=== PATIENT | male | born 1945 | race Caucasian/White ===

== ENCOUNTER 2018-09-29 10:53 | Inpatient (IN) | payer MEDICARE, OTHER ==
[~2018-09-29] VITALS: Ht 175.3 cm; Wt 58.0 kg
[2018-09-29] MEDS ORDERED: SODIUM CHLORIDE 0.9% 1L BAG IV* STA (10:59)
[2018-09-29] MEDS ORDERED: ALBUTEROL 0.5% (NEB) 2.5 MG/0.5 ML AMP INH STA (10:59)
[2018-09-29] MEDS ORDERED: ACETAMINOPHEN 650 MG SUPP PR STA (10:59)
[2018-09-29] MEDS ORDERED: IPRATROPIUM (NEB) 0.5 MG/2.5 ML AMP INH STA (10:59)
[2018-09-29] MEDS ORDERED: CEFEPIME 2GM/50 ML (PMX) 50 ML IVPB STA (10:59)
[2018-09-29] MEDS ORDERED: LIDOCAINE 1% (MPF) 5 ML VIAL SC ONE (11:00)
[2018-09-29] MEDS ORDERED: VANCOMYCIN 1 GM (PMX) 250 ML IVPB ONE (11:00)
[2018-09-29] MEDS ORDERED: ALBU2.5V3 NEB ×2 (13:17)
[2018-09-29] MEDS ORDERED: MAGN400O19 PO (13:18)
[2018-09-29] MEDS ORDERED: AMLO-147 PO (13:18)
[2018-09-29] MEDS ORDERED: BISA10SU55 RC (13:19)
[2018-09-29] MEDS ORDERED: PROT946L PO (13:20)
[2018-09-29] MEDS ORDERED: TRAZ-111 PO (13:20)
[2018-09-29] MEDS ORDERED: NOVO3I SC (13:28)
[2018-09-29] MEDS ORDERED: MULT-876 PO (13:29)
[2018-09-29] MEDS ORDERED: METO-429 PO (13:30)
[2018-09-29] MEDS ORDERED: HYDR-4011 PO (13:31)
[2018-09-29] MEDS ORDERED: HYDR-3671 PO (13:33)
[2018-09-29] MEDS ORDERED: HAL1 PO (13:34)
[2018-09-29] MEDS ORDERED: VALP250S3 PO (13:36)
[2018-09-29] MEDS ORDERED: NA P133E39 RC (13:37)
[2018-09-29] MEDS ORDERED: ACETAMINOPHEN 325 MG TAB PO PRN (14:00)
[2018-09-29] MEDS ORDERED: ONDANSETRON 4 MG INJ IV PRN (14:00)
--- NOTE | 2018-09-29 14:05 | ERD ---
ER Documentation Chief Complaint Chief Complaint BIB RA FOR EVAL OF SOB LOW O2 SAT HPI 73-year-old with chronic encephalopathy presents from group home facility for desaturations and shortness of breath. Patient is a full code with documentation upon arrival. Remainder of HPI is extremely limited. Unknown duration or severity. ROS Chronic encephalopathy Medications Home Meds Reported Medications Sodium Phosphate,Wells-Dibasic (Enema Ready To Use) 133 Ml Enema, 133 ML RC EVERY 72 HOURS PRN for CONSTIPATION, ENEMA 09/29/18 Valproic Acid* (Depakene*) 250 Mg/5 Ml Udc Syrup, 125 MG PO Q6, ML 09/29/18 Haloperidol* (Haldol*) 1 Mg Tab, 1 MG PO Q6, TAB 09/29/18 Hydralazine Hcl* (Hydralazine Hcl*) 25 Mg Tab, 25 MG PO BID PRN for ELEVATED BLOOD PRESSURE, #60 TAB HOLD IF SBP <110 OR HR<60 09/29/18 Hydrocodone/Acetaminophen (Lisman 5-325 Tablet) 1 Each Tablet, 1 EACH PO Q4 PRN for PAIN LEVEL 6-10, TAB 09/29/18 Metoprolol Tartrate* (Lopressor*) 50 Mg Tab, 50 MG PO BID, #60 TAB HOLD IF SBP <110 OR HR <60 09/29/18 Multivit-Min/Iron Fum/Folic AC (Glxvw-Gmsrhxc-Fnzdcmkx Tablet) 1 Each Tablet, 1 EACH PO DAILY, TAB 09/29/18 Insulin Aspart* (Novolog Insulin Pen*) 100 Unit/Ml Soln, 0 SC .SLIDING SCALE AC, EA 150-199 = 1 UNIT 200-249 = 2 UNITS 250-299 = 3 UNITS 300-349 = 4 UNITS 350-400 = 5 UNITS OVER 400 CALL MD [facility] AND AT BEDTIME 09/29/18 Protein Supplement (Promod) 946 Ml Liquid, 30 ML PO BID 09/29/18 Trazodone Hcl* (Trazodone Hcl*) 50 Mg Tablet, 50 MG PO QHS PRN for SLEEP, #30 TAB 09/29/18 Bisacodyl (Dulcolax) 10 Mg Supp.rect, 10 MG RC DAILY PRN for CONSTIPATION, SUPP.RECT 09/29/18 Magnesium Hydroxide* (Milk Of Magnesia*) 400 Mg/5 Ml Oral.susp, 30 ML PO DAILY PRN for CONSTIPATION, ML 09/29/18 Amlodipine Besylate* (Amlodipine Besylate*) 10 Mg Tablet, 10 MG PO DAILY, #30 TAB BP<110 OR HR <60 09/29/18 Albuterol Sulfate* (Albuterol Sulfate* Neb) 0.083%-3 Ml Neb, 2.5 MG NEB Q4H PRN for SHORTNESS OF BREATH, #30 VIAL 09/29/18 Albuterol Sulfate* (Albuterol Sulfate* Neb) 0.083%-3 Ml Neb, 2.5 MG NEB Q8 PRN for WHEEZING AND SOB, #30 VIAL 09/29/18 Allergies Allergies: Coded Allergies: No Known Allergy (Unverified , 09/29/18) PMhx/Soc Hx Psychiatric Problems: Yes Hx Alcohol Use: No Hx Substance Use: No Smoking Status: Never smoker FmHx Family History: other Physical Exam Vitals Vital Signs Date Temp Pulse Resp B/P (MAP) Pulse Ox O2 O2 Flow FiO2 Time Delivery Rate 09/29/18 100.9 114 20 126/77 99 Mask 13:13 (93) 09/29/18 130 32 132/80 99 Mask 11:51 (97) 09/29/18 Non 11:41 Rebreathe r 09/29/18 102.0 11:21 09/29/18 15.0 11:14 09/29/18 127 21 100 15.0 11:14 09/29/18 102.5 131 26 145/80 90 11:04 (101) Physical Exam General: Diaphoretic with slight increased work of breathing Head: Normocephalic, atraumatic. Eyes: Pupils equally reactive, EOM intact ENT: Moist mucous membranes Neck: Supple, no lymphadenopathy Respiratory: Wheezing slight increased work of breathing Cardiovascular: RRR, no murmurs, rubs, or gallops Abdominal: Soft, non-tender, non-distended, no peritoneal signs : Deferred MSK: No edema, no unilateral swelling Neurologic: Encephalopathic, limited exam Skin: No rash Psych: Normal mood Result Diagram: 09/29/18 1100 09/29/18 1100 Results 24 hrs Laboratory Tests Test 09/29/18 10:59 09/29/18 11:00 09/29/18 11:07 Blood Gas Specimen Source Blood arterial Arterial Blood Date Drawn 09/29/2018 11:35:11 AM Arterial Blood pH 7.433 (Temp corrected) Arterial Blood pCO2 33.7 mmhg (Temp correct) Arterial Blood pO2 72.4 mmHG (Temp corrected) Arterial Blood HCO3 22.0 mmol/L Arterial Blood Base Excess -1.5 mmol/L Arterial Blood 93.9 mmHG Oxygen Saturation Gian Test ACCEPTAB Arterial Blood Gas Left Radial Puncture Site Arterial 0.3 % Blood Carboxyhemoglobin Arterial Blood Methemoglobin 0.2 % Blood Gas A-a O2 606.9 mmHg Differential Oxyhemoglobin Percent 93.4 % Blood Gas Temperature 37.0 C Blood Gas Modality MASK - NRB FiO2 100.0 % Blood Gas Notified Whom MDA Blood Gas Notified Time 09/29/2018 11:37:42 AM White Blood Count 5.1 10^3/ul Red Blood Count 5.11 10^6/ul Hemoglobin 13.7 g/dl Hematocrit 42.8 % Mean Corpuscular Volume 83.8 fl Mean Corpuscular Hemoglobin 26.8 pg Mean Corpuscular 32.0 g/dl Hemoglobin Concent Red Cell Distribution Width 14.6 % Platelet Count 321 10^3/UL Mean Platelet Volume 10.5 fl Immature Granulocytes % 0.200 % Neutrophils % 91.5 % Segmented Neutrophils 70 % % (Manual) Band Neutrophils % (Manual) 20 % Lymphocytes % 5.7 % Lymphocytes % (Manual) 7 % Monocytes % 2.4 % Monocytes % (Manual) 3 % Eosinophils % 0.0 % Basophils % 0.2 % Nucleated Red Blood Cells % 0.0 /100WBC Immature Granulocytes # 0.010 10^3/ul Neutrophils # 4.6 10^3/ul Neutrophils # (Manual) 3.6 10^3/ul Band Neutrophils # 1.0 10^3/ul Lymphocytes (Manual) 0.3 10^3/ul Lymphocytes # 0.3 10^3/ul Monocytes # 0.1 10^3/ul Monocytes # (Manual) 0.1 10^3/ul Eosinophils # 0.0 10^3/ul Basophils # 0.0 10^3/ul Nucleated Red Blood Cells # 0.0 10^3/ul Platelet Estimate NORMAL Polychromasia 1+ Poikilocytosis 1+ Anisocytosis 1+ Prothrombin Time 13.8 Sec Prothrombin Time Ratio 1.1 INR International 1.05 Normalized Ratio Activated 28.3 Sec Partial Thromboplast Time Sodium Level 152 mmol/L Potassium Level 4.1 mmol/L Chloride Level 112 mmol/L Carbon Dioxide Level 23 mmol/L Anion Gap 17 Blood Urea Nitrogen 104 mg/dl Creatinine 3.09 mg/dl Est Glomerular Filtrat mL/min Rate mL/min Glucose Level 159 mg/dl Calcium Level 9.3 mg/dl Total Bilirubin 0.4 mg/dl Direct Bilirubin 0.00 mg/dl Indirect Bilirubin 0.4 mg/dl Aspartate Amino 16 IU/L Transf (AST/SGOT) Alanine 15 IU/L Aminotransferase (ALT/SGPT) Alkaline Phosphatase 60 IU/L Troponin I 0.060 ng/ml Total Protein 7.8 g/dl Albumin 4.1 g/dl Globulin 3.70 g/dl Albumin/Globulin Ratio 1.10 POC Venous Lactate 1.5 mmol/L Current Medications Medications Dose Sig/Manuel Start Time Status Last (Trade) Ordered Route PRN Stop Time Admin Dose Reason Admin Sodium 2,250 ml BOLUS OVER 2 09/29/18 DC 09/29/18 Chloride HOURS STAT 10:59 09/29/18 11:20 (NS) IV* 11:02 650 mg ONCE STAT 09/29/18 DC 09/29/18 Acetaminophen [place] 10:59 09/29/18 11:21 (Tylenol 11:02 Supp) Cefepime HCl 50 ml @ ONCE STAT 09/29/18 DC 09/29/18 100 mls/hr IVPB 10:59 09/29/18 11:20 11:28 Vancomycin 250 ml @ ONCE ONCE 09/29/18 DC 09/29/18 HCl 125 mls/hr IVPB 11:00 09/29/18 11:52 12:59 Albuterol 5 mg ONCE STAT 09/29/18 DC 09/29/18 (Proventil INH 10:59 09/29/18 11:09 0.5% (Neb)) 11:02 Ipratropium 1 mg ONCE STAT 09/29/18 DC 09/29/18 [place] INH 10:59 09/29/18 11:09 (Atrovent 11:02 0.02% (Neb)) Lidocaine 5 ml ONCE ONCE 09/29/18 DC (Xylocaine SC 11:00 09/29/18 1% (Mpf)) 11:02 Ondansetron 4 mg ER BRIDGE 09/29/18 HCl (Zofran PRN IV 14:00 09/30/18 Inj) NAUSEA/VOMITI 13:59 NG 650 mg ER BRIDGE 09/29/18 Acetaminophen PRN PO 14:00 09/30/18 (Tylenol .MILD PAIN 13:59 Tab) 1-3 OR TEMP Procedures/MDM EKG, MONITORS, & DIAGNOSTIC IMAGING: EKG: I reviewed and interpreted a 12-lead EKG. Rhythm: Normal sinus rhythm ST Changes: No contiguous ST segment elevations T waves: No contiguous T wave inversions Impression: No evidence of acute cardiac ischemia CXR IMPRESSION: 1. Patchy bilateral lower lobe air space disease, cannot exclude pneumonia in the appropriate clinical setting. RPTAT: AAPP LAB INTERPRETATION: I reviewed the laboratory testing and it shows normal lactic acid, renal insufficiency MEDICAL DECISION MAKING: Patient presents with cough congestion, fever and respiratory symptoms concerning for severe sepsis and likely pneumonia. Code sepsis initiated ER COURSE: * The patient received breathing treatments, 30 cc/kg bolus of saline, broad- spectrum antibiotics. The patient is improving with improved temperature and heart rate and respiratory drive. No indication for positive pressure ventilation or intubation. PICC line has been ordered and will be placed currently. CONSULTATION: None DISPOSITION PLAN: Accepting care team and consultations: I discussed the current laboratory data, diagnostic imaging and emergency care provided. Admitting team: Dr. Kraft Admitting team indication: Insurance directed Sepsis Documentation: Patient's infectious symptoms have not stabilized and the patient is at risk of rapid decompensation. The patient will be admitted for careful hydration, antibiotic therapy, and infectious source control. SEVERE SEPSIS CRITERIA: Infectious source: Healthcare associated pneumonia End organ damage indicated by: Acute Resp Failure (sat < 92% w/o oxygen) Project Management Intern > 2.0 SEPSIS MANAGEMENT Time of recognition of sepsis: Upon MD assessment. Time of recognition of severe sepsis: Upon MD assessment. Time of recognition of septic shock: No septic shock at this time. 3 HOUR BUNDLE Blood cultures x 2 before broad-spectrum antibiotics: Yes 30 ml/kg NS bolus completed Initial lactate less than 2 Repeat lactate pending repeat SEPTIC SHOCK ASSESSMENT: No lactic acid > 4.0 No persistent hypotension (SBP < 90 or 40 mmHg drop, MAP < 65) despite 30 mL/kg IV fluid bolus VOLUME REASSESSMENT FOR SEPTIC SHOCK: The patient does not meet criteria for septic shock in the emergency department at this time PERSISTENT HYPOTENSION TREATMENT: Comfort care no Central line PICC line Vasopressor started not required I considered further perfusion assessment with CVP measurement, SCVO2, bedside ultrasound volume assessment, passive leg raise, trial of further fluid bolus. And proceeded with 30 ml/kg fluid bolus of NSS, broad spectrum antibiotics, and admission. CRITICAL CARE Critical care time 35 minutes Emergent fluid management while maintaining close respiratory support. Provision of immediate and broad-spectrum antibiotic therapy. Simultaneous assessment for possible sources in order to direct targeted therapy. Consideration for invasive and chemical support to prevent cardiopulmonary collapse. Critical care time is independent of procedures performed. Departure Diagnosis: Primary Impression: Healthcare-associated pneumonia Additional Impressions: Severe sepsis Acute renal insufficiency Condition: Stable EVELYN FABIAN MD Sep 29, 2018 14:05
[2018-09-29] MEDS ORDERED: MAGNESIUM HYDROXIDE 30ML CUP PO PRN (15:00)
[2018-09-29] MEDS ORDERED: BISACODYL 10 MG SUPP PR PRN (15:00)
[2018-09-29] MEDS ORDERED: ALBUTEROL 0.083% (NEB) 2.5 MG/3 ML AMP NEB PRN (16:00)
[2018-09-29] MEDS ORDERED: VANCOMYCIN IV PER PHARMACY XX SCH (16:00)
[2018-09-29] MEDS ORDERED: GLUCOSE GEL 15 GRAM TUBE PO PRN ×2 (16:30)
[2018-09-29] MEDS ORDERED: VANCOMYCIN 500 MG (PMX) 100 ML IVPB ONE (16:30)
[2018-09-29] MEDS ORDERED: DEXTROSE 50% 50 ML SYRINGE IV PRN ×2 (16:30)
[2018-09-29] MEDS ORDERED: GLUCOSE GEL 15 GRAM TUBE BUCCAL PRN (16:30)
[2018-09-29] MEDS ORDERED: GLUCAGON 1 MG INJ IM PRN (16:30)
[2018-09-29] MEDS: SOD CHLORIDE 0.45% 1,000 ML IV SCH (16:52)
[2018-09-29] MEDS ORDERED: INSULIN ASPART [NOVOLOG] 3 ML PEN SC SCH (18:00)
--- NOTE | 2018-09-29 19:27 | CONS ---
DATE OF ADMISSION: 09/29/2018 DATE OF CONSULTATION: 09/29/2018 TYPE OF CONSULTATION: Infectious Disease. REASON FOR CONSULTATION: Antibiotic management. HISTORY OF PRESENT ILLNESS: Elan Michaud is a 73-year-old male brought in by ambulance for evaluat ion of shortness of breath and low oxygen saturation. The patient has a history of chronic encephalo angela, [facility] with des[facility] and shortness of breath. His past problems include: 1. Chronic encephalopathy. 2. Adult-onset diabetes mellitus. 3. Hypertension. 4. Chronic obstructive pulmonary disease. Acutely, the patient comes in. PAST MEDICAL HISTORY: Operations as outlined. FAMILY HISTORY: Noncontributory. SOCIAL HISTORY: He does not smoke, drink or abuse drugs. He has a psychiatric problem. MEDICATIONS: Per chart. ALLERGIES: NONE TO PENICILLIN, SULFA OR FOODS. REVIEW OF SYSTEMS: Noncontributory. PHYSICAL EXAMINATION: GENERAL: The patient has a temperature of 102.5. His vital signs otherwise are stable. SKIN: Diaphoretic without rash. HEENT: Within normal limits. NECK: Supple. LYMPH NODES: None palpable. CHEST: Decreased breath sounds at the bases. HEART: Without murmur or gallop. ABDOMEN: Soft, nontender, without organosplenomegaly or masses. EXTREMITIES: Without cyanosis, clubbing, or edema. RECTAL AND GENITAL: Exam is deferred. NEUROLOGIC: The patient is encephalopathic. ANCILLARY LABORATORY DATA: On admission, white count of 5.1, H and H of 13.7 and 42.8, platelet coun t 321,000. BUN and creatinine 104/3.09. The patient has 70% neutrophils and 20% bands consistent wi th left shift and infection. IMPRESSION AND PLAN: The patient was started on vancomycin and cefepime. Chest x-ray shows patchy b ilateral lower lobe airspace disease, cannot exclude pneumonia in the appropriate setting. The patient was admitted to Dr. Kraft. Blood cultures were done. Urine culture is pending. I latia l dictate my findings to Dr. Kraft. Dictated By: LEA GUTIERREZ MD, JD/RACHELL Conf#: [id number] DID#: [id number]
[2018-09-29 20:01] VITALS: PULSE 114
--- NOTE | 2018-09-29 20:05 | HP ---
DATE OF ADMISSION: 09/29/2018 CHIEF COMPLAINT: Sepsis and respiratory failure. HISTORY OF PRESENT ILLNESS: This is a 73-year-old male with a past medical history of diabetes, hist ory of behavioral disorder, history of bipolar disorder, history of hypertension, history of constipa tion who presents to [facility] from a skilled nurse facility due to shortness of b reath. The patient upon arrival to the emergency room was unable to provide any history. History is obtained by reviewing medical records, speaking to hospital staff. The patient apparently was desat urating at a skilled nurse facility. Upon arrival was on BiPAP. The patient in the emergency room h ad a laboratory data drawn and chest x-ray which showed evidence of bilateral lower airspace disease, possible pneumonia. The patient also was noted to have white count of 5.1. In the emergency room, the patient was given antibiotics, IV hydration. In terms of patient's renal history, the patient's baseline renal function is currently unknown. On admission, the patient had elevated BUN of 104 and creatinine 3.09. There were no reports of any hem optysis, hematemesis or hematochezia. PAST MEDICAL HISTORY: As stated above, history of hypertension, history of diabetes, history of beha vioral mood disorder, history of insomnia, history of constipation. ALLERGIES: NO KNOWN DRUG ALLERGIES. FAMILY HISTORY: Noncontributory. SOCIAL HISTORY: Lives at a skilled nurse facility. MEDICATIONS: The patient's medications has been reviewed and reconciled. REVIEW OF SYSTEMS: Unable to do adequate review of systems as the patient is altered. Pertinent pos itives have been obtained by reviewing medical records, speaking to hospital staff, stated in the HPI , otherwise negative. PHYSICAL EXAMINATION: VITAL SIGNS: Blood pressure is 162/76, respirations 33, pulse 107, temperature 99.1. HEENT: Head is normocephalic. NECK: Supple. HEART: Regular rate. LUNGS: Show diminished breath sounds at the base. ABDOMEN: Soft, nontender to palpation without rebound or guarding. EXTREMITIES: Negative for clubbing, cyanosis, no edema. DERMATOLOGIC: No rashes. MUSCULOSKELETAL: No joint effusions. NEUROLOGIC: No focal deficits, although exam is somewhat limited. LABORATORY DATA: Has been reviewed. Urinalysis has been reviewed. IMAGING STUDIES: Have been reviewed. ASSESSMENT AND PLAN: This is a 73-year-old male who presents with: 1. Acute hypoxemic respiratory failure. Etiology is concerning for possible pneumonia, healthcare-a ssociated versus aspiration. The patient's chest x-ray shows evidence of lower space disease. Plan at this point is to continue the patient on a nonrebreather. Continue BiPAP. We will continue antib iotic therapy, Continue nebulizers. We will place a pulmonary consult for evaluation and monitor rocio sely. 2. Sepsis, believed to be secondary to healthcare-associated pneumonia, aspiration pneumonia. Ember nue current antibiotic regimen. Continue to trend lactic acid levels. Continue IV fluids. We will place an ID consult for antibiotic management. 3. Nonoliguric acute kidney injury with unknown baseline creatinine. Etiology is unclear. Differen tial is broad including septic acute kidney injury, hemodynamics, possible tubular injury. The patie nt's urinalysis was reviewed. Plan at this point is to check a renal ultrasound to rule out obstruct ion. We will place a Gorman catheter. Continue IV fluids, IV antibiotics, and monitor renal function closely. 4. Hypernatremia. The patient has a free water deficit of approximately 3 liters, will continue. E tiology is likely due to insensible losses and decreased oral intake. Plan is to continue hypertonic fluids, monitor sodium levels closely. 5. Acute encephalopathy, etiology is likely toxic metabolic. Continue to monitor. Consider CT scan of the brain if no significant clinical improvement. 6. History of behavioral disorder, bipolar disorder. We will hold the patient's antipsychotic medic ations at this time as he is currently altered. We will monitor closely. Consider psychiatric evalu ation. 7. Diabetes. The patient will be placed on Accu-Cheks, insulin sliding scale. Monitor sodium level s closely. 8. Hypertension. Continue current blood pressure regimen. 9. Gastrointestinal and deep venous thrombosis prophylaxis. Dictated By: GLADIS ALICIA DO NR/NTS Conf#: [id number] DID#: [id number] CC: CONCEPCION HANKS MD;*End*
[2018-09-29 22:00] VITALS: BP 140/71; PULSE 100; RESP 20; Ht 175.3 cm; Wt 58.0 kg
[2018-09-30] VITALS (9 sets, daily range): BP systolic 109–138; BP diastolic 67–77; PULSE 72–120; RESP 17–20
[2018-09-30] MEDS: SOD CHLORIDE 0.45% 1,000 ML IV SCH ×4 (01:00→23:35)
[2018-09-30] MEDS ORDERED: PENDING SANTYL ORDER FOR WOUND CARE XX PRN (05:00)
--- NOTE | 2018-09-30 08:35 | CONS ---
Assessment/Plan Assessment/Plan Hospital Course (Demo Recall) 1. Acute hypoxemic respiratory failure 2. Pneumonia 3. History of diabetes 4. Acute renal failure 5. Encephalopathy and behavioral disorder 6. History of bipolar disorder Recommendations: Antibiotic management as per internal medicine and infectious disease consultants. Continue with oxygen supplement respiratory care Telemetry monitoring for the time being Echocardiogram has been ordered to evaluate for LV function Baseline EKG will be obtained as well Diabetic management/insulin as per internal medicine Thank you for this referral. We will continue to follow along with you ORLANDO LAW MD [facility] Consultation Date/Type/Reason Admit Date/Time Sep 29, 2018 at 13:57 Date of Consultation: Sep 30, 2018 Type of Consult Cardiology Reason for Consultation resp failure Requesting Provider: GLADIS ALICIA DO Date/Time of Note DATE: 09/30/18 TIME: 08:30 Hx of Present Illness Interventional cardiology consultation note Chief complaint: Respiratory failure/hypoxemia Reason for consult: Respiratory failure History of present illness: Thank you for this referral. History was obtained from discussion with the staff and physician review of the chart review of the old chart. Patient was able not able to provide any history to me This is a 73-year-old male with a history of diabetes, history of behavioral disorder, history of bipolar disorder, history of hypertension, history of constipation who presents to [facility] from a skilled nurse facility due to increasing shortness of breath/congestion hypoxemia. The patient has not been able to to provide any history. History is obtained by reviewing medical records, speaking to hospital staff. The patient apparently was desaturating at a skilled nurse facility. Upon arrival was on BiPAP. He was also noted to be in acute renal failure with creatinine above 3. He has been placed on IV fluid as well as antibiotic. Currently on high flow oxygen. Patient does not answer my questions PAST MEDICAL HISTORY: As stated above, history of hypertension, history of diabetes, history of behavioral mood disorder, history of insomnia, history of constipation. ALLERGIES: NO KNOWN DRUG ALLERGIES. FAMILY HISTORY: No reported history of early coronary artery disease SOCIAL HISTORY: Lives at a skilled nurse facility. No active smoking as far as I can obtain Medications were reviewed as per medical reconciliation sheet Review of system: Patient denies all others except for above-mentioned Past Medical History Home Meds Reported Medications Sodium Phosphate,Nicholas-Dibasic (Enema Ready To Use) 133 Ml Enema, 133 ML RC EVERY 72 HOURS PRN for CONSTIPATION, ENEMA 09/29/18 Valproic Acid* (Depakene*) 250 Mg/5 Ml Udc Syrup, 125 MG PO Q6, ML 09/29/18 Haloperidol* (Haldol*) 1 Mg Tab, 1 MG PO Q6, TAB 09/29/18 Hydralazine Hcl* (Hydralazine Hcl*) 25 Mg Tab, 25 MG PO BID PRN for ELEVATED BLOOD PRESSURE, #60 TAB HOLD IF SBP <110 OR HR<60 09/29/18 Hydrocodone/Acetaminophen (Estero 5-325 Tablet) 1 Each Tablet, 1 EACH PO Q4 PRN for PAIN LEVEL 6-10, TAB 09/29/18 Metoprolol Tartrate* (Lopressor*) 50 Mg Tab, 50 MG PO BID, #60 TAB HOLD IF SBP <110 OR HR <60 09/29/18 Multivit-Min/Iron Fum/Folic AC (Xrity-Psnkzni-Lnmnkegp Tablet) 1 Each Tablet, 1 EACH PO DAILY, TAB 09/29/18 Insulin Aspart* (Novolog Insulin Pen*) 100 Unit/Ml Soln, 0 SC .SLIDING SCALE AC, EA 150-199 = 1 UNIT 200-249 = 2 UNITS 250-299 = 3 UNITS 300-349 = 4 UNITS 350-400 = 5 UNITS OVER 400 CALL MD VANCE MEALS AND AT BEDTIME 09/29/18 Protein Supplement (Promod) 946 Ml Liquid, 30 ML PO BID 09/29/18 Trazodone Hcl* (Trazodone Hcl*) 50 Mg Tablet, 50 MG PO QHS PRN for SLEEP, #30 TAB 09/29/18 Bisacodyl (Dulcolax) 10 Mg Supp.rect, 10 MG RC DAILY PRN for CONSTIPATION, SUPP.RECT 09/29/18 Magnesium Hydroxide* (Milk Of Magnesia*) 400 Mg/5 Ml Oral.susp, 30 ML PO DAILY PRN for CONSTIPATION, ML 09/29/18 Amlodipine Besylate* (Amlodipine Besylate*) 10 Mg Tablet, 10 MG PO DAILY, #30 TAB BP<110 OR HR <60 09/29/18 Albuterol Sulfate* (Albuterol Sulfate* Neb) 0.083%-3 Ml Neb, 2.5 MG NEB Q4H PRN for SHORTNESS OF BREATH, #30 VIAL 09/29/18 Albuterol Sulfate* (Albuterol Sulfate* Neb) 0.083%-3 Ml Neb, 2.5 MG NEB Q8 PRN f or WHEEZING AND SOB, #30 VIAL 09/29/18 Medications Current Medications Albuterol (Proventil 0.083% (Neb)) 2.5 mg Q4H RESP THERAPY PRN NEB SHORTNESS OF BREATH; Start 09/29/18 at 15:00 Albuterol (Proventil 0.083% (Neb)) 2.5 mg Q8H RESP THERAPY PRN NEB WHEEZING AND SOB; Start 09/29/18 at 16:00 Bisacodyl (Dulcolax Supp) 10 mg DAILY PRN FL CONSTIPATION; Start 09/29/18 at 15:00 Hydralazine HCl (Apresoline) 25 mg BID PRN PO ELEVATED BLOOD PRESSURE; Start 09/29/18 at 15:00; Status UNV Magnesium Hydroxide (Milk Of Mag) 30 ml DAILY PRN PO CONSTIPATION; Start 09/29/18 at 15:00 Sodium Chloride 1,000 ml @ 100 mls/hr Q10H IV Last administered on 09/30/18at 01:00; Admin Dose 100 MLS/HR; Start 09/29/18 at 15:00 Vancomycin HCl (Vanco Iv Per Pharmacy) VANCOMYCIN PER PHARMACY PER PROTOCOL XX ; Start 09/29/18 at 16:00 Cefepime HCl 50 ml @ 100 mls/hr Q24H IVPB Last administered on 09/30/18at 08:17; Admin Dose 100 MLS/HR; Start 09/30/18 at 09:00 IV Flush (NS 10 ml) 10 ml Q8 IV Last administered on 09/30/18at 04:53; Admin Dose 10 ML; Start 09/29/18 at 22:00 Insulin Aspart (Novolog Insulin Pen) NOVOLOG *MILD* ALGORITHM WITH MEALS BEDTIME SC ; Start 09/29/18 at 18:00 Miscellaneous Information 1 ea NOTE XX ; Start 09/29/18 at 16:30 Glucose (Glutose) 15 gm Q15M PRN PO DECREASED GLUCOSE; Start 09/29/18 at 16:30 Glucose (Glutose) 22.5 gm Q15M PRN PO DECREASED GLUCOSE; Start 09/29/18 at 16:30 Dextrose (D50w Syringe) 25 ml Q15M PRN IV DECREASED GLUCOSE; Start 09/29/18 at 16:30 Dextrose (D50w Syringe) 50 ml Q15M PRN IV DECREASED GLUCOSE; Start 09/29/18 at 16:30 Glucagon (Glucagen) 1 mg Q15M PRN IM DECREASED GLUCOSE; Start 09/29/18 at 16:30 Glucose (Glutose) 15 gm Q15M PRN BUCCAL DECREASED GLUCOSE; Start 09/29/18 at 16:30 [facility]isc[facility] This patient saini... PRN PRN XX WOUND CARE; Start 09/30/18 at 05:00 Allergies: Coded Allergies: No Known Allergy (Unverified , 09/29/18) Social History Smoking Status: Unknown if ever smoked Exam/Review of Systems Vital Signs Vitals Vital Signs Date Temp Pulse Resp B/P (MAP) Pulse Ox O2 O2 Flow FiO2 Time Delivery Rate 09/30/18 100.9 112 17 134/67 88 07:42 (89) 09/30/18 80 04:20 09/29/18 Nasal 22:30 Cannula 09/29/18 15.0 11:14 Intake and Output 09/29/18 09/29/18 09/30/18 1515:00 23:00 07:00 OutputOutput Total 300 ml BalanceBalance -300 ml Exam Exam General: Elderly gentleman in mild respiratory distress on high flow oxygen. 80% now HEENT: NC/AT. Eyes are closed NECK: NO JVD. no stridor. CV: RRR. systolic murmur; no gallop or rubs. PULM: Diffuse rhonchi no wheezes. GI: SOFT, NT, ND, no rebound or guarding Extremity: trace B/L LE edema. no clubbing. neuro: Lethargic sleeping Psych: calm rectal: deferred Chest x-ray shows: Patchy bilateral lower lobe air space disease, cannot exclude pneumonia in the appropriate clinical setting. Labs Result Diagram: 09/30/18 0553 09/30/18 0553 Results 24hrs Laboratory Tests Test 09/29/18 10:59 09/29/18 11:00 09/29/18 11:07 09/29/18 13:46 Blood Gas Specimen Blood arterial Source Arterial Blood 09/29/2018 11:35:11 Date Drawn AM Arterial Blood pH 7.433 (Temp corrected) Arterial Blood 33.7 L pCO2 (Temp correct) Arterial Blood pO2 72.4 L (Temp corrected) Arterial Blood 22.0 HCO3 Arterial Blood -1.5 Base Excess Arterial Blood 93.9 L Oxygen Saturation Gian Test ACCEPTAB Arterial Blood Gas Left Radial Puncture Site Arterial 0.3 Blood Carboxyhemog lobin Arterial Blood 0.2 Methemoglobin Blood Gas A-a O2 606.9 H Differential Oxyhemoglobin 93.4 Percent Blood Gas 37.0 Temperature Blood Gas Modality MASK - NRB FiO2 100.0 Blood Gas Notified MDA Whom Blood Gas Notified 09/29/2018 11:37:42 Time AM White Blood Count 5.1 Red Blood Count 5.11 Hemoglobin 13.7 L Hematocrit 42.8 Mean Corpuscular 83.8 Volume Mean Corpuscular 26.8 L Hemoglobin Mean Corpuscular 32.0 Hemoglobin Concent Red Cell 14.6 H Distribution Width Platelet Count 321 Mean Platelet 10.5 H Volume Immature 0.200 Granulocytes % Neutrophils % 91.5 H Segmented 70 Neutrophils % (Manual) Band Neutrophils % 20 H (Manual) Lymphocytes % 5.7 L Lymphocytes % 7 L (Manual) Monocytes % 2.4 Monocytes % 3 (Manual) Eosinophils % 0.0 Basophils % 0.2 Nucleated Red 0.0 Blood Cells % Immature 0.010 Granulocytes # Neutrophils # 4.6 Neutrophils # 3.6 (Manual) Band Neutrophils # 1.0 H Lymphocytes 0.3 L (Manual) Lymphocytes # 0.3 L Monocytes # 0.1 L Monocytes # 0.1 L (Manual) Eosinophils # 0.0 Basophils # 0.0 Nucleated Red 0.0 Blood Cells # Platelet Estimate NORMAL Polychromasia 1+ Poikilocytosis 1+ Anisocytosis 1+ Prothrombin Time 13.8 Prothrombin Time 1.1 Ratio INR International 1.05 Normalized Ratio Activated 28.[address] Time Sodium Level 152 H Potassium Level 4.1 Chloride Level 112 H Carbon Dioxide 23 Level Anion Gap 17 H Blood Urea 104 H Nitrogen Creatinine 3.09 H Est Glomerular Filtrat Rate mL/min Glucose Level 159 Calcium Level 9.3 Total Bilirubin 0.4 Direct Bilirubin 0.00 Indirect Bilirubin 0.4 Aspartate Amino 16 Transf (AST/SGOT) Alanine 15 Aminotransferase ( ALT/SGPT) Alkaline 60 Phosphatase Troponin I 0.060 Total Protein 7.8 Albumin 4.1 Globulin 3.70 H Albumin/Globulin 1.10 Ratio POC Venous Lactate 1.5 Urine Color AMY Urine Clarity CLOUDY A Urine pH 5.0 Urine Specific 1.020 [place] Urine Ketones NEGATIVE Urine Nitrite NEGATIVE Urine Bilirubin NEGATIVE Urine Urobilinogen 1+ H Urine Leukocyte NEGATIVE Esterase Urine Microscopic 98 H RBC Urine Microscopic 4 WBC Urine Bacteria FEW A Urine Yeast MODERATE A (Budding) Urine Hemoglobin 2+ H Urine Random 252.13 Creatinine Urine Random < 13 L Sodium Urine Glucose NEGATIVE Urine Total 56.0 H Protein Lactic Acid Level 2.3 *H Test 09/29/18 16:33 09/30/18 05:53 09/30/18 06:09 09/30/18 07:45 Lactic Acid Level 2.6 *H White Blood Count 4.2 L Red Blood Count 4.81 Hemoglobin 12.9 L Hematocrit 41.6 L Mean Corpuscular 86.5 Volume Mean Corpuscular 26.8 L Hemoglobin Mean Corpuscular 31.0 L Hemoglobin Concent Red Cell 15.0 H Distribution Width Platelet Count 245 # Mean Platelet 10.9 H Volume Immature 0.200 Granulocytes % Neutrophils % 89.4 H Segmented 61 Neutrophils % (Manual) Band Neutrophils % 20 H (Manual) Lymphocytes % 7.1 L Lymphocytes % 10 L (Manual) Reactive 1 H Lymphocytes % (Manual) Monocytes % 2.6 Monocytes % 8 (Manual) Eosinophils % 0.0 Basophils % 0.7 Nucleated Red 0.0 Blood Cells % Immature 0.010 Granulocytes # Neutrophils # 3.8 Neutrophils # 2.6 (Manual) Band Neutrophils # 0.8 H Lymphocytes 0.4 L (Manual) Lymphocytes # 0.3 L Reactive 0.0 Lymphocytes # Monocytes # 0.1 L Monocytes # 0.3 (Manual) Eosinophils # 0.0 Basophils # 0.0 Nucleated Red 0.0 Blood Cells # Platelet Estimate NORMAL Poikilocytosis 2+ Spherocytes 1+ Sodium Level 156 H Potassium Level 3.3 L Chloride Level 122 H Carbon Dioxide 23 Level Anion Gap 11 Blood Urea 85 H Nitrogen Creatinine 1.71 #H Est Glomerular Filtrat Rate mL/min Glucose Level 110 # Calcium Level 8.5 Phosphorus Level 3.8 Magnesium Level 2.9 H Prealbumin 10.3 L Bedside Glucose 95 99 Medications Medications Current Medications Albuterol (Proventil 0.083% (Neb)) 2.5 mg Q4H RESP THERAPY PRN NEB SHORTNESS OF BREATH; Start 09/29/18 at 15:00 Albuterol (Proventil 0.083% (Neb)) 2.5 mg Q8H RESP THERAPY PRN NEB WHEEZING AND SOB; Start 09/29/18 at 16:00 Bisacodyl (Dulcolax Supp) 10 mg DAILY PRN [place] CONSTIPATION; Start 09/29/18 at 15:00 Hydralazine HCl (Apresoline) 25 mg BID PRN PO ELEVATED BLOOD PRESSURE; Start 09/29/18 at 15:00; Status UNV Magnesium Hydroxide (Milk Of Mag) 30 ml DAILY PRN PO CONSTIPATION; Start 09/29/18 at 15:00 Sodium Chloride 1,000 ml @ 100 mls/hr Q10H IV Last administered on 09/30/18at 01:00; Admin Dose 100 MLS/HR; Start 09/29/18 at 15:00 Vancomycin HCl (Vanco Iv Per Pharmacy) VANCOMYCIN PER PHARMACY PER PROTOCOL XX ; Start 09/29/18 at 16:00 Cefepime HCl 50 ml @ 100 mls/hr Q24H IVPB Last administered on 09/30/18at 08:17; Admin Dose 100 MLS/HR; Start 09/30/18 at 09:00 IV Flush (NS 10 ml) 10 ml Q8 IV Last administered on 09/30/18at 04:53; Admin Dose 10 ML; Start 09/29/18 at 22:00 Insulin Aspart (Novolog Insulin Pen) NOVOLOG *MILD* ALGORITHM WITH MEALS BEDTIME SC ; Start 09/29/18 at 18:00 Miscellaneous Information 1 ea NOTE XX ; Start 09/29/18 at 16:30 Glucose (Glutose) 15 gm Q15M PRN PO DECREASED GLUCOSE; Start 09/29/18 at 16:30 Glucose (Glutose) 22.5 gm Q15M PRN PO DECREASED GLUCOSE; Start 09/29/18 at 16:30 Dextrose (D50w Syringe) 25 ml Q15M PRN IV DECREASED GLUCOSE; Start 09/29/18 at 16:30 Dextrose (D50w Syringe) 50 ml Q15M PRN IV DECREASED GLUCOSE; Start 09/29/18 at 16:30 Glucagon (Glucagen) 1 mg Q15M PRN IM DECREASED GLUCOSE; Start 09/29/18 at 16:30 Glucose (Glutose) 15 gm Q15M PRN BUCCAL DECREASED GLUCOSE; Start 09/29/18 at 16:30 Miscellaneous Information (Pending [facility]yl Order For Wound Care) This patient saini... PRN PRN XX WOUND CARE; Start 09/30/18 at 05:00 ORLANDO LAW MD Sep 30, 2018 08:35
[2018-09-30] MEDS ORDERED: CEFEPIME 1GM/50 ML (PMX) 50 ML IVPB SCH (09:00)
[2018-09-30] MEDS: POTASSIUM CHLORIDE (SR) 20 MEQ TAB PO STA ×2 (09:01→09:08)
--- NOTE | 2018-09-30 09:21 | PN ---
DATE: 09/30/2018 SUBJECTIVE: The patient remains in serious condition, currently on Vapotherm. Overnight, no other a cute events noted. No hemoptysis, hematemesis or hematochezia. OBJECTIVE: VITAL SIGNS: Blood pressure is 134/67, respirations 17, pulse 112, temperature 100.9. HEENT: Head is normocephalic. NECK: Supple. HEART: Regular rate. LUNGS: Show diminished breath sounds at the base. ABDOMEN: Soft, nontender to palpation without rebound or guarding. EXTREMITIES: Negative for clubbing, cyanosis, no edema. DERMATOLOGIC: No rashes. MUSCULOSKELETAL: No joint effusion. NEUROLOGIC: No change in exam. MEDICATIONS: Have been reviewed. LABORATORY DATA: Has been reviewed. Lactic acid has been reviewed. The patient's blood cultures we re positive. IMAGING STUDIES: Chest x-ray was reviewed. Renal ultrasound was reviewed. ASSESSMENT AND PLAN: 1. Acute hypoxemic respiratory failure. Etiology is secondary to pneumonia, likely healthcare-assoc iated. The patient currently remains on high flow oxygen. Will continue current treatment plan. Co ntinue nebulizers. Continue antibiotics. Follow up with pulmonary. 2. Sepsis secondary to healthcare-associated pneumonia. The patient's blood cultures are positive f or gram-positive cocci. Will continue current antibiotic regimen. Will follow up final speciation c ultures. Continue to trend lactic acid levels. Continue IV fluids and monitor closely. 3. Nonoliguric kidney injury with unknown baseline creatinine. Etiology is secondary to volume depl etion, dehydration, sepsis. The patient's urinalysis was reviewed. The patient had a FENa of less t arias 1%, consistent with prerenal etiology. The patient's renal function has been improving. Continu e current medical management. Continue IV hydration. 4. Hypernatremia. The patient has free water deficit of approximately 4 liters. Etiology is likely due to insensible losses, decreased oral intake. Will increase the rate of hypotonic fluid and rebeca tor closely. 5. Acute encephalopathy. Etiology is toxic metabolic. Continue to monitor. Consider a CT scan of brain. 6. History of behavior disorder, bipolar disorder. Continue to monitor closely. Hold psychotropic medications at this time. 7. Diabetes. Continue current insulin regimen. 8. Hypertension. Continue current blood pressure regimen. 9. Deep venous thrombosis prophylaxis. 10. Hypokalemia. Will replete with potassium chloride. Dictated By: GLADIS GREENBERG/RACHELL Conf#: [id number] DID#: [id number]
--- NOTE | 2018-09-30 09:59 | CONS ---
Assessment/Plan Assessment/Plan Assessment/Plan (Daily) Patient is currently on high flow nasal cannula at 80% FiO2 30 L/min. Assessment and recommendations; 1. Patient admitted with hypoxemia likely due to pneumonia currently on appropriate antimicrobial regimen. 2. Hyponatremia, currently on free water replacement. 3. Apparent possibly chronic renal insufficiency versus acute. 4. Intravascular volume repletion. 5. Dementia with bipolar disorder. 6. History of hypertension. Continue current supportive care. Monitor renal function as well as serum sodium level. Obtain follow-up chest x-ray in 24 hours. Continue high flow nasal cannula for now. Consultation Date/Type/Reason Admit Date/Time Sep 29, 2018 at 13:57 Date of Consultation: Sep 30, 2018 Type of Consult Pulmonary Pulmonary consult requested for evaluation of hypoxemia. Patient is a 73-year-old male who is a senior care resident who was sent over to the hospital because of hypoxemia. Upon evaluation chest x-ray was done which has been interpreted as showing possible bibasilar pneumonia. Vision has been started on appropriate empiric antimicrobial regimen. The patient has apparently fairly advanced dementia and was not able to give any meaningful history by himself. Patient however was awake and did not appear to be in any distress whatsoever. Past medical history; 1. Dementia 2. Bipolar disorder. 3. Chronic renal insufficiency. 4. History of hypertension. Medications; reviewed. Allergies; none. Social history, family history, occupational history is not available. Review of system; unable to be obtained. General exam; elderly male, awake and lethargic. Currently in no distress. Date/Time of Note DATE: 09/30/18 TIME: 09:56 Past Medical History Home Meds Reported Medications Sodium Phosphate,Garden-Dibasic (Enema Ready To Use) 133 Ml Enema, 133 ML RC EVERY 72 HOURS PRN for CONSTIPATION, ENEMA 09/29/18 Valproic Acid* (Depakene*) 250 Mg/5 Ml Udc Syrup, 125 MG PO Q6, ML 09/29/18 Haloperidol* (Haldol*) 1 Mg Tab, 1 MG PO Q6, TAB 09/29/18 Hydralazine Hcl* (Hydralazine Hcl*) 25 Mg Tab, 25 MG PO BID PRN for ELEVATED BLOOD PRESSURE, #60 TAB HOLD IF SBP <110 OR HR<60 09/29/18 Hydrocodone/Acetaminophen ([place] 5-325 Tablet) 1 Each Tablet, 1 EACH PO Q4 PRN for PAIN LEVEL 6-10, TAB 09/29/18 Metoprolol Tartrate* (Lopressor*) 50 Mg Tab, 50 MG PO BID, #60 TAB HOLD IF SBP <110 OR HR <60 09/29/18 Multivit-Min/Iron Fum/Folic AC (Rspyq-Stvdquq-Phmsxoxh Tablet) 1 Each Tablet, 1 EACH PO DAILY, TAB 09/29/18 Insulin Aspart* (Novolog Insulin Pen*) 100 Unit/Ml Soln, 0 SC .SLIDING SCALE AC, EA 150-199 = 1 UNIT 200-249 = 2 UNITS 250-299 = 3 UNITS 300-349 = 4 UNITS 350-400 = 5 UNITS OVER 400 CALL MD [facility] MEALS AND AT BEDTIME 09/29/18 Protein Supplement (Promod) 946 Ml Liquid, 30 ML PO BID 09/29/18 Trazodone Hcl* (Trazodone Hcl*) 50 Mg Tablet, 50 MG PO QHS PRN for SLEEP, #30 TAB 09/29/18 Bisacodyl (Dulcolax) 10 Mg Supp.rect, 10 MG RC DAILY PRN for CONSTIPATION, SUPP.RECT 09/29/18 Magnesium Hydroxide* (Milk Of Magnesia*) 400 Mg/5 Ml Oral.susp, 30 ML PO DAILY PRN for CONSTIPATION, ML 09/29/18 Amlodipine Besylate* (Amlodipine Besylate*) 10 Mg Tablet, 10 MG PO DAILY, #30 TAB BP<110 OR HR <60 09/29/18 Albuterol Sulfate* (Albuterol Sulfate* Neb) 0.083%-3 Ml Neb, 2.5 MG NEB Q4H PRN for SHORTNESS OF BREATH, #30 VIAL 09/29/18 Albuterol Sulfate* (Albuterol Sulfate* Neb) 0.083%-3 Ml Neb, 2.5 MG NEB Q8 PRN for WHEEZING AND SOB, #30 VIAL 09/29/18 Medications Current Medications Albuterol (Proventil 0.083% (Neb)) 2.5 mg Q4H RESP THERAPY PRN NEB SHORTNESS OF BREATH; Start 09/29/18 at 15:00 Albuterol (Proventil 0.083% (Neb)) 2.5 mg Q8H RESP THERAPY PRN NEB WHEEZING AND SOB; Start 09/29/18 at 16:00 Bisacodyl (Dulcolax Supp) 10 mg DAILY PRN [place] CONSTIPATION; Start 09/29/18 at 15:00 Hydralazine HCl (Apresoline) 25 mg BID PRN PO ELEVATED BP; SBP > 160; Start 09/29/18 at 15:00 Magnesium Hydroxide (Milk Of Mag) 30 ml DAILY PRN PO CONSTIPATION; Start 09/29/18 at 15:00 Sodium Chloride 1,000 ml @ 150 mls/hr Q6H40M IV Last administered on 09/30/18at 09:00; Admin Dose 150 MLS/HR; Start 09/29/18 at 15:00 Vancomycin HCl (Vanco Iv Per Pharmacy) VANCOMYCIN PER PHARMACY PER PROTOCOL XX ; Start 09/29/18 at 16:00 Cefepime HCl 50 ml @ 100 mls/hr Q24H IVPB Last administered on 09/30/18at 08:17; Admin Dose 100 MLS/HR; Start 09/30/18 at 09:00 IV Flush (NS 10 ml) 10 ml Q8 IV Last administered on 09/30/18at 04:53; Admin Dose 10 ML; Start 09/29/18 at 22:00 Insulin Aspart (Novolog Insulin Pen) NOVOLOG *MILD* ALGORITHM WITH MEALS BEDTIME SC ; Start 09/29/18 at 18:00 Miscellaneous Information 1 ea NOTE XX ; Start 09/29/18 at 16:30 Glucose (Glutose) 15 gm Q15M PRN PO DECREASED GLUCOSE; Start 09/29/18 at 16:30 Glucose (Glutose) 22.5 gm Q15M PRN PO DECREASED GLUCOSE; Start 09/29/18 at 16:30 Dextrose (D50w Syringe) 25 ml Q15M PRN IV DECREASED GLUCOSE; Start 09/29/18 at 16:30 Dextrose (D50w Syringe) 50 ml Q15M PRN IV DECREASED GLUCOSE; Start 09/29/18 at 16:30 Glucagon (Glucagen) 1 mg Q15M PRN IM DECREASED GLUCOSE; Start 09/29/18 at 16:30 Glucose (Glutose) 15 gm Q15M PRN BUCCAL DECREASED GLUCOSE; Start 09/29/18 at 16:30 Miscellaneous Information (Pending [facility] Order For Wound Care) This patient saini... PRN PRN XX WOUND CARE; Start 09/30/18 at 05:00 Potassium Chloride 100 ml @ 50 mls/hr Q2H IVPB ; Start 09/30/18 at 09:30; Stop 09/30/18 at 13:29 Allergies: Coded Allergies: No Known Allergy (Unverified , 09/29/18) Social History Smoking Status: Unknown if ever smoked Exam/Review of Systems Exam Vitals Vital Signs Date Temp Pulse Resp B/P (MAP) Pulse Ox O2 O2 Flow FiO2 Time Delivery Rate 09/30/18 110 08:01 09/30/18 Vapotherm 08:00 09/30/18 100.9 17 134/67 88 07:42 (89) 09/30/18 80 04:20 09/29/18 15.0 11:14 Intake and Output 09/29/18 09/29/18 09/30/18 1515:00 23:00 07:00 OutputOutput Total 300 ml BalanceBalance -300 ml Exam H ENT exam; supple neck, no JVD. No lymphadenopathy. Midline trachea. No thyromegaly. Patient has fair dentition. On high flow nasal cannula. Chest exam; diminished but clear breath sounds. No added sounds. S1-S2 audible, no murmurs. Regular rhythm. Abdomen exam; soft, nondistended. Nontender. No organomegaly. Bowel sounds audible. Extremity exam; no peripheral edema clubbing. 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 Results Result Diagram: 09/30/18 0553 09/30/18 0553 Results 24hrs Laboratory Tests Test 09/29/18 10:59 09/29/18 11:00 09/29/18 11:07 09/29/18 13:46 Blood Gas Specimen Blood arterial Source Arterial Blood 09/29/2018 11:35:11 Date Drawn AM Arterial Blood pH 7.433 (Temp corrected) Arterial Blood 33.7 L pCO2 (Temp correct) Arterial Blood pO2 72.4 L (Temp corrected) Arterial Blood 22.0 HCO3 Arterial Blood -1.5 Base Excess Arterial Blood 93.9 L Oxygen Saturation Gian Test ACCEPTAB Arterial Blood Gas Left Radial Puncture Site Arterial 0.3 Blood Carboxyhemog lobin Arterial Blood 0.2 Methemoglobin Blood Gas A-a O2 606.9 H Differential Oxyhemoglobin 93.4 Percent Blood Gas 37.0 Temperature Blood Gas Modality MASK - NRB FiO2 100.0 Blood Gas Notified MDA Whom Blood Gas Notified 09/29/2018 11:37:42 Time AM White Blood Count 5.1 Red Blood Count 5.11 Hemoglobin 13.7 L Hematocrit 42.8 Mean Corpuscular 83.8 Volume Mean Corpuscular 26.8 L Hemoglobin Mean Corpuscular 32.0 Hemoglobin Concent Red Cell 14.6 H Distribution Width Platelet Count 321 Mean Platelet 10.5 H Volume Immature 0.200 Granulocytes % Neutrophils % 91.5 H Segmented 70 Neutrophils % (Manual) Band Neutrophils % 20 H (Manual) Lymphocytes % 5.7 L Lymphocytes % 7 L (Manual) Monocytes % 2.4 Monocytes % 3 (Manual) Eosinophils % 0.0 Basophils % 0.2 Nucleated Red 0.0 Blood Cells % Immature 0.010 Granulocytes # Neutrophils # 4.6 Neutrophils # 3.6 (Manual) Band Neutrophils # 1.0 H Lymphocytes 0.3 L (Manual) Lymphocytes # 0.3 L Monocytes # 0.1 L Monocytes # 0.1 L (Manual) Eosinophils # 0.0 Basophils # 0.0 Nucleated Red 0.0 Blood Cells # Platelet Estimate NORMAL Polychromasia 1+ Poikilocytosis 1+ Anisocytosis 1+ Prothrombin Time 13.8 Prothrombin Time 1.1 Ratio INR International 1.05 Normalized Ratio Activated 28.[address] Time Sodium Level 152 H Potassium Level 4.1 Chloride Level 112 H Carbon Dioxide 23 Level Anion Gap 17 H Blood Urea 104 H Nitrogen Creatinine 3.09 H Est Glomerular Filtrat Rate mL/min Glucose Level 159 Calcium Level 9.3 Total Bilirubin 0.4 Direct Bilirubin 0.00 Indirect Bilirubin 0.4 Aspartate Amino 16 Transf (AST/SGOT) Alanine 15 Aminotransferase ( ALT/SGPT) Alkaline 60 Phosphatase Troponin I 0.060 Total Protein 7.8 Albumin 4.1 Globulin 3.70 H Albumin/Globulin 1.10 Ratio POC Venous Lactate 1.5 Urine Color AMY Urine Clarity CLOUDY A Urine pH 5.0 Urine Specific 1.020 [place] Urine Ketones NEGATIVE Urine Nitrite NEGATIVE Urine Bilirubin NEGATIVE Urine Urobilinogen 1+ H Urine Leukocyte NEGATIVE Esterase Urine Microscopic 98 H RBC Urine Microscopic 4 WBC Urine Bacteria FEW A Urine Yeast MODERATE A (Budding) Urine Hemoglobin 2+ H Urine Random 252.13 Creatinine Urine Random < 13 L Sodium Urine Glucose NEGATIVE Urine Total 56.0 H Protein Lactic Acid Level 2.3 *H Test 09/29/18 16:33 09/30/18 05:53 09/30/18 06:09 09/30/18 07:45 Lactic Acid Level 2.6 *H White Blood Count 4.2 L Red Blood Count 4.81 Hemoglobin 12.9 L Hematocrit 41.6 L Mean Corpuscular 86.5 Volume Mean Corpuscular 26.8 L Hemoglobin Mean Corpuscular 31.0 L Hemoglobin Concent Red Cell 15.0 H Distribution Width Platelet Count 245 # Mean Platelet 10.9 H Volume Immature 0.200 Granulocytes % Neutrophils % 89.4 H Segmented 61 Neutrophils % (Manual) Band Neutrophils % 20 H (Manual) Lymphocytes % 7.1 L Lymphocytes % 10 L (Manual) Reactive 1 H Lymphocytes % (Manual) Monocytes % 2.6 Monocytes % 8 (Manual) Eosinophils % 0.0 Basophils % 0.7 Nucleated Red 0.0 Blood Cells % Immature 0.010 Granulocytes # Neutrophils # 3.8 Neutrophils # 2.6 (Manual) Band Neutrophils # 0.8 H Lymphocytes 0.4 L (Manual) Lymphocytes # 0.3 L Reactive 0.0 Lymphocytes # Monocytes # 0.1 L Monocytes # 0.3 (Manual) Eosinophils # 0.0 Basophils # 0.0 Nucleated Red 0.0 Blood Cells # Platelet Estimate NORMAL Poikilocytosis 2+ Spherocytes 1+ Sodium Level 156 H Potassium Level 3.3 L Chloride Level 122 H Carbon Dioxide 23 Level Anion Gap 11 Blood Urea 85 H Nitrogen Creatinine 1.71 #H Est Glomerular Filtrat Rate mL/min Glucose Level 110 # Calcium Level 8.5 Phosphorus Level 3.8 Magnesium Level 2.9 H Prealbumin 10.3 L Bedside Glucose 95 99 Medications Medication Current Medications Albuterol (Proventil 0.083% (Neb)) 2.5 mg Q4H RESP THERAPY PRN NEB SHORTNESS OF BREATH; Start 09/29/18 at 15:00 Albuterol (Proventil 0.083% (Neb)) 2.5 mg Q8H RESP THERAPY PRN NEB WHEEZING AND SOB; Start 09/29/18 at 16:00 Bisacodyl (Dulcolax Supp) 10 mg DAILY PRN [place] CONSTIPATION; Start 09/29/18 at 15:00 Hydralazine HCl (Apresoline) 25 mg BID PRN PO ELEVATED BP; SBP > 160; Start 09/29/18 at 15:00 Magnesium Hydroxide (Milk Of Mag) 30 ml DAILY PRN PO CONSTIPATION; Start 09/29/18 at 15:00 Sodium Chloride 1,000 ml @ 150 mls/hr Q6H40M IV Last administered on 09/30/18at 09:00; Admin Dose 150 MLS/HR; Start 09/29/18 at 15:00 Vancomycin HCl (Vanco Iv Per Pharmacy) VANCOMYCIN PER PHARMACY PER PROTOCOL XX ; Start 09/29/18 at 16:00 Cefepime HCl 50 ml @ 100 mls/hr Q24H IVPB Last administered on 09/30/18at 08:17; Admin Dose 100 MLS/HR; Start 09/30/18 at 09:00 IV Flush (NS 10 ml) 10 ml Q8 IV Last administered on 09/30/18at 04:53; Admin Dose 10 ML; Start 09/29/18 at 22:00 Insulin Aspart (Novolog Insulin Pen) NOVOLOG *MILD* ALGORITHM WITH MEALS BEDTIME SC ; Start 09/29/18 at 18:00 Miscellaneous Information 1 ea NOTE XX ; Start 09/29/18 at 16:30 Glucose (Glutose) 15 gm Q15M PRN PO DECREASED GLUCOSE; Start 09/29/18 at 16:30 Glucose (Glutose) 22.5 gm Q15M PRN PO DECREASED GLUCOSE; Start 09/29/18 at 16:30 Dextrose (D50w Syringe) 25 ml Q15M PRN IV DECREASED GLUCOSE; Start 09/29/18 at 16:30 Dextrose (D50w Syringe) 50 ml Q15M PRN IV DECREASED GLUCOSE; Start 09/29/18 at 16:30 Glucagon (Glucagen) 1 mg Q15M PRN IM DECREASED GLUCOSE; Start 09/29/18 at 16:30 Glucose (Glutose) 15 gm Q15M PRN BUCCAL DECREASED GLUCOSE; Start 09/29/18 at 16:30 Miscellaneous Information ([facility]) This patient saini... PRN PRN XX WOUND CARE; Start 09/30/18 at 05:00 Potassium Chloride 100 ml @ 50 mls/hr Q2H IVPB ; Start 09/30/18 at 09:30; Stop 09/30/18 at 13:29 MISHA COLLADO Sep 30, 2018 09:59
[2018-09-30] MEDS: POTASSIUM CHLORIDE 100 ML IVPB SCH ×2 (10:02→11:39)
[2018-09-30] MEDS: Insulin NOVOLOG SS MILD Algorithm (NPO/TPN/ENTERAL FEEDS) SC SCH ×3 (11:39→21:00)
[2018-09-30] MEDS ORDERED: INSULIN ASPART [NOVOLOG] 3 ML PEN SC SCH (13:00)
--- NOTE | 2018-09-30 14:20 | RADRPT ---
Vent Rate: 113 bpm RR Interval: 532 msec TX Interval: 177 msec QRS Duration: 81 msec QT Interval: 316 msec QTC Interval: 433 msec P-R-T [place]: 111 - -65 - 80 degrees Sinus tachycardia...rate> 99 Markedly posterior QRS axis...late V-lead transition Consider anteroseptal infarct...Q >30mS, dimin R, V1-V2 Electronically Signed By: Patrick Rick
--- NOTE | 2018-09-30 15:35 | CONS ---
Assessment/Plan Assessment/Plan Hospital Course (Demo Recall) Patient is lethargic looks comfortable with ongoing fevers, blood culture growing gram-positive cocci in clusters. WBC 4.2 platelets 245 neutrophils 89.4 BUN 85 creatinine 1.71 Chest x-ray on admission revealed patchy bilateral lobe airspace disease possible pneumonia. CT of the brain showed no evidence of acute intracranial pathology Antimicrobials: Vancomycin, cefepime Indwelling's: Left upper extremity PICC line, [place] Physical examination: Chronically ill-appearing elderly man in no distress. Head atraumatic normocephalic neck is supple. Chest rise symmetrical breath sounds diminished bases. Heart: S1-S2. Abdomen soft bowel sounds present.. Extremities without cyanosis Assessment: 1. Severe sepsis with ongoing fevers 2. Bacteremia 3. Acute hypoxemic respiratory failure 4. Pneumonia 5. Acute renal failure 6. Acute encephalopathy Plan: Change cefepime to meropenem, continue vancomycin, repeat blood cultures and consider 2D echo. Follow pulmonary recommendations Consultation Date/Type/Reason Admit Date/Time Sep 29, 2018 at 13:57 Initial Consult Date 09/30/18 Type of Consult id Requesting Provider: GLADIS ALICIA DO Date/Time of Note DATE: 09/30/18 TIME: 15:34 Exam/Review of Systems Exam Vitals Vital Signs Date Temp Pulse Resp B/P (MAP) Pulse Ox O2 O2 Flow FiO2 Time Delivery Rate 09/30/18 101.6 90 18 138/77 91 15:07 (97) 09/30/18 Vapotherm 08:00 09/30/18 80 04:20 09/29/18 15.0 11:14 Intake and Output 09/29/18 09/29/18 09/30/18 1515:00 23:00 07:00 OutputOutput Total 300 ml BalanceBalance -300 ml Results Result Diagram: 09/30/18 0553 09/30/18 0553 Results 24hrs Laboratory Tests Test 09/29/18 16:33 09/30/18 05:53 09/30/18 06:09 09/30/18 07:45 Lactic Acid Level 2.6 *H White Blood Count 4.2 L Red Blood Count 4.81 Hemoglobin 12.9 L Hematocrit 41.6 L Mean Corpuscular Volume 86.5 Mean Corpuscular 26.8 L Hemoglobin Mean Corpuscular 31.0 L Hemoglobin Concent Red Cell Distribution 15.0 H Width Platelet Count 245 # Mean Platelet Volume 10.9 H Immature Granulocytes % 0.200 Neutrophils % 89.4 H Segmented Neutrophils 61 % (Manual) Band Neutrophils % 20 H (Manual) Lymphocytes % 7.1 L Lymphocytes % (Manual) 10 L Reactive Lymphocytes 1 H % (Manual) Monocytes % 2.6 Monocytes % (Manual) 8 Eosinophils % 0.0 Basophils % 0.7 Nucleated Red Blood 0.0 Cells % Immature Granulocytes # 0.010 Neutrophils # 3.8 Neutrophils # (Manual) 2.6 Band Neutrophils # 0.8 H Lymphocytes (Manual) 0.4 L Lymphocytes # 0.3 L Reactive Lymphocytes # 0.0 Monocytes # 0.1 L Monocytes # (Manual) 0.3 Eosinophils # 0.0 Basophils # 0.0 Nucleated Red Blood 0.0 Cells # Platelet Estimate NORMAL Poikilocytosis 2+ Spherocytes 1+ Sodium Level 156 H Potassium Level 3.3 L Chloride Level 122 H Carbon Dioxide Level 23 Anion Gap 11 Blood Urea Nitrogen 85 H Creatinine 1.71 #H Est Glomerular Filtrat Rate mL/min Glucose Level 110 # Calcium Level 8.5 Phosphorus Level 3.8 Magnesium Level 2.9 H Prealbumin 10.3 L Bedside Glucose 95 99 Test 09/30/18 10:00 09/30/18 11:38 Lactic Acid Level 1.6 Bedside Glucose 84 Medications Medication Current Medications Albuterol (Proventil 0.083% (Neb)) 2.5 mg Q4H RESP THERAPY PRN NEB SHORTNESS OF BREATH; Start 09/29/18 at 15:00 Albuterol (Proventil 0.083% (Neb)) 2.5 mg Q8H RESP THERAPY PRN NEB WHEEZING AND SOB; Start 09/29/18 at 16:00 Bisacodyl (Dulcolax Supp) 10 mg DAILY PRN [place] CONSTIPATION; Start 09/29/18 at 15:00 Hydralazine HCl (Apresoline) 25 mg BID PRN PO ELEVATED BP; SBP > 160; Start 09/29/18 at 15:00 Magnesium Hydroxide (Milk Of Mag) 30 ml DAILY PRN PO CONSTIPATION; Start 09/29/18 at 15:00 Sodium Chloride 1,000 ml @ 150 mls/hr Q6H40M IV Last administered on 09/30/18at 09:00; Admin Dose 150 MLS/HR; Start 09/29/18 at 15:00 Vancomycin HCl (Vanco Iv Per Pharmacy) VANCOMYCIN PER PHARMACY PER PROTOCOL XX ; Start 09/29/18 at 16:00 Cefepime HCl 50 ml @ 100 mls/hr Q24H IVPB Last administered on 09/30/18at 08:17; Admin Dose 100 MLS/HR; Start 09/30/18 at 09:00 Miscellaneous Information 1 ea NOTE XX ; Start 09/29/18 at 16:30 Glucose (Glutose) 15 gm Q15M PRN PO DECREASED GLUCOSE; Start 09/29/18 at 16:30 Glucose (Glutose) 22.5 gm Q15M PRN PO DECREASED GLUCOSE; Start 09/29/18 at 16:30 Dextrose (D50w Syringe) 25 ml Q15M PRN IV DECREASED GLUCOSE; Start 09/29/18 at 16:30 Dextrose (D50w Syringe) 50 ml Q15M PRN IV DECREASED GLUCOSE; Start 09/29/18 at 16:30 Glucagon (Glucagen) 1 mg Q15M PRN IM DECREASED GLUCOSE; Start 09/29/18 at 16:30 Glucose (Glutose) 15 gm Q15M PRN BUCCAL DECREASED GLUCOSE; Start 09/29/18 at 16:30 Miscellaneous Information [facility] This patient saini... PRN PRN XX WOUND CARE; Start 09/30/18 at 05:00 Insulin Aspart (Novolog Insulin Pen) (Adult SC Insulin - Mild Algorithm)... Q4 SC ; Start 09/30/18 at 13:00 Vancomycin HCl 250 ml @ 125 mls/hr Q36H IVPB ; Start 10/01/18 at 05:00 AMY WHALEN NP Sep 30, 2018 15:35
[2018-09-30] MEDS ORDERED: VANCOMYCIN 500 MG (PMX) 100 ML IVPB SCH (17:00)
[2018-09-30] MEDS: MEROPENEM 500MG/50 ML (PMX) 50 ML IVPB SCH (21:12)
[2018-09-30] MEDS: ACETAMINOPHEN 650 MG SUPP PR PRN (21:55)
[2018-10-01] VITALS (8 sets, daily range): BP systolic 111–153; BP diastolic 67–80; PULSE 77–117; RESP 18–22
[2018-10-01] MEDS: Insulin NOVOLOG SS MILD Algorithm (NPO/TPN/ENTERAL FEEDS) SC SCH ×6 (01:00→21:00)
[2018-10-01] MEDS: SOD CHLORIDE 0.45% 1,000 ML IV SCH ×2 (01:50→06:15)
[2018-10-01] MEDS ORDERED: VANCOMYCIN 1 GM 250 ML IVPB SCH (05:00)
--- NOTE | 2018-10-01 08:22 | CONS ---
Consult Date/Type/Reason Admit Date/Time Sep 29, 2018 at 13:57 Initial Consult Date 09/30/18 Requesting Provider: GLADIS ALICIA DO Date/Time of Note DATE: 10/01/18 TIME: 08:19 Subjective Interventional cardiology follow-up progress note Subjective: Case discussed with the staff telemetry was reviewed patient remains sinus to sinus tachycardia. Patient continues to remain hypoxemic and on high flow oxygen. Patient nonverbal does not answer my question Objective: General: Elderly gentleman in mild respiratory distress on high flow oxygen. 100% now HEENT: NC/AT. Eyes are closed NECK: NO JVD. no stridor. CV: RRR. systolic murmur; no gallop or rubs. PULM: Diffuse rhonchi no wheezes. GI: SOFT, NT, ND, no rebound or guarding Extremity: trace B/L LE edema. no clubbing. neuro: Lethargic sleeping Psych: calm rectal: deferred Chest x-ray shows: Patchy bilateral lower lobe air space disease, cannot exclude pneumonia in the appropriate clinical setting. Objective Vitals Vital Signs Date Temp Pulse Resp B/P (MAP) Pulse Ox O2 O2 Flow FiO2 Time Delivery Rate 10/01/18 97.8 103 22 124/73 95 Nasal 07:30 (90) Cannula 10/01/18 100 05:10 09/29/18 15.0 11:14 Intake and Output 09/30/18 09/30/18 10/01/18 1515:00 23:00 07:00 OutputOutput Total 200 ml 150 ml BalanceBalance -200 ml -150 ml Results/Medications Result Diagram: 10/01/18 0537 10/01/18 0543 Results 24 hrs Laboratory Tests Test 09/30/18 10:00 09/30/18 11:38 09/30/18 16:40 09/30/18 21:16 Lactic Acid Level 1.6 Bedside Glucose 84 86 106 Test 10/01/18 01:41 10/01/18 05:37 10/01/18 05:43 10/01/18 05:45 Bedside Glucose 109 102 White Blood Count 4.4 L Red Blood Count 4.24 L Hemoglobin 11.2 L Hematocrit 36.7 L Mean Corpuscular Volume 86.6 Mean Corpuscular 26.4 L Hemoglobin Mean Corpuscular 30.5 L Hemoglobin Concent Red Cell Distribution 15.6 H Width Platelet Count 208 Mean Platelet Volume 11.5 H Immature Granulocytes % 0.700 H Neutrophils % 86.9 H Lymphocytes % 10.2 L Monocytes % 2.0 Eosinophils % 0.0 Basophils % 0.2 Nucleated Red Blood 0.0 Cells % Immature Granulocytes # 0.030 Neutrophils # 3.8 Lymphocytes # 0.5 L Monocytes # 0.1 L Eosinophils # 0.0 Basophils # 0.0 Nucleated Red Blood 0.0 Cells # Sodium Level 154 H Potassium Level 4.1 Chloride Level 125 H Carbon Dioxide Level 18 L Anion Gap 11 Blood Urea Nitrogen 115 #H Creatinine 2.50 H Est Glomerular Filtrat Rate mL/min Glucose Level 110 Calcium Level 8.1 L Phosphorus Level 5.0 H Magnesium Level 2.7 H Home Meds Reported Medications Sodium Phosphate,[place]-Dibasic (Enema Ready To Use) 133 Ml Enema, 133 ML RC EVERY 72 HOURS PRN for CONSTIPATION, ENEMA 09/29/18 Valproic Acid* (Depakene*) 250 Mg/5 Ml Udc Syrup, 125 MG PO Q6, ML 09/29/18 Haloperidol* (Haldol*) 1 Mg Tab, 1 MG PO Q6, TAB 09/29/18 Hydralazine Hcl* (Hydralazine Hcl*) 25 Mg Tab, 25 MG PO BID PRN for ELEVATED BLOOD PRESSURE, #60 TAB HOLD IF SBP <110 OR HR<60 09/29/18 Hydrocodone/Acetaminophen ([place] 5-325 Tablet) 1 Each Tablet, 1 EACH PO Q4 PRN for PAIN LEVEL 6-10, TAB 09/29/18 Metoprolol Tartrate* (Lopressor*) 50 Mg Tab, 50 MG PO BID, #60 TAB HOLD IF SBP <110 OR HR <60 09/29/18 Multivit-Min/Iron Fum/Folic AC (Evdpv-Jnukgag-Asfvqgho Tablet) 1 Each Tablet, 1 EACH PO DAILY, TAB 09/29/18 Insulin Aspart* (Novolog Insulin Pen*) 100 Unit/Ml Soln, 0 SC .SLIDING SCALE AC, EA 150-199 = 1 UNIT 200-249 = 2 UNITS 250-299 = 3 UNITS 300-349 = 4 UNITS 350-400 = 5 UNITS OVER 400 CALL MD [facility]ANCE ME[facility] AND AT BEDTIME 09/29/18 Protein Supplement (Promod) 946 Ml Liquid, 30 ML PO BID 09/29/18 Trazodone Hcl* (Trazodone Hcl*) 50 Mg Tablet, 50 MG PO QHS PRN for SLEEP, #30 TA B 09/29/18 Bisacodyl (Dulcolax) 10 Mg Supp.rect, 10 MG RC DAILY PRN for CONSTIPATION, SUPP.RECT 09/29/18 Magnesium Hydroxide* (Milk Of Magnesia*) 400 Mg/5 Ml Oral.susp, 30 ML PO DAILY PRN for CONSTIPATION, ML 09/29/18 Amlodipine Besylate* (Amlodipine Besylate*) 10 Mg Tablet, 10 MG PO DAILY, #30 TAB BP<110 OR HR <60 09/29/18 Albuterol Sulfate* (Albuterol Sulfate* Neb) 0.083%-3 Ml Neb, 2.5 MG NEB Q4H PRN for SHORTNESS OF BREATH, #30 VIAL 09/29/18 Albuterol Sulfate* (Albuterol Sulfate* Neb) 0.083%-3 Ml Neb, 2.5 MG NEB Q8 PRN for WHEEZING AND SOB, #30 VIAL 09/29/18 Medications Current Medications Albuterol (Proventil 0.083% (Neb)) 2.5 mg Q4H RESP THERAPY PRN NEB SHORTNESS OF BREATH; Start 09/29/18 at 15:00 Albuterol (Proventil 0.083% (Neb)) 2.5 mg Q8H RESP THERAPY PRN NEB WHEEZING AND SOB; Start 09/29/18 at 16:00 Bisacodyl (Dulcolax Supp) 10 mg DAILY PRN [place] CONSTIPATION; Start 09/29/18 at 15:00 Hydralazine HCl (Apresoline) 25 mg BID PRN PO ELEVATED BP; SBP > 160; Start 09/29/18 at 15:00 Magnesium Hydroxide (Milk Of Mag) 30 ml DAILY PRN PO CONSTIPATION; Start 09/29/18 at 15:00 Sodium Chloride 1,000 ml @ 150 mls/hr Q6H40M IV Last administered on 10/01/18at 01:50; Admin Dose 150 MLS/HR; Start 09/29/18 at 15:00 Vancomycin HCl (Vanco Iv Per Pharmacy) VANCOMYCIN PER PHARMACY PER PROTOCOL XX ; Start 09/29/18 at 16:00 Miscellaneous Information 1 ea NOTE XX ; Start 09/29/18 at 16:30 Glucose (Glutose) 15 gm Q15M PRN PO DECREASED GLUCOSE; Start 09/29/18 at 16:30 Glucose (Glutose) 22.5 gm Q15M PRN PO DECREASED GLUCOSE; Start 09/29/18 at 16:30 Dextrose (D50w Syringe) 25 ml Q15M PRN IV DECREASED GLUCOSE; Start 09/29/18 at 16:30 Dextrose (D50w Syringe) 50 ml Q15M PRN IV DECREASED GLUCOSE; Start 09/29/18 at 16:30 Glucagon (Glucagen) 1 mg Q15M PRN IM DECREASED GLUCOSE; Start 09/29/18 at 16:30 Glucose (Glutose) 15 gm Q15M PRN BUCCAL DECREASED GLUCOSE; Start 09/29/18 at 16:30 Miscellaneous Information [facility] This patient saini... PRN PRN XX WOUND CARE; Start 09/30/18 at 05:00 Insulin Aspart (Novolog Insulin Pen) (Adult SC Insulin - Mild Algorithm)... Q4 SC ; Start 09/30/18 at 13:00 Vancomycin HCl 250 ml @ 125 mls/hr Q36H IVPB Last administered on 10/01/18at 06:16; Admin Dose 125 MLS/HR; Start 10/01/18 at 05:00 Meropenem/Sodium Chloride 50 ml @ 100 mls/hr Q12 IVPB Last administered on 09/30/18at 21:12; Admin Dose 100 MLS/HR; Start 09/30/18 at 21:00 Acetaminophen (Tylenol Supp) 650 mg Q6H PRN [place] FEVER Last administered on 09/30/18at 21:55; Admin Dose 650 MG; Start 09/30/18 at 21:30 Assessment/Plan Hospital Course (Demo Recall) 1. Acute hypoxemic respiratory failure 2. Pneumonia 3. History of diabetes 4. Acute renal failure 5. Encephalopathy and behavioral disorder 6. History of bipolar disorder Recommendations: Antibiotic management as per internal medicine and infectious disease consultants. Continue with oxygen supplement respiratory care Telemetry monitoring for the time being Echocardiogram has been reviewed.EF 70% Baseline EKG shows sinus tachycardia Diabetic management/insulin as per internal medicine Thank you for this referral. We will continue to follow along with you as needed over the weekend ORLANDO LAW MD [facility] ORLANDO LAW MD Oct 01, 2018 08:22
--- NOTE | 2018-10-01 08:31 | RADRPT ---
Echocardiogram Report Patient Name: STEVEN BONDPatient ID: [id number] : 10 (73y 8m)Study Date: 09/30/2018 7:58:06 AM Gender: Davincession #: [id number] Tech: LE Location: [facility] Ref.Physician: ORLANDO BURNETT Height(Cm): BSA: Weight(Kg): Quality: GoodOrder Physician: ORLANDO BURNETT Account #: Procedures: Echocardiographic Report: Transthoracic echocardiogram with complete 2D, M-Mode, and doppler examination. Indications: Respiratory Failure. Measurements: 2D/M Mode Doppler Measurement Value Normal Range Measurement Value Normal Range LVIDd 2D 3.9 [ 4.2 - 5.8 ] cm AV Mean Gerardo 1.0 [ 70.0 - 90.0 ] cm/sec LVIDs 2D 2.4 [ 2.5 - 4.0 ] cm AV Mean PG 4.0 [ 2.0 - 4.0 ] mmHg LVPWd 2D 1.3 [ 0.6 - 1.0 ] cm AV Peak Gerardo 1.2 [ 100.0 - 170.0 ] cm/sec IVSd 2D 1.3 [ 0.6 - 1.0 ] cm AV Peak PG 6.0 [ 2.0 - 9.0 ] mmHg EDV 2D 65.5 [ 62.0 - 150.0 ] ml AV VTI 17.2 cm ESV 2D 20.2 [ 21.0 - 61.0 ] ml LVOT Peak Gerardo 1.0 [ 70.0 - 110.0 ] cm/sec EF 2D 69.2 [ 52.0 - 72.0 ] percent LVOT Peak PG 4.0 [ 2.0 - 6.0 ] mmHg LA Dimen 2D 4.1 [ 3.0 - 4.0 ] cm MV E Peak Gerardo 0.8 [ 60.0 - 130.0 ] cm/sec LVOT Diam 2.0 [ 2.3 - 2.9 ] cm MV A Peak Gerardo 0.6 [ 100.0 - 120.0 ] cm/sec MV E/A 1.4 [ 0.8 - 1.5 ] ratio MV Decel Time 106 [ 104 - 258 ] msec Lat E` Gerardo 0.1 [ 10.0 - 15.0 ] cm/sec Lateral E/E` 9.1 [ 1.0 - 2.0 ] ratio Med E` Gerardo 0.1 cm/sec MV E/A 1.4 [ 0.8 - 1.5 ] ratio TR Peak Gerardo 2.8 [ 100.0 - 280.0 ] cm/sec TR Peak PG 32.0 mmHg PV Peak Gerardo 1.1 [ 40.0 - 80.0 ] cm/sec PV Peak PG 5.0 mmHg Findings: Left Ventricle: Hyperdynamic left ventricular systolic function. Normal left ventricular cavity size. Mild concentric left ventricular hypertrophy. Ejection fraction is visually estimated at 70 %. Right Ventricle: Normal right ventricular size. Normal right ventricular systolic function. Left Atrium: There is mild enlargement of left atrium. Right Atrium: The right atrium is normal in size. Mitral Valve: Normal appearance and function of the mitral valve with trace physiologic regurgitation. Mitral valve is not well visualized. Aortic Valve: No significant aortic stenosis or insufficiency. Aortic valve not well visualized. Tricuspid Valve: Normal appearance of the tricuspid valve. Tricuspid valve not well visualized. The estimated Peak RVSP is 35 mmHg. There is mild tricuspid regurgitation. Pulmonic Valve: Pulmonic valve not well visualized. Pericardium: Normal pericardium with no significant pericardial effusion. Aorta: Normal aortic root. IVC: Normal size and normal respiratory collapse consistent with normal right atrial pressure. Conclusions: Hyperdynamic left ventricular systolic function. Normal left ventricular cavity size. Mild concentric left ventricular hypertrophy. Ejection fraction is visually estimated at 70 %. Normal appearance and function of the mitral valve with trace physiologic regurgitation. Mitral valve is not well visualized. No significant aortic stenosis or insufficiency. Aortic valve not well visualized. Normal pericardium with no significant pericardial effusion. Electronically Signed By: Orlando Burnett 2018-10-01 08:30:18 PDT
[2018-10-01] MEDS: MEROPENEM 500MG/50 ML (PMX) 50 ML IVPB SCH ×2 (09:49→21:03)
--- NOTE | 2018-10-01 10:38 | CONS ---
Assessment/Plan Assessment/Plan Assessment/Plan (Daily) Chest x-ray was reviewed from today which is showing right upper lobe infiltrate. Assessment and recommendations; 1. Patient with history of dementia and bipolar disorder admitted with bilateral pneumonia with persistent hypoxemia. 2. Gram-positive bacteremia. 3. Intravascular volume depletion with significant hypernatremia. 4. Chronic renal insufficiency. 5. History of hypertension. Continue current supportive care. Obtain ABG. Continue free water replacement and monitor serum sodium level. Consultation Date/Type/Reason Admit Date/Time Sep 29, 2018 at 13:57 Initial Consult Date 09/30/18 Type of Consult Pulmonary Pulmonary consult requested for evaluation of hypoxemia. Patient is a 73-year-old male who is a longterm resident who was sent over to the hospital because of hypoxemia. Upon evaluation chest x-ray was done which has been interpreted as showing possible bibasilar pneumonia. Vision has been started on appropriate empiric antimicrobial regimen. The patient has apparently fairly advanced dementia and was not able to give any meaningful history by himself. Patient however was awake and did not appear to be in any distress whatsoever. Past medical history; 1. Dementia 2. Bipolar disorder. 3. Chronic renal insufficiency. 4. History of hypertension. Medications; reviewed. Allergies; none. Social history, family history, occupational history is not available. Review of system; unable to be obtained. General exam; elderly male, awake and lethargic. Currently in no distress. Requesting Provider: GLADIS ALICIA DO Date/Time of Note DATE: 10/01/18 TIME: 10:36 24 HR Interval Summary Free Text/Dictation Patient's condition is tenuous. Still on high flow nasal cannula at 80% FiO2. General exam; elderly male, lethargic. Currently no distress. Exam/Review of Systems Exam Vitals Vital Signs Date Temp Pulse Resp B/P (MAP) Pulse Ox O2 O2 Flow FiO2 Time Delivery Rate 10/01/18 97.8 103 22 124/73 95 Nasal 07:30 (90) Cannula 10/01/18 100 05:10 09/29/18 15.0 11:14 Intake and Output 09/30/18 09/30/18 10/01/18 1515:00 23:00 07:00 IntakeIntake Total 50 ml 1450 ml OutputOutput Total 200 ml 150 ml BalanceBalance -200 ml -100 ml 1450 ml Exam H EENT exam; supple neck, no JVD. No lymphadenopathy. Midline trachea. No thyromegaly. No neck masses. Patient has fair dentition. Chest exam; diminished breath sounds bilaterally. No added sounds. S1-S2 audible, no murmurs. Regular rhythm. Abdomen exam; soft, nondistended. No organomegaly. Bowel sounds audible. Extremity exam; no peripheral edema. [employer] exam; patient is awake but not communicative. Results Result Diagram: 10/01/18 0537 10/01/18 0543 Results 24hrs Laboratory Tests Test 09/30/18 11:38 09/30/18 16:40 09/30/18 21:16 10/01/18 01:41 Bedside Glucose 84 86 106 109 Test 10/01/18 05:37 10/01/18 05:43 10/01/18 05:45 10/01/18 09:53 White Blood Count 4.4 L Red Blood Count 4.24 L Hemoglobin 11.2 L Hematocrit 36.7 L Mean Corpuscular Volume 86.6 Mean Corpuscular 26.4 L Hemoglobin Mean Corpuscular 30.5 L Hemoglobin Concent Red Cell Distribution 15.6 H Width Platelet Count 208 Mean Platelet Volume 11.5 H Immature Granulocytes % 0.700 H Neutrophils % 86.9 H Segmented Neutrophils 76 % (Manual) Band Neutrophils % 15 H (Manual) Lymphocytes % 10.2 L Lymphocytes % (Manual) 7 L Monocytes % 2.0 Monocytes % (Manual) 1 Eosinophils % 0.0 Basophils % 0.2 Myelocytes % (Manual) 1 H Nucleated Red Blood 0.0 Cells % Immature Granulocytes # 0.030 Neutrophils # 3.8 Neutrophils # (Manual) 3.4 Band Neutrophils # 0.6 Lymphocytes (Manual) 0.3 L Lymphocytes # 0.5 L Monocytes # 0.1 L Monocytes # (Manual) 0.0 L Eosinophils # 0.0 Basophils # 0.0 Myelocytes # 0.0 Nucleated Red Blood 0.0 Cells # Platelet Estimate NORMAL Giant Platelets 2 H Poikilocytosis 1+ Ovalocytes 1+ Sodium Level 154 H Potassium Level 4.1 Chloride Level 125 H Carbon Dioxide Level 18 L Anion Gap 11 Blood Urea Nitrogen 115 #H Creatinine 2.50 H Est Glomerular Filtrat Rate mL/min Glucose Level 110 Calcium Level 8.1 L Phosphorus Level 5.0 H Magnesium Level 2.7 H Bedside Glucose 102 95 Medications Medication Current Medications Albuterol (Proventil 0.083% (Neb)) 2.5 mg Q4H RESP THERAPY PRN NEB SHORTNESS OF BREATH; Start 09/29/18 at 15:00 Albuterol (Proventil 0.083% (Neb)) 2.5 mg Q8H RESP THERAPY PRN NEB WHEEZING AND SOB; Start 09/29/18 at 16:00 Bisacodyl (Dulcolax Supp) 10 mg DAILY PRN [place] CONSTIPATION; Start 09/29/18 at 15:00 Hydralazine HCl (Apresoline) 25 mg BID PRN PO ELEVATED BP; SBP > 160; Start 09/29/18 at 15:00 Magnesium Hydroxide (Milk Of Mag) 30 ml DAILY PRN PO CONSTIPATION; Start 09/29/18 at 15:00 Vancomycin HCl (Vanco Iv Per Pharmacy) VANCOMYCIN PER PHARMACY PER PROTOCOL XX ; Start 09/29/18 at 16:00 Miscellaneous Information 1 ea NOTE XX ; Start 09/29/18 at 16:30 Glucose (Glutose) 15 gm Q15M PRN PO DECREASED GLUCOSE; Start 09/29/18 at 16:30 Glucose (Glutose) 22.5 gm Q15M PRN PO DECREASED GLUCOSE; Start 09/29/18 at 16:30 Dextrose (D50w Syringe) 25 ml Q15M PRN IV DECREASED GLUCOSE; Start 09/29/18 at 16:30 Dextrose (D50w Syringe) 50 ml Q15M PRN IV DECREASED GLUCOSE; Start 09/29/18 at 16:30 Glucagon (Glucagen) 1 mg Q15M PRN IM DECREASED GLUCOSE; Start 09/29/18 at 16:30 Glucose (Glutose) 15 gm Q15M PRN BUCCAL DECREASED GLUCOSE; Start 09/29/18 at 16:30 Miscellaneous Information (Pending [facility] Order For Wound Care) This patient saini... PRN PRN XX WOUND CARE; Start 09/30/18 at 05:00 Insulin Aspart (Novolog Insulin Pen) (Adult SC Insulin - Mild Algorithm)... Q4 SC ; Start 09/30/18 at 13:00 Vancomycin HCl 250 ml @ 125 mls/hr Q36H IVPB Last administered on 10/01/18at 06:16; Admin Dose 125 MLS/HR; Start 10/01/18 at 05:00 Meropenem/Sodium Chloride 50 ml @ 100 mls/hr Q12 IVPB Last administered on 10/01/18at 09:49; Admin Dose 100 MLS/HR; Start 09/30/18 at 21:00 Acetaminophen (Tylenol Supp) 650 mg Q6H PRN [place] FEVER Last administered on 09/30/18at 21:55; Admin Dose 650 MG; Start 09/30/18 at 21:30 Dextrose 1,000 ml @ 75 mls/hr [id number] IV ; Start 10/01/18 at 09:00 MISHA COLLADO Oct 01, 2018 10:38
[2018-10-01] MEDS: DEXTROSE 5% 1,000 ML IV SCH ×2 (11:29→21:19)
--- NOTE | 2018-10-01 11:55 | PN ---
DATE: 10/01/2018 SUBJECTIVE: The patient remains critically ill on high flow oxygen. No other acute events noted ove rnight. The patient remains afebrile. No other events noted. OBJECTIVE: VITAL SIGNS: Blood pressure is 124/73, respirations 22, pulse 103, temperature 97.8. HEENT: Head is normocephalic. NECK: Supple. HEART: Regular rate. LUNGS: Show diminished breath sounds at base. ABDOMEN: Soft, nontender to palpation without rebound or guarding. EXTREMITIES: Negative for clubbing, cyanosis, no edema. DERMATOLOGIC: No rashes. MUSCULOSKELETAL: No joint effusion. NEUROLOGIC: No change in exam. MEDICATIONS: Have been reviewed. LABORATORY DATA: Has been reviewed. MICROBIOLOGY: Has been reviewed. IMAGING STUDIES: CT scan of the brain was reviewed, showed no evidence of acute intracranial patholo gy, moderate ischemic changes, small chronic right parietal lobe infarct and small chronic lacunar in farcts noted. ASSESSMENT AND PLAN: 1. Acute hypoxemic respiratory failure, etiology secondary to pneumonia, healthcare-associated, poss ible aspiration. The patient remains on high flow oxygen. Continue current treatment plan. Continu e nebulizers, continue antibiotic therapy. 2. Sepsis secondary to healthcare-associated pneumonia with positive blood cultures, gram-positive b acteremia. Continue current antibiotic regimen. Repeat cultures are pending. Continue to trend lac tic acid levels. Continue IV hydration. 3. Nonoliguric acute kidney injury with unknown baseline creatinine. Etiology of acute kidney injur y is secondary to volume depletion, septic acute kidney injury. The patient's renal function is fluc tuating. Has declined in the last 24 hours. At this point, will continue aggressive IV hydration. Continue supportive care, renally dose all medications. 4. Hypernatremia. The patient has free water deficit of approximately 3.5 liters. Continue hyperto jyoti fluid. 5. Metabolic acidosis secondary to acute kidney injury. Continue to monitor. 6. Mineral bone disorder, monitor calcium and phosphorus levels. 7. Hypomagnesemia. Continue to monitor. 8. Acute encephalopathy, etiology is toxic metabolic. The patient's CT scan of the brain was negati ve. Continue to monitor closely. Consider neurology evaluation. 9. History of behavior disorder, bipolar disorder. Continue to monitor. 10. Diabetes. The patient's glucose levels have been stable, continue to monitor. Continue current insulin regimen. 11. Hypertension. Continue current blood pressure regimen. 12. Gastrointestinal and deep vein thrombosis prophylaxis. 13. Hypokalemia. Continue to monitor and replete. 14. Nutrition. The patient currently is n.p.o. Unable to tolerate p.o., would consider placing NG tube and start tube feedings. Please note, I discussed in detail the patient's medical condition with his daughter, Etelvina yester day. Will communicate again today with the patient's daughter. Dictated By: GLADIS GREENBERG/RACHELL Conf#: [id number] DID#: [id number]
[2018-10-01] MEDS: BALSAM PERU/CASTOR OIL 60 GM TUBE TOP SCH ×2 (12:55→21:19)
--- NOTE | 2018-10-01 19:07 | CONS ---
Assessment/Plan Assessment/Plan Hospital Course (Demo Recall) 1200 no acute changes overnight is on high flow oxygen, T-max 102.8 yesterday currently afebrile WBC 4.4 bands 15 BUN 115 creatinine 2.50 Urinalysis on admission showed moderate amount of budding yeast Microbiology: Blood culture persistently positive for gram-positive cocci, preliminary staph aureus Chest x-ray this morning revealed worsening right lower lobe infiltrate Antimicrobials: Vancomycin, meropenem Indwelling's: Left upper extremity PICC line, Gorman Physical examination: Chronically ill-appearing elderly man in no distress. Head atraumatic normocephalic neck is supple. Chest rise symmetrical breath sounds diminished bases. Heart: S1-S2. Abdomen soft bowel sounds present.. Extremities without cyanosis Assessment: 1. Severe sepsis with ongoing fevers 2. Persistent bacteremia 3. Acute hypoxemic respiratory failure 4. Care associated 5. Acute renal failure 6. Acute encephalopathy Plan: Clinically unchanged, on appropriate antibiotic coverage, 2D echo noted not an optimal study, will try to obtain sputum culture, consider MAYTE change vancomycin to IV Zyvox given worsening renal function, no daptomycin secondary to pneumonia Consultation Date/Type/Reason Admit Date/Time Sep 29, 2018 at 13:57 Initial Consult Date 09/30/18 Type of Consult id Requesting Provider: GLADIS ALICIA DO Date/Time of Note DATE: 10/01/18 TIME: 19:04 Exam/Review of Systems Exam Vitals Vital Signs Date Temp Pulse Resp B/P (MAP) Pulse Ox O2 O2 Flow FiO2 Time Delivery Rate 10/01/18 92 100 17:35 10/01/18 99.0 112 20 153/73 Nasal 15:50 (99) Cannula 09/29/18 15.0 11:14 Intake and Output 09/30/18 09/30/18 10/01/18 1515:00 23:00 07:00 IntakeIntake Total 50 ml 1450 ml OutputOutput Total 200 ml 150 ml BalanceBalance -200 ml -100 ml 1450 ml Results Result Diagram: 10/01/18 0537 10/01/18 0543 Results 24hrs Laboratory Tests Test 09/30/18 21:16 10/01/18 01:41 10/01/18 05:37 10/01/18 05:43 Bedside Glucose 106 109 White Blood 4.4 L Count Red Blood Count 4.24 L Hemoglobin 11.2 L Hematocrit 36.7 L Mean Corpuscular 86.6 Volume Mean Corpuscular 26.4 L Hemoglobin Mean Corpuscular 30.5 L Hemoglobin Yazmin nt Red Cell 15.6 H Distribution Width Platelet Count 208 Mean Platelet 11.5 H Volume Immature 0.700 H Granulocytes % Neutrophils % 86.9 H Segmented 76 Neutrophils % (Manual) Band Neutrophils 15 H % (Manual) Lymphocytes % 10.2 L Lymphocytes % 7 L (Manual) Monocytes % 2.0 Monocytes % 1 (Manual) Eosinophils % 0.0 Basophils % 0.2 Myelocytes % 1 H (Manual) Nucleated Red 0.0 Blood Cells % Immature 0.030 Granulocytes # Neutrophils # 3.8 Neutrophils # 3.4 (Manual) Band Neutrophils 0.6 # Lymphocytes 0.3 L (Manual) Lymphocytes # 0.5 L Monocytes # 0.1 L Monocytes # 0.0 L (Manual) Eosinophils # 0.0 Basophils # 0.0 Myelocytes # 0.0 Nucleated Red 0.0 Blood Cells # Platelet NORMAL Estimate Giant Platelets 2 H Poikilocytosis 1+ Ovalocytes 1+ Sodium Level 154 H Potassium Level 4.1 Chloride Level 125 H Carbon Dioxide 18 L Level Anion Gap 11 Blood Urea 115 #H Nitrogen Creatinine 2.50 H Est Glomerular Filtrat Rate mL/min Glucose Level 110 Calcium Level 8.1 L Phosphorus Level 5.0 H Magnesium Level 2.7 H Test 10/01/18 05:45 10/01/18 07:00 10/01/18 09:53 10/01/18 10:34 Bedside Glucose 102 95 Urine Color YELLOW Urine Clarity SLIGHTLY CLOUDY A Urine pH 5.0 Urine Specific 1.016 [place] Urine Ketones NEGATIVE Urine Nitrite NEGATIVE Urine Bilirubin NEGATIVE Urine NEGATIVE Urobilinogen Urine Leukocyte NEGATIVE Esterase Urine 4 Microscopic RBC Urine 6 H Microscopic WBC Urine Bacteria FEW A Urine Hemoglobin 2+ H Urine Random 91.85 Creatinine Urine Random < 13 L Sodium Urine Glucose NEGATIVE Urine Total 80.0 H Protein Blood Gas Blood arterial Specimen Source Arterial Blood 10/01/2018 11:06:0 Date Drawn 9 AM Arterial Blood 7.342 L pH (Temp corrected) Arterial Blood 31.3 L pCO2 (Temp correct) Arterial Blood 77.3 L pO2 (Temp corrected) Arterial Blood 16.6 L HCO3 Arterial Blood -8.0 L Base Excess Arterial Blood 94.4 L Oxygen Saturatio n Gian Test ACCEPTAB Arterial Blood Right Radial Gas Puncture Site Arterial 0.3 Blood Carboxyhem oglobin Arterial Blood 0.2 Methemoglobin Blood Gas A-a O2 460.2 H Differential Oxyhemoglobin 93.9 Percent Blood Gas 37.0 Temperature Blood Gas HFNC Modality FiO2 80.0 Blood Gas RT Notified Whom Blood Gas 10/01/2018 11:17:1 Notified Time 0 AM Test 10/01/18 13:27 10/01/18 16:34 Bedside Glucose 94 104 Medications Medication Current Medications Albuterol (Proventil 0.083% (Neb)) 2.5 mg Q4H RESP THERAPY PRN NEB SHORTNESS OF BREATH; Start 09/29/18 at 15:00 Albuterol (Proventil 0.083% (Neb)) 2.5 mg Q8H RESP THERAPY PRN NEB WHEEZING AND SOB; Start 09/29/18 at 16:00 Bisacodyl (Dulcolax Supp) 10 mg DAILY PRN [place] CONSTIPATION; Start 09/29/18 at 15:00 Hydralazine HCl (Apresoline) 25 mg BID PRN PO ELEVATED BP; SBP > 160; Start 09/29/18 at 15:00 Magnesium Hydroxide (Milk Of Mag) 30 ml DAILY PRN PO CONSTIPATION; Start 09/29/18 at 15:00 Vancomycin HCl (Vanco Iv Per Pharmacy) VANCOMYCIN PER PHARMACY PER PROTOCOL XX ; Start 09/29/18 at 16:00 Miscellaneous Information 1 ea NOTE XX ; Start 09/29/18 at 16:30 Glucose (Glutose) 15 gm Q15M PRN PO DECREASED GLUCOSE; Start 09/29/18 at 16:30 Glucose (Glutose) 22.5 gm Q15M PRN PO DECREASED GLUCOSE; Start 09/29/18 at 16:30 Dextrose (D50w Syringe) 25 ml Q15M PRN IV DECREASED GLUCOSE; Start 09/29/18 at 16:30 Dextrose (D50w Syringe) 50 ml Q15M PRN IV DECREASED GLUCOSE; Start 09/29/18 at 16:30 Glucagon (Glucagen) 1 mg Q15M PRN IM DECREASED GLUCOSE; Start 09/29/18 at 16:30 Glucose (Glutose) 15 gm Q15M PRN BUCCAL DECREASED GLUCOSE; Start 09/29/18 at 16:30 Miscellaneous Information (Pending [facility] Order For Wound Care) This patient saini... PRN PRN XX WOUND CARE; Start 09/30/18 at 05:00 Insulin Aspart (Novolog Insulin Pen) (Adult SC Insulin - Mild Algorithm)... Q4 SC ; Start 09/30/18 at 13:00 Vancomycin HCl 250 ml @ 125 mls/hr Q36H IVPB Last administered on 10/01/18at 06:16; Admin Dose 125 MLS/HR; Start 10/01/18 at 05:00; Status Hold Meropenem/Sodium Chloride 50 ml @ 100 mls/hr Q12 IVPB Last administered on 10/01/18at 09:49; Admin Dose 100 MLS/HR; Start 09/30/18 at 21:00 Acetaminophen (Tylenol Supp) 650 mg Q6H PRN [place] FEVER Last administered on 09/30/18at 21:55; Admin Dose 650 MG; Start 09/30/18 at 21:30 Dextrose 1,000 ml @ 75 mls/hr [id number] IV Last administered on 10/01/18at 11:29; Admin Dose 75 MLS/HR; Start 10/01/18 at 09:00 Miscellaneous Information (*Rx Drug Level Order Reminder*) VANCO TROUGH @ 1,600 ON... 1600 ONCE XX ; Start 10/02/18 at 16:00; Stop 10/02/18 at 16:01 AMY WHALEN NP Oct 01, 2018 19:07
[2018-10-01] MEDS: ACETAMINOPHEN 650 MG SUPP PR PRN (20:57)
[2018-10-01] MEDS: LINEZOLID 600 MG/300 ML (PMX) 300 ML IVPB SCH (22:55)
[2018-10-02] VITALS (9 sets, daily range): BP systolic 118–139; BP diastolic 65–75; PULSE 101–115; RESP 18–29
[2018-10-02] MEDS: Insulin NOVOLOG SS MILD Algorithm (NPO/TPN/ENTERAL FEEDS) SC SCH ×6 (01:00→21:00)
[2018-10-02] MEDS: BALSAM PERU/CASTOR OIL 60 GM TUBE TOP SCH ×2 (09:03→20:40)
[2018-10-02] MEDS: MEROPENEM 500MG/50 ML (PMX) 50 ML IVPB SCH ×2 (09:15→20:41)
[2018-10-02] MEDS: LINEZOLID 600 MG/300 ML (PMX) 300 ML IVPB SCH ×2 (09:19→20:41)
--- NOTE | 2018-10-02 09:24 | PN ---
DATE: 10/02/2018 SUBJECTIVE: The patient overnight had an episode of nonsustained ventricular tachycardia and noted a rrhythmia. The patient remains on high flow oxygen. Remains febrile. Urinary output has been jasmin nal. No other events noted. OBJECTIVE: VITAL SIGNS: Blood pressure is 138/75, respiration 18, pulse 115, temperature 98.2. HEENT: Head is normocephalic. NECK: Supple. HEART: Regular rate. LUNGS: Show diminished breath sounds at the base. ABDOMEN: Soft, nontender to palpation without rebound or guarding. EXTREMITIES: Negative for clubbing, cyanosis, no edema. DERMATOLOGIC: No rashes. MUSCULOSKELETAL: No joint effusion. NEUROLOGIC: No change in exam. MEDICATIONS: The patient's medications have been reviewed. LABORATORY DATA: Has been reviewed. IMAGING STUDIES: Have been reviewed. Cultures have been reviewed. ASSESSMENT AND PLAN: 1. Acute hypoxemic respiratory failure, etiology secondary to pneumonia. The patient remains on hig h flow oxygen. Continue current treatment plan. Continue nebulizers, antibiotics. Follow up with p violeta. 2. Sepsis, secondary to healthcare-associated pneumonia. The patient's repeat blood cultures remain positive. The patient is actively bacteremic. Continue broad spectrum antibiotics, continue to mon itor closely. Follow up with infectious disease with their recommendations. 3. Nonoliguric acute kidney injury with unknown baseline creatinine. Etiology of acute kidney injur y is secondary to sepsis, hemodynamics. The patient remains in injury phase of DESTINY. The patient als o has significant azotemia due to DESTINY and hypercatabolic state. RECOMMENDATIONS: 1. To continue treating underlying sepsis. Continue antibiotic therapy. Continue aggressive IV hyd ration, monitor closely. 2. Hypernatremia. The patient has ongoing free water deficit of approximately 3.5 liters. Continue hypertonic fluid. We will increase rate of D5 water. We will also consider placing an NG tube for free water flushes. 3. Metabolic acidosis secondary to acute kidney injury. Continue to monitor. 4. Mineral bone disorder, monitor calcium and phosphorus levels. 5. Hypomagnesemia. Continue to monitor and replete as needed. 6. Acute encephalopathy, etiology is likely toxic metabolic. CT scan was negative. Continue to mon itor. Consider a neurology evaluation. 7. History of bipolar disorder. 8. Diabetes. The patient's glucose levels are controlled. Continue to monitor. Continue current i nsulin regimen. 9. Hypertension. Continue current blood pressure regimen. 10. Gastrointestinal and deep vein thrombosis prophylaxis. 11. Hypokalemia. Continue to monitor and replete. 12. Nutrition. The patient is currently n.p.o., unable to tolerate p.o., we will consider placing N G tube and start tube feeding. Dictated By: GLADIS ALICIA DO NR/NTS Conf#: [id number] DID#: [id number] CC: CONCEPCION HANKS MD;*EndCC*
--- NOTE | 2018-10-02 09:51 | CONS ---
Assessment/Plan Assessment/Plan Assessment/Plan (Daily) Assessment and recommendations; 1. Patient admitted with severe hypoxemia with fairly unremarkable chest x-ray. 2. History of CVA 3. Mild anemia and thrombocytopenia. 4. Possibly superimposed pneumonia. 5. Chronic renal insufficiency. Continue with supportive care. Add full dose Lovenox. Obtain CT chest without contrast. Further recommendations once CT imaging is obtained. I did have a detailed discussion with the patient's at bedside and answered all her questions. Consultation Date/Type/Reason Admit Date/Time Sep 29, 2018 at 13:57 Initial Consult Date 09/30/18 Type of Consult Pulmonary Pulmonary consult requested for evaluation of hypoxemia. Patient is a 73-year-old male who is a [facility] resident who was sent over to the hospital because of hypoxemia. Upon evaluation chest x-ray was done whic h has been interpreted as showing possible bibasilar pneumonia. Vision has been started on appropriate empiric antimicrobial regimen. The patient has apparently fairly advanced dementia and was not able to give any meaningful history by himself. Patient however was awake and did not appear to be in any distress whatsoever. Past medical history; 1. Dementia 2. Bipolar disorder. 3. Chronic renal insufficiency. 4. History of hypertension. Medications; reviewed. Allergies; none. Social history, family history, occupational history is not available. Review of system; unable to be obtained. General exam; elderly male, awake and lethargic. Currently in no distress. Requesting Provider: GLADIS ALICIA DO Date/Time of Note DATE: 10/02/18 TIME: 09:49 24 HR Interval Summary Free Text/Dictation Patient's condition is tenuous. Still on high flow nasal cannula at 80% FiO2 with persistent severe hypoxemia. General exam; elderly male, on high flow nasal cannula. Awake but not much communicative. Currently no distress. Exam/Review of Systems Exam Vitals Vital Signs Date Temp Pulse Resp B/P (MAP) Pulse Ox O2 O2 Flow FiO2 Time Delivery Rate 10/02/18 98.0 112 22 118/73 96 Nasal 08:38 (88) Cannula 10/02/18 80 08:10 09/29/18 15.0 11:14 Intake and Output 10/01/18 10/01/18 10/02/18 1515:00 23:00 07:00 IntakeIntake Total 410 ml 450 ml 350 ml OutputOutput Total 310 ml 560 ml 600 ml BalanceBalance 100 ml -110 ml -250 ml Exam H EENT exam; supple neck, no JVD. No lymphadenopathy. Midline trachea. No thyromegaly. Patient has fair dentition. No neck masses. Chest exam; diminished breath sounds bilaterally. S1-S2 audible, no murmurs. Regular rhythm. Abdomen exam; soft, scaphoid. No organomegaly. Nontender. Bowel sounds audible. No organomegaly. Extremity exam; peripheral edema clubbing. [employer]ACHINE exam; is awake but lethargic. Results Result Diagram: 10/02/18 0549 10/02/18 0549 Results 24hrs Laboratory Tests Test 10/01/18 09:53 10/01/18 10:34 10/01/18 13:27 10/01/18 16:34 Bedside Glucose 95 94 104 Blood Gas Specimen Blood arterial Source Arterial Blood 10/01/2018 11:06:09 Date Drawn AM Arterial Blood pH 7.342 L (Temp corrected) Arterial Blood 31.3 L pCO2 (Temp correct) Arterial Blood pO2 77.3 L (Temp corrected) Arterial Blood 16.6 L HCO3 Arterial Blood -8.0 L Base Excess Arterial Blood 94.4 L Oxygen Saturation Gian Test ACCEPTAB Arterial Blood Gas Right Radial Puncture Site Arterial 0.3 Blood Carboxyhemog lobin Arterial Blood 0.2 Methemoglobin Blood Gas A-a O2 460.2 H Differential Oxyhemoglobin 93.9 Percent Blood Gas 37.0 Temperature Blood Gas Modality HFNC FiO2 80.0 Blood Gas Notified RT Whom Blood Gas Notified 10/01/2018 11:17:10 Time AM Test 10/01/18 21:23 10/01/18 23:50 10/02/18 02:04 10/02/18 05:49 Bedside Glucose 112 143 Sodium Level 156 H 155 H Potassium Level 3.9 3.8 Chloride Level 128 H 128 H Carbon Dioxide 20 L 18 L Level Anion Gap 8 9 Blood Urea 125 H 129 H Nitrogen Creatinine 2.67 H 2.54 H Est Glomerular Filtrat Rate mL/min Glucose Level 118 165 Calcium Level 8.6 8.5 Phosphorus Level 4.1 4.0 Magnesium Level 2.9 H 3.0 H White Blood Count 4.5 L Red Blood Count 3.99 L Hemoglobin 10.6 L Hematocrit 34.4 L Mean Corpuscular 86.2 Volume Mean Corpuscular 26.6 L Hemoglobin Mean Corpuscular 30.8 L Hemoglobin Concent Red Cell 15.6 H Distribution Width Platelet Count 184 Mean Platelet 11.5 H Volume Immature 0.700 H Granulocytes % Neutrophils % 88.8 H Segmented 77 Neutrophils % (Manual) Band Neutrophils % 13 H (Manual) Lymphocytes % 9.0 L Lymphocytes % 8 L (Manual) Monocytes % 1.3 Monocytes % 2 (Manual) Eosinophils % 0.0 Basophils % 0.2 Nucleated Red 0.0 Blood Cells % Immature 0.030 Granulocytes # Neutrophils # 4.0 Neutrophils # 3.5 (Manual) Band Neutrophils # 0.5 Lymphocytes 0.3 L (Manual) Lymphocytes # 0.4 L Monocytes # 0.1 L Monocytes # 0.0 L (Manual) Eosinophils # 0.0 Basophils # 0.0 Nucleated Red 0.0 Blood Cells # Platelet Estimate NORMAL Poikilocytosis 2+ Ovalocytes 1+ Test 10/02/18 06:01 10/02/18 07:00 10/02/18 09:06 Bedside Glucose 157 138 Blood Gas Specimen Blood arterial Source Arterial Blood 10/02/2018 8:45:30 Date Drawn AM Arterial Blood pH 7.385 (Temp corrected) Arterial Blood 28.8 L pCO2 (Temp correct) Arterial Blood pO2 71.6 L (Temp corrected) Arterial Blood 16.8 L HCO3 Arterial Blood -6.7 L Base Excess Arterial Blood 93.7 L Oxygen Saturation Gian Test N/A Arterial Blood Gas Right Brachial Puncture Site Arterial 0.1 Blood Carboxyhemog lobin Arterial Blood 0.3 Methemoglobin Blood Gas A-a O2 468.6 H Differential Oxyhemoglobin 93.3 Percent Blood Gas 37.0 Temperature Blood Gas Modality HFNC FiO2 80.0 Blood Gas Notified CW Whom Blood Gas Notified 10/02/2018 9:07:46 Time AM Medications Medication Current Medications Albuterol (Proventil 0.083% (Neb)) 2.5 mg Q4H RESP THERAPY PRN NEB SHORTNESS OF BREATH; Start 09/29/18 at 15:00 Albuterol (Proventil 0.083% (Neb)) 2.5 mg Q8H RESP THERAPY PRN NEB WHEEZING AND SOB; Start 09/29/18 at 16:00 Bisacodyl (Dulcolax Supp) 10 mg DAILY PRN [place] CONSTIPATION; Start 09/29/18 at 15:00 Hydralazine HCl (Apresoline) 25 mg BID PRN PO ELEVATED BP; SBP > 160; Start 09/29/18 at 15:00 Magnesium Hydroxide (Milk Of Mag) 30 ml DAILY PRN PO CONSTIPATION; Start 09/29/18 at 15:00 Miscellaneous Information 1 ea NOTE XX ; Start 09/29/18 at 16:30 Glucose (Glutose) 15 gm Q15M PRN PO DECREASED GLUCOSE; Start 09/29/18 at 16:30 Glucose (Glutose) 22.5 gm Q15M PRN PO DECREASED GLUCOSE; Start 09/29/18 at 16:30 Dextrose (D50w Syringe) 25 ml Q15M PRN IV DECREASED GLUCOSE; Start 09/29/18 at 16:30 Dextrose (D50w Syringe) 50 ml Q15M PRN IV DECREASED GLUCOSE; Start 09/29/18 at 16:30 Glucagon (Glucagen) 1 mg Q15M PRN IM DECREASED GLUCOSE; Start 09/29/18 at 16:30 Glucose (Glutose) 15 gm Q15M PRN BUCCAL DECREASED GLUCOSE; Start 09/29/18 at 1 6:30 Miscellaneous Information (Pending [facility] Order For Wound Care) This patient saini... PRN PRN XX WOUND CARE; Start 09/30/18 at 05:00 Insulin Aspart (Novolog Insulin Pen) (Adult SC Insulin - Mild Algorithm)... Q4 SC Last administered on 10/02/18at 07:33; Admin Dose 1 UNIT; Start 09/30/18 at 13:00 Meropenem/Sodium Chloride 50 ml @ 100 mls/hr Q12 IVPB Last administered on 10/02/18at 09:15; Admin Dose 100 MLS/HR; Start 09/30/18 at 21:00 Acetaminophen (Tylenol Supp) 650 mg Q6H PRN [place] FEVER Last administered on 10/01/18at 20:57; Admin Dose 650 MG; Start 09/30/18 at 21:30 Dextrose 1,000 ml @ 100 mls/hr Q10H IV Last administered on 10/01/18at 21:19; Admin Dose 75 MLS/HR; Start 10/01/18 at 09:00 Miscellaneous Information (*Rx Drug Level Order Reminder*) VANCO TROUGH @ 1,600 ON... 1600 ONCE XX ; Start 10/02/18 at 16:00; Stop 10/02/18 at 16:01 Linezolid 300 ml @ 300 mls/hr Q12 IVPB Last administered on 10/02/18at 09:19; Admin Dose 300 MLS/HR; Start 10/01/18 at 21:00 MISHA COLLADO Oct 02, 2018 09:51
[2018-10-02] MEDS ORDERED: ENOXAPARIN 60 MG/0.6 ML SYG SC SCH (10:00)
--- NOTE | 2018-10-02 12:58 | CONS ---
Assessment/Plan Assessment/Plan Hospital Course (Demo Recall) ID PROGRESS NOTE CURRENT ABX: DAY # =>Vanco IV + Merrem 10/02/18 0549 10/02/18 0549 24H INTERVAL SUMMARY * Frail 73 yo M -- Encephalopathic, lethargic, VSS, no fevers, NAD on supplemental O2 via NC * Spouse at bedside given update -- she says he went for CT Chest today, result not posted yet * 10/01/18 CXR: Worsening right lower lobe infiltrate. 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 MICRO/OTHER * UA on admission w/(+)Moderate BUDDING YEAST -> Repeat UA 10/01 = no yeast * 09/30/18 BCX (+)2/ bottles: Organism 1 STAPHYLOCOCCUS SPECIES * 09/29/18 Urine Cx (-) * 09/29/18 BCX STAPHYLOCOCCUS AURICULARIS * 09/29/18 BCX Organism 1 STAPHYLOCOCCUS AUREUS S AUREUS M.I.C. RX --------- --- CEFAZOLIN S CIPROFLOXACIN >=8 R CLINDAMYCIN R DOXYCYCLINE S ERYTHROMYCIN >=8 R LEVOFLOXACIN >=8 R OXACILLIN 0.5 S PENICILLIN-G >=0.5 R RIFAMPIN <=0.5 S VANCOMYCIN <=0.5 S TRIMETHOPRIM/SULFAMETHOXAZOLE <=10 S PHYSICAL EXAMINATION: GENERAL: VSS, NAD HEENT: AT, NC, anicteric, NECK: Supple, CHEST: Equal chest rise bilaterally, without dyspnea on observation HEART: Pulse RRR ABDOMEN: Soft : deferred EXTREMITIES: Warm, dry SKIN: No rash, no diaphoresis ID ASSESSMENT 73 yo M admit with: 1. Severe sepsis with ongoing fevers 2. Persistent bacteremia 3. Acute hypoxemic respiratory failure 4. Aspiration PNA w/RLL infiltrate on CXR 5. Acute renal failure 6. Acute encephalopathy ABX ALLERGIES: None to ABX INVASIVES: PICC, FC CURRENT ABX: DAY # => Vanco IV + Merrem ID RECOMMENDATIONS/PLAN: 1. Continue current ABX 2. ASP precautions 3. Advised spouse I do not see result of CT chest posted to date/time -- will f/u tomorrow. * Spouse expresses understanding of ABX coverage and gratitude. * . Consultation Date/Type/Reason Admit Date/Time Sep 29, 2018 at 13:57 Initial Consult Date 09/30/18 Requesting Provider: GLADIS ALICIA DO Date/Time of Note DATE: 10/02/18 TIME: 12:58 Exam/Review of Systems Exam Vitals Vital Signs Date Temp Pulse Resp B/P (MAP) Pulse Ox O2 O2 Flow FiO2 Time Delivery Rate 10/02/18 110 12:01 10/02/18 97 80 11:00 10/02/18 98.0 22 118/73 Nasal 08:38 (88) Cannula 09/29/18 15.0 11:14 Intake and Output 10/01/18 10/01/18 10/02/18 1515:00 23:00 07:00 IntakeIntake Total 410 ml 450 ml 350 ml OutputOutput Total 310 ml 560 ml 600 ml BalanceBalance 100 ml -110 ml -250 ml Results Result Diagram: 10/02/18 0549 10/02/18 0549 Results 24hrs Laboratory Tests Test 10/01/18 13:27 10/01/18 16:34 10/01/18 21:23 10/01/18 23:50 Bedside Glucose 94 104 112 Sodium Level 156 H Potassium Level 3.9 Chloride Level 128 H Carbon Dioxide 20 L Level Anion Gap 8 Blood Urea 125 H Nitrogen Creatinine 2.67 H Est Glomerular Filtrat Rate mL/min Glucose Level 118 Calcium Level 8.6 Phosphorus Level 4.1 Magnesium Level 2.9 H Test 10/02/18 02:04 10/02/18 05:49 10/02/18 06:01 10/02/18 07:00 Bedside Glucose 143 157 White Blood Count 4.5 L Red Blood Count 3.99 L Hemoglobin 10.6 L Hematocrit 34.4 L Mean Corpuscular 86.2 Volume Mean Corpuscular 26.6 L Hemoglobin Mean Corpuscular 30.8 L Hemoglobin Concent Red Cell 15.6 H Distribution Width Platelet Count 184 Mean Platelet 11.5 H Volume Immature 0.700 H Granulocytes % Neutrophils % 88.8 H Segmented 77 Neutrophils % (Manual) Band Neutrophils % 13 H (Manual) Lymphocytes % 9.0 L Lymphocytes % 8 L (Manual) Monocytes % 1.3 Monocytes % 2 (Manual) Eosinophils % 0.0 Basophils % 0.2 Nucleated Red 0.0 Blood Cells % Immature 0.030 Granulocytes # Neutrophils # 4.0 Neutrophils # 3.5 (Manual) Band Neutrophils # 0.5 Lymphocytes 0.3 L (Manual) Lymphocytes # 0.4 L Monocytes # 0.1 L Monocytes # 0.0 L (Manual) Eosinophils # 0.0 Basophils # 0.0 Nucleated Red 0.0 Blood Cells # Platelet Estimate NORMAL Poikilocytosis 2+ Ovalocytes 1+ Sodium Level 155 H Potassium Level 3.8 Chloride Level 128 H Carbon Dioxide 18 L Level Anion Gap 9 Blood Urea 129 H Nitrogen Creatinine 2.54 H Est Glomerular Filtrat Rate mL/min Glucose Level 165 Calcium Level 8.5 Phosphorus Level 4.0 Magnesium Level 3.0 H Blood Gas Specimen Blood arterial Source Arterial Blood 10/02/2018 8:45:30 Date Drawn AM Arterial Blood pH 7.385 (Temp corrected) Arterial Blood 28.8 L pCO2 (Temp correct) Arterial Blood pO2 71.6 L (Temp corrected) Arterial Blood 16.8 L HCO3 Arterial Blood -6.7 L Base Excess Arterial Blood 93.7 L Oxygen Saturation Gian Test N/A Arterial Blood Gas Right Brachial Puncture Site Arterial 0.1 Blood Carboxyhemog lobin Arterial Blood 0.3 Methemoglobin Blood Gas A-a O2 468.6 H Differential Oxyhemoglobin 93.3 Percent Blood Gas 37.0 Temperature Blood Gas Modality HFNC FiO2 80.0 Blood Gas Notified CW Whom Blood Gas Notified 10/02/2018 9:07:46 Time AM Test 10/02/18 09:06 10/02/18 12:14 Bedside Glucose 138 142 Medications Medication Current Medications Albuterol (Proventil 0.083% (Neb)) 2.5 mg Q4H RESP THERAPY PRN NEB SHORTNESS OF BREATH; Start 09/29/18 at 15:00 Albuterol (Proventil 0.083% (Neb)) 2.5 mg Q8H RESP THERAPY PRN NEB WHEEZING AND SOB; Start 09/29/18 at 16:00 Bisacodyl (Dulcolax Supp) 10 mg DAILY PRN MD CONSTIPATION; Start 09/29/18 at 15:00 Hydralazine HCl (Apresoline) 25 mg BID PRN PO ELEVATED BP; SBP > 160; Start 09/29/18 at 15:00 Magnesium Hydroxide (Milk Of Mag) 30 ml DAILY PRN PO CONSTIPATION; Start 09/29/18 at 15:00 Miscellaneous Information 1 ea NOTE XX ; Start 09/29/18 at 16:30 Glucose (Glutose) 15 gm Q15M PRN PO DECREASED GLUCOSE; Start 09/29/18 at 16:30 Glucose (Glutose) 22.5 gm Q15M PRN PO DECREASED GLUCOSE; Start 09/29/18 at 16:30 Dextrose (D50w Syringe) 25 ml Q15M PRN IV DECREASED GLUCOSE; Start 09/29/18 at 16:30 Dextrose (D50w Syringe) 50 ml Q15M PRN IV DECREASED GLUCOSE; Start 09/29/18 at 16:30 Glucagon (Glucagen) 1 mg Q15M PRN IM DECREASED GLUCOSE; Start 09/29/18 at 16:30 Glucose (Glutose) 15 gm Q15M PRN BUCCAL DECREASED GLUCOSE; Start 09/29/18 at 16:30 Miscellaneous Information (Pending [facility] Order For Wound Care) This patient saini... PRN PRN XX WOUND CARE; Start 09/30/18 at 05:00 Insulin Aspart (Novolog Insulin Pen) (Adult SC Insulin - Mild Algorithm)... Q4 SC Last administered on 10/02/18at 07:33; Admin Dose 1 UNIT; Start 09/30/18 at 13:00 Meropenem/Sodium Chloride 50 ml @ 100 mls/hr Q12 IVPB Last administered on 10/02/18at 09:15; Admin Dose 100 MLS/HR; Start 09/30/18 at 21:00 Acetaminophen (Tylenol Supp) 650 mg Q6H PRN MD FEVER Last administered on 10/01at 20:57; Admin Dose 650 MG; Start 09/30/18 at 21:30 Dextrose 1,000 ml @ 100 mls/hr Q10H IV Last administered on 10/01/18at 21:19; Admin Dose 75 MLS/HR; Start 10/01/18 at 09:00 Linezolid 300 ml @ 300 mls/hr Q12 IVPB Last administered on 10/02/18at 09:19; Admin Dose 300 MLS/HR; Start 10/01/18 at 21:00 Enoxaparin Sodium (Lovenox) 60 mg Q24H SC Last administered on 10/02/18at 11:43; Admin Dose 60 MG; Start 10/02/18 at 10:00 NATALIA GILBERT NP Oct 02, 2018 12:58
--- NOTE | 2018-10-02 13:41 | CONSI ---
Assessment/Plan Assessment/Plan Assessment/Plan (Recall) 73 M c/ dementia, bipolar disorder and other comorbidities...who presents for evaluation of respiratory Sx and fevers.. CXR is concerning for possible pneumonia. Blood Cx + Hypernatremia Renal Failure He was noted to be encephalopathic...for which neurology is consulted.. The clinical picture could be consistent w/ and acute toxic-metabolic encephalopathy. Encephalitis is, though, not yet excluded.. A focal [employer] process is less likely.. Head CT is notable for scattered chronic infarcts, without obvious acute intracranial pathology. UA neg P: LP for CSF evaluation MRI brain w/o contrast for further characterization when medically able [place] as necessary Limit sedating medications in the short-term...where possible Start asa for secondary stroke prevention Other management and supportive care per primary Will follow clinically Consultation Date/Type/Reason Admit Date/Time Sep 29, 2018 at 13:57 Type of Consult Neurology Reason for Consultation ams Requesting Provider: GLADIS ALICIA DO Date/Time of Note DATE: 10/02/18 TIME: 13:29 Hx of Present Illness Patient is unable to contribute a Hx. at bedside reports that she is unsure exactly why the patient is here...but notes that he was able to wake up and communicate yesterday... It is elsewhere noted: This is a 73-year-old male with a past medical history of diabetes, history of behavioral disorder, history of bipolar disorder, history of hypertension, history of constipation who presents to [facility] from a skilled nurse facility due to shortness of breath. The patient upon arrival to the emergency room was unable to provide any history. History is obtained by reviewing medical records, speaking to hospital staff. The patient apparently was desaturating at a skilled nurse facility. Upon arrival was on BiPAP. The patient in the emergency room had a laboratory data drawn and chest x-ray which showed evidence of bilateral lower airspace disease, possible pneumonia. The patient also was noted to have white count of 5.1. In the emergency room, the patient was given antibiotics, IV hydration. limited by ams Objective Exam Vitals Vital Signs Date Temp Pulse Resp B/P (MAP) Pulse Ox O2 O2 Flow FiO2 Time Delivery Rate 10/02/18 110 12:01 10/02/18 97 80 11:00 10/02/18 98.0 22 118/73 Nasal 08:38 (88) Cannula 6/5/19 15.0 11:14 Intake and Output 10/01/18 10/01/18 10/02/18 1515:00 23:00 07:00 IntakeIntake Total 410 ml 450 ml 350 ml OutputOutput Total 310 ml 560 ml 600 ml BalanceBalance 100 ml -110 ml -250 ml Exam PE: Gen Appearance: No Apparent Distress HEENT: Normocephalic Cardiovascular: Tachycardic Abdomen: Soft Extremities: L hand contracted. NE: The patient was obtunded and nonverbal. Cranial nerve examination was limited by mental status. Pupils were equal and reactive to light. There was no afferent pupillary defect. Funduscopic examination was limited. Face was grossly symmetric, w/ present corneal and cough reflexes. Tone was normal. Muscle bulk was reduced. I did not see fasciculations. The patient withdrew to noxious stimulation x 4. Coordination and gait testing was limited by mental status. Arm and leg reflexes were within normal limits and symmetric. Ayala's sign was absent. Plantar responses were flexor. Results Result Diagram: 10/02/18 0549 10/02/18 0549 Results 24hrs Laboratory Tests Test 10/01/18 16:34 10/01/18 21:23 10/01/18 23:50 10/02/18 02:04 Bedside Glucose 104 112 143 Sodium Level 156 H Potassium Level 3.9 Chloride Level 128 H Carbon Dioxide 20 L Level Anion Gap 8 Blood Urea 125 H Nitrogen Creatinine 2.67 H Est Glomerular Filtrat Rate mL/min Glucose Level 118 Calcium Level 8.6 Phosphorus Level 4.1 Magnesium Level 2.9 H Test 10/02/18 05:49 10/02/18 06:01 10/02/18 07:00 10/02/18 09:06 White Blood Count 4.5 L Red Blood Count 3.99 L Hemoglobin 10.6 L Hematocrit 34.4 L Mean Corpuscular 86.2 Volume Mean Corpuscular 26.6 L Hemoglobin Mean Corpuscular 30.8 L Hemoglobin Concent Red Cell 15.6 H Distribution Width Platelet Count 184 Mean Platelet 11.5 H Volume Immature 0.700 H Granulocytes % Neutrophils % 88.8 H Segmented 77 Neutrophils % (Manual) Band Neutrophils % 13 H (Manual) Lymphocytes % 9.0 L Lymphocytes % 8 L (Manual) Monocytes % 1.3 Monocytes % 2 (Manual) Eosinophils % 0.0 Basophils % 0.2 Nucleated Red 0.0 Blood Cells % Immature 0.030 Granulocytes # Neutrophils # 4.0 Neutrophils # 3.5 (Manual) Band Neutrophils # 0.5 Lymphocytes 0.3 L (Manual) Lymphocytes # 0.4 L Monocytes # 0.1 L Monocytes # 0.0 L (Manual) Eosinophils # 0.0 Basophils # 0.0 Nucleated Red 0.0 Blood Cells # Platelet Estimate NORMAL Poikilocytosis 2+ Ovalocytes 1+ Sodium Level 155 H Potassium Level 3.8 Chloride Level 128 H Carbon Dioxide 18 L Level Anion Gap 9 Blood Urea 129 H Nitrogen Creatinine 2.54 H Est Glomerular Filtrat Rate mL/min Glucose Level 165 Calcium Level 8.5 Phosphorus Level 4.0 Magnesium Level 3.0 H Bedside Glucose 157 138 Blood Gas Specimen Blood arterial Source Arterial Blood 10/02/2018 8:45:30 Date Drawn AM Arterial Blood pH 7.385 (Temp corrected) Arterial Blood 28.8 L pCO2 (Temp correct) Arterial Blood pO2 71.6 L (Temp corrected) Arterial Blood 16.8 L HCO3 Arterial Blood -6.7 L Base Excess Arterial Blood 93.7 L Oxygen Saturation Gian Test N/A Arterial Blood Gas Right Brachial Puncture Site Arterial 0.1 Blood Carboxyhemog lobin Arterial Blood 0.3 Methemoglobin Blood Gas A-a O2 468.6 H Differential Oxyhemoglobin 93.3 Percent Blood Gas 37.0 Temperature Blood Gas Modality HFNC FiO2 80.0 Blood Gas Notified CW Whom Blood Gas Notified 10/02/2018 9:07:46 Time AM Test 10/02/18 12:14 Bedside Glucose 142 Past Medical History reviewed Home Meds Reported Medications Sodium Phosphate,Cook-Dibasic (Enema Ready To Use) 133 Ml Enema, 133 ML RC EVERY 72 HOURS PRN for CONSTIPATION, ENEMA 09/29/18 Valproic Acid* (Depakene*) 250 Mg/5 Ml Udc Syrup, 125 MG PO Q6, ML 09/29/18 Haloperidol* (Haldol*) 1 Mg Tab, 1 MG PO Q6, TAB 09/29/18 Hydralazine Hcl* (Hydralazine Hcl*) 25 Mg Tab, 25 MG PO BID PRN for ELEVATED BLOOD PRESSURE, #60 TAB HOLD IF SBP <110 OR HR<60 09/29/18 Hydrocodone/Acetaminophen ([place] 5-325 Tablet) 1 Each Tablet, 1 EACH PO Q4 PRN for PAIN LEVEL 6-10, TAB 09/29/18 Metoprolol Tartrate* (Lopressor*) 50 Mg Tab, 50 MG PO BID, #60 TAB HOLD IF SBP <110 OR HR <60 09/29/18 Multivit-Min/Iron Fum/Folic AC (Ohsug-Wjdrxhd-Jwyxxjpe Tablet) 1 Each Tablet, 1 EACH PO DAILY, TAB 09/29/18 Insulin Aspart* (Novolog Insulin Pen*) 100 Unit/Ml Soln, 0 SC .SLIDING SCALE AC, EA 150-199 = 1 UNIT 200-249 = 2 UNITS 250-299 = 3 UNITS 300-349 = 4 UNITS 350-400 = 5 UNITS OVER 400 CALL MD [facility] [employer] AND AT BEDTIME 09/29/18 Protein Supplement (Promod) 946 Ml Liquid, 30 ML PO BID 09/29/18 Trazodone Hcl* (Trazodone Hcl*) 50 Mg Tablet, 50 MG PO QHS PRN for SLEEP, #30 TAB 09/29/18 Bisacodyl (Dulcolax) 10 Mg Supp.rect, 10 MG RC DAILY PRN for CONSTIPATION, SUPP.RECT 09/29/18 Magnesium Hydroxide* (Milk Of Magnesia*) 400 Mg/5 Ml Oral.susp, 30 ML PO DAILY P RN for CONSTIPATION, ML 09/29/18 Amlodipine Besylate* (Amlodipine Besylate*) 10 Mg Tablet, 10 MG PO DAILY, #30 TAB BP<110 OR HR <60 09/29/18 Albuterol Sulfate* (Albuterol Sulfate* Neb) 0.083%-3 Ml Neb, 2.5 MG NEB Q4H PRN for SHORTNESS OF BREATH, #30 VIAL 09/29/18 Albuterol Sulfate* (Albuterol Sulfate* Neb) 0.083%-3 Ml Neb, 2.5 MG NEB Q8 PRN for WHEEZING AND SOB, #30 VIAL 09/29/18 Medications Current Medications Albuterol (Proventil 0.083% (Neb)) 2.5 mg Q4H RESP THERAPY PRN NEB SHORTNESS OF BREATH; Start 09/29/18 at 15:00 Albuterol (Proventil 0.083% (Neb)) 2.5 mg Q8H RESP THERAPY PRN NEB WHEEZING AND SOB; Start 09/29/18 at 16:00 Bisacodyl (Dulcolax Supp) 10 mg DAILY PRN [place] CONSTIPATION; Start 09/29/18 at 15:00 Hydralazine HCl (Apresoline) 25 mg BID PRN PO ELEVATED BP; SBP > 160; Start 09/29/18 at 15:00 Magnesium Hydroxide (Milk Of Mag) 30 ml DAILY PRN PO CONSTIPATION; Start 09/29/18 at 15:00 Miscellaneous Information 1 ea NOTE XX ; Start 09/29/18 at 16:30 Glucose (Glutose) 15 gm Q15M PRN PO DECREASED GLUCOSE; Start 09/29/18 at 16:30 Glucose (Glutose) 22.5 gm Q15M PRN PO DECREASED GLUCOSE; Start 09/29/18 at 16:30 Dextrose (D50w Syringe) 25 ml Q15M PRN IV DECREASED GLUCOSE; Start 09/29/18 at 16:30 Dextrose (D50w Syringe) 50 ml Q15M PRN IV DECREASED GLUCOSE; Start 09/29/18 at 16:30 Glucagon (Glucagen) 1 mg Q15M PRN IM DECREASED GLUCOSE; Start 09/29/18 at 16:30 Glucose (Glutose) 15 gm Q15M PRN BUCCAL DECREASED GLUCOSE; Start 09/29/18 at 16:30 Miscellaneous Information (Pending [facility] Order For Wound Care) This patient saini... PRN PRN XX WOUND CARE; Start 09/30/18 at 05:00 Insulin Aspart (Novolog Insulin Pen) (Adult SC Insulin - Mild Algorithm)... Q4 SC Last administered on 10/02/18at 13:12; Admin Dose 1 UNIT; Start 09/30/18 at 13:00 Meropenem/Sodium Chloride 50 ml @ 100 mls/hr Q12 IVPB Last administered on 10/02/18at 09:15; Admin Dose 100 MLS/HR; Start 09/30/18 at 21:00 Acetaminophen (Tylenol Supp) 650 mg Q6H PRN [place] FEVER Last administered on 10/01/18at 20:57; Admin Dose 650 MG; Start 09/30/18 at 21:30 Dextrose 1,000 ml @ 100 mls/hr Q10H IV Last administered on 10/01/18at 21:19; Admin Dose 75 MLS/HR; Start 10/01/18 at 09:00 Linezolid 300 ml @ 300 mls/hr Q12 IVPB Last administered on 10/02/18at 09:19; Admin Dose 300 MLS/HR; Start 10/01/18 at 21:00 Enoxaparin Sodium (Lovenox) 60 mg Q24H SC Last administered on 10/02/18at 11:43; Admin Dose 60 MG; Start 10/02/18 at 10:00 Allergies: Coded Allergies: No Known Allergy (Unverified , 09/29/18) Social History Smoking Status: Unknown if ever smoked JOHNATHAN ARIAS Oct 02, 2018 13:40
[2018-10-02] MEDS: ASPIRIN (EC) 81 MG TAB PO SCH (14:00)
[2018-10-02] MEDS: DEXTROSE 5% 1,000 ML IV SCH ×2 (17:12→20:41)
[2018-10-03] VITALS (12 sets, daily range): BP systolic 117–144; BP diastolic 59–70; PULSE 60–110; RESP 18–27
[2018-10-03] MEDS: Insulin NOVOLOG SS MILD Algorithm (NPO/TPN/ENTERAL FEEDS) SC SCH ×6 (01:12→21:21)
[2018-10-03] MEDS: PANTOPRAZOLE 40 MG INJ IV SCH ×2 (05:08→17:04)
[2018-10-03] MEDS: DEXTROSE 5% 1,000 ML IV SCH ×3 (05:08→21:14)
[2018-10-03] MEDS: ASPIRIN (EC) 81 MG TAB PO SCH (07:57)
[2018-10-03] MEDS: MEROPENEM 500MG/50 ML (PMX) 50 ML IVPB SCH ×2 (08:25→21:14)
[2018-10-03] MEDS: LINEZOLID 600 MG/300 ML (PMX) 300 ML IVPB SCH ×2 (09:19→21:14)
--- NOTE | 2018-10-03 09:51 | PN ---
DATE: 10/03/2018 SUBJECTIVE: The patient remains in serious condition. The patient remains on high flow oxygen. Ove rnight, the patient had an episode of black stools. The patient's yesterday and family refused NG tube placement to receive free water flushes and/or tube feeding. No other acute events noted. N o hemoptysis, hematemesis or hematochezia. OBJECTIVE: VITAL SIGNS: Blood pressure is 144/67, respiration 18, pulse 60, temperature 98.0. HEENT: Head is normocephalic. NECK: Supple. HEART: Regular rate. LUNGS: Show diminished breath sounds at the base. ABDOMEN: Soft, nontender to palpation. No rebound or guarding. EXTREMITIES: Negative for clubbing, cyanosis, no edema. DERMATOLOGIC: No rashes. MUSCULOSKELETAL: No joint effusions. NEUROLOGIC: No change in exam. MEDICATIONS: The patient's medications have been reviewed. LABORATORY DATA: Has been reviewed. IMAGING STUDIES: Have been reviewed. ASSESSMENT AND PLAN: 1. Acute hypoxemic respiratory failure, etiology secondary to pneumonia. The patient's CT scan was reviewed. Patient remains on high flow oxygen. Continue to monitor. Follow up with pulmonary. 2. Sepsis, secondary to healthcare-associated pneumonia. The patient's blood cultures remain positi ve. Continue broad spectrum antibiotics, continue to monitor. Repeat cultures are pending. Follow up with infectious disease. 3. Nonoliguric acute kidney injury with unknown baseline creatinine. Etiology is secondary to septi c acute kidney injury, hemodynamics. The patient remains in injury phase of acute kidney injury. Co ntinue current medical management. Continue aggressive IV hydration, monitor closely. 4. Hypernatremia. Etiology is likely secondary to insensible losses, decreased free water intake as well as osmotic diuresis from underlying azotemia. Patient's family refused NG tube placement to in itiate free water flushes. We will continue aggressive hypotonic fluid. We will also check a urine osmolarity to evaluate for any possibility of diabetes insipidus. If there is evidence of diabetes i nsipidus, will start the patient on DDAVP. 5. Metabolic acidosis secondary to acute kidney injury. Continue to monitor. 6. Hematochezia. Etiology may be secondary to recent Lovenox use. Stool OB were positive. The deirdre n is to hold Lovenox and monitor hemoglobin and hematocrit levels. Place a GI consult for evaluation . 7. Mineral bone disorder. Monitor calcium and phosphorus levels. 8. Acute encephalopathy, etiology is likely toxic metabolic. CT scan was negative. Appreciate neur ology's evaluation. Follow up recommendations. 9. History of bipolar disorder. 10. Diabetes. Continue current insulin regimen. 11. Hypertension. Continue to monitor. 12. Hypokalemia. Continue to monitor and replete as needed. 13. Nutrition. The patient is currently n.p.o. The patient's family is refusing NG tube to initiat e tube feeding. Continue to monitor. The patient may require TPN. Dictated By: GLADIS ALICIA DO NR/NTS Conf#: [id number] DID#: [id number] CC: CONCEPCION HANKS MD;*End*
[2018-10-03] MEDS: ALBUTEROL 0.083% (NEB) 2.5 MG/3 ML AMP NEB PRN ×2 (10:13→14:21)
[2018-10-03] MEDS: POTASSIUM CHLORIDE 100 ML IVPB SCH ×2 (10:44→12:14)
[2018-10-03] MEDS: BALSAM PERU/CASTOR OIL 60 GM TUBE TOP SCH ×2 (10:51→21:14)
--- NOTE | 2018-10-03 10:54 | CONS ---
Assessment/Plan Assessment/Plan Assessment/Plan (Daily) CT chest was reviewed from yesterday showing significant bibasilar infiltrative changes. Assessment recommendations; 1. Patient with history of CVA and some degree of encephalopathy admitted for hypoxemia due to bilateral lower lobe pneumonia, possibly aspiration. 2. Hypoxemia with interval improvement. 3. Chronic renal insufficiency. 4. Anemia and thrombocytopenia. Discontinue full dose Lovenox and switch to DVT prophylactic dose. Continue current antimicrobial regimen. PE is very unlikely in view of CT imaging of the chest. Monitor renal function. Patient possibly may need to have a G-tube or PEG tube placed. MRI of the brain also has been contemplated by neurologist. I did have a detailed discussion the patient's at bedside and answered all her questions. Consultation Date/Type/Reason Admit Date/Time Sep 29, 2018 at 13:57 Initial Consult Date 09/30/18 Type of Consult Pulmonary Pulmonary consult requested for evaluation of hypoxemia. Patient is a 73-year-old male who is a [facility] resident who was sent over to the hospital because of hypoxemia. Upon evaluation chest x-ray was done whic h has been interpreted as showing possible bibasilar pneumonia. Vision has been started on appropriate empiric antimicrobial regimen. The patient has apparently fairly advanced dementia and was not able to give any meaningful history by himself. Patient however was awake and did not appear to be in any distress whatsoever. Past medical history; 1. Dementia 2. Bipolar disorder. 3. Chronic renal insufficiency. 4. History of hypertension. Medications; reviewed. Allergies; none. Social history, family history, occupational history is not available. Review of system; unable to be obtained. General exam; elderly male, awake and lethargic. Currently in no distress. Requesting Provider: GLADIS ALICIA DO Date/Time of Note DATE: 10/03/18 TIME: 10:51 24 HR Interval Summary Free Text/Dictation Patient's condition is gradually improving with improving hypoxemia. General exam; elderly male, awake but appears lethargic. Currently no distress. On high flow nasal cannula at 65% FiO2. Exam/Review of Systems Exam Vitals Vital Signs Date Temp Pulse Resp B/P (MAP) Pulse Ox O2 O2 Flow FiO2 Time Delivery Rate 10/03/18 97 65 10:16 10/03/18 114 28 10:14 10/03/18 98.0 144/67 07:50 (92) 10/02/18 High Flow 15:05 09/29/18 15.0 11:14 Intake and Output 10/02/18 10/02/18 10/03/18 1515:00 23:00 07:00 IntakeIntake Total 0 ml OutputOutput Total 1200 ml 1000 ml BalanceBalance -1200 ml -1000 ml Exam H EENT exam; supple neck, no JVD. No lymphadenopathy. Midline trachea. No thyromegaly. Patient has fair dentition. Chest exam; diminished breath on lung bases. Upper lobes are clear. S1-S2 audible, no murmurs. Regular rhythm. Abdomen exam; soft, scaphoid. Nontender. No organomegaly. Bowel sounds audible. Extremity exam; peripheral edema clubbing. 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 Results Result Diagram: 10/03/180 10/03/18449 Results 24hrs Laboratory Tests Test 10/02/18 12:14 10/02/18 14:28 10/02/18 17:08 10/02/18 21:32 Bedside Glucose 142 146 130 Sodium Level 154 H Potassium Level 3.8 Chloride Level 128 H Carbon Dioxide Level 20 L Anion Gap 6 Blood Urea Nitrogen 128 H Creatinine 2.37 H Est Glomerular Filtrat Rate mL/min Glucose Level 159 Calcium Level 8.1 L Test 10/02/18 22:30 10/03/18 01:07 10/03/18 04:45 10/03/18 04:50 White Blood Count 4.7 L 4.9 Red Blood Count 3.25 L 3.10 L Hemoglobin 8.6 L 8.4 L Hematocrit 28.0 L 27.1 L Mean Corpuscular Volume 86.2 87.4 Mean Corpuscular 26.5 L 27.1 L Hemoglobin Mean Corpuscular 30.7 L 31.0 L Hemoglobin Concent Red Cell Distribution 15.9 H 16.1 H Width Platelet Count 174 88 #L Mean Platelet Volume 12.5 H 13.0 H Immature Granulocytes % 0.400 0.600 H Neutrophils % 89.4 H Segmented Neutrophils 86 H 73 % (Manual) Band Neutrophils % 7 H 12 H (Manual) Lymphocytes % 8.1 L Lymphocytes % (Manual) 5 L 9 L Monocytes % 2.1 Eosinophils % 0.0 Basophils % 0.0 Myelocytes % (Manual) 1 H Plasma Cells % (manual) 1 Nucleated Red Blood 0.0 0.0 Cells % Immature Granulocytes # 0.020 0.030 Neutrophils # 4.2 Neutrophils # (Manual) 4.1 3.6 Band Neutrophils # 0.3 0.5 Lymphocytes (Manual) 0.2 L 0.4 L Lymphocytes # 0.4 L Monocytes # 0.1 L Eosinophils # 0.0 Basophils # 0.0 Myelocytes # 0.0 Plasma Cells # (manual) 0.0 Nucleated Red Blood 0.0 Cells # Platelet Estimate NORMAL DECREASED Polychromasia 1+ Poikilocytosis 2+ 3+ Anisocytosis 1+ 1+ Tear Drop Cells 1+ Ovalocytes 1+ Bedside Glucose 142 139 Reactive Lymphocytes 4 H % (Manual) Monocytes % (Manual) 2 Reactive Lymphocytes # 0.1 H Monocytes # (Manual) 0.0 L Giant Platelets 1 H Macrocytosis 1+ Sodium Level 157 H Potassium Level 3.4 L Chloride Level 130 H Carbon Dioxide Level 20 L Anion Gap 7 Blood Urea Nitrogen 119 H Creatinine 2.06 H Est Glomerular Filtrat Rate mL/min Glucose Level 139 Calcium Level 8.2 L Phosphorus Level 3.5 Magnesium Level 2.7 H Test 10/03/18 05:34 10/03/18 07:52 Stool Occult Blood POSITIVE Bedside Glucose 136 Medications Medication Current Medications Albuterol (Proventil 0.083% (Neb)) 2.5 mg Q4H RESP THERAPY PRN NEB SHORTNESS OF BREATH Last administered on 10/03/18at 10:13; Admin Dose 2.5 MG; Start 09/29/18 at 15:00 Albuterol (Proventil 0.083% (Neb)) 2.5 mg Q8H RESP THERAPY PRN NEB WHEEZING AND SOB; Start 09/29/18 at 16:00 Bisacodyl (Dulcolax Supp) 10 mg DAILY PRN [place] CONSTIPATION; Start 09/29/18 at 15:00 Hydralazine HCl (Apresoline) 25 mg BID PRN PO ELEVATED BP; SBP > 160; Start 09/29/18 at 15:00 Magnesium Hydroxide (Milk Of Mag) 30 ml DAILY PRN PO CONSTIPATION; Start 09/29/18 at 15:00 Miscellaneous Information 1 ea NOTE XX ; Start 09/29/18 at 16:30 Glucose (Glutose) 15 gm Q15M PRN PO DECREASED GLUCOSE; Start 09/29/18 at 16:30 Glucose (Glutose) 22.5 gm Q15M PRN PO DECREASED GLUCOSE; Start 09/29/18 at 16:30 Dextrose (D50w Syringe) 25 ml Q15M PRN IV DECREASED GLUCOSE; Start 09/29/18 at 16:30 Dextrose (D50w Syringe) 50 ml Q15M PRN IV DECREASED GLUCOSE; Start 09/29/18 at 16:30 Glucagon (Glucagen) 1 mg Q15M PRN IM DECREASED GLUCOSE; Start 09/29/18 at 16:30 Glucose (Glutose) 15 gm Q15M PRN BUCCAL DECREASED GLUCOSE; Start 09/29/18 at 16:30 Miscellaneous Information (Pending Santyl Order For Wound Care) This patient saini... PRN PRN XX WOUND CARE; Start 09/30/18 at 05:00 Insulin Aspart (Novolog Insulin Pen) (Adult SC Insulin - Mild Algorithm)... Q4 SC Last administered on 10/03/18at 01:12; Admin Dose 1 UNIT; Start 09/30/18 at 13:00 Meropenem/Sodium Chloride 50 ml @ 100 mls/hr Q12 IVPB Last administered on 10/03/18at 08:25; Admin Dose 100 MLS/HR; Start 09/30/18 at 21:00 Acetaminophen (Tylenol Supp) 650 mg Q6H PRN [place] FEVER Last administered on 10/01/18at 20:57; Admin Dose 650 MG; Start 09/30/18 at 21:30 Dextrose 1,000 ml @ 125 mls/hr Q8H IV Last administered on 10/03/18at 05:08; Admin Dose 100 MLS/HR; Start 10/01/18 at 09:00 Linezolid 300 ml @ 300 mls/hr Q12 IVPB Last administered on 10/03/18at 09:19; Admin Dose 300 MLS/HR; Start 10/01/18 at 21:00 Enoxaparin Sodium (Lovenox) 60 mg Q24H SC Last administered on 10/02/18at 11:43; Admin Dose 60 MG; Start 10/02/18 at 10:00; Status Hold Aspirin (Halfprin) 81 mg DAILY PO ; Start 10/02/18 at 14:00 Pantoprazole (Protonix Iv) 40 mg BID@06,18 IV Last administered on 10/03/18at 05:08; Admin Dose 40 MG; Start 10/03/18 at 06:00 Potassium Chloride 100 ml @ 50 mls/hr Q2H IVPB Last administered on 10/03/18at 10:44; Admin Dose 50 MLS/HR; Start 10/03/18 at 09:30; Stop 10/03/18 at 13:29 MISHA COLLADO Oct 03, 2018 10:54
--- NOTE | 2018-10-03 11:29 | QN ---
Documentation Comment Spoke to patient's at bedside in exhausting detail.. JOHNATHAN ARIAS Oct 03, 2018 11:29
[2018-10-03] MEDS: ENOXAPARIN 30 MG/0.3 ML SYG SC SCH (12:00)
--- NOTE | 2018-10-03 15:00 | CONS ---
Assessment/Plan Assessment/Plan Hospital Course (Demo Recall) ID PROGRESS NOTE CURRENT ABX: DAY # =>Vanco IV + Merrem 10/03/1844910/03/18 0450 24H INTERVAL SUMMARY * Frail 73 yo M -- Encephalopathic, lethargic, VSS, no fevers, NAD on supplemental O2 via NC * Spouse at bedside given update -- she says he went for CT Chest today, result not posted yet * 10/01/18 CXR: Worsening right lower lobe infiltrate. 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 * 10/02/18 CT CHEST: Partial obstruction both lower lobe bronchi likely repr esenting mucous plugging. Dense consolidation with near complete collapse left lower lobe and dense consolidation with partial collapse right lower lobe. Ill-defined nodular infiltrate right lower lobe and both upper lobes as above. Question post obstructive pneumonia.. Cholelithiasis. MICRO/OTHER * UA on admission w/(+)Moderate BUDDING YEAST -> Repeat UA 10/01 = no yeast * 09/30/18 BCX (+)2/2 bottles: Organism 1 COAGULASE NEGATIVE STAPH COAG NEG M.I.C. RX --------- --- CEFAZOLIN R CIPROFLOXACIN 1 S CLINDAMYCIN <=0.25 S DOXYCYCLINE S ERYTHROMYCIN >=8 R LEVOFLOXACIN 0.5 S OXACILLIN >=4 R PENICILLIN-G >=0.5 R RIFAMPIN <=0.5 S VANCOMYCIN 1 S TRIMETHOPRIM/SULFAMETHOXAZOLE <=10 S * 09/29/18 Urine Cx (-) * 09/29/18 BCX STAPHYLOCOCCUS AURICULARIS * 09/29/18 BCX Organism 1 STAPHYLOCOCCUS AUREUS S AUREUS M.I.C. RX --------- --- CEFAZOLIN S CIPROFLOXACIN >=8 R CLINDAMYCIN R DOXYCYCLINE S ERYTHROMYCIN >=8 R LEVOFLOXACIN >=8 R OXACILLIN 0.5 S PENICILLIN-G >=0.5 R RIFAMPIN <=0.5 S VANCOMYCIN <=0.5 S TRIMETHOPRIM/SULFAMETHOXAZOLE <=10 S PHYSICAL EXAMINATION: GENERAL: VSS, NAD HEENT: AT, NC, anicteric, NECK: Supple, CHEST: Equal chest rise bilaterally, without dyspnea on observation HEART: Pulse RRR ABDOMEN: Soft : deferred EXTREMITIES: Warm, dry SKIN: No rash, no diaphoresis ID ASSESSMENT 73 yo M admit with: 1. Severe sepsis with ongoing fevers 2. Persistent bacteremia -- PICC line vs contaminated skin samples 3. Acute hypoxemic respiratory failure 4. Aspiration PNA w/RLL infiltrate on CXR * 10/02/18 CT CHEST: Mucous plugging w/collapse LLL and obstructive PNA 5. Acute renal failure 6. Acute encephalopathy ABX ALLERGIES: None to ABX INVASIVES: PICC, FC CURRENT ABX: DAY # => Vanco IV + Merrem ID RECOMMENDATIONS/PLAN: 1. Continue current ABX 2. ASP precautions 3. How long has PICC line been in place -- If not new please DC Consultation Date/Type/Reason Admit Date/Time Sep 29, 2018 at 13:57 Initial Consult Date 09/30/18 Requesting Provider: GLADIS ALICIA DO Date/Time of Note DATE: 10/03/18 TIME: 14:56 Exam/Review of Systems Exam Vitals Vital Signs Date Temp Pulse Resp B/P (MAP) Pulse Ox O2 O2 Flow FiO2 Time Delivery Rate 10/03/18 94 65 14:34 10/03/18 104 22 14:21 10/03/18 98.0 124/59 12:50 (80) 10/02/18 High Flow 15:05 09/29/18 15.0 11:14 Intake and Output 10/02/18 10/02/18 10/03/18 1515:00 23:00 07:00 IntakeIntake Total 0 ml OutputOutput Total 1200 ml 1000 ml BalanceBalance -1200 ml -1000 ml Results Result Diagram: 10/03/18 0450 10/03/18 0450 Results 24hrs Laboratory Tests Test 10/02/18 17:08 10/02/18 21:32 10/02/18 22:30 10/03/18 01:07 Bedside Glucose 146 130 142 White Blood Count 4.7 L Red Blood Count 3.25 L Hemoglobin 8.6 L Hematocrit 28.0 L Mean Corpuscular Volume 86.2 Mean Corpuscular 26.5 L Hemoglobin Mean Corpuscular 30.7 L Hemoglobin Concent Red Cell Distribution 15.9 H Width Platelet Count 174 Mean Platelet Volume 12.5 H Immature Granulocytes % 0.400 Neutrophils % 89.4 H Segmented Neutrophils 86 H % (Manual) Band Neutrophils % 7 H (Manual) Lymphocytes % 8.1 L Lymphocytes % (Manual) 5 L Monocytes % 2.1 Eosinophils % 0.0 Basophils % 0.0 Myelocytes % (Manual) 1 H Plasma Cells % (manual) 1 Nucleated Red Blood 0.0 Cells % Immature Granulocytes # 0.020 Neutrophils # 4.2 Neutrophils # (Manual) 4.1 Band Neutrophils # 0.3 Lymphocytes (Manual) 0.2 L Lymphocytes # 0.4 L Monocytes # 0.1 L Eosinophils # 0.0 Basophils # 0.0 Myelocytes # 0.0 Plasma Cells # (manual) 0.0 Nucleated Red Blood 0.0 Cells # Platelet Estimate NORMAL Polychromasia 1+ Poikilocytosis 2+ Anisocytosis 1+ Tear Drop Cells 1+ Ovalocytes 1+ Test 10/03/18 04:45 10/03/18 04:50 10/03/18 05:34 10/03/18 07:52 Bedside Glucose 139 136 White Blood Count 4.9 Red Blood Count 3.10 L Hemoglobin 8.4 L Hematocrit 27.1 L Mean Corpuscular Volume 87.4 Mean Corpuscular 27.1 L Hemoglobin Mean Corpuscular 31.0 L Hemoglobin Concent Red Cell Distribution 16.1 H Width Platelet Count 88 #L Mean Platelet Volume 13.0 H Immature Granulocytes % 0.600 H Neutrophils % Segmented Neutrophils 73 % (Manual) Band Neutrophils % 12 H (Manual) Lymphocytes % Lymphocytes % (Manual) 9 L Reactive Lymphocytes 4 H % (Manual) Monocytes % Monocytes % (Manual) 2 Eosinophils % Basophils % Nucleated Red Blood 0.0 Cells % Immature Granulocytes # 0.030 Neutrophils # Neutrophils # (Manual) 3.6 Band Neutrophils # 0.5 Lymphocytes (Manual) 0.4 L Lymphocytes # Reactive Lymphocytes # 0.1 H Monocytes # Monocytes # (Manual) 0.0 L Eosinophils # Basophils # Nucleated Red Blood Cells # Platelet Estimate DECREASED Giant Platelets 1 H Poikilocytosis 3+ Anisocytosis 1+ Macrocytosis 1+ Sodium Level 157 H Potassium Level 3.4 L Chloride Level 130 H Carbon Dioxide Level 20 L Anion Gap 7 Blood Urea Nitrogen 119 H Creatinine 2.06 H Est Glomerular Filtrat Rate mL/min Glucose Level 139 Calcium Level 8.2 L Phosphorus Level 3.5 Magnesium Level 2.7 H Stool Occult Blood POSITIVE Test 10/03/18 10:40 10/03/18 12:08 Urine Color YELLOW Urine Clarity CLOUDY A Urine pH 6.0 Urine Specific [place] 1.016 Urine Ketones NEGATIVE Urine Nitrite NEGATIVE Urine Bilirubin NEGATIVE Urine Urobilinogen NEGATIVE Urine Leukocyte Esterase NEGATIVE Urine Microscopic RBC 1 Urine Microscopic WBC 7 H Urine Amorphous Crystals MODERATE Urine Hemoglobin 2+ H Urine Osmolality 534 Urine Random Creatinine 52.05 Urine Random Sodium < 13 L Urine Glucose NEGATIVE Urine Total Protein 77.0 H Bedside Glucose 158 Medications Medication Current Medications Albuterol (Proventil 0.083% (Neb)) 2.5 mg Q4H RESP THERAPY PRN NEB SHORTNESS OF BREATH Last administered on 10/03/18at 14:21; Admin Dose 2.5 MG; Start 09/29/18 at 15:00 Albuterol (Proventil 0.083% (Neb)) 2.5 mg Q8H RESP THERAPY PRN NEB WHEEZING AND SOB; Start 09/29/18 at 16:00 Bisacodyl (Dulcolax Supp) 10 mg DAILY PRN [place] CONSTIPATION; Start 09/29/18 at 15:00 Hydralazine HCl (Apresoline) 25 mg BID PRN PO ELEVATED BP; SBP > 160; Start 09/29/18 at 15:00 Magnesium Hydroxide (Milk Of Mag) 30 ml DAILY PRN PO CONSTIPATION; Start 09/29/18 at 15:00 Miscellaneous Information 1 ea NOTE XX ; Start 09/29/18 at 16:30 Glucose (Glutose) 15 gm Q15M PRN PO DECREASED GLUCOSE; Start 09/29/18 at 16:30 Glucose (Glutose) 22.5 gm Q15M PRN PO DECREASED GLUCOSE; Start 09/29/18 at 16:30 Dextrose (D50w Syringe) 25 ml Q15M PRN IV DECREASED GLUCOSE; Start 09/29/18 at 16:30 Dextrose (D50w Syringe) 50 ml Q15M PRN IV DECREASED GLUCOSE; Start 09/29/18 at 16:30 Glucagon (Glucagen) 1 mg Q15M PRN IM DECREASED GLUCOSE; Start 09/29/18 at 16:30 Glucose (Glutose) 15 gm Q15M PRN BUCCAL DECREASED GLUCOSE; Start 09/29/18 at 16:30 Miscellaneous Information (Pending Santyl Order For Wound Care) This patient saini... PRN PRN XX WOUND CARE; Start 09/30/18 at 05:00 Insulin Aspart (Novolog Insulin Pen) (Adult SC Insulin - Mild Algorithm)... Q4 SC Last administered on 10/03/18at 12:11; Admin Dose 1 UNIT; Start 09/30/18 at 13:00 Meropenem/Sodium Chloride 50 ml @ 100 mls/hr Q12 IVPB Last administered on 10/03/18at 08:25; Admin Dose 100 MLS/HR; Start 09/30/18 at 21:00 Acetaminophen (Tylenol Supp) 650 mg Q6H PRN [place] FEVER Last administered on 10/01/18at 20:57; Admin Dose 650 MG; Start 09/30/18 at 21:30 Dextrose 1,000 ml @ 125 mls/hr Q8H IV Last administered on 10/03/18at 14:16; Admin Dose 125 MLS/HR; Start 10/01/18 at 09:00 Linezolid 300 ml @ 300 mls/hr Q12 IVPB Last administered on 10/03/18at 09:19; Admin Dose 300 MLS/HR; Start 10/01/18 at 21:00 Aspirin (Halfprin) 81 mg DAILY PO ; Start 10/02/18 at 14:00 Pantoprazole (Protonix Iv) 40 mg BID@06,18 IV Last administered on 10/03/18at 05:08; Admin Dose 40 MG; Start 10/03/18 at 06:00 Enoxaparin Sodium (Lovenox) 30 mg DAILY SC ; Start 10/03/18 at 12:00 NATALIA GILBERT NP Oct 03, 2018 15:00
[2018-10-04] VITALS (10 sets, daily range): BP systolic 117–141; BP diastolic 68–87; PULSE 71–119; RESP 18–20
--- NOTE | 2018-10-04 00:24 | CONS ---
DATE OF ADMISSION: 09/29/2018 DATE OF CONSULTATION: HISTORY OF PRESENT ILLNESS: A 73-year-old male was admitted for the pneumonia. The patient also was found to have a black-colored stool noticed by the staff nurse. Today, the stool color is normal in color and he also failed the swallow study. However, discussing with the , she did not want any kind of G-tube or NG tube, and she declined to believe the staff nurse that there was any GI bleedin g. She wanted the patient to be transferred to ____ [facility]. PLAN: The staff nurse, Lexie, witnessed the whole conversation. I will dictate the full notes tomor row. Dictated By: DAMI CRUZ/NTS Conf#: [id number] DID#: [id number] CC: GLADIS ALICIA DO;*EndCC*
[2018-10-04] MEDS: Insulin NOVOLOG SS MILD Algorithm (NPO/TPN/ENTERAL FEEDS) SC SCH ×6 (01:00→20:46)
[2018-10-04] MEDS: PANTOPRAZOLE 40 MG INJ IV SCH ×2 (04:08→18:00)
[2018-10-04] MEDS: ALBUTEROL 0.083% (NEB) 2.5 MG/3 ML AMP NEB PRN ×2 (05:22→11:14)
[2018-10-04] MEDS: DEXTROSE 5% 1,000 ML IV SCH (07:03)
[2018-10-04] MEDS: ASPIRIN (EC) 81 MG TAB PO SCH (09:00)
[2018-10-04] MEDS: BALSAM PERU/CASTOR OIL 60 GM TUBE TOP SCH ×2 (09:00→20:47)
[2018-10-04] MEDS: ENOXAPARIN 30 MG/0.3 ML SYG SC SCH (09:00)
--- NOTE | 2018-10-04 09:39 | PN ---
DATE: 10/04/2018 SUBJECTIVE: The patient remains in serious but stable condition. No other acute events noted overni ght. No hemoptysis, hematemesis, or hematochezia. The patient's family and has refused NG tube placement to initiate free water flushes and tube feeding. No other events noted. OBJECTIVE: VITAL SIGNS: Blood pressure is 129/87, respirations 18, pulse 104, temperature 98.6. HEENT: Head is normocephalic. NECK: Supple. HEART: Regular rate. LUNGS: Show diminished breath sounds at the base. ABDOMEN: Soft, nontender to palpation without rebound or guarding. EXTREMITIES: Negative for clubbing, cyanosis, no edema. DERMATOLOGIC: No rashes. MUSCULOSKELETAL: No joint effusion. NEUROLOGIC: No change in exam. MEDICATIONS: Reviewed. LABORATORY DATA: Reviewed. ASSESSMENT AND PLAN: 1. Acute hypoxemic respiratory failure. Etiology is secondary to pneumonia. The patient's CT scan of the chest was reviewed. Continue current medical management. Continue high flow oxygen. Follow up with pulmonary. 2. Sepsis secondary to healthcare-associated pneumonia with persistent bacteremia. Continue broad s pectrum antibiotics. Follow up with infectious disease. Repeat cultures are pending. 3. Nonoliguric acute kidney injury with unknown baseline creatinine. Etiology is secondary to septi c acute kidney injury, hemodynamics. The patient appears to be entering recovery phase of acute kidn ey injury. Continue current treatment plan. Continue IV hydration. Continue antibiotic therapy. 4. Hypernatremia, etiology is secondary to insensible losses, decreased free water intake as well as osmotic diuresis due to underlying azotemia. The patient's family is refusing NG tube placement to initiate water flushes. The patient may have a partial diabetes insipidus, his urine osmolarity leve ls are elevated, but not at maximum levels. Plan at this point is to continue aggressive D5 water an d hypertonic fluid. We will monitor sodium levels closely. 5. Metabolic acidosis secondary to acute kidney injury. Continue to monitor. 6. Hematochezia, etiology may be secondary to Lovenox use. Appreciate GI's evaluation. Lovenox has been held. Hemoglobin and hematocrit levels have been stable, continue to monitor. 7. Mineral bone disorder, monitor calcium and phosphorus levels. 8. Acute encephalopathy. Etiology is presumed toxic metabolic. Appreciate neurology's evaluation. Follow up recommendations. 9. Diabetes. Continue current insulin regimen. 10. Hypertension. 11. Hypokalemia. Continue to monitor and replete. 12. Nutrition. The patient is currently n.p.o. The patient's family is refusing NG tube to initiat e tube feeding. We will consider TPN. We will continue ongoing discussions with the patient's famil y. Dictated By: GLADIS ALICIA DO NR/NTS Conf#: [id number] DID#: [id number] CC: CONCEPCION HANKS MD; GLADIS ALICIA DO;*EndCC*
[2018-10-04] MEDS: MEROPENEM 500MG/50 ML (PMX) 50 ML IVPB SCH ×2 (10:21→20:46)
--- NOTE | 2018-10-04 11:26 | CONS ---
Assessment/Plan Assessment/Plan Assessment/Plan (Daily) Assessment and recommendations; 1. Patient with history of CVA admitted with bilateral pneumonia, currently on appropriate antimicrobial regimen. Chest PT added to lower lobes bilaterally. 2. Likely dysphagia. 3. Anemia and thrombocytopenia. 4. Stable chronic renal insufficiency. Continue current supportive care. Patient will likely need to have a G-tube or PEG tube placed. Obtain follow-up chest x-ray in 48 hours. Consultation Date/Type/Reason Admit Date/Time Sep 29, 2018 at 13:57 Initial Consult Date 09/30/18 Type of Consult Pulmonary Pulmonary consult requested for evaluation of hypoxemia. Patient is a 73-year-old male who is a jail resident who was sent over to the hospital because of hypoxemia. Upon evaluation chest x-ray was done which has been interpreted as showing possible bibasilar pneumonia. Vision has been started on appropriate empiric antimicrobial regimen. The patient has apparently fairly advanced dementia and was not able to give any meaningful history by himself. Patient however was awake and did not appear to be in any distress whatsoever. Past medical history; 1. Dementia 2. Bipolar disorder. 3. Chronic renal insufficiency. 4. History of hypertension. Medications; reviewed. Allergies; none. Social history, family history, occupational history is not available. Review of system; unable to be obtained. General exam; elderly male, awake and lethargic. Currently in no distress. Requesting Provider: GLADIS ALICIA DO Date/Time of Note DATE: 10/04/18 TIME: 11:24 24 HR Interval Summary Free Text/Dictation Patient's condition is stable. Has remained hemodynamically stable. General exam; elderly male, awake and responsive but appearing lethargic. Currently in no distress. Exam/Review of Systems Exam Vitals Vital Signs Date Temp Pulse Resp B/P (MAP) Pulse Ox O2 O2 Flow FiO2 Time Delivery Rate 10/04/18 104 08:01 10/04/18 98.6 18 129/87 96 07:50 (101) 10/04/18 80 07:21 10/02/18 High Flow 15:05 Intake and Output 10/03/18 10/03/18 10/04/18 1515:00 23:00 07:00 IntakeIntake Total 550 ml 1600 ml OutputOutput Total 950 ml BalanceBalance 550 ml 650 ml Exam H EENT exam; supple neck, no JVD. No lymphadenopathy. Midline trachea. No t hyromegaly. Patient has fair dentition. Chest exam; diminished breath on lung bases. Upper lobes are clear. S1-S2 audible, no murmurs. Abdomen exam; soft, nontender. Scaphoid. Bowel sounds audible. Extremity exam; no peripheral edema. [employer] exam; he is awake but lethargic. Results Result Diagram: 10/04/18 0547 10/04/18 0547 Results 24hrs Laboratory Tests Test 10/03/18 12:08 10/03/18 15:26 10/03/18 16:50 10/03/18 21:15 Bedside Glucose 158 148 160 Sodium Level 157 H Potassium Level 3.7 Chloride Level 132 H Carbon Dioxide Level 19 L Anion Gap 6 Blood Urea Nitrogen 106 H Creatinine 1.89 H Est Glomerular Filtrat Rate mL/min Glucose Level 147 Calcium Level 7.8 L Test 10/04/18 01:22 10/04/18 04:08 10/04/18 05:47 10/04/18 10:20 Bedside Glucose 114 112 161 White Blood Count 6.9 # Red Blood Count 3.23 L Hemoglobin 8.6 L Hematocrit 28.3 L Mean Corpuscular 87.6 Volume Mean Corpuscular 26.6 L Hemoglobin Mean Corpuscular 30.4 L Hemoglobin Concent Red Cell 16.1 H Distribution Width Platelet Count 52 #L Mean Platelet Volume Immature 0.900 H Granulocytes % Neutrophils % Segmented 90 H Neutrophils % (Manual) Band Neutrophils % 4 (Manual) Lymphocytes % Lymphocytes % 4 L (Manual) Monocytes % Monocytes % (Manual) 2 Eosinophils % Basophils % Nucleated Red Blood 0.0 Cells % Immature 0.060 H Granulocytes # Neutrophils # Neutrophils # 6.2 (Manual) Band Neutrophils # 0.2 Lymphocytes (Manual) 0.2 L Lymphocytes # Monocytes # Monocytes # (Manual) 0.1 L Eosinophils # Basophils # Nucleated Red Blood Cells # Platelet Estimate DECREASED Giant Platelets 1 H Platelet Morphology @See below Comment Polychromasia 3+ Poikilocytosis 2+ Anisocytosis 2+ Macrocytosis 2+ Sodium Level 156 H Potassium Level 4.0 Chloride Level 131 H Carbon Dioxide Level 20 L Anion Gap 5 Blood Urea Nitrogen 91 H Creatinine 1.78 H Est Glomerular Filtrat Rate mL/min Glucose Level 153 Calcium Level 8.0 L Phosphorus Level 3.9 Magnesium Level 2.6 H Medications Medication Current Medications Albuterol (Proventil 0.083% (Neb)) 2.5 mg Q4H RESP THERAPY PRN NEB SHORTNESS OF BREATH Last administered on 10/04/18at 11:14; Admin Dose 2.5 MG; Start 09/29/18 at 15:00 Albuterol (Proventil 0.083% (Neb)) 2.5 mg Q8H RESP THERAPY PRN NEB WHEEZING AND SOB; Start 09/29/18 at 16:00 Bisacodyl (Dulcolax Supp) 10 mg DAILY PRN [place] CONSTIPATION; Start 09/29/18 at 15:00 Hydralazine HCl (Apresoline) 25 mg BID PRN PO ELEVATED BP; SBP > 160; Start 09/29/18 at 15:00 Magnesium Hydroxide (Milk Of Mag) 30 ml DAILY PRN PO CONSTIPATION; Start 09/29/18 at 15:00 Miscellaneous Information 1 ea NOTE XX ; Start 09/29/18 at 16:30 Glucose (Glutose) 15 gm Q15M PRN PO DECREASED GLUCOSE; Start 09/29/18 at 16:30 Glucose (Glutose) 22.5 gm Q15M PRN PO DECREASED GLUCOSE; Start 09/29/18 at 16:30 Dextrose (D50w Syringe) 25 ml Q15M PRN IV DECREASED GLUCOSE; Start 09/29/18 at 16:30 Dextrose (D50w Syringe) 50 ml Q15M PRN IV DECREASED GLUCOSE; Start 09/29/18 at 16:30 Glucagon (Glucagen) 1 mg Q15M PRN IM DECREASED GLUCOSE; Start 09/29/18 at 16:30 Glucose (Glutose) 15 gm Q15M PRN BUCCAL DECREASED GLUCOSE; Start 09/29/18 at 16:30 Miscellaneous Information ([facility] This patient saini... PRN PRN XX WOUND CARE; Start 09/30/18 at 05:00 Insulin Aspart (Novolog Insulin Pen) (Adult SC Insulin - Mild Algorithm)... Q4 SC Last administered on 10/04/18at 10:25; Admin Dose 1 UNIT; Start 09/30/18 at 13:00 Meropenem/Sodium Chloride 50 ml @ 100 mls/hr Q12 IVPB Last administered on 10/04/18at 10:21; Admin Dose 100 MLS/HR; Start 09/30/18 at 21:00 Acetaminophen (Tylenol Supp) 650 mg Q6H PRN [place] FEVER Last administered on 10/01/18at 20:57; Admin Dose 650 MG; Start 09/30/18 at 21:30 Linezolid 300 ml @ 300 mls/hr Q12 IVPB Last administered on 10/03/18at 21:14; Admin Dose 300 MLS/HR; Start 10/01/18 at 21:00 Aspirin (Halfprin) 81 mg DAILY PO ; Start 10/02/18 at 14:00 Pantoprazole (Protonix Iv) 40 mg BID@06,18 IV Last administered on 10/04/18at 04:08; Admin Dose 40 MG; Start 10/03/18 at 06:00 MISHA COLLADO Oct 04, 2018 11:26
[2018-10-04] MEDS: LINEZOLID 600 MG/300 ML (PMX) 300 ML IVPB SCH ×2 (12:26→20:51)
--- NOTE | 2018-10-04 14:50 | CONS ---
Assessment/Plan Assessment/Plan Hospital Course (Demo Recall) Patient is very weak, on high flow oxygen arousable in no distress no fevers overnight. WBC 6.9. BUN 91 creatinine 1.78. Microbiology: Blood culture since admission grew oxacillin sensitive staph aureus, repeat blood cultures growing coag negative staph species CT of the chest revealed partial obstruction both lower lobe bronchi likely representing mucous plugging. Dense consolidation with near complete collapse left lower lobe and dense consolidation with partial collapse of right lower lobe. Ill-defined nodular infiltrate right lower lobe and both upper lobes as above questionable post obstructive pneumonia Antimicrobials: Zyvox, meropenem Indwelling's: Left upper extremity PICC line, Gorman Physical examination: Chronically ill-appearing elderly man in no distress. Head atraumatic normocephalic neck is supple. Chest rise symmetrical breath sounds diminished bases. Heart: S1-S2. Abdomen soft bowel sounds present.. Extremities without cyanosis Assessment: 1. Severe sepsis present on admission 2. Persistent bacteremia 3. Acute hypoxemic respiratory failure 4. Postobstructive pneumonia 5. Acute renal failure 6. Acute encephalopathy Plan: Clinically unchanged, continue antibiotics, repeat blood cultures, follow pulmonary and cardiology recommendations. 2D echo noted not an optimal study Consultation Date/Type/Reason Admit Date/Time Sep 29, 2018 at 13:57 Initial Consult Date 09/30/18 Type of Consult id Requesting Provider: GLADIS ALICIA DO Date/Time of Note DATE: 10/04/18 TIME: 14:48 Exam/Review of Systems Exam Vitals Vital Signs Date Temp Pulse Resp B/P (MAP) Pulse Ox O2 O2 Flow FiO2 Time Delivery Rate 10/04/18 118 13:08 10/04/18 98.0 18 133/78 98 12:33 (96) 10/04/18 80 07:21 10/02/18 High Flow 15:05 Intake and Output 10/03/18 10/03/18 10/04/18 1414:59 22:59 06:59 IntakeIntake Total 550 ml 1600 ml OutputOutput Total 950 ml BalanceBalance 550 ml 650 ml Results Result Diagram: 10/04/18 0547 10/04/18 0547 Results 24hrs Laboratory Tests Test 10/03/18 15:26 10/03/18 16:50 10/03/18 21:15 10/04/18 01:22 Sodium Level 157 H Potassium Level 3.7 Chloride Level 132 H Carbon Dioxide Level 19 L Anion Gap 6 Blood Urea Nitrogen 106 H Creatinine 1.89 H Est Glomerular Filtrat Rate mL/min Glucose Level 147 Calcium Level 7.8 L Bedside Glucose 148 160 114 Test 10/04/18 04:08 10/04/18 05:47 10/04/18 10:20 10/04/18 12:32 Bedside Glucose 112 161 139 White Blood Count 6.9 # Red Blood Count 3.23 L Hemoglobin 8.6 L Hematocrit 28.3 L Mean Corpuscular 87.6 Volume Mean Corpuscular 26.6 L Hemoglobin Mean Corpuscular 30.4 L Hemoglobin Concent Red Cell 16.1 H Distribution Width Platelet Count 52 #L Mean Platelet Volume Immature 0.900 H Granulocytes % Neutrophils % Segmented 90 H Neutrophils % (Manual) Band Neutrophils % 4 (Manual) Lymphocytes % Lymphocytes % 4 L (Manual) Monocytes % Monocytes % (Manual) 2 Eosinophils % Basophils % Nucleated Red Blood 0.0 Cells % Immature 0.060 H Granulocytes # Neutrophils # Neutrophils # 6.2 (Manual) Band Neutrophils # 0.2 Lymphocytes (Manual) 0.2 L Lymphocytes # Monocytes # Monocytes # (Manual) 0.1 L Eosinophils # Basophils # Nucleated Red Blood Cells # Platelet Estimate DECREASED Giant Platelets 1 H Platelet Morphology @See below Comment Polychromasia 3+ Poikilocytosis 2+ Anisocytosis 2+ Macrocytosis 2+ Sodium Level 156 H Potassium Level 4.0 Chloride Level 131 H Carbon Dioxide Level 20 L Anion Gap 5 Blood Urea Nitrogen 91 H Creatinine 1.78 H Est Glomerular Filtrat Rate mL/min Glucose Level 153 Calcium Level 8.0 L Phosphorus Level 3.9 Magnesium Level 2.6 H Medications Medication Current Medications Albuterol (Proventil 0.083% (Neb)) 2.5 mg Q4H RESP THERAPY PRN NEB SHORTNESS OF BREATH Last administered on 10/04/18at 11:14; Admin Dose 2.5 MG; Start 09/29/18 at 15:00 Albuterol (Proventil 0.083% (Neb)) 2.5 mg Q8H RESP THERAPY PRN NEB WHEEZING AND SOB; Start 09/29/18 at 16:00 Bisacodyl (Dulcolax Supp) 10 mg DAILY PRN [place] CONSTIPATION; Start 09/29/18 at 15:00 Hydralazine HCl (Apresoline) 25 mg BID PRN PO ELEVATED BP; SBP > 160; Start 09/29/18 at 15:00 Magnesium Hydroxide (Milk Of Mag) 30 ml DAILY PRN PO CONSTIPATION; Start 09/29/18 at 15:00 Miscellaneous Information 1 ea NOTE XX ; Start 09/29/18 at 16:30 Glucose (Glutose) 15 gm Q15M PRN PO DECREASED GLUCOSE; Start 09/29/18 at 16:30 Glucose (Glutose) 22.5 gm Q15M PRN PO DECREASED GLUCOSE; Start 09/29/18 at 16:30 Dextrose (D50w Syringe) 25 ml Q15M PRN IV DECREASED GLUCOSE; Start 09/29/18 at 16:30 Dextrose (D50w Syringe) 50 ml Q15M PRN IV DECREASED GLUCOSE; Start 09/29/18 at 16:30 Glucagon (Glucagen) 1 mg Q15M PRN IM DECREASED GLUCOSE; Start 09/29/18 at 16:30 Glucose (Glutose) 15 gm Q15M PRN BUCCAL DECREASED GLUCOSE; Start 09/29/18 at 16:30 Miscellaneous Information (Pending [facility] Order For Wound Care) This patient saini... PRN PRN XX WOUND CARE; Start 09/30/18 at 05:00 Insulin Aspart (Novolog Insulin Pen) (Adult SC Insulin - Mild Algorithm)... Q4 SC Last administered on 10/04/18at 10:25; Admin Dose 1 UNIT; Start 09/30/18 at 13:00 Meropenem/Sodium Chloride 50 ml @ 100 mls/hr Q12 IVPB Last administered on 10/04/18at 10:21; Admin Dose 100 MLS/HR; Start 09/30/18 at 21:00 Acetaminophen (Tylenol Supp) 650 mg Q6H PRN [place] FEVER Last administered on 10/01/18at 20:57; Admin Dose 650 MG; Start 09/30/18 at 21:30 Linezolid 300 ml @ 300 mls/hr Q12 IVPB Last administered on 10/04/18at 12:26; Admin Dose 300 MLS/HR; Start 10/01/18 at 21:00 Aspirin (Halfprin) 81 mg DAILY PO ; Start 10/02/18 at 14:00 Pantoprazole (Protonix Iv) 40 mg BID@06,18 IV Last administered on 10/04/18at 04:08; Admin Dose 40 MG; Start 10/03/18 at 06:00 AMY WHALEN NP Oct 04, 2018 14:50
--- NOTE | 2018-10-04 18:13 | CONS ---
DATE OF ADMISSION: 09/29/2018 DATE OF CONSULTATION: REASON FOR CONSULTATION: GI bleeding and dysphagia. HISTORY OF PRESENT ILLNESS: A 73-year-old male with history of gout, diabetes mellitus, hypertension , bipolar disorder, was brought to the ER from group home for shortness of breath. The patient was found to have pneumonia, so was admitted for further management. He was started on appropriate anti biotic after culture and IV hydration. The patient underwent swallow evaluation, which he failed. N G tube or G-tube was suggested, which declined it. The night before staff noticed black colored stool, but now it is a normal color. Discussed with and she did not want any further workup. PAST MEDICAL HISTORY: Hypertension, diabetes mellitus, behavioral disorder, insomnia and constipatio n. ALLERGIES: NONE. FAMILY HISTORY: Nothing contributory. SOCIAL HISTORY: Lives in group home PAST SURGICAL HISTORY: G-tube, which patient had pulled it out 3 months ago. PHYSICAL EXAMINATION GENERAL: Thin built, sleepy. He is on high flow oxygen. CARDIOVASCULAR: No murmur, gallop or click. LUNGS: Air entry diminished at both bases. ABDOMEN: Benign, previous G-tube scar is seen, his abdomen is scaphoid. No mass felt per abdomen. EXTREMITIES: No edema. CENTRAL NERVOUS SYSTEM: The patient is lethargic. LABORATORY DATA: Hematocrit is 28.3, which remained stable. WBC is 6.9, platelet count is low 52,00 0. Creatinine is 1.72. Stool for occult blood was positive. IMPRESSION: 1. Gastrointestinal bleeding. 2. Aspiration pneumonia. 3. Sepsis. 4. Hypoxemia on high flow of oxygen. 5. Dysphagia. 6. Renal failure. 7. Encephalopathy. 8. Anemia, which is a combination of chronic disease and positive occult bleeding. PLAN: The patient's was recommended EGD and also G-tube, but she declined both. The patient wi ll be started on TPN. Will monitor H and H closely and also for active GI bleeding. Also, monitor p latelet count. Dictated By: DAMI CRUZ/RACHELL Conf#: [id number] DID#: [id number] CC: GLADIS ALICIA DO;*EndCC*
[2018-10-05] VITALS (9 sets, daily range): BP systolic 15–183; BP diastolic 62–83; PULSE 73–97; RESP 18–20
[2018-10-05] MEDS: Insulin NOVOLOG SS MILD Algorithm (NPO/TPN/ENTERAL FEEDS) SC SCH ×6 (01:00→20:41)
[2018-10-05] MEDS: PANTOPRAZOLE 40 MG INJ IV SCH ×2 (05:37→17:52)
[2018-10-05] MEDS: DEXTROSE 5% 1,000 ML IV SCH ×2 (07:54→14:40)
[2018-10-05] MEDS: MEROPENEM 500MG/50 ML (PMX) 50 ML IVPB SCH ×2 (08:52→20:35)
[2018-10-05] MEDS: ASPIRIN (EC) 81 MG TAB PO SCH (08:52)
[2018-10-05] MEDS: BALSAM PERU/CASTOR OIL 60 GM TUBE TOP SCH ×2 (08:52→20:35)
[2018-10-05] MEDS: LINEZOLID 600 MG/300 ML (PMX) 300 ML IVPB SCH ×2 (08:53→20:35)
--- NOTE | 2018-10-05 08:57 | PN ---
DATE: 10/05/2018 SUBJECTIVE: The patient remains in serious condition. No other events noted overnight. The patient is status post blood transfusion in anticipation of possible LP. Overnight, the patient had been cl inically stable other events noted. OBJECTIVE: VITAL SIGNS: Blood pressure is 130/65, respiration 18, pulse 90, temperature 98.2. HEENT: Head is normocephalic. NECK: Supple. HEART: Regular rate. LUNGS: Show diminished breath sounds at the base. ABDOMEN: Soft, nontender to palpation without rebound or guarding. EXTREMITIES: Negative for clubbing, cyanosis, no edema. DERMATOLOGIC: No rashes. MUSCULOSKELETAL: No joint effusion. NEUROLOGIC: No change in exam. MEDICATIONS: Have been reviewed. LABORATORY DATA: Has been reviewed. IMAGING: CT scan of the chest was reviewed. ASSESSMENT AND PLAN: 1. Acute hypoxemic respiratory failure, etiology secondary to pneumonia. We will continue current m edical management. Continue high flow oxygen Continue antibiotic therapy. 2. Sepsis secondary to health-care associated pneumonia, persistent bacteremia. The patient remains on broad spectrum antibiotics. Repeat cultures are pending. Continue current treatment plan. Foll ow up with infectious disease. 3. Nonoliguric acute kidney injury with unknown baseline creatinine. Etiology of acute kidney injur y is secondary to sepsis, hemodynamics. The patient's renal function appears to be slowly improving. Continue current treatment plan. Continue IV hydration. 4. Hyponatremia. Etiology is multifactorial secondary to insensible losses, decreased free water in take, as well as osmotic diuresis due to underlying azotemia. The patient's family has refused NG tu be placement to initiate free water flushes. 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 The patient's sodium levels remain elevated despite aggre ssive D5 water and hypotonic fluids. Will continue to monitor serial sodiums closely. Consider a tr ial of DDAVP. Continue hypertonic fluids. 5. Metabolic acidosis secondary to acute kidney injury. Continue to monitor. 6. Hematochezia. Etiology may be secondary to peptic ulcer disease. The patient's H and H levels a re dropping. Will transfuse 2 units of PRBC. Appreciate GI's evaluation. Continue proton pump inhi bitor. 7. Anemia with a drop in hemoglobin, etiology is possibly from acute gastrointestinal bleed. The josiah cook is pending blood transfusion. Continue to monitor. Continue PPI. 8. Thrombocytopenia. Etiology is felt to be secondary to possible Lovenox, sepsis, medications. Th e patient is status post platelet transfusion. Will continue to monitor. 9. Acute encephalopathy, etiology is presumed to be toxic metabolic. Appreciate neurology's evaluat ion. Recommendation for LP to rule out encephalomeningitis. Pending LP once the patient is clinical ly stable. 10. Mineral bone disorder, monitor calcium and phosphorus levels. 11. Diabetes. Continue current insulin regimen. 12. Hypertension. 13. Hypokalemia. Continue to monitor and replete. 14. Nutrition. The patient's family is refusing PEG tube or NG tube placement. Will start the sarath ent on TPN. 15. History of cerebrovascular accident. Will continue to monitor. Dictated By: GLADIS GREENBERG/RACHELL Conf#: [id number] DID#: [id number]
--- NOTE | 2018-10-05 11:36 | CONS ---
Assessment/Plan Assessment/Plan Assessment/Plan (Daily) Assessment and recommendations; 1. Patient with history of CVA and dementia admitted with bilateral pneumonia with basilar involvement likely aspiration. Currently on appropriate antimicrobial regimen. 2. Anemia 3. Chronic renal insufficiency. 4. Dysphagia. Likely causing aspiration pneumonia. Continue current supportive care. Patient likely will need to have a G-tube or PEG tube placed. Will obtain follow-up chest x-ray in 48 hours. Consultation Date/Type/Reason Admit Date/Time Sep 29, 2018 at 13:57 Initial Consult Date 09/30/18 Type of Consult Pulmonary Pulmonary consult requested for evaluation of hypoxemia. Patient is a 73-year-old male who is a [facility] resident who was sent over to the hospital because of hypoxemia. Upon evaluation chest x-ray was done which has been interpreted as showing possible bibasilar pneumonia. Vision has been started on appropriate empiric antimicrobial regimen. The patient has apparently fairly advanced dementia and was not able to give any meaningful history by himself. Patient however was awake and did not appear to be in any distress whatsoever. Past medical history; 1. Dementia 2. Bipolar disorder. 3. Chronic renal insufficiency. 4. History of hypertension. Medications; reviewed. Allergies; none. Social history, family history, occupational history is not available. Review of system; unable to be obtained. General exam; elderly male, awake and lethargic. Currently in no distress. Requesting Provider: GLADIS ALICIA DO Date/Time of Note DATE: 10/05/18 TIME: 11:34 24 HR Interval Summary Free Text/Dictation Patient's condition is fairly stable. Remains awake and fairly responsive as well. Has remained hemodynamically stable. General exam; elderly male, awake, currently no distress. Exam/Review of Systems Exam Vitals Vital Signs Date Temp Pulse Resp B/P (MAP) Pulse Ox O2 O2 Flow FiO2 Time Delivery Rate 10/05/18 75 08:05 10/05/18 98.2 18 132/65 100 07:36 (87) 10/05/18 50 04:00 10/02/18 High Flow 15:05 Intake and Output 10/04/18 10/04/18 10/05/18 1515:00 23:00 07:00 IntakeIntake Total 350 ml 674 ml OutputOutput Total 725 ml 500 ml BalanceBalance 350 ml -725 ml 174 ml Exam H ENT exam; supple neck, no JVD. No lymphadenopathy. Midline trachea. No thyromegaly. Patient has fair dentition. Chest exam; diminished breath sound lung bases. Upper lobes are fairly clear. S1-S2 audible, no murmurs. Regular rhythm. Abdomen exam; soft, nontender. No organomegaly. Bowel sounds audible. Scaphoid. Extremity exam; no peripheral edema clubbing. MOTOR SETTER exam; patient awake and responsive. Appears lethargic with severe generalized weakness. Results Result Diagram: 10/05/18 0618 10/05/18 0618 Results 24hrs Laboratory Tests Test 10/04/18 12:32 10/04/18 14:20 10/04/18 17:30 10/04/18 18:19 Bedside Glucose 139 124 Sodium Level 155 H 155 H Potassium Level 4.1 3.8 Chloride Level 130 H 130 H Carbon Dioxide 17 L 20 L Level Anion Gap 8 5 Blood Urea 85 H 81 H Nitrogen Creatinine 1.72 H 1.68 H Est Glomerular Filtrat Rate mL/min Glucose Level 175 126 # Calcium Level 8.1 L 7.9 L Phosphorus Level 3.5 Magnesium Level 2.5 Total Bilirubin 0.3 Direct Bilirubin 0.00 Indirect 0.3 Bilirubin Aspartate Amino 26 Transf (AST/SGOT) Alanine 16 Aminotransferase (ALT/SGPT) Alkaline 57 Phosphatase Total Protein 6.2 Albumin 2.5 L Globulin 3.70 H Albumin/Globulin 0.67 Ratio Prealbumin 6.6 L Triglycerides 304 H Level Test 10/04/18 20:45 10/05/18 00:48 10/05/18 05:34 10/05/18 06:18 Bedside Glucose 119 131 105 White Blood Count 6.9 Red Blood Count 2.45 #L Hemoglobin 6.7 #*L Hematocrit 21.7 #L Mean Corpuscular 88.6 Volume Mean Corpuscular 27.3 L Hemoglobin Mean Corpuscular 30.9 L Hemoglobin Concen t Red Cell 16.1 H Distribution Width Platelet Count 272 # Mean Platelet 11.0 H Volume Immature 0.900 H Granulocytes % Neutrophils % Segmented 83 H Neutrophils % (Manual) Band Neutrophils 10 H % (Manual) Lymphocytes % Lymphocytes % 5 L (Manual) Monocytes % Monocytes % 2 (Manual) Eosinophils % Basophils % Nucleated Red 0.0 Blood Cells % Immature 0.060 H Granulocytes # Neutrophils # Neutrophils # 5.8 (Manual) Band Neutrophils 0.6 # Lymphocytes 0.3 L (Manual) Lymphocytes # Monocytes # Monocytes # 0.1 L (Manual) Eosinophils # Basophils # Nucleated Red Blood Cells # Platelet Estimate NORMAL Polychromasia 3+ Poikilocytosis 1+ Sodium Level 158 H Potassium Level 3.8 Chloride Level 129 H Carbon Dioxide 25 Level Anion Gap 4 L Blood Urea 76 H Nitrogen Creatinine 1.78 H Est Glomerular Filtrat Rate mL/min Glucose Level 107 Calcium Level 8.3 L Phosphorus Level 3.4 Magnesium Level 2.6 H Test 10/05/18 08:05 10/05/18 08:24 Bedside Glucose 94 Lab Scanned BLOOD TRANSFUSIO Report N Medications Medication Current Medications Albuterol (Proventil 0.083% (Neb)) 2.5 mg Q4H RESP THERAPY PRN NEB SHORTNESS OF BREATH Last administered on 10/04/18at 11:14; Admin Dose 2.5 MG; Start 09/29/18 at 15:00 Albuterol (Proventil 0.083% (Neb)) 2.5 mg Q8H RESP THERAPY PRN NEB WHEEZING AND SOB; Start 09/29/18 at 16:00 Bisacodyl (Dulcolax Supp) 10 mg DAILY PRN [place] CONSTIPATION; Start 09/29/18 at 15: 00 Hydralazine HCl (Apresoline) 25 mg BID PRN PO ELEVATED BP; SBP > 160; Start 09/29/18 at 15:00 Magnesium Hydroxide (Milk Of Mag) 30 ml DAILY PRN [place] CONSTIPATION; Start 09/29/18 at 15:00 Miscellaneous Information 1 ea NOTE XX ; Start 09/29/18 at 16:30 Glucose (Glutose) 15 gm Q15M PRN PO DECREASED GLUCOSE; Start 09/29/18 at 16:30 Glucose (Glutose) 22.5 gm Q15M PRN PO DECREASED GLUCOSE; Start 09/29/18 at 16:30 Dextrose (D50w Syringe) 25 ml Q15M PRN IV DECREASED GLUCOSE; Start 09/29/18 at 16:30 Dextrose (D50w Syringe) 50 ml Q15M PRN IV DECREASED GLUCOSE; Start 09/29/18 at 16:30 Glucagon (Glucagen) 1 mg Q15M PRN IM DECREASED GLUCOSE; Start 09/29/18 at 16:30 Glucose (Glutose) 15 gm Q15M PRN BUCCAL DECREASED GLUCOSE; Start 09/29/18 at 16:30 Miscellaneous Information (Pending [facility] Order For Wound Care) This patient saini... PRN PRN XX WOUND CARE; Start 09/30/18 at 05:00 Insulin Aspart (Novolog Insulin Pen) (Adult SC Insulin - Mild Algorithm)... Q4 SC Last administered on 10/04/18at 10:25; Admin Dose 1 UNIT; Start 09/30/18 at 13:00 Meropenem/Sodium Chloride 50 ml @ 100 mls/hr Q12 IVPB Last administered on 10/05/18 08:52; Admin Dose 100 MLS/HR; Start 09/30/18 at 21:00 Acetaminophen (Tylenol Supp) 650 mg Q6H PRN [place] FEVER Last administered on 10/01/18at 20:57; Admin Dose 650 MG; Start 09/30/18 at 21:30 Linezolid 300 ml @ 300 mls/hr Q12 IVPB Last administered on 10/05/18at 08:53; Admin Dose 300 MLS/HR; Start 10/01/18 at 21:00 Aspirin (Halfprin) 81 mg DAILY PO ; Start 10/02/18 at 14:00 Pantoprazole (Protonix Iv) 40 mg BID@06,18 IV Last administered on 10/05/18at 05:37; Admin Dose 40 MG; Start 10/03/18 at 06:00 Total Parenteral Nutrition 1,000 ml @ 75 mls/hr [id number] IV ; Start 10/05/18 at 17:00 Dextrose 1,000 ml @ 125 mls/hr Q8H IV Last administered on 10/05/18at 07:54; Admin Dose 125 MLS/HR; Start 10/05/18 at 07:00; Stop 10/05/18 at 16:59 MISHA COLLADO Oct 05, 2018 11:36
--- NOTE | 2018-10-05 12:10 | CONS ---
Assessment/Plan Assessment/Plan Assessment/Plan (Daily) IMPRESSION: 1. Gastrointestinal bleeding. Patient hematocrit dropped from 2221 2. Aspiration pneumonia. 3. Sepsis. 4. Hypoxemia on high flow of oxygen. 5. Dysphagia. 6. Renal failure. 7. Encephalopathy. 8. Anemia, which is a combination of chronic disease and occult bleeding. 9. Malnutrition patient is on TPN 10. Thrombocytopenia corrected with patient received platelet transfusion Plan Continue PPI Monitor H&H Will proceed with EGD if family agrees Consultation Date/Type/Reason Admit Date/Time Sep 29, 2018 at 13:57 Initial Consult Date 09/30/18 Requesting Provider: GLADIS ALICIA DO Date/Time of Note DATE: 10/05/18 TIME: 12:08 24 HR Interval Summary Subjective hx not possible: pt critical Exam/Review of Systems Exam Vitals Vital Signs Date Temp Pulse Resp B/P (MAP) Pulse Ox O2 O2 Flow FiO2 Time Delivery Rate 10/05/18 75 08:05 10/05/18 98.2 18 132/65 100 07:36 (87) 10/05/18 50 04:00 10/02/18 High Flow 15:05 Intake and Output 10/04/18 10/04/18 10/05/18 1515:00 23:00 07:00 IntakeIntake Total 350 ml 674 ml OutputOutput Total 725 ml 500 ml BalanceBalance 350 ml -725 ml 174 ml Respiratory: diminished breath sounds Musculoskeletal: nl extremities to inspection, nl gait and stance Extremities: normal pulses Results Result Diagram: 10/05/18 0618 10/05/18 0618 Results 24hrs Laboratory Tests Test 10/04/18 12:32 10/04/18 14:20 10/04/18 17:30 10/04/18 18:19 Bedside Glucose 139 124 Sodium Level 155 H 155 H Potassium Level 4.1 3.8 Chloride Level 130 H 130 H Carbon Dioxide 17 L 20 L Level Anion Gap 8 5 Blood Urea 85 H 81 H Nitrogen Creatinine 1.72 H 1.68 H Est Glomerular Filtrat Rate mL/min Glucose Level 175 126 # Calcium Level 8.1 L 7.9 L Phosphorus Level 3.5 Magnesium Level 2.5 Total Bilirubin 0.3 Direct Bilirubin 0.00 Indirect 0.3 Bilirubin Aspartate Amino 26 Transf (AST/SGOT) Alanine 16 Aminotransferase (ALT/SGPT) Alkaline 57 Phosphatase Total Protein 6.2 Albumin 2.5 L Globulin 3.70 H Albumin/Globulin 0.67 Ratio Prealbumin 6.6 L Triglycerides 304 H Level Test 10/04/18 20:45 10/05/18 00:48 10/05/18 05:34 10/05/18 06:18 Bedside Glucose 119 131 105 White Blood Count 6.9 Red Blood Count 2.45 #L Hemoglobin 6.7 #*L Hematocrit 21.7 #L Mean Corpuscular 88.6 Volume Mean Corpuscular 27.3 L Hemoglobin Mean Corpuscular 30.9 L Hemoglobin Concen t Red Cell 16.1 H Distribution Width Platelet Count 272 # Mean Platelet 11.0 H Volume Immature 0.900 H Granulocytes % Neutrophils % Segmented 83 H Neutrophils % (Manual) Band Neutrophils 10 H % (Manual) Lymphocytes % Lymphocytes % 5 L (Manual) Monocytes % Monocytes % 2 (Manual) Eosinophils % Basophils % Nucleated Red 0.0 Blood Cells % Immature 0.060 H Granulocytes # Neutrophils # Neutrophils # 5.8 (Manual) Band Neutrophils 0.6 # Lymphocytes 0.3 L (Manual) Lymphocytes # Monocytes # Monocytes # 0.1 L (Manual) Eosinophils # Basophils # Nucleated Red Blood Cells # Platelet Estimate NORMAL Polychromasia 3+ Poikilocytosis 1+ Sodium Level 158 H Potassium Level 3.8 Chloride Level 129 H Carbon Dioxide 25 Level Anion Gap 4 L Blood Urea 76 H Nitrogen Creatinine 1.78 H Est Glomerular Filtrat Rate mL/min Glucose Level 107 Calcium Level 8.3 L Phosphorus Level 3.4 Magnesium Level 2.6 H Test 10/05/18 08:05 10/05/18 08:24 Bedside Glucose 94 Lab Scanned BLOOD TRANSFUSIO Report N Medications Medication Current Medications Albuterol (Proventil 0.083% (Neb)) 2.5 mg Q4H RESP THERAPY PRN NEB SHORTNESS OF BREATH Last administered on 10/04/18at 11:14; Admin Dose 2.5 MG; Start 09/29/18 at 15:00 Albuterol (Proventil 0.083% (Neb)) 2.5 mg Q8H RESP THERAPY PRN NEB WHEEZING AND SOB; Start 09/29/18 at 16:00 Bisacodyl (Dulcolax Supp) 10 mg DAILY PRN [place] CONSTIPATION; Start 09/29/18 at 15:00 Hydralazine HCl (Apresoline) 25 mg BID PRN PO ELEVATED BP; SBP > 160; Start 09/29/18 at 15:00 Magnesium Hydroxide (Milk Of Mag) 30 ml DAILY PRN PO CONSTIPATION; Start 09/29 at 15:00 Miscellaneous Information 1 ea NOTE XX ; Start 09/29/18 at 16:30 Glucose (Glutose) 15 gm Q15M PRN PO DECREASED GLUCOSE; Start 09/29/18 at 16:30 Glucose (Glutose) 22.5 gm Q15M PRN PO DECREASED GLUCOSE; Start 09/29/18 at 16:30 Dextrose (D50w Syringe) 25 ml Q15M PRN IV DECREASED GLUCOSE; Start 09/29/18 at 16:30 Dextrose (D50w Syringe) 50 ml Q15M PRN IV DECREASED GLUCOSE; Start 09/29/18 at 16:30 Glucagon (Glucagen) 1 mg Q15M PRN IM DECREASED GLUCOSE; Start 09/29/18 at 16:30 Glucose (Glutose) 15 gm Q15M PRN BUCCAL DECREASED GLUCOSE; Start 09/29/18 at 16:30 Miscellaneous Information (Pending [facility]) This patient saini... PRN PRN XX WOUND CARE; Start 09/30/18 at 05:00 Insulin Aspart (Novolog Insulin Pen) (Adult SC Insulin - Mild Algorithm)... Q4 SC Last administered on 10/04/18at 10:25; Admin Dose 1 UNIT; Start 09/30/18 at 13:00 Meropenem/Sodium Chloride 50 ml @ 100 mls/hr Q12 IVPB Last administered on 10/05/18at 08:52; Admin Dose 100 MLS/HR; Start 09/30/18 at 21:00 Acetaminophen (Tylenol Supp) 650 mg Q6H PRN [place] FEVER Last administered on 10/01/18at 20:57; Admin Dose 650 MG; Start 09/30/18 at 21:30 Linezolid 300 ml @ 300 mls/hr Q12 IVPB Last administered on 10/05/18at 08:53; Admin Dose 300 MLS/HR; Start 10/01/18 at 21:00 Aspirin (Halfprin) 81 mg DAILY PO ; Start 10/02/18 at 14:00 Pantoprazole (Protonix Iv) 40 mg BID@06,18 IV Last administered on 10/05/18at 05 :37; Admin Dose 40 MG; Start 10/03/18 at 06:00 Total Parenteral Nutrition 1,000 ml @ 75 mls/hr [id number] IV ; Start 10/05/18 at 17:00 Dextrose 1,000 ml @ 125 mls/hr Q8H IV Last administered on 10/05/18at 07:54; Admin Dose 125 MLS/HR; Start 10/05/18 at 07:00; Stop 10/05/18 at 16:59 DAMI CARRENO MD Oct 05, 2018 12:10
--- NOTE | 2018-10-05 14:42 | CONS ---
Assessment/Plan Assessment/Plan Hospital Course (Demo Recall) 1300 patient is awake still on high flow oxygen, getting blood transfusion, he sounds very congested he is arousable in no distress. WBC 6.9 H&H 6.7 and 21.7 platelets 272 neutrophils 83 bands 10 BUN 76 creatinine 1.78 Microbiology: Blood culture since admission grew oxacillin sensitive staph aureus, repeat blood cultures growing coag negative staph species CT of the chest revealed partial obstruction both lower lobe bronchi likely representing mucous plugging. Dense consolidation with near complete collapse left lower lobe and dense consolidation with partial collapse of right lower lobe. Ill-defined nodular infiltrate right lower lobe and both upper lobes as above questionable post obstructive pneumonia Antimicrobials: Zyvox, meropenem Indwelling's: Left upper extremity PICC line, Gorman Physical examination: Chronically ill-appearing elderly man in no distress. Head atraumatic normocephalic neck is supple. Chest rise symmetrical breath sounds diminished bases. Heart: S1-S2. Abdomen soft bowel sounds present.. Extremities without cyanosis Assessment: 1. Severe sepsis present on admission 2. Persistent bacteremia 3. Acute hypoxemic respiratory failure 4. Postobstructive pneumonia 5. Acute renal failure 6. Acute encephalopathy Plan: Clinically unchanged, pending repeat blood cultures, continue antibiotics, follow pulmonary and cardiology recommendations, plan for EGD Discussed with at bedside, discussed with RN Consultation Date/Type/Reason Admit Date/Time Sep 29, 2018 at 13:57 Initial Consult Date 09/30/18 Type of Consult id Requesting Provider: GLADIS ALICIA DO Date/Time of Note DATE: 10/05/18 TIME: 14:41 Exam/Review of Systems Exam Vitals Vital Signs Date Temp Pulse Resp B/P (MAP) Pulse Ox O2 O2 Flow FiO2 Time Delivery Rate 10/05/18 98.0 97 20 183/83 98 12:18 (116) 10/05/18 50 04:00 10/02/18 High Flow 15:05 Intake and Output 10/04/18 10/04/18 10/05/18 1515:00 23:00 07:00 IntakeIntake Total 350 ml 674 ml OutputOutput Total 725 ml 500 ml BalanceBalance 350 ml -725 ml 174 ml Results Result Diagram: 10/05/18 0618 10/05/18 0618 Results 24hrs Laboratory Tests Test 10/04/18 17:30 10/04/18 18:19 10/04/18 20:45 10/05/18 00:48 Bedside Glucose 124 119 131 Sodium Level 155 H Potassium Level 3.8 Chloride Level 130 H Carbon Dioxide 20 L Level Anion Gap 5 Blood Urea 81 H Nitrogen Creatinine 1.68 H Est Glomerular Filtrat Rate mL/min Glucose Level 126 # Calcium Level 7.9 L Phosphorus Level 3.5 Magnesium Level 2.5 Total Bilirubin 0.3 Direct Bilirubin 0.00 Indirect 0.3 Bilirubin Aspartate Amino 26 Transf (AST/SGOT) Alanine 16 Aminotransferase (ALT/SGPT) Alkaline 57 Phosphatase Total Protein 6.2 Albumin 2.5 L Globulin 3.70 H Albumin/Globulin 0.67 Ratio Prealbumin 6.6 L Triglycerides 304 H Level Test 10/05/18 05:34 10/05/18 06:18 10/05/18 08:05 10/05/18 08:24 Bedside Glucose 105 94 White Blood Count 6.9 Red Blood Count 2.45 #L Hemoglobin 6.7 #*L Hematocrit 21.7 #L Mean Corpuscular 88.6 Volume Mean Corpuscular 27.3 L Hemoglobin Mean Corpuscular 30.9 L Hemoglobin Concen t Red Cell 16.1 H Distribution Width Platelet Count 272 # Mean Platelet 11.0 H Volume Immature 0.900 H Granulocytes % Neutrophils % Segmented 83 H Neutrophils % (Manual) Band Neutrophils 10 H % (Manual) Lymphocytes % Lymphocytes % 5 L (Manual) Monocytes % Monocytes % 2 (Manual) Eosinophils % Basophils % Nucleated Red 0.0 Blood Cells % Immature 0.060 H Granulocytes # Neutrophils # Neutrophils # 5.8 (Manual) Band Neutrophils 0.6 # Lymphocytes 0.3 L (Manual) Lymphocytes # Monocytes # Monocytes # 0.1 L (Manual) Eosinophils # Basophils # Nucleated Red Blood Cells # Platelet Estimate NORMAL Polychromasia 3+ Poikilocytosis 1+ Sodium Level 158 H Potassium Level 3.8 Chloride Level 129 H Carbon Dioxide 25 Level Anion Gap 4 L Blood Urea 76 H Nitrogen Creatinine 1.78 H Est Glomerular Filtrat Rate mL/min Glucose Level 107 Calcium Level 8.3 L Phosphorus Level 3.4 Magnesium Level 2.6 H Lab Scanned BLOOD TRANSFUSIO Report N Test 10/05/18 12:20 Bedside Glucose 98 Medications Medication Current Medications Albuterol (Proventil 0.083% (Neb)) 2.5 mg Q4H RESP THERAPY PRN NEB SHORTNESS OF BREATH Last administered on 10/04/18at 11:14; Admin Dose 2.5 MG; Start 09/29/18 at 15:00 Albuterol (Proventil 0.083% (Neb)) 2.5 mg Q8H RESP THERAPY PRN NEB WHEEZING AND SOB; Start 09/29/18 at 16:00 Bisacodyl (Dulcolax Supp) 10 mg DAILY PRN [place] CONSTIPATION; Start 09/29/18 at 15:00 Hydralazine HCl (Apresoline) 25 mg BID PRN PO ELEVATED BP; SBP > 160; Start 09/29/18 at 15:00 Magnesium Hydroxide (Milk Of Mag) 30 ml DAILY PRN PO CONSTIPATION; Start 09/29/18 at 15:00 Miscellaneous Information 1 ea NOTE XX ; Start 09/29/18 at 16:30 Glucose (Glutose) 15 gm Q15M PRN PO DECREASED GLUCOSE; Start 09/29/18 at 16:30 Glucose (Glutose) 22.5 gm Q15M PRN PO DECREASED GLUCOSE; Start 09/29/18 at 16:30 Dextrose (D50w Syringe) 25 ml Q15M PRN IV DECREASED GLUCOSE; Start 09/29/18 at 16:30 Dextrose (D50w Syringe) 50 ml Q15M PRN IV DECREASED GLUCOSE; Start 09/29/18 at 16:30 Glucagon (Glucagen) 1 mg Q15M PRN IM DECREASED GLUCOSE; Start 09/29/18 at 16:30 Glucose (Glutose) 15 gm Q15M PRN BUCCAL DECREASED GLUCOSE; Start 09/29/18 at 16:30 Miscellaneous Information (Pending [facility] Order For Wound Care) This patient saini... PRN PRN XX WOUND CARE; Start 09/30/18 at 05:00 Insulin Aspart (Novolog Insulin Pen) (Adult SC Insulin - Mild Algorithm)... Q4 SC Last administered on 10/04/18at 10:25; Admin Dose 1 UNIT; Start 09/30/18 at 13:00 Meropenem/Sodium Chloride 50 ml @ 100 mls/hr Q12 IVPB Last administered on 03/15at 08:52; Admin Dose 100 MLS/HR; Start 09/30/18 at 21:00 Acetaminophen (Tylenol Supp) 650 mg Q6H PRN [place] FEVER Last administered on 10/01/18at 20:57; Admin Dose 650 MG; Start 09/30/18 at 21:30 Linezolid 300 ml @ 300 mls/hr Q12 IVPB Last administered on 10/05/18at 08:53; Admin Dose 300 MLS/HR; Start 10/01/18 at 21:00 Aspirin (Halfprin) 81 mg DAILY PO ; Start 10/02/18 at 14:00 Pantoprazole (Protonix Iv) 40 mg BID@06,18 IV Last administered on 10/05/18at 05:37; Admin Dose 40 MG; Start 10/03/18 at 06:00 Total Parenteral Nutrition 1,000 ml @ 75 mls/hr [id number] IV ; Start 10/05/18 at 17:00 Dextrose 1,000 ml @ 125 mls/hr Q8H IV Last administered on 10/05/18at 07:54; Admin Dose 125 MLS/HR; Start 10/05/18 at 07:00; Stop 10/05/18 at 16:59 AMY WHALEN NP Oct 05, 2018 14:42
[2018-10-05] MEDS: TPN 1,000 ML IV SCH (17:52)
[2018-10-05] MEDS ORDERED: LORAZEPAM 2 MG INJ IM ONE (19:30)
[2018-10-05] MEDS ORDERED: POTASSIUM CHLORIDE 100 ML IVPB ONE (22:30)
[2018-10-05] MEDS ORDERED: DESMOPRESSIN 4 MCG INJ IV ONE (22:30)
[2018-10-06] VITALS (17 sets, daily range): BP systolic 134–179; BP diastolic 64–95; PULSE 79–110; RESP 14–23
[2018-10-06] MEDS: Insulin NOVOLOG SS MILD Algorithm (NPO/TPN/ENTERAL FEEDS) SC SCH ×6 (00:55→20:33)
[2018-10-06] MEDS: PANTOPRAZOLE 40 MG INJ IV SCH ×2 (06:00→17:19)
[2018-10-06] MEDS: TPN 1,000 ML IV SCH ×2 (06:17→20:32)
[2018-10-06] MEDS: DEXTROSE 5% 1,000 ML IV SCH ×2 (06:17→20:33)
[2018-10-06] MEDS: ASPIRIN (EC) 81 MG TAB PO SCH (09:00)
[2018-10-06] MEDS: MEROPENEM 500MG/50 ML (PMX) 50 ML IVPB SCH ×2 (09:24→20:33)
[2018-10-06] MEDS: BALSAM PERU/CASTOR OIL 60 GM TUBE TOP SCH ×2 (09:25→20:34)
--- NOTE | 2018-10-06 09:42 | PN ---
DATE: 10/06/2018 SUBJECTIVE: The patient remains critically ill on high flow oxygen. No other acute events noted. N o hemoptysis, hematemesis or hematochezia. The patient was transfused 2 units of PRBC yesterday. Th e patient has also been initiated on TPN. No other events noted. The patient is pending possible gonzalo mbar puncture today. OBJECTIVE: VITAL SIGNS: Blood pressure is 152/64, respirations 22, pulse 79, temperature 97.8. HEENT: Head is normocephalic. NECK: Supple. HEART: Regular rate. LUNGS: Show diminished breath sounds at the base. ABDOMEN: Soft, nontender to palpation without rebound or guarding. EXTREMITIES: Negative for clubbing, cyanosis, no edema. DERMATOLOGIC: No rashes. MUSCULOSKELETAL: No joint effusion. NEUROLOGIC: No change in exam. MEDICATIONS: The patient's medications have been reviewed. LABORATORY DATA: Reviewed. ASSESSMENT AND PLAN: 1. Acute hypoxemic respiratory failure, etiology is secondary to pneumonia. We will continue curren t medical management. Continue high flow oxygen and continue to titrate off if possible. 2. Sepsis secondary to healthcare-associated pneumonia and bacteremia. Continue broad spectrum anti biotics. Follow up with Infectious Disease. 3. Nonoliguric acute kidney injury with unknown baseline creatinine. Etiology is secondary to sepsi s, hemodynamics. Renal function is slowly improving. Continue current treatment plan. 4. Hypernatremia. Etiology is felt to be multifactorial secondary to insensible losses, decreased f ree water intake as well as osmotic diuresis due to underlying azotemia. The patient was given a tri al of DDAVP without any significant change in urinary output. At this point, we will continue curren t treatment plan. We will continue to monitor serial sodium levels. The patient's family has refuse d NG tube or PEG tube placement to help give the patient free water. We will therefore continue hype rtonic fluids. 5. Metabolic acidosis secondary to acute kidney injury, improving. Continue to monitor. 6. Hematochezia. Etiology is unclear. The patient is status post blood transfusion. Continue prot on pump inhibitor. Follow up with GI. 7. Anemia, status post blood transfusion. Continue to monitor hemoglobin and hematocrit levels. 8. Thrombocytopenia. Etiology is likely multifactorial secondary to sepsis, medications, Lovenox. The patient is status post platelet transfusion. Platelets have improved. Continue to monitor. 9. Acute encephalopathy. Etiology may be multifactorial, toxic metabolic. Possibility of meningeal encephalitis is a consideration. The patient is pending lumbar puncture per interventional radiolog y. 10. Mineral bone disorder. Monitor calcium and phosphorus levels. 11. Diabetes. Continue current insulin regimen. 12. Hypertension. Continue current blood pressure regimen. 13. Hypokalemia. Continue to monitor and replete as needed. 14. Nutrition. The patient's family is refusing PEG tube or NG tube placement. Continue TPN. 15. History of cerebrovascular accident. Continue medical management. DISPOSITION: We will place a Nicolas evaluation. Dictated By: GLADIS ALICIA DO NR/NTS Conf#: [id number] DID#: [id number] CC: GLADIS ALICIA DO; CONCEPCION HANKS MD;*End*
[2018-10-06] MEDS: LINEZOLID 600 MG/300 ML (PMX) 300 ML IVPB SCH ×2 (10:22→20:33)
--- NOTE | 2018-10-06 10:38 | CONS ---
Consultation Date/Type/Reason Admit Date/Time Sep 29, 2018 at 13:57 Initial Consult Date 09/30/18 Type of Consult Pulmonary Pulmonary consult requested for evaluation of hypoxemia. Patient is a 73-year-old male who is a [facility] who was sent over to the hospital because of hypoxemia. Upon evaluation chest x-ray was done which has been interpreted as showing possible bibasilar pneumonia. Vision has been started on appropriate empiric antimicrobial regimen. The patient has apparently fairly advanced dementia and was not able to give any meaningful history by himself. Patient however was awake and did not appear to be in any distress whatsoever. Past medical history; 1. Dementia 2. Bipolar disorder. 3. Chronic renal insufficiency. 4. History of hypertension. Medications; reviewed. Allergies; none. Social history, family history, occupational history is not available. Review of system; unable to be obtained. General exam; elderly male, awake and lethargic. Currently in no distress. Requesting Provider: GLADIS ALICIA DO Date/Time of Note DATE: 10/06/18 TIME: 10:35 24 HR Interval Summary Free Text/Dictation Patient's condition is continually improving. Patient appears much more awake and alert and responsive. Has remained hemodynamically stable. No further upper GI bleed reported. General exam; elderly male, awake and alert. Currently in no distress. H EENT exam; supple neck, no JVD. No lymphadenopathy. Midline trachea. No thyromegaly. Patient is currently on 40% FiO2 at 20 L/min high flow nasal can nula. Dentition is fair. Chest exam; improved breath sound lung bases. Upper lobes are clear. S1-S2 audible, no murmurs. Regular rhythm. Abdomen exam; soft, nondistended. Nontender. No organomegaly. Bowel sounds audible. Extremity exam; no peripheral edema. 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 Assessment and recommendations; 1. Patient admitted with severe bilateral basilar pneumonia with significant interval clinical improvement. 2. Encephalopathy with interval improvement as well. 3. Dysphagia. 4. Upper GI bleed. Patient awaiting EGD once family consents. Patient currently on TPN. 5. History of CVA. 6. Anemia with interval correction. Continue current supportive care. Obtain follow-up chest x-ray in 48 hours. Exam/Review of Systems Exam Vitals Vital Signs Date Temp Pulse Resp B/P (MAP) Pulse Ox O2 O2 Flow FiO2 Time Delivery Rate 10/06/18 83 08:00 10/06/18 97.8 22 152/64 96 High Flow 2.0 07:14 (93) Nasal Cannula 10/06/18 40 06:05 Intake and Output 10/05/18 10/05/18 10/06/18 1515:00 23:00 07:00 IntakeIntake Total 1350 ml OutputOutput Total 800 ml 800 ml BalanceBalance -800 ml 550 ml Results Result Diagram: 10/06/18 0553 10/06/18 0553 Results 24hrs Laboratory Tests Test 10/05/18 12:20 10/05/18 15:33 10/05/18 17:54 10/05/18 20:34 Bedside Glucose 98 121 145 White Blood Count 7.5 Red Blood Count 2.95 #L Hemoglobin 8.0 L Hematocrit 27.0 #L Mean Corpuscular 91.5 Volume Mean Corpuscular 27.1 L Hemoglobin Mean Corpuscular 29.6 L Hemoglobin Concent Red Cell 15.8 H Distribution Width Platelet Count 244 Mean Platelet Volume 11.8 H Immature 0.500 H Granulocytes % Neutrophils % Segmented 91 H Neutrophils % (Manual) Band Neutrophils % 3 (Manual) Lymphocytes % Lymphocytes % 4 L (Manual) Monocytes % Monocytes % (Manual) 2 Eosinophils % Basophils % Nucleated Red Blood 0.0 Cells % Immature 0.040 H Granulocytes # Neutrophils # Neutrophils # 6.8 (Manual) Band Neutrophils # 0.2 Lymphocytes (Manual) 0.3 L Lymphocytes # Monocytes # Monocytes # (Manual) 0.1 L Eosinophils # Basophils # Nucleated Red Blood Cells # Platelet Estimate NORMAL Anisocytosis 1+ Microcytosis 1+ Macrocytosis 1+ Sodium Level 158 H Potassium Level 3.4 L Chloride Level 131 H Carbon Dioxide Level 22 Anion Gap 5 Blood Urea Nitrogen 68 H Creatinine 1.51 H Est Glomerular Filtrat Rate mL/min Glucose Level 110 Calcium Level 8.1 L Test 10/06/18 00:54 10/06/18 05:53 10/06/18 06:18 10/06/18 08:05 Bedside Glucose 139 139 154 White Blood Count 8.9 Red Blood Count 3.00 L Hemoglobin 8.0 L Hematocrit 26.6 L Mean Corpuscular 88.7 Volume Mean Corpuscular 26.7 L Hemoglobin Mean Corpuscular 30.1 L Hemoglobin Concent Red Cell 15.6 H Distribution Width Platelet Count 205 Mean Platelet Volume 11.7 H Immature 0.600 H Granulocytes % Neutrophils % 89.9 H Segmented 82 H Neutrophils % (Manual) Band Neutrophils % 7 H (Manual) Lymphocytes % 7.7 L Lymphocytes % 6 L (Manual) Reactive Lymphocytes 2 H % (Manual) Monocytes % 1.1 Monocytes % (Manual) 2 Eosinophils % 0.7 Eosinophils % 1 (Manual) Basophils % 0.0 Nucleated Red Blood 0.0 Cells % Immature 0.050 H Granulocytes # Neutrophils # 8.0 H Neutrophils # 7.4 (Manual) Band Neutrophils # 0.6 Lymphocytes (Manual) 0.5 L Lymphocytes # 0.7 L Reactive Lymphocytes 0.1 H # Monocytes # 0.1 L Monocytes # (Manual) 0.1 L Eosinophils # 0.1 Basophils # 0.0 Nucleated Red Blood 0.0 Cells # Platelet Estimate NORMAL Giant Platelets 1 H Polychromasia 1+ Poikilocytosis 1+ Sodium Level 158 H Potassium Level 3.5 Chloride Level 130 H Carbon Dioxide Level 25 Anion Gap 3 L Blood Urea Nitrogen 66 H Creatinine 1.44 H Est Glomerular Filtrat Rate mL/min Glucose Level 149 Calcium Level 8.0 L Phosphorus Level 2.1 #L Magnesium Level 2.4 Medications Medication Current Medications Albuterol (Proventil 0.083% (Neb)) 2.5 mg Q4H RESP THERAPY PRN NEB SHORTNESS OF BREATH Last administered on 10/04/18at 11:14; Admin Dose 2.5 MG; Start 09/29/18 at 15:00 Albuterol (Proventil 0.083% (Neb)) 2.5 mg Q8H RESP THERAPY PRN NEB WHEEZING AND SOB; Start 09/29/18 at 16:00 Bisacodyl (Dulcolax Supp) 10 mg DAILY PRN [place] CONSTIPATION; Start 09/29/18 at 15:00 Hydralazine HCl (Apresoline) 25 mg BID PRN PO ELEVATED BP; SBP > 160; Start 09/29/18 at 15:00 Magnesium Hydroxide (Milk Of Mag) 30 ml DAILY PRN PO CONSTIPATION; Start 09/29/18 at 15:00 Miscellaneous Information 1 ea NOTE XX ; Start 09/29/18 at 16:30 Glucose (Glutose) 15 gm Q15M PRN PO DECREASED GLUCOSE; Start 09/29/18 at 16:30 Glucose (Glutose) 22.5 gm Q15M PRN PO DECREASED GLUCOSE; Start 09/29/18 at 16:30 Dextrose (D50w Syringe) 25 ml Q15M PRN IV DECREASED GLUCOSE; Start 09/29/18 at 16:30 Dextrose (D50w Syringe) 50 ml Q15M PRN IV DECREASED GLUCOSE; Start 09/29/18 at 16:30 Glucagon (Glucagen) 1 mg Q15M PRN IM DECREASED GLUCOSE; Start 09/29/18 at 16:30 Glucose (Glutose) 15 gm Q15M PRN BUCCAL DECREASED GLUCOSE; Start 09/29/18 at 16:30 Miscellaneous Information (Pending Santyl Order For Wound Care) This patient saini... PRN PRN XX WOUND CARE; Start 09/30/18 at 05:00 Insulin Aspart (Novolog Insulin Pen) (Adult SC Insulin - Mild Algorithm)... Q4 SC Last administered on 10/06/18at 08:09; Admin Dose 1 UNIT; Start 09/30/18 at 13:00 Meropenem/Sodium Chloride 50 ml @ 100 mls/hr Q12 IVPB Last administered on 10/06/18at 09:24; Admin Dose 100 MLS/HR; Start 09/30/18 at 21:00 Acetaminophen (Tylenol Supp) 650 mg Q6H PRN [place] FEVER Last administered on 10/01/18at 20:57; Admin Dose 650 MG; Start 09/30/18 at 21:30 Linezolid 300 ml @ 300 mls/hr Q12 IVPB Last administered on 10/06/18at 10:22; Admin Dose 300 MLS/HR; Start 10/01/18 at 21:00 Aspirin (Halfprin) 81 mg DAILY PO ; Start 10/02/18 at 14:00 Pantoprazole (Protonix Iv) 40 mg BID@06,18 IV Last administered on 10/05/18at 17:52; Admin Dose 40 MG; Start 10/03/18 at 06:00 Total Parenteral Nutrition 1,000 ml @ 75 mls/hr [id number] IV Last administered on 10/06/18at 06:17; Admin Dose 75 MLS/HR; Start 10/05/18 at 17:00 Dextrose 1,000 ml @ 75 mls/hr [id number] IV Last administered on 10/06/18at 06:17; Admin Dose 50 MLS/HR; Start 10/06/18 at 06:30 Potassium Phosphate 15 mm/ Sodium Chloride 255 ml @ 63.75 mls/ hr ONCE ONCE IV ; Start 10/06/18 at 11:30; Stop 10/06/18 at 15:29 MISHA COLLADO 12, 2019 10:38
[2018-10-06] MEDS ORDERED: POTASSIUM PHOSPHATE 15 MM in SOD CHLORIDE 0.9% 250 ML IV ONE (11:30)
--- NOTE | 2018-10-06 12:11 | PREAC ---
Date/Time of Note Date/Time of Note DATE: 10/06/18 TIME: 12:08 Anesthesia Eval and Record Evaluation Time Pre-Procedure Interview DATE: 10/06/18 TIME: 12:08 Age 73 Sex male NPO: 8 hrs Preoperative diagnosis Upper GI bleeding Planned procedure EGD Past Medical History Past Medical History: Includes Cardio: HTN, Dyslipidemia Endo: Diabetes Pulm: COPD, Other (respiratory dystress on high o2) Renal: ESRD on dialysis GI: GERD Psych: Bipolar Surgery & Anesthesia Issues No known issue Meds Anticoagulation: No Beta Junie within 24 hr: Yes Reported Medications Sodium Phosphate,[place]-Dibasic (Enema Ready To Use) 133 Ml Enema, 133 ML RC EVERY 72 HOURS PRN for CONSTIPATION, ENEMA 09/29/18 Valproic Acid* (Depakene*) 250 Mg/5 Ml Udc Syrup, 125 MG PO Q6, ML 09/29/18 Haloperidol* (Haldol*) 1 Mg Tab, 1 MG PO Q6, TAB 09/29/18 Hydralazine Hcl* (Hydralazine Hcl*) 25 Mg Tab, 25 MG PO BID PRN for ELEVATED BLOOD PRESSURE, #60 TAB HOLD IF SBP <110 OR HR<60 09/29/18 Hydrocodone/Acetaminophen ([place] 5-325 Tablet) 1 Each Tablet, 1 EACH PO Q4 PRN for PAIN LEVEL 6-10, TAB 09/29/18 Metoprolol Tartrate* (Lopressor*) 50 Mg Tab, 50 MG PO BID, #60 TAB HOLD IF SBP <110 OR HR <60 09/29/18 Multivit-Min/Iron Fum/Folic AC (Fvfpe-Aifitil-Uutzpkac Tablet) 1 Each Tablet, 1 EACH PO DAILY, TAB 09/29/18 Insulin Aspart* (Novolog Insulin Pen*) 100 Unit/Ml Soln, 0 SC .SLIDING SCALE AC, EA 150-199 = 1 UNIT 200-249 = 2 UNITS 250-299 = 3 UNITS 300-349 = 4 UNITS 350-400 = 5 UNITS OVER 400 CALL MD [facility] MEALS AND AT BEDTIME 09/29/18 Protein Supplement (Promod) 946 Ml Liquid, 30 ML PO BID 09/29/18 Trazodone Hcl* (Trazodone Hcl*) 50 Mg Tablet, 50 MG PO QHS PRN for SLEEP, #30 TAB 09/29/18 Bisacodyl (Dulcolax) 10 Mg Supp.rect, 10 MG RC DAILY PRN for CONSTIPATION, SUP P.RECT 09/29/18 Magnesium Hydroxide* (Milk Of Magnesia*) 400 Mg/5 Ml Oral.susp, 30 ML PO DAILY PRN for CONSTIPATION, ML 09/29/18 Amlodipine Besylate* (Amlodipine Besylate*) 10 Mg Tablet, 10 MG PO DAILY, #30 TAB BP<110 OR HR <60 09/29/18 Albuterol Sulfate* (Albuterol Sulfate* Neb) 0.083%-3 Ml Neb, 2.5 MG NEB Q4H PRN for SHORTNESS OF BREATH, #30 VIAL 09/29/18 Albuterol Sulfate* (Albuterol Sulfate* Neb) 0.083%-3 Ml Neb, 2.5 MG NEB Q8 PRN for WHEEZING AND SOB, #30 VIAL 09/29/18 Current Medications Albuterol (Proventil 0.083% (Neb)) 2.5 mg Q4H RESP THERAPY PRN NEB SHORTNESS OF BREATH Last administered on 10/04/18at 11:14; Admin Dose 2.5 MG; Start 09/29/18 at 15:00 Albuterol (Proventil 0.083% (Neb)) 2.5 mg Q8H RESP THERAPY PRN NEB WHEEZING AND SOB; Start 09/29/18 at 16:00 Bisacodyl (Dulcolax Supp) 10 mg DAILY PRN [place] CONSTIPATION; Start 09/29/18 at 15:00 Hydralazine HCl (Apresoline) 25 mg BID PRN PO ELEVATED BP; SBP > 160; Start 09/29/18 at 15:00 Magnesium Hydroxide (Milk Of Mag) 30 ml DAILY PRN PO CONSTIPATION; Start 09/29/18 at 15:00 Miscellaneous Information 1 ea NOTE XX ; Start 09/29/18 at 16:30 Glucose (Glutose) 15 gm Q15M PRN PO DECREASED GLUCOSE; Start 09/29/18 at 16:30 Glucose (Glutose) 22.5 gm Q15M PRN PO DECREASED GLUCOSE; Start 09/29/18 at 16:30 Dextrose (D50w Syringe) 25 ml Q15M PRN IV DECREASED GLUCOSE; Start 09/29/18 at 16:30 Dextrose (D50w Syringe) 50 ml Q15M PRN IV DECREASED GLUCOSE; Start 09/29/18 at 16:30 Glucagon (Glucagen) 1 mg Q15M PRN IM DECREASED GLUCOSE; Start 09/29/18 at 16:30 Glucose (Glutose) 15 gm Q15M PRN BUCCAL DECREASED GLUCOSE; Start 09/29/18 at 16: 30 Miscellaneous Information (Pending Santyl Order For Wound Care) This patient saini... PRN PRN XX WOUND CARE; Start 09/30/18 at 05:00 Insulin Aspart (Novolog Insulin Pen) (Adult SC Insulin - Mild Algorithm)... Q4 SC Last administered on 10/06/18at 08:09; Admin Dose 1 UNIT; Start 09/30/18 at 13:00 Meropenem/Sodium Chloride 50 ml @ 100 mls/hr Q12 IVPB Last administered on 10/06/18at 09:24; Admin Dose 100 MLS/HR; Start 09/30/18 at 21:00 Acetaminophen (Tylenol Supp) 650 mg Q6H PRN [place] FEVER Last administered on 10/01/18at 20:57; Admin Dose 650 MG; Start 09/30/18 at 21:30 Linezolid 300 ml @ 300 mls/hr Q12 IVPB Last administered on 10/06/18at 10:22; Admin Dose 300 MLS/HR; Start 10/01/18 at 21:00 Aspirin (Halfprin) 81 mg DAILY PO ; Start 10/02/18 at 14:00 Pantoprazole (Protonix Iv) 40 mg BID@06,18 IV Last administered on 10/05/18at 17:52; Admin Dose 40 MG; Start 10/03/18 at 06:00 Total Parenteral Nutrition 1,000 ml @ 75 mls/hr [id number] IV Last administered on 10/06/18at 06:17; Admin Dose 75 MLS/HR; Start 10/05/18 at 17:00 Dextrose 1,000 ml @ 75 mls/hr [id number] IV Last administered on 10/06/18at 06:17; Admin Dose 50 MLS/HR; Start 10/06/18 at 06:30 Potassium Phosphate 15 mm/ Sodium Chloride 255 ml @ 63.75 mls/ hr ONCE ONCE IV ; Start 10/06/18 at 11:30; Stop 10/06/18 at 15:29 Meds reviewed: Yes Allergies Coded Allergies: No Known Allergy (Unverified , 09/29/18) Allergies Reviewed: Yes Labs/Studies Labs Reviewed: Reviewed by anesthesiologist Result Diagram: 10/06/18 0553 10/06/18 0553 Laboratory Tests 10/06/18 05:53 test: N/A Studies: ECG Pre-procedure Exam Last vitals Vital Signs Date Temp Pulse Resp B/P (MAP) Pulse Ox O2 O2 Flow FiO2 Time Delivery Rate 10/06/18 97.6 93 23 179/79 96 High Flow 11:26 (112) 10/06/18 2.0 07:14 10/06/18 40 06:05 Airway: Adequate mouth opening, Adequate thyromental dist Mallampati: Mallampati II Teeth: Normal Lung: Abnormal Heart: Normal ASA Physical Status ASA physical status: 4 Emergency: E Planned Anesthetic General/MAC: MAC Planned Pain Management Parenteral pain med Pre-operative Attestations Prior to commencing anesthesia and surgery, the patient was re-evaluated, there was verification of: *The patient's identity *The results of appropriate recent lab work and preoperative vital signs *The above evaluation not changing prior to induction *Anesthetic plan, risk benefits, alternative and complications discussed with patient/family; questions answered; patient/family understands, accepts and wishes to proceed. JOE FRANKLIN MD Oct 06, 2018 12:11
[2018-10-06] MEDS ORDERED: KETAMINE (50 MG/ML) 10 ML VIAL ONE (12:12)
[2018-10-06] MEDS ORDERED: GLUCAGON 1 MG INJ ONE (12:20)
--- NOTE | 2018-10-06 12:42 | PAC ---
Date/Time of Note Date/Time of Note DATE: 10/06/18 TIME: 12:41 Post-Anesthesia Notes Post-Anesthesia Note Last documented vital signs Vital Signs Date Temp Pulse Resp B/P (MAP) Pulse Ox O2 O2 Flow FiO2 Time Delivery Rate 10/06/18 97.6 93 23 179/79 96 High Flow 11:26 (112) 10/06/18 2.0 07:14 10/06/18 40 06:05 Activity: WNL Respiratory function: WNL Cardiovascular function: WNL Mental status: Baseline Pain reasonably controlled: Yes Hydration appropriate: Yes Nausea/Vomiting absent: Yes Comments BP:134/56, P:88, Spo2:100%, T:98,8 JOE FRANKLIN MD Oct 06, 2018 12:42
--- NOTE | 2018-10-06 14:25 | CONS ---
Assessment/Plan Assessment/Plan Hospital Course (Demo Recall) No acute events. Microbiology: Blood culture since admission grew oxacillin sensitive staph aureus, repeat blood cultures growing coag negative staph species CT of the chest revealed partial obstruction both lower lobe bronchi likely representing mucous plugging. Dense consolidation with near complete collapse left lower lobe and dense consolidation with partial collapse of right lower l obe. Ill-defined nodular infiltrate right lower lobe and both upper lobes as above questionable post obstructive pneumonia Antimicrobials: Zyvox, meropenem Indwelling's: Left upper extremity PICC line, [place] Physical examination: Chronically ill-appearing elderly man in no distress. Head atraumatic normocephalic neck is supple. Chest rise symmetrical breath sounds diminished bases. Heart: S1-S2. Abdomen soft bowel sounds present.. Extremities without cyanosis Assessment: 1. Severe sepsis present on admission 2. Bacteremia 3. Acute hypoxemic respiratory failure 4. Postobstructive pneumonia 5. Acute renal failure 6. Acute encephalopathy Plan: Clinically unchanged, CXR noted, repeat blood cultures neg, continue antibiotics, follow pulmonary and cardiology recommendations, plan for EGD Discussed with staff Consultation Date/Type/Reason Admit Date/Time Sep 29, 2018 at 13:57 Initial Consult Date 09/30/18 Type of Consult id Requesting Provider: GLADIS ALICIA DO Date/Time of Note DATE: 10/06/18 TIME: 14:24 Exam/Review of Systems Exam Vitals Vital Signs Date Temp Pulse Resp B/P (MAP) Pulse Ox O2 O2 Flow FiO2 Time Delivery Rate 10/06/18 92 14 154/83 99 Non 12:58 (106) Rebreather 10/06/18 99.0 15.0 12:40 10/06/18 40 06:05 Intake and Output 10/05/18 10/05/18 10/06/18 1515:00 23:00 07:00 IntakeIntake Total 1350 ml OutputOutput Total 800 ml 800 ml BalanceBalance -800 ml 550 ml Results Result Diagram: 10/06/18 0553 10/06/18 0553 Results 24hrs Laboratory Tests Test 10/05/18 15:33 10/05/18 17:54 10/05/18 20:34 10/06/18 00:54 White Blood Count 7.5 Red Blood Count 2.95 #L Hemoglobin 8.0 L Hematocrit 27.0 #L Mean Corpuscular 91.5 Volume Mean Corpuscular 27.1 L Hemoglobin Mean Corpuscular 29.6 L Hemoglobin Concent Red Cell 15.8 H Distribution Width Platelet Count 244 Mean Platelet Volume 11.8 H Immature 0.500 H Granulocytes % Neutrophils % Segmented 91 H Neutrophils % (Manual) Band Neutrophils % 3 (Manual) Lymphocytes % Lymphocytes % 4 L (Manual) Monocytes % Monocytes % (Manual) 2 Eosinophils % Basophils % Nucleated Red Blood 0.0 Cells % Immature 0.040 H Granulocytes # Neutrophils # Neutrophils # 6.8 (Manual) Band Neutrophils # 0.2 Lymphocytes (Manual) 0.3 L Lymphocytes # Monocytes # Monocytes # (Manual) 0.1 L Eosinophils # Basophils # Nucleated Red Blood Cells # Platelet Estimate NORMAL Anisocytosis 1+ Microcytosis 1+ Macrocytosis 1+ Sodium Level 158 H Potassium Level 3.4 L Chloride Level 131 H Carbon Dioxide Level 22 Anion Gap 5 Blood Urea Nitrogen 68 H Creatinine 1.51 H Est Glomerular Filtrat Rate mL/min Glucose Level 110 Calcium Level 8.1 L Bedside Glucose 121 145 139 Test 10/06/18 05:53 10/06/18 06:18 10/06/18 08:05 10/06/18 13:39 White Blood Count 8.9 Red Blood Count 3.00 L Hemoglobin 8.0 L Hematocrit 26.6 L Mean Corpuscular 88.7 Volume Mean Corpuscular 26.7 L Hemoglobin Mean Corpuscular 30.1 L Hemoglobin Concent Red Cell 15.6 H Distribution Width Platelet Count 205 Mean Platelet Volume 11.7 H Immature 0.600 H Granulocytes % Neutrophils % 89.9 H Segmented 82 H Neutrophils % (Manual) Band Neutrophils % 7 H (Manual) Lymphocytes % 7.7 L Lymphocytes % 6 L (Manual) Reactive Lymphocytes 2 H % (Manual) Monocytes % 1.1 Monocytes % (Manual) 2 Eosinophils % 0.7 Eosinophils % 1 (Manual) Basophils % 0.0 Nucleated Red Blood 0.0 Cells % Immature 0.050 H Granulocytes # Neutrophils # 8.0 H Neutrophils # 7.4 (Manual) Band Neutrophils # 0.6 Lymphocytes (Manual) 0.5 L Lymphocytes # 0.7 L Reactive Lymphocytes 0.1 H # Monocytes # 0.1 L Monocytes # (Manual) 0.1 L Eosinophils # 0.1 Basophils # 0.0 Nucleated Red Blood 0.0 Cells # Platelet Estimate NORMAL Giant Platelets 1 H Polychromasia 1+ Poikilocytosis 1+ Sodium Level 158 H Potassium Level 3.5 Chloride Level 130 H Carbon Dioxide Level 25 Anion Gap 3 L Blood Urea Nitrogen 66 H Creatinine 1.44 H Est Glomerular Filtrat Rate mL/min Glucose Level 149 Calcium Level 8.0 L Phosphorus Level 2.1 #L Magnesium Level 2.4 Bedside Glucose 139 154 123 Medications Medication Current Medications Albuterol (Proventil 0.083% (Neb)) 2.5 mg Q4H RESP THERAPY PRN NEB SHORTNESS OF BREATH Last administered on 10/04/18at 11:14; Admin Dose 2.5 MG; Start 09/29/18 at 15:00 Albuterol (Proventil 0.083% (Neb)) 2.5 mg Q8H RESP THERAPY PRN NEB WHEEZING AND SOB; Start 09/29/18 at 16:00 Bisacodyl (Dulcolax Supp) 10 mg DAILY PRN [place] CONSTIPATION; Start 09/29/18 at 15:00 Hydralazine HCl (Apresoline) 25 mg BID PRN PO ELEVATED BP; SBP > 160; Start 09/29/18 at 15:00 Magnesium Hydroxide (Milk Of Mag) 30 ml DAILY PRN PO CONSTIPATION; Start 09/29/18 at 15:00 Miscellaneous Information 1 ea NOTE XX ; Start 09/29/18 at 16:30 Glucose (Glutose) 15 gm Q15M PRN PO DECREASED GLUCOSE; Start 09/29/18 at 16:30 Glucose (Glutose) 22.5 gm Q15M PRN PO DECREASED GLUCOSE; Start 09/29/18 at 16:30 Dextrose (D50w Syringe) 25 ml Q15M PRN IV DECREASED GLUCOSE; Start 09/29/18 at 16:30 Dextrose (D50w Syringe) 50 ml Q15M PRN IV DECREASED GLUCOSE; Start 09/29/18 at 16:30 Glucagon (Glucagen) 1 mg Q15M PRN IM DECREASED GLUCOSE; Start 09/29/18 at 16:30 Glucose (Glutose) 15 gm Q15M PRN BUCCAL DECREASED GLUCOSE; Start 09/29/18 at 16:30 Miscellaneous Information (Pending [facility] Order For Wound Care) This patient saini... PRN PRN XX WOUND CARE; Start 09/30/18 at 05:00 Insulin Aspart (Novolog Insulin Pen) (Adult SC Insulin - Mild Algorithm)... Q4 SC Last administered on 10/06/18at 08:09; Admin Dose 1 UNIT; Start 09/30/18 at 13:00 Meropenem/Sodium Chloride 50 ml @ 100 mls/hr Q12 IVPB Last administered on 10/06/18 09:24; Admin Dose 100 MLS/HR; Start 09/30/18 at 21:00 Acetaminophen (Tylenol Supp) 650 mg Q6H PRN [place] FEVER Last administered on 10/01/18 20:57; Admin Dose 650 MG; Start 09/30/18 at 21:30 Linezolid 300 ml @ 300 mls/hr Q12 IVPB Last administered on 10/06/18 10:22; Admin Dose 300 MLS/HR; Start 10/01/18 at 21:00 Aspirin (Halfprin) 81 mg DAILY PO ; Start 10/02/18 at 14:00 Pantoprazole (Protonix Iv) 40 mg BID@06,18 IV Last administered on 10/05/18 17:52; Admin Dose 40 MG; Start 10/03/18 at 06:00 Total Parenteral Nutrition 1,000 ml @ 75 mls/hr [id number] IV Last administered on 10/06/18 06:17; Admin Dose 75 MLS/HR; Start 10/05/18 at 17:00 Dextrose 1,000 ml @ 75 mls/hr [id number] IV Last administered on 10/06/18 06:17; Admin Dose 50 MLS/HR; Start 10/06/18 at 06:30 Potassium Phosphate 15 mm/ Sodium Chloride 255 ml @ 63.75 mls/ hr ONCE ONCE IV ; Start 10/06/18 at 11:30; Stop 10/06/18 at 15:29 AMY WHALEN NP Oct 06, 2018 14:25
[2018-10-06] MEDS ORDERED: DEXTROSE 5% 1,000 ML IV ONE (17:00)
[2018-10-06] MEDS: FAMOTIDINE 20 MG INJ IV SCH (20:33)
[2018-10-06] MEDS ORDERED: POTASSIUM CHLORIDE 100 ML IVPB ONE (21:00)
--- NOTE | 2018-10-06 21:11 | CONS ---
Consult Date/Type/Reason Admit Date/Time Sep 29, 2018 at 13:57 Initial Consult Date 09/30/18 Type of Consultation: cv Requesting Provider: GLADIS ALICIA DO Date/Time of Note DATE: 10/06/18 TIME: 21:09 Subjective Interventional cardiology follow-up progress note Subjective: Case discussed with the staff telemetry was reviewed patient remains sinus Patient continues to remain hypoxemic and on high flow oxygen. d/w family no report of any chestp ain pt has failed swallow eval s/p endoscopy + melena per RN report Objective: General: Elderly gentleman in mild respiratory distress on oxygen. HEENT: NC/AT. Eyes are closed NECK: NO JVD. no stridor. CV: RRR. systolic murmur; no gallop or rubs. PULM: Diffuse rhonchi no wheezes. GI: SOFT, NT, ND, no rebound or guarding Extremity: trace B/L LE edema. no clubbing. neuro: drowsy but awake Psych: calm rectal: deferred Chest x-ray shows: Patchy bilateral lower lobe air space disease, cannot exclude pneumonia in the appropriate clinical setting. Objective Vitals Vital Signs Date Temp Pulse Resp B/P (MAP) Pulse Ox O2 O2 Flow FiO2 Time Delivery Rate 10/06/18 98.7 92 20 167/76 92 20:50 (106) 10/06/18 40 17:03 10/06/18 High Flow 15:08 10/06/18 15.0 12:40 Intake and Output 10/05/18 10/05/18 10/06/18 1515:00 23:00 07:00 IntakeIntake Total 1350 ml OutputOutput Total 800 ml 800 ml BalanceBalance -800 ml 550 ml Results/Medications Result Diagram: 10/06/18 0553 10/06/18 1909 Results 24 hrs Laboratory Tests Test 10/06/18 00:54 10/06/18 05:53 10/06/18 06:18 10/06/18 08:05 Bedside Glucose 139 139 154 White Blood Count 8.9 Red Blood Count 3.00 L Hemoglobin 8.0 L Hematocrit 26.6 L Mean Corpuscular 88.7 Volume Mean Corpuscular 26.7 L Hemoglobin Mean Corpuscular 30.1 L Hemoglobin Concent Red Cell 15.6 H Distribution Width Platelet Count 205 Mean Platelet Volume 11.7 H Immature 0.600 H Granulocytes % Neutrophils % 89.9 H Segmented 82 H Neutrophils % (Manual) Band Neutrophils % 7 H (Manual) Lymphocytes % 7.7 L Lymphocytes % 6 L (Manual) Reactive Lymphocytes 2 H % (Manual) Monocytes % 1.1 Monocytes % (Manual) 2 Eosinophils % 0.7 Eosinophils % 1 (Manual) Basophils % 0.0 Nucleated Red Blood 0.0 Cells % Immature 0.050 H Granulocytes # Neutrophils # 8.0 H Neutrophils # 7.4 (Manual) Band Neutrophils # 0.6 Lymphocytes (Manual) 0.5 L Lymphocytes # 0.7 L Reactive Lymphocytes 0.1 H # Monocytes # 0.1 L Monocytes # (Manual) 0.1 L Eosinophils # 0.1 Basophils # 0.0 Nucleated Red Blood 0.0 Cells # Platelet Estimate NORMAL Giant Platelets 1 H Polychromasia 1+ Poikilocytosis 1+ Sodium Level 158 H Potassium Level 3.5 Chloride Level 130 H Carbon Dioxide Level 25 Anion Gap 3 L Blood Urea Nitrogen 66 H Creatinine 1.44 H Est Glomerular Filtrat Rate mL/min Glucose Level 149 Calcium Level 8.0 L Phosphorus Level 2.1 #L Magnesium Level 2.4 Test 10/06/18 13:39 10/06/18 16:00 10/06/18 16:04 10/06/18 16:59 Bedside Glucose 123 185 Urine Color YELLOW Urine Clarity CLEAR Urine pH 6.0 Urine Specific 1.016 [place] Urine Ketones NEGATIVE Urine Nitrite NEGATIVE Urine Bilirubin NEGATIVE Urine Urobilinogen NEGATIVE Urine Leukocyte NEGATIVE Esterase Urine Microscopic 1 RBC Urine Microscopic 2 WBC Urine Hemoglobin 2+ H Urine Osmolality 535 Urine Random 47.17 Creatinine Urine Random Sodium 23 L Urine Glucose NEGATIVE Urine Total Protein 77.0 H Sodium Level 159 H Potassium Level 3.6 Chloride Level 129 H Carbon Dioxide Level 23 Anion Gap 7 Blood Urea Nitrogen 63 H Creatinine 1.17 Est Glomerular Filtrat Rate mL/min Glucose Level 166 Calcium Level 8.0 L Test 10/06/18 19:09 10/06/18 20:32 Sodium Level 154 H Potassium Level 3.4 L Chloride Level 125 H Carbon Dioxide Level 23 Anion Gap 6 Blood Urea Nitrogen 61 H Creatinine 1.13 Est Glomerular Filtrat Rate mL/min Glucose Level 246 H Calcium Level 7.5 L Bedside Glucose 131 Home Meds Reported Medications Sodium Phosphate,[place]-Dibasic (Enema Ready To Use) 133 Ml Enema, 133 ML RC EVERY 72 HOURS PRN for CONSTIPATION, ENEMA 09/29/18 Valproic Acid* (Depakene*) 250 Mg/5 Ml Udc Syrup, 125 MG PO Q6, ML 09/29/18 Haloperidol* (Haldol*) 1 Mg Tab, 1 MG PO Q6, TAB 09/29/18 Hydralazine Hcl* (Hydralazine Hcl*) 25 Mg Tab, 25 MG PO BID PRN for ELEVATED BLOOD PRESSURE, #60 TAB HOLD IF SBP <110 OR HR<60 09/29/18 Hydrocodone/Acetaminophen ([place] 5-325 Tablet) 1 Each Tablet, 1 EACH PO Q4 PRN for PAIN LEVEL 6-10, TAB 09/29/18 Metoprolol Tartrate* (Lopressor*) 50 Mg Tab, 50 MG PO BID, #60 TAB HOLD IF SBP <110 OR HR <60 09/29/18 Multivit-Min/Iron Fum/Folic AC (Govqp-Ncvgurw-Yjftrxnl Tablet) 1 Each Tablet, 1 EACH PO DAILY, TAB 09/29/18 Insulin Aspart* (Novolog Insulin Pen*) 100 Unit/Ml Soln, 0 SC .SLIDING SCALE AC, EA 150-199 = 1 UNIT 200-249 = 2 UNITS 250-299 = 3 UNITS 300-349 = 4 UNITS 350-400 = 5 UNITS OVER 400 CALL MD VANCE MEALS AND AT BEDTIME 09/29/18 Protein Supplement (Promod) 946 Ml Liquid, 30 ML PO BID 09/29/18 Trazodone Hcl* (Trazodone Hcl*) 50 Mg Tablet, 50 MG PO QHS PRN for SLEEP, #30 TAB 09/29/18 Bisacodyl (Dulcolax) 10 Mg Supp.rect, 10 MG RC DAILY PRN for CONSTIPATION, SUPP.RECT 09/29/18 Magnesium Hydroxide* (Milk Of Magnesia*) 400 Mg/5 Ml Oral.susp, 30 ML PO DAILY PRN for CONSTIPATION, ML 09/29/18 Amlodipine Besylate* (Amlodipine Besylate*) 10 Mg Tablet, 10 MG PO DAILY, #30 TAB BP<110 OR HR <60 09/29/18 Albuterol Sulfate* (Albuterol Sulfate* Neb) 0.083%-3 Ml Neb, 2.5 MG NEB Q4H PRN for SHORTNESS OF BREATH, #30 VIAL 09/29/18 Albuterol Sulfate* (Albuterol Sulfate* Neb) 0.083%-3 Ml Neb, 2.5 MG NEB Q8 PRN for WHEEZING AND SOB, #30 VIAL 09/29/18 Medications Current Medications Albuterol (Proventil 0.083% (Neb)) 2.5 mg Q4H RESP THERAPY PRN NEB SHORTNESS OF BREATH Last administered on 10/04/18at 11:14; Admin Dose 2.5 MG; Start 09/29/18 at 15:00 Albuterol (Proventil 0.083% (Neb)) 2.5 mg Q8H RESP THERAPY PRN NEB WHEEZING AND SOB; Start 09/29/18 at 16:00 Bisacodyl (Dulcolax Supp) 10 mg DAILY PRN [place] CONSTIPATION; Start 09/29/18 at 15:00 Hydralazine HCl (Apresoline) 25 mg BID PRN PO ELEVATED BP; SBP > 160; Start 09/29/18 at 15:00 Magnesium Hydroxide (Milk Of Mag) 30 ml DAILY PRN PO CONSTIPATION; Start 09/29/18 at 15:00 Miscellaneous Information 1 ea NOTE XX ; Start 09/29/18 at 16:30 Glucose (Glutose) 15 gm Q15M PRN PO DECREASED GLUCOSE; Start 09/29/18 at 16:30 Glucose (Glutose) 22.5 gm Q15M PRN PO DECREASED GLUCOSE; Start 09/29/18 at 16:30 Dextrose (D50w Syringe) 25 ml Q15M PRN IV DECREASED GLUCOSE; Start 09/29/18 at 16:30 Dextrose (D50w Syringe) 50 ml Q15M PRN IV DECREASED GLUCOSE; Start 09/29/18 at 16:30 Glucagon (Glucagen) 1 mg Q15M PRN IM DECREASED GLUCOSE; Start 09/29/18 at 16:30 Glucose (Glutose) 15 gm Q15M PRN BUCCAL DECREASED GLUCOSE; Start 09/29/18 at 16:30 Miscellaneous Information (Pending [facility] Order For Wound Care) This patient saini... PRN PRN XX WOUND CARE; Start 09/30/18 at 05:00 Insulin Aspart (Novolog Insulin Pen) (Adult SC Insulin - Mild Algorithm)... Q4 SC Last administered on 10/06/18at 17:08; Admin Dose 2 UNIT; Start 09/30/18 at 13:00 Meropenem/Sodium Chloride 50 ml @ 100 mls/hr Q12 IVPB Last administered on 10/06/18 20:33; Admin Dose 100 MLS/HR; Start 09/30/18 at 21:00 Acetaminophen (Tylenol Supp) 650 mg Q6H PRN [place] FEVER Last administered on 10/01/18 20:57; Admin Dose 650 MG; Start 09/30/18 at 21:30 Linezolid 300 ml @ 300 mls/hr Q12 IVPB Last administered on 10/06/18 20:33; Admin Dose 300 MLS/HR; Start 10/01/18 at 21:00 Aspirin (Halfprin) 81 mg DAILY PO ; Start 10/02/18 at 14:00 Total Parenteral Nutrition 1,000 ml @ 75 mls/hr [id number] IV Last administered on 10/06/18 20:32; Admin Dose 75 MLS/HR; Start 10/05/18 at 17:00 Dextrose 1,000 ml @ 75 mls/hr [id number] IV Last administered on 10/06/18 20:33; Admin Dose 75 MLS/HR; Start 10/06/18 at 06:30 Famotidine (Pepcid Iv) 20 mg BID IV Last administered on 10/06/18 20:33; Admin Dose 20 MG; Start 10/06/18 at 21:00 Potassium Chloride 100 ml @ 50 mls/hr ONCE ONCE IVPB Last administered on 10/06/18 21:08; Admin Dose 50 MLS/HR; Start 10/06/18 at 21:00; Stop 10/06/18 at 22:59 Assessment/Plan Hospital Course (Demo Recall) 1. Acute hypoxemic respiratory failure 2. Pneumonia 3. History of diabetes 4. Acute renal failure 5. Encephalopathy and behavioral disorder 6. History of bipolar disorder Recommendations: Antibiotic management as per internal medicine and infectious disease consultants. Continue with oxygen supplement respiratory care Telemetry monitoring for the time being Echocardiogram has been reviewed.EF 70% nutritional support family has refused PEG sofar Thank you for this referral. We will continue to follow along with you ORLANDO LAW MD [facility] ORLANDO LAW MD Oct 06, 2018 21:11
[2018-10-07] VITALS (11 sets, daily range): BP systolic 119–150; BP diastolic 60–78; PULSE 82–116; RESP 20–24
[2018-10-07] MEDS: Insulin NOVOLOG SS MILD Algorithm (NPO/TPN/ENTERAL FEEDS) SC SCH ×6 (00:50→21:00)
[2018-10-07] MEDS: MEROPENEM 500MG/50 ML (PMX) 50 ML IVPB SCH ×2 (08:24→21:50)
[2018-10-07] MEDS: FAMOTIDINE 20 MG INJ IV SCH ×2 (08:24→21:50)
[2018-10-07] MEDS: ASPIRIN (EC) 81 MG TAB PO SCH (08:25)
[2018-10-07] MEDS: ALBUTEROL 0.083% (NEB) 2.5 MG/3 ML AMP NEB PRN ×2 (08:35→08:38)
[2018-10-07] MEDS: LINEZOLID 600 MG/300 ML (PMX) 300 ML IVPB SCH ×2 (08:49→21:50)
[2018-10-07] MEDS: BALSAM PERU/CASTOR OIL 60 GM TUBE TOP SCH ×2 (08:50→21:51)
[2018-10-07] MEDS: TPN 1,000 ML IV SCH ×2 (09:01→21:50)
--- NOTE | 2018-10-07 09:24 | CONS ---
Consult Date/Type/Reason Admit Date/Time Sep 29, 2018 at 13:57 Initial Consult Date 09/30/18 Type of Consultation: cv Requesting Provider: GLADIS ALICIA DO Date/Time of Note DATE: 10/07/18 TIME: 09:23 Subjective Interventional cardiology follow-up progress note Subjective: Case discussed with the staff telemetry was reviewed patient remains sinus / sinus tachycardia. Patient continues to remain hypoxemic and on oxygen. no report of any chestp ain pt has failed swallow eval s/p endoscopy Objective: General: Elderly gentleman in mild respiratory distress on oxygen. HEENT: NC/AT. Eyes are closed NECK: NO JVD. no stridor. CV: tachycardic . systolic murmur; no gallop or rubs. PULM: Diffuse rhonchi no wheezes. GI: SOFT, NT, ND, no rebound or guarding Extremity: trace B/L LE edema. no clubbing. neuro: drowsy but awake Psych: calm rectal: deferred Chest x-ray shows: Patchy bilateral lower lobe air space disease, cannot exclude pneumonia in the appropriate clinical setting. Objective Vitals Vital Signs Date Temp Pulse Resp B/P (MAP) Pulse Ox O2 O2 Flow FiO2 Time Delivery Rate 10/07/18 96 50 08:41 10/07/18 98.0 101 20 141/69 High Flow 07:08 (93) 10/06/18 15.0 12:40 Intake and Output 10/06/18 10/06/18 10/07/18 1515:00 23:00 07:00 IntakeIntake Total 0 ml 1950 ml OutputOutput Total 1100 ml 900 ml BalanceBalance -1100 ml 1050 ml Results/Medications Result Diagram: 10/07/18 0750 10/07/18 0750 Results 24 hrs Laboratory Tests Test 10/06/18 13:39 10/06/18 16:00 10/06/18 16:04 10/06/18 16:59 Bedside Glucose 123 185 Urine Color YELLOW Urine Clarity CLEAR Urine pH 6.0 Urine Specific 1.016 [place] Urine Ketones NEGATIVE Urine Nitrite NEGATIVE Urine Bilirubin NEGATIVE Urine Urobilinogen NEGATIVE Urine Leukocyte NEGATIVE Esterase Urine Microscopic 1 RBC Urine Microscopic 2 WBC Urine Hemoglobin 2+ H Urine Osmolality 535 Urine Random 47.17 Creatinine Urine Random Sodium 23 L Urine Glucose NEGATIVE Urine Total Protein 77.0 H Sodium Level 159 H Potassium Level 3.6 Chloride Level 129 H Carbon Dioxide Level 23 Anion Gap 7 Blood Urea Nitrogen 63 H Creatinine 1.17 Est Glomerular Filtrat Rate mL/min Glucose Level 166 Calcium Level 8.0 L Test 10/06/18 19:09 10/06/18 20:32 10/07/18 00:43 10/07/18 05:15 Sodium Level 154 H Potassium Level 3.4 L Chloride Level 125 H Carbon Dioxide Level 23 Anion Gap 6 Blood Urea Nitrogen 61 H Creatinine 1.13 Est Glomerular Filtrat Rate mL/min Glucose Level 246 H Calcium Level 7.5 L Bedside Glucose 131 177 147 Test 10/07/18 07:50 10/07/18 08:38 White Blood Count 7.4 Red Blood Count 2.49 L Hemoglobin 6.7 *L Hematocrit 21.8 L Mean Corpuscular 87.6 Volume Mean Corpuscular 26.9 L Hemoglobin Mean Corpuscular 30.7 L Hemoglobin Concent Red Cell 15.3 H Distribution Width Platelet Count 216 Mean Platelet Volume 11.3 H Immature 0.500 H Granulocytes % Neutrophils % Lymphocytes % Monocytes % Eosinophils % Basophils % Nucleated Red Blood 0.0 Cells % Immature 0.040 H Granulocytes # Neutrophils # Lymphocytes # Monocytes # Eosinophils # Basophils # Nucleated Red Blood Cells # Sodium Level 153 H Potassium Level 3.4 L Chloride Level 125 H Carbon Dioxide Level 21 Anion Gap 7 Blood Urea Nitrogen 60 H Creatinine 1.07 Est Glomerular Filtrat Rate mL/min Glucose Level 130 # Calcium Level 7.6 L Phosphorus Level 2.3 L Magnesium Level 1.9 Bedside Glucose 149 Home Meds Reported Medications Sodium Phosphate,[place]-Dibasic (Enema Ready To Use) 133 Ml Enema, 133 ML RC EVERY 72 HOURS PRN for CONSTIPATION, ENEMA 09/29/18 Valproic Acid* (Depakene*) 250 Mg/5 Ml Udc Syrup, 125 MG PO Q6, ML 09/29/18 Haloperidol* (Haldol*) 1 Mg Tab, 1 MG PO Q6, TAB 09/29/18 Hydralazine Hcl* (Hydralazine Hcl*) 25 Mg Tab, 25 MG PO BID PRN for ELEVATED BLOOD PRESSURE, #60 TAB HOLD IF SBP <110 OR HR<60 09/29/18 Hydrocodone/Acetaminophen ([place] 5-325 Tablet) 1 Each Tablet, 1 EACH PO Q4 PRN for PAIN LEVEL 6-10, TAB 09/29/18 Metoprolol Tartrate* (Lopressor*) 50 Mg Tab, 50 MG PO BID, #60 TAB HOLD IF SBP <110 OR HR <60 09/29/18 Multivit-Min/Iron Fum/Folic AC (Kxlpl-Slajvrp-Zdzwzhnv Tablet) 1 Each Tablet, 1 EACH PO DAILY, TAB 09/29/18 Insulin Aspart* (Novolog Insulin Pen*) 100 Unit/Ml Soln, 0 SC .SLIDING SCALE AC, EA 150-199 = 1 UNIT 200-249 = 2 UNITS 250-299 = 3 UNITS 300-349 = 4 UNITS 350-400 = 5 UNITS OVER 400 CALL MD [employer]ANCE MEALS AND AT BEDTIME 09/29/18 Protein Supplement (Promod) 946 Ml Liquid, 30 ML PO BID 09/29/18 Trazodone Hcl* (Trazodone Hcl*) 50 Mg Tablet, 50 MG PO QHS PRN for SLEEP, #30 TAB 09/29/18 Bisacodyl (Dulcolax) 10 Mg Supp.rect, 10 MG RC DAILY PRN for CONSTIPATION, SUPP.RECT 09/29/18 Magnesium Hydroxide* (Milk Of Magnesia*) 400 Mg/5 Ml Oral.susp, 30 ML PO DAILY PRN for CONSTIPATION, ML 09/29/18 Amlodipine Besylate* (Amlodipine Besylate*) 10 Mg Tablet, 10 MG PO DAILY, #30 TAB BP<110 OR HR <60 09/29/18 Albuterol Sulfate* (Albuterol Sulfate* Neb) 0.083%-3 Ml Neb, 2.5 MG NEB Q4H PRN for SHORTNESS OF BREATH, #30 VIAL 09/29/18 Albuterol Sulfate* (Albuterol Sulfate* Neb) 0.083%-3 Ml Neb, 2.5 MG NEB Q8 PRN for WHEEZING AND SOB, #30 VIAL 09/29/18 Medications Current Medications Albuterol (Proventil 0.083% (Neb)) 2.5 mg Q4H RESP THERAPY PRN NEB SHORTNESS OF BREATH Last administered on 10/07/18at 08:35; Admin Dose 2.5 MG; Start 09/29/18 at 15:00 Albuterol (Proventil 0.083% (Neb)) 2.5 mg Q8H RESP THERAPY PRN NEB WHEEZING AND SOB Last administered on 10/07/18at 08:39; Admin Dose 2.5 MG; Start 09/29/18 at 16:00 Bisacodyl (Dulcolax Supp) 10 mg DAILY PRN [place] CONSTIPATION; Start 09/29/18 at 15:00 Hydralazine HCl (Apresoline) 25 mg BID PRN PO ELEVATED BP; SBP > 160; Start 09/29/18 at 15:00 Magnesium Hydroxide (Milk Of Mag) 30 ml DAILY PRN PO CONSTIPATION; Start 09/29/18 at 15:00 Miscellaneous Information 1 ea NOTE XX ; Start 09/29/18 at 16:30 Glucose (Glutose) 15 gm Q15M PRN PO DECREASED GLUCOSE; Start 09/29/18 at 16:30 Glucose (Glutose) 22.5 gm Q15M PRN PO DECREASED GLUCOSE; Start 09/29/18 at 16:30 Dextrose (D50w Syringe) 25 ml Q15M PRN IV DECREASED GLUCOSE; Start 09/29/18 at 16:30 Dextrose (D50w Syringe) 50 ml Q15M PRN IV DECREASED GLUCOSE; Start 09/29/18 at 16:30 Glucagon (Glucagen) 1 mg Q15M PRN IM DECREASED GLUCOSE; Start 09/29/18 at 16:30 Glucose (Glutose) 15 gm Q15M PRN BUCCAL DECREASED GLUCOSE; Start 09/29/18 at 16:30 Miscellaneous Information ([facility]) This patient saini... PRN PRN XX WOUND CARE; Start 09/30/18 at 05:00 Insulin Aspart (Novolog Insulin Pen) (Adult SC Insulin - Mild Algorithm)... Q4 SC Last administered on 10/07/18at 08:56; Admin Dose 1 UNIT; Start 09/30/18 at 13:00 Meropenem/Sodium Chloride 50 ml @ 100 mls/hr Q12 IVPB Last administered on 10/07/18at 08:24; Admin Dose 100 MLS/HR; Start 09/30/18 at 21:00 Acetaminophen (Tylenol Supp) 650 mg Q6H PRN [place] FEVER Last administered on at 20:57; Admin Dose 650 MG; Start 09/30/18 at 21:30 Linezolid 300 ml @ 300 mls/hr Q12 IVPB Last administered on 10/07/18at 08:49; Admin Dose 300 MLS/HR; Start 10/01/18 at 21:00 Aspirin (Halfprin) 81 mg DAILY PO ; Start 10/02/18 at 14:00 Total Parenteral Nutrition 1,000 ml @ 75 mls/hr [id number] IV Last administered on 10/07/18at 09:01; Admin Dose 75 MLS/HR; Start 10/05/18 at 17:00 Dextrose 1,000 ml @ 75 mls/hr [id number] IV Last administered on 10/06/18at 20:33; Admin Dose 75 MLS/HR; Start 10/06/18 at 06:30 Famotidine (Pepcid Iv) 20 mg BID IV Last administered on 10/07/18at 08:24; Admin Dose 20 MG; Start 10/06/18 at 21:00 Assessment/Plan Hospital Course (Demo Recall) 1. Acute hypoxemic respiratory failure 2. Pneumonia 3. History of diabetes 4. Acute renal failure 5. Encephalopathy and behavioral disorder 6. History of bipolar disorder 7. sinus tachyardia due to above Recommendations: Antibiotic management as per internal medicine and infectious disease consultants. Continue with oxygen supplement respiratory care Telemetry monitoring for the time being Echocardiogram has been reviewed.EF 70% nutritional support family has refused PEG so far fluid management as per IM/ renal Thank you for this referral. We will continue to follow along with you ORLANDO LAW MD [facility] ORLANDO LAW MD Oct 07, 2018 09:24
[2018-10-07] MEDS: POTASSIUM CHLORIDE 100 ML IVPB SCH ×2 (10:10→13:08)
[2018-10-07] MEDS: DEXTROSE 5% 1,000 ML IV SCH ×2 (10:10→21:51)
--- NOTE | 2018-10-07 10:26 | PN ---
DATE: 10/07/2018 SUBJECTIVE: The patient had EGD yesterday which showed evidence of severe gastritis. The patient co ntinues to have dark stools. The patient remains confused but arousable. The patient remains on hig h flow oxygen, FIO2 levels have been trending down. OBJECTIVE: VITAL SIGNS: Blood pressure is 141/69, respirations 20, pulse 101, temperature 98.0. HEENT: Head is normocephalic. NECK: Supple. HEART: Regular rate. LUNGS: Show diminished breath sounds at the base. ABDOMEN: Soft, nontender to palpation without rebound or guarding. EXTREMITIES: Negative for clubbing, cyanosis, no edema. DERMATOLOGIC: No rashes. MUSCULOSKELETAL: No joint effusion. NEUROLOGIC: No change in exam. MEDICATIONS: The patient's medications have been reviewed. LABORATORY DATA: The laboratory data has been reviewed. ASSESSMENT AND PLAN: 1. Acute hypoxemic respiratory failure. Etiology is secondary to pneumonia. The patient remains on high flow oxygen, being weaned down. Continue to monitor. Continue antibiotic therapy, continue neb ulizers. 2. Sepsis, secondary to healthcare-associated pneumonia and bacteremia. The patient remains on broa d spectrum antibiotics, continue. Follow up infectious disease. Followup repeat cultures. 3. Nonoliguric acute kidney injury with unknown baseline creatinine. Etiology is secondary to sepsi s and hemodynamics. Renal function is slowly improving. Continue to monitor. 4. Hypernatremia. Etiology is felt to be secondary to insensible losses, decreased free water intak e as well as osmotic diuresis from underlying azotemia. The patient did not respond to a trial of [employer]. The patient's sodium levels are slowly improving after being given D5 water. Will continue to monitor closely. 5. Metabolic acidosis, improved. 6. Hematochezia, concerning for active GI bleeding. The patient's H and H levels have again dropped . Will transfuse 1 unit PRBC. The patient is status post EGD which showed evidence of gastritis. C ontinue proton pump inhibitor. We will follow up with GI. The patient may require colonoscopy. 7. Anemia. Continue to monitor hemoglobin and hematocrit levels. Will transfuse PRBCs. 8. Thrombocytopenia. Etiology is likely secondary to sepsis, improved. Continue to monitor. 9. Acute encephalopathy. Etiology is multifactorial, toxic metabolic. The patient is pending possi gisela rule out meningeal encephalitis. Appreciate neurology evaluation. Continue medical management. Continue current antibiotic regimen. 10. Mineral bone disorder, monitor calcium and phosphorus levels. 11. Hyperkalemia. Continue to monitor and replete. 12. Hypertension. Continue current blood pressure regimen. 13. Nutrition. The patient is currently on TPN. The patient's family is considering possible NG tu be placement. 14. History of cerebrovascular accident. Dictated By: GLADIS ALICIA DO NR/NTS Conf#: [id number] DID#: [id number] CC: CONCEPCION HANKS MD;*EndCC*
--- NOTE | 2018-10-07 10:42 | CONS ---
Assessment/Plan Assessment/Plan Assessment/Plan (Daily) Chest x-ray was reviewed from today which is showing marked improvement in bibasilar dense infiltrates bilaterally. Assessment and recommendations; 1. Patient with a history of dementia as well as recent CVA admitted with severe bilateral basilar pneumonia with significant interval clinical and radiological improvement. 2. Dysphasia. Possibly causing aspiration pneumonia. 3. Recent upper GI bleed. Patient awaiting EGD. Maintained on TPN. 4. Mild renal insufficiency. 5. Severe anemia. Continue with supportive care. Patient likely will need to have EGD and then possibly a G-tube or PEG tube placed. Continue current antimicrobial regimen. Continue chest PT to lower lobes. Consultation Date/Type/Reason Admit Date/Time Sep 29, 2018 at 13:57 Initial Consult Date 09/30/18 Type of Consult Pulmonary Pulmonary consult requested for evaluation of hypoxemia. Patient is a 73-year-old male who is a [facility] resident who was sent over to the hospital because of hypoxemia. Upon evaluation chest x-ray was done which has been interpreted as showing possible bibasilar pneumonia. Vision has been started on appropriate empiric antimicrobial regimen. The patient has apparently fairly advanced dementia and was not able to give any meaningful history by himself. Patient however was awake and did not appear to be in any distress whatsoever. Past medical history; 1. Dementia 2. Bipolar disorder. 3. Chronic renal insufficiency. 4. History of hypertension. Medications; reviewed. Allergies; none. Social history, family history, occupational history is not available. Review of system; unable to be obtained. General exam; elderly male, awake and lethargic. Currently in no distress. Requesting Provider: GLADIS ALICIA DO Date/Time of Note DATE: 10/07/18 TIME: 10:40 24 HR Interval Summary Free Text/Dictation Patient's condition is continually improving. Mental status also has significantly improved to the point where the patient always felt like a medicated. He denies any shortness of breath at rest. General exam; elderly male, awake and alert. Currently in no distress. Exam/Review of Systems Exam Vitals Vital Signs Date Temp Pulse Resp B/P (MAP) Pulse Ox O2 O2 Flow FiO2 Time Delivery Rate 10/07/18 96 50 08:41 10/07/18 100 08:00 10/07/18 98.0 20 141/69 High Flow 07:08 (93) 10/06/18 15.0 12:40 Intake and Output 10/06/18 10/06/18 10/07/18 1515:00 23:00 07:00 IntakeIntake Total 0 ml 1950 ml OutputOutput Total 1100 ml 900 ml BalanceBalance -1100 ml 1050 ml Exam H ENT exam; supple neck, no JVD. No lymphadenopathy. Midline trachea. No thyromegaly. Patient has fair dentition. No neck masses. Chest exam; improved breath sound lung bases. Upper lobes are clear. S1-S2 audible, no murmurs. Regular rhythm. Abdomen exam; soft, nontender. No organomegaly. Scaphoid. Bowel sounds audible. Extremity exam; no peripheral edema. 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 Exhibiting generalized weakness. Results Result Diagram: 10/07/18 0750 10/07/18 0750 Results 24hrs Laboratory Tests Test 10/06/18 13:39 10/06/18 16:00 10/06/18 16:04 10/06/18 16:59 Bedside Glucose 123 185 Urine Color YELLOW Urine Clarity CLEAR Urine pH 6.0 Urine Specific 1.016 [place] Urine Ketones NEGATIVE Urine Nitrite NEGATIVE Urine Bilirubin NEGATIVE Urine Urobilinogen NEGATIVE Urine Leukocyte NEGATIVE Esterase Urine Microscopic 1 RBC Urine Microscopic 2 WBC Urine Hemoglobin 2+ H Urine Osmolality 535 Urine Random 47.17 Creatinine Urine Random Sodium 23 L Urine Glucose NEGATIVE Urine Total Protein 77.0 H Sodium Level 159 H Potassium Level 3.6 Chloride Level 129 H Carbon Dioxide Level 23 Anion Gap 7 Blood Urea Nitrogen 63 H Creatinine 1.17 Est Glomerular Filtrat Rate mL/min Glucose Level 166 Calcium Level 8.0 L Test 10/06/18 19:09 10/06/18 20:32 10/07/18 00:43 10/07/18 05:15 Sodium Level 154 H Potassium Level 3.4 L Chloride Level 125 H Carbon Dioxide Level 23 Anion Gap 6 Blood Urea Nitrogen 61 H Creatinine 1.13 Est Glomerular Filtrat Rate mL/min Glucose Level 246 H Calcium Level 7.5 L Bedside Glucose 131 177 147 Test 10/07/18 07:50 10/07/18 08:38 White Blood Count 7.4 Red Blood Count 2.49 L Hemoglobin 6.7 *L Hematocrit 21.8 L Mean Corpuscular 87.6 Volume Mean Corpuscular 26.9 L Hemoglobin Mean Corpuscular 30.7 L Hemoglobin Concent Red Cell 15.3 H Distribution Width Platelet Count 216 Mean Platelet Volume 11.3 H Immature 0.500 H Granulocytes % Neutrophils % Segmented 89 H Neutrophils % (Manual) Band Neutrophils % 1 (Manual) Lymphocytes % Lymphocytes % 8 L (Manual) Monocytes % Monocytes % (Manual) 1 Eosinophils % Eosinophils % 1 (Manual) Basophils % Nucleated Red Blood 0.0 Cells % Immature 0.040 H Granulocytes # Neutrophils # Neutrophils # 6.6 (Manual) Band Neutrophils # 0.0 Lymphocytes (Manual) 0.5 L Lymphocytes # Monocytes # Monocytes # (Manual) 0.0 L Eosinophils # Basophils # Nucleated Red Blood Cells # Platelet Estimate NORMAL Polychromasia 1+ Hypochromasia 2+ Poikilocytosis 1+ Anisocytosis 1+ Microcytosis 1+ Sodium Level 153 H Potassium Level 3.4 L Chloride Level 125 H Carbon Dioxide Level 21 Anion Gap 7 Blood Urea Nitrogen 60 H Creatinine 1.07 Est Glomerular Filtrat Rate mL/min Glucose Level 130 # Calcium Level 7.6 L Phosphorus Level 2.3 L Magnesium Level 1.9 Bedside Glucose 149 Medications Medication Current Medications Albuterol (Proventil 0.083% (Neb)) 2.5 mg Q4H RESP THERAPY PRN NEB SHORTNESS OF BREATH Last administered on 10/07/18at 08:35; Admin Dose 2.5 MG; Start 09/29/18 at 15:00 Albuterol (Proventil 0.083% (Neb)) 2.5 mg Q8H RESP THERAPY PRN NEB WHEEZING AND SOB Last administered on 10/07/18at 08:39; Admin Dose 2.5 MG; Start 09/29/18 at 16:00 Bisacodyl (Dulcolax Supp) 10 mg DAILY PRN [place] CONSTIPATION; Start 09/29/18 at 15:00 Hydralazine HCl (Apresoline) 25 mg BID PRN PO ELEVATED BP; SBP > 160; Start 09/29/18 at 15:00 Magnesium Hydroxide (Milk Of Mag) 30 ml DAILY PRN PO CONSTIPATION; Start 09/29/18 at 15:00 Miscellaneous Information 1 ea NOTE XX ; Start 09/29/18 at 16:30 Glucose (Glutose) 15 gm Q15M PRN PO DECREASED GLUCOSE; Start 09/29/18 at 16:30 Glucose (Glutose) 22.5 gm Q15M PRN PO DECREASED GLUCOSE; Start 09/29/18 at 16:30 Dextrose (D50w Syringe) 25 ml Q15M PRN IV DECREASED GLUCOSE; Start 09/29/18 at 16:30 Dextrose (D50w Syringe) 50 ml Q15M PRN IV DECREASED GLUCOSE; Start 09/29/18 at 16:30 Glucagon (Glucagen) 1 mg Q15M PRN IM DECREASED GLUCOSE; Start 09/29/18 at 16:30 Glucose (Glutose) 15 gm Q15M PRN BUCCAL DECREASED GLUCOSE; Start 09/29/18 at 16:30 Miscellaneous Information (Pending [facility] Order For Wound Care) This patient saini. .. PRN PRN XX WOUND CARE; Start 09/30/18 at 05:00 Insulin Aspart (Novolog Insulin Pen) (Adult SC Insulin - Mild Algorithm)... Q4 SC Last administered on 10/07/18 08:56; Admin Dose 1 UNIT; Start 09/30/18 at 13:00 Meropenem/Sodium Chloride 50 ml @ 100 mls/hr Q12 IVPB Last administered on 10/07/18 08:24; Admin Dose 100 MLS/HR; Start 09/30/18 at 21:00 Acetaminophen (Tylenol Supp) 650 mg Q6H PRN [place] FEVER Last administered on 10/01/18 20:57; Admin Dose 650 MG; Start 09/30/18 at 21:30 Linezolid 300 ml @ 300 mls/hr Q12 IVPB Last administered on 10/07/18 08:49; Admin Dose 300 MLS/HR; Start 10/01/18 at 21:00 Aspirin (Halfprin) 81 mg DAILY PO ; Start 10/02/18 at 14:00 Total Parenteral Nutrition 1,000 ml @ 75 mls/hr [id number] IV Last administered on 10/07/18 09:01; Admin Dose 75 MLS/HR; Start 10/05/18 at 17:00 Dextrose 1,000 ml @ 50 mls/hr Q20H IV Last administered on 10/06/18 20:33; Admin Dose 75 MLS/HR; Start 10/06/18 at 06:30 Famotidine (Pepcid Iv) 20 mg BID IV Last administered on 10/07/18 08:24; Admin Dose 20 MG; Start 10/06/18 at 21:00 Potassium Chloride 100 ml @ 50 mls/hr Q2H IVPB Last administered on 10/07/18at 10:10; Admin Dose 50 MLS/HR; Start 10/07/18 at 10:00; Stop 10/07/18 at 13:59 MISHA COLLADO 13, 2019 10:42
--- NOTE | 2018-10-07 11:25 | CONS ---
Assessment/Plan Assessment/Plan Assessment/Plan (Daily) IMPRESSION: 1. Gastrointestinal bleeding. Patient hematocrit dropped from 21 most probably from the giant duodenal ulcer in the second part. 2. Aspiration pneumonia. 3. Sepsis. 4. Hypoxemia on high flow of oxygen. 5. Dysphagia. 6. Renal failure. 7. Encephalopathy. 8. Anemia, which is a combination of chronic disease and occult bleeding. 9. Malnutrition patient is on TPN 10. Thrombocytopenia corrected with patient received platelet transfusion Plan Continue PPI Monitor H&H Unfortunately there is a shortage of Protonix in the hospital and patient has declined NG tube otherwise we can give Carafate through the NG tube. Transfuse 1 unit of packed cell RBC If patient continues to bleed then he may need coil embolization of gastroduodenal artery Consultation Date/Type/Reason Admit Date/Time Sep 29, 2018 at 13:57 Initial Consult Date 09/30/18 Requesting Provider: GLADIS ALICIA DO Date/Time of Note DATE: 10/07/18 TIME: 11:23 24 HR Interval Summary Free Text/Dictation Patient passed to black tarry stool. No abdominal pain no nausea no vomiting Exam/Review of Systems Exam Vitals Vital Signs Date Temp Pulse Resp B/P (MAP) Pulse Ox O2 O2 Flow FiO2 Time Delivery Rate 10/07/18 98.0 116 24 119/60 94 High Flow 10:59 (79) 10/07/18 50 08:41 10/06/18 15.0 12:40 Intake and Output 10/06/18 10/06/18 10/07/18 1515:00 23:00 07:00 IntakeIntake Total 0 ml 1950 ml OutputOutput Total 1100 ml 900 ml BalanceBalance -1100 ml 1050 ml Constitutional: alert Respiratory: normal air movement Extremities: normal pulses Results Result Diagram: 10/07/18 0750 10/07/18 0750 Results 24hrs Laboratory Tests Test 10/06/18 13:39 10/06/18 16:00 10/06/18 16:04 10/06/18 16:59 Bedside Glucose 123 185 Urine Color YELLOW Urine Clarity CLEAR Urine pH 6.0 Urine Specific 1.016 [place] Urine Ketones NEGATIVE Urine Nitrite NEGATIVE Urine Bilirubin NEGATIVE Urine Urobilinogen NEGATIVE Urine Leukocyte NEGATIVE Esterase Urine Microscopic 1 RBC Urine Microscopic 2 WBC Urine Hemoglobin 2+ H Urine Osmolality 535 Urine Random 47.17 Creatinine Urine Random Sodium 23 L Urine Glucose NEGATIVE Urine Total Protein 77.0 H Sodium Level 159 H Potassium Level 3.6 Chloride Level 129 H Carbon Dioxide Level 23 Anion Gap 7 Blood Urea Nitrogen 63 H Creatinine 1.17 Est Glomerular Filtrat Rate mL/min Glucose Level 166 Calcium Level 8.0 L Test 10/06/18 19:09 10/06/18 20:32 10/07/18 00:43 10/07/18 05:15 Sodium Level 154 H Potassium Level 3.4 L Chloride Level 125 H Carbon Dioxide Level 23 Anion Gap 6 Blood Urea Nitrogen 61 H Creatinine 1.13 Est Glomerular Filtrat Rate mL/min Glucose Level 246 H Calcium Level 7.5 L Bedside Glucose 131 177 147 Test 10/07/18 07:50 10/07/18 08:38 White Blood Count 7.4 Red Blood Count 2.49 L Hemoglobin 6.7 *L Hematocrit 21.8 L Mean Corpuscular 87.6 Volume Mean Corpuscular 26.9 L Hemoglobin Mean Corpuscular 30.7 L Hemoglobin Concent Red Cell 15.3 H Distribution Width Platelet Count 216 Mean Platelet Volume 11.3 H Immature 0.500 H Granulocytes % Neutrophils % Segmented 89 H Neutrophils % (Manual) Band Neutrophils % 1 (Manual) Lymphocytes % Lymphocytes % 8 L (Manual) Monocytes % Monocytes % (Manual) 1 Eosinophils % Eosinophils % 1 (Manual) Basophils % Nucleated Red Blood 0.0 Cells % Immature 0.040 H Granulocytes # Neutrophils # Neutrophils # 6.6 (Manual) Band Neutrophils # 0.0 Lymphocytes (Manual) 0.5 L Lymphocytes # Monocytes # Monocytes # (Manual) 0.0 L Eosinophils # Basophils # Nucleated Red Blood Cells # Platelet Estimate NORMAL Polychromasia 1+ Hypochromasia 2+ Poikilocytosis 1+ Anisocytosis 1+ Microcytosis 1+ Sodium Level 153 H Potassium Level 3.4 L Chloride Level 125 H Carbon Dioxide Level 21 Anion Gap 7 Blood Urea Nitrogen 60 H Creatinine 1.07 Est Glomerular Filtrat Rate mL/min Glucose Level 130 # Calcium Level 7.6 L Phosphorus Level 2.3 L Magnesium Level 1.9 Bedside Glucose 149 Medications Medication Current Medications Albuterol (Proventil 0.083% (Neb)) 2.5 mg Q4H RESP THERAPY PRN NEB SHORTNESS OF BREATH Last administered on 10/07/18at 08:35; Admin Dose 2.5 MG; Start 09/29/18 at 15:00 Albuterol (Proventil 0.083% (Neb)) 2.5 mg Q8H RESP THERAPY PRN NEB WHEEZING AND SOB Last administered on 10/07/18at 08:39; Admin Dose 2.5 MG; Start 09/29/18 at 16:00 Bisacodyl (Dulcolax Supp) 10 mg DAILY PRN [place] CONSTIPATION; Start 09/29/18 at 15:00 Hydralazine HCl (Apresoline) 25 mg BID PRN PO ELEVATED BP; SBP > 160; Start 09/29/18 at 15:00 Magnesium Hydroxide (Milk Of Mag) 30 ml DAILY PRN PO CONSTIPATION; Start 09/29/18 at 15:00 Miscellaneous Information 1 ea NOTE XX ; Start 09/29/18 at 16:30 Glucose (Glutose) 15 gm Q15M PRN PO DECREASED GLUCOSE; Start 09/29/18 at 16:30 Glucose (Glutose) 22.5 gm Q15M PRN PO DECREASED GLUCOSE; Start 09/29/18 at 16:30 Dextrose (D50w Syringe) 25 ml Q15M PRN IV DECREASED GLUCOSE; Start 09/29/18 at 16:30 Dextrose (D50w Syringe) 50 ml Q15M PRN IV DECREASED GLUCOSE; Start 09/29/18 at 16:30 Glucagon (Glucagen) 1 mg Q15M PRN IM DECREASED GLUCOSE; Start 09/29/18 at 16:30 Glucose (Glutose) 15 gm Q15M PRN BUCCAL DECREASED GLUCOSE; Start 09/29/18 at 16:30 Miscellaneous Information (Pending [facility] Order For Wound Care) This patient saini... PRN PRN XX WOUND CARE; Start 09/30/18 at 05:00 Insulin Aspart (Novolog Insulin Pen) (Adult SC Insulin - Mild Algorithm)... Q4 SC Last administered on 10/07/18at 08:56; Admin Dose 1 UNIT; Start 09/30/18 at 13:00 Meropenem/Sodium Chloride 50 ml @ 100 mls/hr Q12 IVPB Last administered on 10/07/18at 08:24; Admin Dose 100 MLS/HR; Start 09/30/18 at 21:00 Acetaminophen (Tylenol Supp) 650 mg Q6H PRN [place] FEVER Last administered on 10/01/18at 20:57; Admin Dose 650 MG; Start 09/30/18 at 21:30 Linezolid 300 ml @ 300 mls/hr Q12 IVPB Last administered on 10/07/18at 08:49; Admin Dose 300 MLS/HR; Start 10/01/18 at 21:00 Aspirin (Halfprin) 81 mg DAILY PO ; Start 10/02/18 at 14:00 Total Parenteral Nutrition 1,000 ml @ 75 mls/hr [id number] IV Last administered on 10/07/18at 09:01; Admin Dose 75 MLS/HR; Start 10/05/18 at 17:00 Dextrose 1,000 ml @ 50 mls/hr Q20H IV Last administered on 10/06/18at 20:33; Admin Dose 75 MLS/HR; Start 10/06/18 at 06:30 Famotidine (Pepcid Iv) 20 mg BID IV Last administered on 10/07/18at 08:24; Admin Dose 20 MG; Start 10/06/18 at 21:00 Potassium Chloride 100 ml @ 50 mls/hr Q2H IVPB Last administered on 10/07/18at 10:10; Admin Dose 50 MLS/HR; Start 10/07/18 at 10:00; Stop 10/07/18 at 13:59 DAMI CARRENO MD Oct 07, 2018 11:25
--- NOTE | 2018-10-07 11:47 | CONS ---
Assessment/Plan Assessment/Plan Hospital Course (Demo Recall) All noted. No acute events. Microbiology: Blood culture since admission grew oxacillin sensitive staph aureus, repeat blood cultures growing coag negative staph species CT of the chest revealed partial obstruction both lower lobe bronchi likely representing mucous plugging. Dense consolidation with near complete collapse left lower lobe and dense consolidation with partial collapse of right lower lobe. Ill-defined nodular infiltrate right lower lobe and both upper lobes as above questionable post obstructive pneumonia Antimicrobials: Zyvox, meropenem Indwelling's: Left upper extremity PICC line, [place] Physical examination: Chronically ill-appearing elderly man in no distress. Head atraumatic normocephalic neck is supple. Chest rise symmetrical breath sounds diminished bases. Heart: S1-S2. Abdomen soft bowel sounds present.. Extremities without cyanosis Assessment: 1. Severe sepsis present on admission 2. MSSA bacteremia 3. Acute hypoxemic respiratory failure 4. Postobstructive pneumonia 5. Acute renal failure 6. Acute encephalopathy 7. Acute anemia Plan: Clinically unchanged, repeat blood cultures neg, continue antibiotics, transfuse prn, GI rec-s noted==> if patient continues to bleed then he may need coil embolization of gastroduodenal artery Discussed with staff Consultation Date/Type/Reason Admit Date/Time Sep 29, 2018 at 13:57 Initial Consult Date 09/30/18 Type of Consult id Requesting Provider: GLADIS ALICIA DO Date/Time of Note DATE: 10/07/18 TIME: 11:45 Exam/Review of Systems Exam Vitals Vital Signs Date Temp Pulse Resp B/P (MAP) Pulse Ox O2 O2 Flow FiO2 Time Delivery Rate 10/07/18 98.0 116 24 119/60 94 High Flow 10:59 (79) 10/07/18 50 08:41 10/06/18 15.0 12:40 Intake and Output 10/06/18 10/06/18 10/07/18 1515:00 23:00 07:00 IntakeIntake Total 0 ml 1950 ml OutputOutput Total 1100 ml 900 ml BalanceBalance -1100 ml 1050 ml Results Result Diagram: 10/07/18 0750 10/07/18 0750 Results 24hrs Laboratory Tests Test 10/06/18 13:39 10/06/18 16:00 10/06/18 16:04 10/06/18 16:59 Bedside Glucose 123 185 Urine Color YELLOW Urine Clarity CLEAR Urine pH 6.0 Urine Specific 1.016 [place] Urine Ketones NEGATIVE Urine Nitrite NEGATIVE Urine Bilirubin NEGATIVE Urine Urobilinogen NEGATIVE Urine Leukocyte NEGATIVE Esterase Urine Microscopic 1 RBC Urine Microscopic 2 WBC Urine Hemoglobin 2+ H Urine Osmolality 535 Urine Random 47.17 Creatinine Urine Random Sodium 23 L Urine Glucose NEGATIVE Urine Total Protein 77.0 H Sodium Level 159 H Potassium Level 3.6 Chloride Level 129 H Carbon Dioxide Level 23 Anion Gap 7 Blood Urea Nitrogen 63 H Creatinine 1.17 Est Glomerular Filtrat Rate mL/min Glucose Level 166 Calcium Level 8.0 L Test 10/06/18 19:09 10/06/18 20:32 10/07/18 00:43 10/07/18 05:15 Sodium Level 154 H Potassium Level 3.4 L Chloride Level 125 H Carbon Dioxide Level 23 Anion Gap 6 Blood Urea Nitrogen 61 H Creatinine 1.13 Est Glomerular Filtrat Rate mL/min Glucose Level 246 H Calcium Level 7.5 L Bedside Glucose 131 177 147 Test 10/07/18 07:50 10/07/18 08:38 White Blood Count 7.4 Red Blood Count 2.49 L Hemoglobin 6.7 *L Hematocrit 21.8 L Mean Corpuscular 87.6 Volume Mean Corpuscular 26.9 L Hemoglobin Mean Corpuscular 30.7 L Hemoglobin Concent Red Cell 15.3 H Distribution Width Platelet Count 216 Mean Platelet Volume 11.3 H Immature 0.500 H Granulocytes % Neutrophils % Segmented 89 H Neutrophils % (Manual) Band Neutrophils % 1 (Manual) Lymphocytes % Lymphocytes % 8 L (Manual) Monocytes % Monocytes % (Manual) 1 Eosinophils % Eosinophils % 1 (Manual) Basophils % Nucleated Red Blood 0.0 Cells % Immature 0.040 H Granulocytes # Neutrophils # Neutrophils # 6.6 (Manual) Band Neutrophils # 0.0 Lymphocytes (Manual) 0.5 L Lymphocytes # Monocytes # Monocytes # (Manual) 0.0 L Eosinophils # Basophils # Nucleated Red Blood Cells # Platelet Estimate NORMAL Polychromasia 1+ Hypochromasia 2+ Poikilocytosis 1+ Anisocytosis 1+ Microcytosis 1+ Sodium Level 153 H Potassium Level 3.4 L Chloride Level 125 H Carbon Dioxide Level 21 Anion Gap 7 Blood Urea Nitrogen 60 H Creatinine 1.07 Est Glomerular Filtrat Rate mL/min Glucose Level 130 # Calcium Level 7.6 L Phosphorus Level 2.3 L Magnesium Level 1.9 Bedside Glucose 149 Medications Medication Current Medications Albuterol (Proventil 0.083% (Neb)) 2.5 mg Q4H RESP THERAPY PRN NEB SHORTNESS OF BREATH Last administered on 10/07/18at 08:35; Admin Dose 2.5 MG; Start 09/29/18 at 15:00 Albuterol (Proventil 0.083% (Neb)) 2.5 mg Q8H RESP THERAPY PRN NEB WHEEZING AND SOB Last administered on 10/07/18at 08:39; Admin Dose 2.5 MG; Start 09/29/18 at 16:00 Bisacodyl (Dulcolax Supp) 10 mg DAILY PRN [place] CONSTIPATION; Start 09/29/18 at 15:00 Hydralazine HCl (Apresoline) 25 mg BID PRN PO ELEVATED BP; SBP > 160; Start 09/29/18 at 15:00 Magnesium Hydroxide (Milk Of Mag) 30 ml DAILY PRN PO CONSTIPATION; Start 09/29/18 at 15:00 Miscellaneous Information 1 ea NOTE XX ; Start 09/29/18 at 16:30 Glucose (Glutose) 15 gm Q15M PRN PO DECREASED GLUCOSE; Start 09/29/18 at 16:30 Glucose (Glutose) 22.5 gm Q15M PRN PO DECREASED GLUCOSE; Start 09/29/18 at 16:30 Dextrose (D50w Syringe) 25 ml Q15M PRN IV DECREASED GLUCOSE; Start 09/29/18 at 16:30 Dextrose (D50w Syringe) 50 ml Q15M PRN IV DECREASED GLUCOSE; Start 09/29/18 at 16:30 Glucagon (Glucagen) 1 mg Q15M PRN IM DECREASED GLUCOSE; Start 09/29/18 at 16:30 Glucose (Glutose) 15 gm Q15M PRN BUCCAL DECREASED GLUCOSE; Start 09/29/18 at 16:30 [facility] This patient saini... PRN PRN XX WOUND CARE; Start 09/30/18 at 05:00 Insulin Aspart (Novolog Insulin Pen) (Adult SC Insulin - Mild Algorithm)... Q4 SC Last administered on 10/07/18at 08:56; Admin Dose 1 UNIT; Start 09/30/18 at 13:00 Meropenem/Sodium Chloride 50 ml @ 100 mls/hr Q12 IVPB Last administered on 10/07/18 08:24; Admin Dose 100 MLS/HR; Start 09/30/18 at 21:00 Acetaminophen (Tylenol Supp) 650 mg Q6H PRN [place] FEVER Last administered on 10/01/18 20:57; Admin Dose 650 MG; Start 09/30/18 at 21:30 Linezolid 300 ml @ 300 mls/hr Q12 IVPB Last administered on 10/07/18 08:49; Admin Dose 300 MLS/HR; Start 10/01/18 at 21:00 Aspirin (Halfprin) 81 mg DAILY PO ; Start 10/02/18 at 14:00 Total Parenteral Nutrition 1,000 ml @ 75 mls/hr [id number] IV Last administered on 10/07/18 09:01; Admin Dose 75 MLS/HR; Start 10/05/18 at 17:00 Dextrose 1,000 ml @ 50 mls/hr Q20H IV Last administered on 10/06/18 20:33; Admin Dose 75 MLS/HR; Start 10/06/18 at 06:30 Famotidine (Pepcid Iv) 20 mg BID IV Last administered on 10/07/18 08:24; Admin Dose 20 MG; Start 10/06/18 at 21:00 Potassium Chloride 100 ml @ 50 mls/hr Q2H IVPB Last administered on 10/07/18 10:10; Admin Dose 50 MLS/HR; Start 10/07/18 at 10:00; Stop 10/07/18 at 13:59 Pantoprazole (Protonix Iv) 40 mg BID@06,18 IV ; Start 10/07/18 at 18:00; Status 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
[2018-10-07] MEDS ORDERED: PANTOPRAZOLE 40 MG INJ IV SCH (18:00)
[2018-10-07] MEDS ORDERED: POTASSIUM CHLORIDE 100 ML IVPB ONE (20:30)
[2018-10-07] MEDS ORDERED: BUDESONIDE (NEB) 0.5MG/2ML AMP ONE (21:22)
[2018-10-08] VITALS (67 sets, daily range): BP systolic 96–160; BP diastolic 53–104; PULSE 103–143; RESP 13–50
[2018-10-08] MEDS: Insulin NOVOLOG SS MILD Algorithm (NPO/TPN/ENTERAL FEEDS) SC SCH ×5 (01:22→16:50)
[2018-10-08] MEDS ORDERED: METOPROLOL 5 MG INJ IV ONE (01:30)
[2018-10-08] MEDS ORDERED: FUROSEMIDE 40 MG INJ IV ONE (02:30)
[2018-10-08] MEDS: ALBUTEROL 0.083% (NEB) 2.5 MG/3 ML AMP NEB PRN (04:59)
[2018-10-08] MEDS: ALBUTEROL/IPRATROPIUM (NEB) 3 ML AMP HHN SCH ×5 (05:14→20:29)
[2018-10-08] MEDS: MEROPENEM 500MG/50 ML (PMX) 50 ML IVPB SCH ×2 (08:50→21:20)
[2018-10-08] MEDS: FAMOTIDINE 20 MG INJ IV SCH ×2 (08:50→21:00)
[2018-10-08] MEDS: ASPIRIN (EC) 81 MG TAB PO SCH (08:50)
[2018-10-08] MEDS: LINEZOLID 600 MG/300 ML (PMX) 300 ML IVPB SCH ×2 (08:52→20:30)
--- NOTE | 2018-10-08 09:11 | PN ---
DATE: 10/08/2018 SUBJECTIVE: Overnight the patient was noted to have acute GI bleeding, bright red blood per rectum. The patient was also noted to be tachycardic with heart rate in 130s. The patient also had increase d respiratory distress. The patient was given diuretic therapy. ABG was obtained. Chest x-ray was obtained, but given clinical decline in respiratory status, the patient is currently being transferre d to intensive care unit for further management. OBJECTIVE: VITAL SIGNS: Blood pressure is 120/74, respirations 37, pulse 130, temperature is 98.4. HEENT: Head is normocephalic. NECK: Supple. HEART: Regular rate. LUNGS: Show diminished breath sounds at the base. ABDOMEN: Soft, nontender to palpation without rebound or guarding. EXTREMITIES: Negative for clubbing, cyanosis, no edema. DERMATOLOGIC: No rashes. MUSCULOSKELETAL: No joint effusion. NEUROLOGIC: No change in exam. MEDICATIONS: The patient's medications have been reviewed. LABORATORY DATA: Reviewed. IMAGING STUDIES: Reviewed ASSESSMENT AND PLAN: 1. Acute hypoxemic respiratory failure. Etiology is felt to be secondary to pneumonia. The patient 's respiratory status continues to decline as the patient is more tachypneic. Currently, the patient is on 100% nonrebreather. We will continue to monitor closely. X-ray was obtained. Continues to s how underlying infiltrates. We will continue medical management. Continue antibiotics, nebulizers, we will give intermittent diuretic therapy as needed. Follow up with pulmonary, the patient may requ janine intubation. 2. Sepsis secondary to healthcare-associated pneumonia and bacteremia. Continue broad spectrum anti biotics, follow up with infectious disease. 3. Nonoliguric acute kidney injury, etiology is secondary to hemodynamics, septic acute kidney injur y. Renal function has been slowly improving. Continue to monitor. 4. Hypernatremia. Etiology is secondary to insensible losses, decreased free water intake. The pat ient's sodium levels have been improving. Continue to monitor. Continue hypertonic fluid. 5. Metabolic acidosis, improved. 6. Acute gastrointestinal bleed, etiology is secondary to ischemic ulcer, peptic ulcer disease. The patient is actively bleeding. We will continue to monitor hemoglobin and hematocrit levels. Contin ue proton pump inhibitor. Follow up with GI. 7. Anemia. Monitor hemoglobin and hematocrit levels, we will transfuse as needed. 8. Acute encephalopathy, etiology is toxic metabolic. The patient was evaluated by neurology. He i s pending an lumbar puncture to evaluate for meningeal encephalitis. The patient is clinically unsta ble for lumbar puncture. We will continue to monitor. Continue antibiotic therapy. 9. Mineral bone disorder. Monitor calcium and phosphorus levels. 10. Hypokalemia, improved. 11. Nutrition. The patient was on TPN. 12. Hypertension. Continue current blood pressure regimen. 13. History of cerebrovascular accident. Please note I spent over 30 minutes of critical care time with this patient. Dictated By: GLADIS ALICIA DO NR/NTS Conf#: [id number] DID#: [id number] CC: CONCEPCION HANKS MD; GLADIS ALICIA DO;*EndCC*
[2018-10-08] MEDS ORDERED: morphine 2 MG INJ ONE (09:14)
[2018-10-08] MEDS: morphine 2 MG INJ IV PRN ×2 (09:17→18:34)
--- NOTE | 2018-10-08 09:52 | CONS ---
Assessment/Plan Assessment/Plan Assessment/Plan (Daily) Chest x-ray was reviewed from today which is showing improving bibasilar pneumonia. Patient is currently on high flow nasal cannula at 50% FiO2 25 L/min. Assessment and recommendations; 1. Patient admitted with severe bilateral basilar pneumonia with interval clinical and radiological improvement. 2. History of CVA with encephalopathy. 3. Sinus tachycardia. Likely from anemia. 4. History of GI bleed with melanotic stools. Patient does have a history of duodenal ulcer. 5. Patient pulled out NG tube prior to admission, maintained on TPN. 6. History of CHF, hypertension and diabetes. 7. Gram-positive bacteremia with most recent cultures being negative. 8. Thrombocytopenia and anemia. 9. History of hypertension. Continue current supportive care. Overall prognosis is poor. Patient possibly may require a colonoscopy and repeat EGD. Once clinically stable will require replacement of G-tube. Consultation Date/Type/Reason Admit Date/Time Sep 29, 2018 at 13:57 Initial Consult Date 09/30/18 Type of Consult Pulmonary Pulmonary consult requested for evaluation of hypoxemia. Patient is a 73-year-old male who is a retirement resident who was sent over to the hospital because of hypoxemia. Upon evaluation chest x-ray was done which has been interpreted as showing possible bibasilar pneumonia. Vision has been started on appropriate empiric antimicrobial regimen. The patient has apparently fairly advanced dementia and was not able to give any meaningful history by himself. Patient however was awake and did not appear to be in any distress whatsoever. Past medical history; 1. Dementia 2. Bipolar disorder. 3. Chronic renal insufficiency. 4. History of hypertension. Medications; reviewed. Allergies; none. Social history, family history, occupational history is not available. Review of system; unable to be obtained. General exam; elderly male, awake and lethargic. Currently in no distress. Requesting Provider: GLADIS ALICIA DO Date/Time of Note DATE: 10/08/18 TIME: 09:49 24 HR Interval Summary Free Text/Dictation Patient had to be transferred to ICU for medical floor because of tachycardia. General exam; elderly male, awake but lethargic. Currently in no distress. On high flow nasal cannula at 50% FiO2. Exam/Review of Systems Exam Vitals Vital Signs Date Temp Pulse Resp B/P (MAP) Pulse Ox O2 O2 Flow FiO2 Time Delivery Rate 10/08/18 100 50 08:23 10/08/18 130 37 120/74 Non 08:15 (89) Rebreather 10/08/18 98.4 08:00 10/06/18 15.0 12:40 Intake and Output 10/07/18 10/07/18 10/08/18 1515:00 23:00 07:00 IntakeIntake Total 900 ml 550 ml 1200 ml OutputOutput Total 1000 ml 2500 ml BalanceBalance 900 ml -450 ml -1300 ml Exam H EENT exam; supple neck, no lymphadenopathy. Patient has fair dentition. No neck masses. Pupils are small bilaterally. Chest exam; diminished breath sounds bilaterally. S1-S2 audible, no murmurs. Tachycardic. Regular rhythm. Abdomen exam; soft, scaphoid. Nontender. There is a well-healed epigastric scar. Bowel sounds are audible. Extremity exam; no peripheral edema. CONCRETE SMOOTHER exam; patient awake but appears lethargic. Moves all 4 extremities spontaneously. Results Result Diagram: 10/08/18 0450 10/08/18 0450 Results 24hrs Laboratory Tests Test 10/07/18 12:05 10/07/18 16:32 10/07/18 17:23 10/07/18 21:52 Bedside Glucose 186 169 130 Sodium Level 151 H Potassium Level 3.4 L Chloride Level 125 H Carbon Dioxide 20 L Level Anion Gap 6 Blood Urea 61 H Nitrogen Creatinine 1.01 Est Glomerular Filtrat Rate mL/min Glucose Level 156 Calcium Level 7.3 L Test 10/08/18 01:05 10/08/18 01:19 10/08/18 02:21 10/08/18 04:50 Blood Gas Blood arterial Specimen Source Arterial Blood 10/08/2018 1:15:0 Date Drawn 2 AM Arterial Blood pH 7.383 (Temp corrected) Arterial Blood 34.5 L pCO2 (Temp correct) Arterial Blood 78.3 L pO2 (Temp corrected) Arterial Blood 20.1 L HCO3 Arterial Blood -4.6 L Base Excess Arterial Blood 94.8 L Oxygen Saturation Gian Test ACCEPTAB Arterial Blood Right Brachial Gas Puncture Site Arterial 0.5 Blood Carboxyhemo globin Arterial Blood 0.9 Methemoglobin Blood Gas A-a O2 167.2 H Differential Oxyhemoglobin 93.5 Percent Blood Gas 37.0 Temperature Blood Gas HFNC Modality FiO2 40.0 Blood Gas MROSAPAPA RN Critical Value Read Back Blood Gas MEKHI Notified Whom Blood Gas 10/08/2018 1:27:5 Notified Time 6 AM Bedside Glucose 191 White Blood Count 7.0 9.8 # Red Blood Count 1.58 #L 2.69 #L Hemoglobin 4.5 #*L 7.5 #L Hematocrit 15.3 #L 24.3 #L Mean Corpuscular 96.8 90.3 Volume Mean Corpuscular 28.5 L 27.9 L Hemoglobin Mean Corpuscular 29.4 L 30.9 L Hemoglobin Concen t Red Cell 15.7 H 15.1 H Distribution Width Platelet Count 163 # 188 Mean Platelet 10.5 H 12.2 H Volume Immature 0.600 H 0.400 Granulocytes % Neutrophils % Segmented 92 H 94 H Neutrophils % (Manual) Lymphocytes % Lymphocytes % 7 L 4 L (Manual) Monocytes % Monocytes % 1 2 (Manual) Eosinophils % Basophils % Nucleated Red 0.0 0.0 Blood Cells % Immature 0.040 H 0.040 H Granulocytes # Neutrophils # Lymphocytes 0.4 L 0.3 L (Manual) Lymphocytes # Monocytes # Monocytes # 0.0 L 0.1 L (Manual) Eosinophils # Basophils # Nucleated Red Blood Cells # Platelet Estimate NORMAL NORMAL Polychromasia 1+ 3+ Poikilocytosis 1+ Sodium Level 152 H Potassium Level 3.5 Chloride Level 124 H Carbon Dioxide 23 Level Anion Gap 5 Blood Urea 68 H Nitrogen Creatinine 1.09 Est Glomerular Filtrat Rate mL/min Glucose Level 131 Calcium Level 7.6 L Phosphorus Level 2.5 Magnesium Level 1.8 Test 10/08/18 05:30 10/08/18 05:51 10/08/18 08:55 Lab Scanned BLOOD TRANSFUSIO Report N Bedside Glucose 162 166 Medications Medication Current Medications Albuterol (Proventil 0.083% (Neb)) 2.5 mg Q4H RESP THERAPY PRN NEB SHORTNESS OF BREATH Last administered on 10/08/18at 04:59; Admin Dose 2.5 MG; Start 09/29/18 at 15:00 Albuterol (Proventil 0.083% (Neb)) 2.5 mg Q8H RESP THERAPY PRN NEB WHEEZING AND SOB; Start 09/29/18 at 16:00 Bisacodyl (Dulcolax Supp) 10 mg DAILY PRN IN CONSTIPATION; Start 09/29/18 at 15:00 Hydralazine HCl (Apresoline) 25 mg BID PRN PO ELEVATED BP; SBP > 160; Start 09/29/18 at 15:00 Magnesium Hydroxide (Milk Of Mag) 30 ml DAILY PRN PO CONSTIPATION; Start 09/29/18 at 15:00 Miscellaneous Information 1 ea NOTE XX ; Start 09/29/18 at 16:30 Glucose (Glutose) 15 gm Q15M PRN PO DECREASED GLUCOSE; Start 09/29/18 at 16:30 Glucose (Glutose) 22.5 gm Q15M PRN PO DECREASED GLUCOSE; Start 09/29/18 at 16:30 Dextrose (D50w Syringe) 25 ml Q15M PRN IV DECREASED GLUCOSE; Start 09/29/18 at 16:30 Dextrose (D50w Syringe) 50 ml Q15M PRN IV DECREASED GLUCOSE; Start 09/29/18 at 16:30 Glucagon (Glucagen) 1 mg Q15M PRN IM DECREASED GLUCOSE; Start 09/29/18 at 16:30 Glucose (Glutose) 15 gm Q15M PRN BUCCAL DECREASED GLUCOSE; Start 09/29/18 at 16:30 Miscellaneous Information [facility] This patient saini... PRN PRN XX WOUND CARE; Start 09/30/18 at 05:00 Insulin Aspart (Novolog Insulin Pen) (Adult SC Insulin - Mild Algorithm)... Q4 SC Last administered on 10/08/18at 06:07; Admin Dose 1 UNIT; Start 09/30/18 at 13:00 Meropenem/Sodium Chloride 50 ml @ 100 mls/hr Q12 IVPB Last administered on 10/08/18at 08:50; Admin Dose 100 MLS/HR; Start 09/30/18 at 21:00 Acetaminophen (Tylenol Supp) 650 mg Q6H PRN IN FEVER Last administered on 10/01/18at 20:57; Admin Dose 650 MG; Start 09/30/18 at 21:30 Linezolid 300 ml @ 300 mls/hr Q12 IVPB Last administered on 10/08/18at 08:52; Admin Dose 300 MLS/HR; Start 10/01/18 at 21:00 Aspirin (Halfprin) 81 mg DAILY PO ; Start 10/02/18 at 14:00 Total Parenteral Nutrition 1,000 ml @ 75 mls/hr [id number] IV Last administered on 10/07/18 21:50; Admin Dose 75 MLS/HR; Start 10/05/18 at 17:00; Status Hold Famotidine (Pepcid Iv) 20 mg BID IV Last administered on 10/08/18 08:50; Admin Dose 20 MG; Start 10/06/18 at 21:00 Albuterol/ Ipratropium (Duoneb) 3 ml Q4H RESP THERAPY HHN Last administered on 10/08/18 08:19; Admin Dose 3 ML; Start 10/08/18 at 05:00 Morphine Sulfate (morphine) 2 mg Q4H PRN IV SEVERE PAIN LEVEL 7-10 Last administered on 10/08/18 09:17; Admin Dose 2 MG; Start 10/08/18 at 09:30 Dextrose 1,000 ml @ 50 mls/hr Q20H IV ; Start 10/08/18 at 09:30 MISHA COLLADO Oct 08, 2018 09:52
[2018-10-08] MEDS ORDERED: FUROSEMIDE 20 MG INJ IV ONE ×2 (12:00→17:30)
[2018-10-08] MEDS: BALSAM PERU/CASTOR OIL 60 GM TUBE TOP SCH ×2 (12:25→21:00)
[2018-10-08] MEDS: DEXTROSE 5% 1,000 ML IV SCH (12:26)
--- NOTE | 2018-10-08 13:35 | CONS ---
Assessment/Plan Assessment/Plan Hospital Course (Demo Recall) Patient was transferred to ICU secondary to active GI bleeding and tachycardia, he is lethargic arousable on high flow oxygen and in no distress, currently getting blood transfusion, no fevers overnight WBC 9.8 H&H 6.1 and 19.1 platelets 188 neutrophils 94 BUN 69 creatinine 1.19 Microbiology: Blood culture since admission grew oxacillin sensitive staph aureus, repeat blood cultures growing coag negative staph species CT of the chest revealed partial obstruction both lower lobe bronchi likely representing mucous plugging. Dense consolidation with near complete collapse left lower lobe and dense consolidation with partial collapse of right lower lobe. Ill-defined nodular infiltrate right lower lobe and both upper lobes as above questionable post obstructive pneumonia Antimicrobials: Zyvox, meropenem Indwelling's: Left upper extremity PICC line, Gorman Physical examination: Chronically ill-appearing elderly man in no distress. Head atraumatic normocephalic neck is supple. Chest rise symmetrical breath sounds diminished bases. Heart: S1-S2. Abdomen soft bowel sounds present.. Extremities without cyanosis Assessment: 1. Acute anemia/GI bleeding 2. Severe sepsis present on admission 3. MSSA bacteremia 4. Acute hypoxemic respiratory failure 5. Postobstructive pneumonia 6. Acute renal failure 7. Acute encephalopathy Plan: Patient is being seen by gastroenterology, he is getting blood transfusion, he is on appropriate antibiotic regimen, prognosis guarded Discussed with staff Consultation Date/Type/Reason Admit Date/Time Sep 29, 2018 at 13:57 Initial Consult Date 09/30/18 Type of Consult id Requesting Provider: GLADIS ALICIA DO Date/Time of Note DATE: 10/08/18 TIME: 13:34 Exam/Review of Systems Exam Vitals Vital Signs Date Temp Pulse Resp B/P (MAP) Pulse Ox O2 O2 Flow FiO2 Time Delivery Rate 10/08/18 106 12:00 10/08/18 100 40 11:50 10/08/18 20 110/68 High Flow 11:00 (82) 10/08/18 98.4 08:00 10/06/18 15.0 12:40 Intake and Output 10/07/18 10/07/18 10/08/18 1515:00 23:00 07:00 IntakeIntake Total 900 ml 550 ml 1200 ml OutputOutput Total 1000 ml 2500 ml BalanceBalance 900 ml -450 ml -1300 ml Results Result Diagram: 10/08/18 1130 10/08/18 1130 Results 24hrs Laboratory Tests Test 10/07/18 16:32 10/07/18 17:23 10/07/18 21:52 10/08/18 01:05 Sodium Level 151 H Potassium Level 3.4 L Chloride Level 125 H Carbon Dioxide 20 L Level Anion Gap 6 Blood Urea 61 H Nitrogen Creatinine 1.01 Est Glomerular Filtrat Rate mL/min Glucose Level 156 Calcium Level 7.3 L Bedside Glucose 169 130 Blood Gas Blood arterial Specimen Source Arterial Blood 10/08/2018 1:15:0 Date Drawn 2 AM Arterial Blood pH 7.383 (Temp corrected) Arterial Blood 34.5 L pCO2 (Temp correct) Arterial Blood 78.3 L pO2 (Temp corrected) Arterial Blood 20.1 L HCO3 Arterial Blood -4.6 L Base Excess Arterial Blood 94.8 L Oxygen Saturation Gian Test ACCEPTAB Arterial Blood Right Brachial Gas Puncture Site Arterial 0.5 Blood Carboxyhemo globin Arterial Blood 0.9 Methemoglobin Blood Gas A-a O2 167.2 H Differential Oxyhemoglobin 93.5 Percent Blood Gas 37.0 Temperature Blood Gas HFNC Modality FiO2 40.0 Blood Gas MROSAPAPA RN Critical Value Read Back Blood Gas MA Notified Whom Blood Gas 10/08/2018 1:27:5 Notified Time 6 AM Test 10/08/18 01:19 10/08/18 02:21 10/08/18 04:50 10/08/18 05:30 Bedside Glucose 191 White Blood Count 7.0 9.8 # Red Blood Count 1.58 #L 2.69 #L Hemoglobin 4.5 #*L 7.5 #L Hematocrit 15.3 #L 24.3 #L Mean Corpuscular 96.8 90.3 Volume Mean Corpuscular 28.5 L 27.9 L Hemoglobin Mean Corpuscular 29.4 L 30.9 L Hemoglobin Concen t Red Cell 15.7 H 15.1 H Distribution Width Platelet Count 163 # 188 Mean Platelet 10.5 H 12.2 H Volume Immature 0.600 H 0.400 Granulocytes % Neutrophils % Segmented 92 H 94 H Neutrophils % (Manual) Lymphocytes % Lymphocytes % 7 L 4 L (Manual) Monocytes % Monocytes % 1 2 (Manual) Eosinophils % Basophils % Nucleated Red 0.0 0.0 Blood Cells % Immature 0.040 H 0.040 H Granulocytes # Neutrophils # Lymphocytes 0.4 L 0.3 L (Manual) Lymphocytes # Monocytes # Monocytes # 0.0 L 0.1 L (Manual) Eosinophils # Basophils # Nucleated Red Blood Cells # Platelet Estimate NORMAL NORMAL Polychromasia 1+ 3+ Poikilocytosis 1+ Sodium Level 152 H Potassium Level 3.5 Chloride Level 124 H Carbon Dioxide 23 Level Anion Gap 5 Blood Urea 68 H Nitrogen Creatinine 1.09 Est Glomerular Filtrat Rate mL/min Glucose Level 131 Calcium Level 7.6 L Phosphorus Level 2.5 Magnesium Level 1.8 Lab Scanned BLOOD TRANSFUSIO Report N Test 10/08/18 05:51 10/08/18 08:55 10/08/18 11:30 10/08/18 13:19 Bedside Glucose 162 166 165 Hemoglobin 6.1 *L Hematocrit 19.1 #L Sodium Level 153 H Potassium Level 3.2 L Chloride Level 122 H Carbon Dioxide 25 Level Anion Gap 6 Blood Urea 69 H Nitrogen Creatinine 1.19 Est Glomerular Filtrat Rate mL/min Glucose Level 180 Calcium Level 7.7 L Medications Medication Current Medications Albuterol (Proventil 0.083% (Neb)) 2.5 mg Q4H RESP THERAPY PRN NEB SHORTNESS OF BREATH Last administered on 10/08/18at 04:59; Admin Dose 2.5 MG; Start 09/29/18 at 15:00 Albuterol (Proventil 0.083% (Neb)) 2.5 mg Q8H RESP THERAPY PRN NEB WHEEZING AND SOB; Start 09/29/18 at 16:00 Bisacodyl (Dulcolax Supp) 10 mg DAILY PRN [place] CONSTIPATION; Start 09/29/18 at 15:00 Hydralazine HCl (Apresoline) 25 mg BID PRN PO ELEVATED BP; SBP > 160; Start 09/29/18 at 15:00 Magnesium Hydroxide (Milk Of Mag) 30 ml DAILY PRN PO CONSTIPATION; Start 09/29/18 at 15:00 Miscellaneous Information 1 ea NOTE XX ; Start 09/29/18 at 16:30 Glucose (Glutose) 15 gm Q15M PRN PO DECREASED GLUCOSE; Start 09/29/18 at 16:30 Glucose (Glutose) 22.5 gm Q15M PRN PO DECREASED GLUCOSE; Start 09/29/18 at 16:30 Dextrose (D50w Syringe) 25 ml Q15M PRN IV DECREASED GLUCOSE; Start 09/29/18 at 16:30 Dextrose (D50w Syringe) 50 ml Q15M PRN IV DECREASED GLUCOSE; Start 09/29/18 at 16:30 Glucagon (Glucagen) 1 mg Q15M PRN IM DECREASED GLUCOSE; Start 09/29/18 at 16:30 Glucose (Glutose) 15 gm Q15M PRN BUCCAL DECREASED GLUCOSE; Start 09/29/18 at 16:30 Miscellaneous Information (Pending [facility] Order For Wound Care) This patient saini... PRN PRN XX WOUND CARE; Start 09/30/18 at 05:00 Insulin Aspart (Novolog Insulin Pen) (Adult SC Insulin - Mild Algorithm)... Q4 SC Last administered on 10/08/18at 06:07; Admin Dose 1 UNIT; Start 09/30/18 at 13:00 Meropenem/Sodium Chloride 50 ml @ 100 mls/hr Q12 IVPB Last administered on 10/08/18at 08:50; Admin Dose 100 MLS/HR; Start 09/30/18 at 21:00 Acetaminophen (Tylenol Supp) 650 mg Q6H PRN [place] FEVER Last administered on 10/01/18at 20:57; Admin Dose 650 MG; Start 09/30/18 at 21:30 Linezolid 300 ml @ 300 mls/hr Q12 IVPB Last administered on 10/08/18at 08:52; Admin Dose 300 MLS/HR; Start 10/01/18 at 21:00 Aspirin (Halfprin) 81 mg DAILY PO ; Start 10/02/18 at 14:00 Total Parenteral Nutrition 1,000 ml @ 75 mls/hr [id number] IV Last administered on 10/07/18at 21:50; Admin Dose 75 MLS/HR; Start 10/05/18 at 17:00; Status Hold Famotidine (Pepcid Iv) 20 mg BID IV Last administered on 10/08/18at 08:50; Admin Dose 20 MG; Start 10/06/18 at 21:00 Albuterol/ Ipratropium (Duoneb) 3 ml Q4H RESP THERAPY HHN Last administered on 10/08/18at 08:19; Admin Dose 3 ML; Start 10/08/18 at 05:00 Morphine Sulfate (morphine) 2 mg Q4H PRN IV SEVERE PAIN LEVEL 7-10 Last administered on 10/08/18at 09:17; Admin Dose 2 MG; Start 10/08/18 at 09:30 Dextrose 1,000 ml @ 50 mls/hr Q20H IV Last administered on 10/08/18at 12:26; Admin Dose 50 MLS/HR; Start 10/08/18 at 09:30 AMY WHALEN NP Oct 08, 2018 13:35
--- NOTE | 2018-10-08 14:15 | CONS ---
Consult Date/Type/Reason Admit Date/Time Sep 29, 2018 at 13:57 Initial Consult Date 09/30/18 Type of Consultation: cv Requesting Provider: GLADIS ALICIA DO Date/Time of Note DATE: 10/08/18 TIME: 14:13 Subjective Interventional cardiology follow-up progress note Subjective: Case discussed with the staff telemetry was reviewed patient remains sinus / sinus tachycardia. Patient continues to remain hypoxemic and on oxygen. no report of any chestpain pt with recurrent GI bleed and had to be transferred to ICU 10/08/18. pt tachycardic which is improving after transfusion Objective: General: Elderly gentleman in mild respiratory distress on oxygen. HEENT: NC/AT. Eyes are closed NECK: NO JVD. no stridor. CV: tachycardic . systolic murmur; no gallop or rubs. PULM: Diffuse rhonchi no wheezes. GI: SOFT, NT, ND, no rebound or guarding Extremity: trace B/L LE edema. no clubbing. neuro: awake Psych: calm rectal: deferred Chest x-ray shows: Patchy bilateral lower lobe air space disease, cannot exclude pneumonia in the appropriate clinical setting. Objective Vitals Vital Signs Date Temp Pulse Resp B/P (MAP) Pulse Ox O2 O2 Flow FiO2 Time Delivery Rate 10/08/18 100 40 13:49 10/08/18 110 22 Nasal 13:48 Cannula 10/08/18 126/71 13:30 (89) 10/08/18 98.1 12:00 10/06/18 15.0 12:40 Intake and Output 10/07/18 10/07/18 10/08/18 1515:00 23:00 07:00 IntakeIntake Total 900 ml 550 ml 1200 ml OutputOutput Total 1000 ml 2500 ml BalanceBalance 900 ml -450 ml -1300 ml Results/Medications Result Diagram: 10/08/18 1130 10/08/18 1130 Results 24 hrs Laboratory Tests Test 10/07/18 16:32 10/07/18 17:23 10/07/18 21:52 10/08/18 01:05 Sodium Level 151 H Potassium Level 3.4 L Chloride Level 125 H Carbon Dioxide 20 L Level Anion Gap 6 Blood Urea 61 H Nitrogen Creatinine 1.01 Est Glomerular Filtrat Rate mL/min Glucose Level 156 Calcium Level 7.3 L Bedside Glucose 169 130 Blood Gas Blood arterial Specimen Source Arterial Blood 10/08/2018 1:15:0 Date Drawn 2 AM Arterial Blood pH 7.383 (Temp corrected) Arterial Blood 34.5 L pCO2 (Temp correct) Arterial Blood 78.3 L pO2 (Temp corrected) Arterial Blood 20.1 L HCO3 Arterial Blood -4.6 L Base Excess Arterial Blood 94.8 L Oxygen Saturation Gian Test ACCEPTAB Arterial Blood Right Brachial Gas Puncture Site Arterial 0.5 Blood Carboxyhemo globin Arterial Blood 0.9 Methemoglobin Blood Gas A-a O2 167.2 H Differential Oxyhemoglobin 93.5 Percent Blood Gas 37.0 Temperature Blood Gas HFNC Modality FiO2 40.0 Blood Gas MROSAPAPA RN Critical Value Read Back Blood Gas MA Notified Whom Blood Gas 10/08/2018 1:27:5 Notified Time 6 AM Test 10/08/18 01:19 10/08/18 02:21 10/08/18 04:50 10/08/18 05:30 Bedside Glucose 191 White Blood Count 7.0 9.8 # Red Blood Count 1.58 #L 2.69 #L Hemoglobin 4.5 #*L 7.5 #L Hematocrit 15.3 #L 24.3 #L Mean Corpuscular 96.8 90.3 Volume Mean Corpuscular 28.5 L 27.9 L Hemoglobin Mean Corpuscular 29.4 L 30.9 L Hemoglobin Concen t Red Cell 15.7 H 15.1 H Distribution Width Platelet Count 163 # 188 Mean Platelet 10.5 H 12.2 H Volume Immature 0.600 H 0.400 Granulocytes % Neutrophils % Segmented 92 H 94 H Neutrophils % (Manual) Lymphocytes % Lymphocytes % 7 L 4 L (Manual) Monocytes % Monocytes % 1 2 (Manual) Eosinophils % Basophils % Nucleated Red 0.0 0.0 Blood Cells % Immature 0.040 H 0.040 H Granulocytes # Neutrophils # Lymphocytes 0.4 L 0.3 L (Manual) Lymphocytes # Monocytes # Monocytes # 0.0 L 0.1 L (Manual) Eosinophils # Basophils # Nucleated Red Blood Cells # Platelet Estimate NORMAL NORMAL Polychromasia 1+ 3+ Poikilocytosis 1+ Sodium Level 152 H Potassium Level 3.5 Chloride Level 124 H Carbon Dioxide 23 Level Anion Gap 5 Blood Urea 68 H Nitrogen Creatinine 1.09 Est Glomerular Filtrat Rate mL/min Glucose Level 131 Calcium Level 7.6 L Phosphorus Level 2.5 Magnesium Level 1.8 Lab Scanned BLOOD TRANSFUSIO Report N Test 10/08/18 05:51 10/08/18 08:55 10/08/18 11:30 10/08/18 13:19 Bedside Glucose 162 166 165 Hemoglobin 6.1 *L Hematocrit 19.1 #L Sodium Level 153 H Potassium Level 3.2 L Chloride Level 122 H Carbon Dioxide 25 Level Anion Gap 6 Blood Urea 69 H Nitrogen Creatinine 1.19 Est Glomerular Filtrat Rate mL/min Glucose Level 180 Calcium Level 7.7 L Home Meds Reported Medications Sodium Phosphate,Luna-Dibasic (Enema Ready To Use) 133 Ml Enema, 133 ML RC EVERY 72 HOURS PRN for CONSTIPATION, ENEMA 09/29/18 Valproic Acid* (Depakene*) 250 Mg/5 Ml Udc Syrup, 125 MG PO Q6, ML 09/29/18 Haloperidol* (Haldol*) 1 Mg Tab, 1 MG PO Q6, TAB 09/29/18 Hydralazine Hcl* (Hydralazine Hcl*) 25 Mg Tab, 25 MG PO BID PRN for ELEVATED BLOOD PRESSURE, #60 TAB HOLD IF SBP <110 OR HR<60 09/29/18 Hydrocodone/Acetaminophen ([place] 5-325 Tablet) 1 Each Tablet, 1 EACH PO Q4 PRN for PAIN LEVEL 6-10, TAB 09/29/18 Metoprolol Tartrate* (Lopressor*) 50 Mg Tab, 50 MG PO BID, #60 TAB HOLD IF SBP <110 OR HR <60 09/29/18 Multivit-Min/Iron Fum/Folic AC (Phwos-Swmihoj-Sbuxojle Tablet) 1 Each Tablet, 1 EACH PO DAILY, TAB 09/29/18 Insulin Aspart* (Novolog Insulin Pen*) 100 Unit/Ml Soln, 0 SC .SLIDING SCALE AC, EA 150-199 = 1 UNIT 200-249 = 2 UNITS 250-299 = 3 UNITS 300-349 = 4 UNITS 350-400 = 5 UNITS OVER 400 CALL MD [facility] AND AT BEDTIME 09/29/18 Protein Supplement (Promod) 946 Ml Liquid, 30 ML PO BID 09/29/18 Trazodone Hcl* (Trazodone Hcl*) 50 Mg Tablet, 50 MG PO QHS PRN for SLEEP, #30 TAB 09/29/18 Bisacodyl (Dulcolax) 10 Mg Supp.rect, 10 MG RC DAILY PRN for CONSTIPATION, SUPP .RECT 09/29/18 Magnesium Hydroxide* (Milk Of Magnesia*) 400 Mg/5 Ml Oral.susp, 30 ML PO DAILY PRN for CONSTIPATION, ML 09/29/18 Amlodipine Besylate* (Amlodipine Besylate*) 10 Mg Tablet, 10 MG PO DAILY, #30 TAB BP<110 OR HR <60 09/29/18 Albuterol Sulfate* (Albuterol Sulfate* Neb) 0.083%-3 Ml Neb, 2.5 MG NEB Q4H PRN for SHORTNESS OF BREATH, #30 VIAL 09/29/18 Albuterol Sulfate* (Albuterol Sulfate* Neb) 0.083%-3 Ml Neb, 2.5 MG NEB Q8 PRN for WHEEZING AND SOB, #30 VIAL 09/29/18 Medications Current Medications Albuterol (Proventil 0.083% (Neb)) 2.5 mg Q4H RESP THERAPY PRN NEB SHORTNESS OF BREATH Last administered on 10/08/18at 04:59; Admin Dose 2.5 MG; Start 09/29/18 at 15:00 Albuterol (Proventil 0.083% (Neb)) 2.5 mg Q8H RESP THERAPY PRN NEB WHEEZING AND SOB; Start 09/29/18 at 16:00 Bisacodyl (Dulcolax Supp) 10 mg DAILY PRN [place] CONSTIPATION; Start 09/29/18 at 15:00 Hydralazine HCl (Apresoline) 25 mg BID PRN PO ELEVATED BP; SBP > 160; Start 09/29/18 at 15:00 Magnesium Hydroxide (Milk Of Mag) 30 ml DAILY PRN PO CONSTIPATION; Start 09/29/18 at 15:00 Miscellaneous Information 1 ea NOTE XX ; Start 09/29/18 at 16:30 Glucose (Glutose) 15 gm Q15M PRN PO DECREASED GLUCOSE; Start 09/29/18 at 16:30 Glucose (Glutose) 22.5 gm Q15M PRN PO DECREASED GLUCOSE; Start 09/29/18 at 16:30 Dextrose (D50w Syringe) 25 ml Q15M PRN IV DECREASED GLUCOSE; Start 09/29/18 at 16:30 Dextrose (D50w Syringe) 50 ml Q15M PRN IV DECREASED GLUCOSE; Start 09/29/18 at 16:30 Glucagon (Glucagen) 1 mg Q15M PRN IM DECREASED GLUCOSE; Start 09/29/18 at 16:30 Glucose (Glutose) 15 gm Q15M PRN BUCCAL DECREASED GLUCOSE; Start 09/29/18 at 16:30 Miscellaneous Information (Pending Santyl Order For Wound Care) This patient saini... PRN PRN XX WOUND CARE; Start 09/30/18 at 05:00 Insulin Aspart (Novolog Insulin Pen) (Adult SC Insulin - Mild Algorithm)... Q4 SC Last administered on 10/08/18 13:23; Admin Dose 1 UNIT; Start 09/30/18 at 13:00 Meropenem/Sodium Chloride 50 ml @ 100 mls/hr Q12 IVPB Last administered on 10/08/18 08:50; Admin Dose 100 MLS/HR; Start 09/30/18 at 21:00 Acetaminophen (Tylenol Supp) 650 mg Q6H PRN [place] FEVER Last administered on 10/01/18at 20:57; Admin Dose 650 MG; Start 09/30/18 at 21:30 Linezolid 300 ml @ 300 mls/hr Q12 IVPB Last administered on 10/08/18 08:52; Admin Dose 300 MLS/HR; Start 10/01/18 at 21:00 Aspirin (Halfprin) 81 mg DAILY PO ; Start 10/02/18 at 14:00 Total Parenteral Nutrition 1,000 ml @ 75 mls/hr [id number] IV Last administered on 10/07/18at 21:50; Admin Dose 75 MLS/HR; Start 10/05/18 at 17:00; Status Hold Famotidine (Pepcid Iv) 20 mg BID IV Last administered on 10/08/18at 08:50; Admin Dose 20 MG; Start 10/06/18 at 21:00 Albuterol/ Ipratropium (Duoneb) 3 ml Q4H RESP THERAPY HHN Last administered on 10/08/18at 13:48; Admin Dose 3 ML; Start 10/08/18 at 05:00 Morphine Sulfate (morphine) 2 mg Q4H PRN IV SEVERE PAIN LEVEL 7-10 Last administered on 10/08/18at 09:17; Admin Dose 2 MG; Start 10/08/18 at 09:30 Dextrose 1,000 ml @ 50 mls/hr Q20H IV Last administered on 10/08/18at 12:26; Admin Dose 50 MLS/HR; Start 10/08/18 at 09:30 Potassium Chloride 50 ml @ 50 mls/hr K PROTOCOL PRN IVPB PENDING LAB VALUE; Start 10/08/18 at 14:00 Alteplase, Recombinant (Cathflo (Activase)) 2 mg ONCE ONCE CATHETER ; Start 10/08/18 at 15:00; Stop 10/08/18 at 15:01 Assessment/Plan Hospital Course (Demo Recall) 1. Acute hypoxemic respiratory failure 2. Pneumonia 3. History of diabetes 4. Acute renal failure 5. Encephalopathy and behavioral disorder 6. History of bipolar disorder 7. GI bleed/ large PUD 8. sinus tachyardia due to above Recommendations: Antibiotic management as per internal medicine and infectious disease consult ants. Continue with oxygen supplement respiratory care Telemetry monitoring for the time being Echocardiogram has been reviewed.EF 70% nutritional support family has refused PEG so far fluid management as per IM/ renal F/U GI rec transfusion prn Thank you for this referral. We will continue to follow along with you as needed over the weekend ORLANDO LAW MD [facility] ORLANDO LAW MD Oct 08, 2018 14:15
[2018-10-08] MEDS ORDERED: ALTEPLASE (CATHFLO) 2 MG INJ CATHETER ONE (15:00)
[2018-10-08] MEDS: POTASSIUM CHLORIDE 50 ML IVPB PRN ×2 (16:12→17:25)
--- NOTE | 2018-10-08 17:42 | CONS ---
Assessment/Plan Assessment/Plan Assessment/Plan (Daily) Assessment/Plan (Daily) IMPRESSION: 1. Gastrointestinal bleeding. Patient hematocrit dropped from 21 most probably from the giant duodenal ulcer in the second part. 2. Aspiration pneumonia. 3. Sepsis. 4. Hypoxemia on high flow of oxygen. 5. Dysphagia. 6. Renal failure. 7. Encephalopathy. 8. Anemia, which is a combination of chronic disease and occult bleeding. 9. Malnutrition patient is on TPN 10. Thrombocytopenia corrected with patient received platelet transfusion 11. Plan Continue PPI Monitor H&H Unfortunately there is a shortage of Protonix in the hospital and patient has declined NG tube otherwise we can give Carafate through the NG tube. Transfuse 1 unit of packed cell RBC If patient continues to bleed then he may need coil embolization of gastroduodenal artery Hospital does not have a hemo-spray which I asked for it 4 months ago and patient definitely would have benefited from that. We will have to pass the NG tube since IV Protonix is not available we can give Protonix and Carafate through the G-tube which will expedite the healing process of the ulcer Consultation Date/Type/Reason Admit Date/Time Sep 29, 2018 at 13:57 Initial Consult Date 09/30/18 Requesting Provider: GLADIS ALICIA DO Date/Time of Note DATE: 10/08/18 TIME: 17:40 24 HR Interval Summary Free Text/Dictation And was transferred to intensive care unit he had another episode of melanotic stool patient hematocrit dropped down and required 2 units of packed cell RBC. Subjective hx not possible: pt critical Exam/Review of Systems Exam Vitals Vital Signs Date Temp Pulse Resp B/P (MAP) Pulse Ox O2 O2 Flow FiO2 Time Delivery Rate 10/08/18 100 40 17:02 10/08/18 106 20 Nasal 17:01 Cannula 10/08/18 98.3 127/76 16:00 (93) 10/06/18 15.0 12:40 Intake and Output 10/07/18 10/07/18 10/08/18 1515:00 23:00 07:00 IntakeIntake Total 900 ml 550 ml 1200 ml OutputOutput Total 1000 ml 2500 ml BalanceBalance 900 ml -450 ml -1300 ml Constitutional: alert ENMT: nl external ears & nose, nl lips & teeth, nl nasal mucosa & septum Respiratory: diminished breath sounds Gastrointestinal: other (Rectal examination stool was greenish in color) Extremities: normal pulses Results Result Diagram: 10/08/18 1130 10/08/18 1130 Results 24hrs Laboratory Tests Test 10/07/18 21:52 10/08/18 01:05 10/08/18 01:19 10/08/18 02:21 Bedside Glucose 130 191 Blood Gas Blood arterial Specimen Source Arterial Blood 10/08/2018 1:15:0 Date Drawn 2 AM Arterial Blood pH 7.383 (Temp corrected) Arterial Blood 34.5 L pCO2 (Temp correct) Arterial Blood 78.3 L pO2 (Temp corrected) Arterial Blood 20.1 L HCO3 Arterial Blood -4.6 L Base Excess Arterial Blood 94.8 L Oxygen Saturation Gian Test ACCEPTAB Arterial Blood Right Brachial Gas Puncture Site Arterial 0.5 Blood Carboxyhemo globin Arterial Blood 0.9 Methemoglobin Blood Gas A-a O2 167.2 H Differential Oxyhemoglobin 93.5 Percent Blood Gas 37.0 Temperature Blood Gas HFNC Modality FiO2 40.0 Blood Gas MROSAPAPA RN Critical Value Read Back Blood Gas MA Notified Whom Blood Gas 10/08/2018 1:27:5 Notified Time 6 AM White Blood Count 7.0 Red Blood Count 1.58 #L Hemoglobin 4.5 #*L Hematocrit 15.3 #L Mean Corpuscular 96.8 Volume Mean Corpuscular 28.5 L Hemoglobin Mean Corpuscular 29.4 L Hemoglobin Concen t Red Cell 15.7 H Distribution Width Platelet Count 163 # Mean Platelet 10.5 H Volume Immature 0.600 H Granulocytes % Neutrophils % Segmented 92 H Neutrophils % (Manual) Lymphocytes % Lymphocytes % 7 L (Manual) Monocytes % Monocytes % 1 (Manual) Eosinophils % Basophils % Nucleated Red 0.0 Blood Cells % Immature 0.040 H Granulocytes # Neutrophils # Lymphocytes 0.4 L (Manual) Lymphocytes # Monocytes # Monocytes # 0.0 L (Manual) Eosinophils # Basophils # Nucleated Red Blood Cells # Platelet Estimate NORMAL Polychromasia 1+ Test 10/08/18 04:50 10/08/18 05:30 10/08/18 05:51 10/08/18 08:55 White Blood Count 9.8 # Red Blood Count 2.69 #L Hemoglobin 7.5 #L Hematocrit 24.3 #L Mean Corpuscular 90.3 Volume Mean Corpuscular 27.9 L Hemoglobin Mean Corpuscular 30.9 L Hemoglobin Concen t Red Cell 15.1 H Distribution Width Platelet Count 188 Mean Platelet 12.2 H Volume Immature 0.400 Granulocytes % Neutrophils % Segmented 94 H Neutrophils % (Manual) Lymphocytes % Lymphocytes % 4 L (Manual) Monocytes % Monocytes % 2 (Manual) Eosinophils % Basophils % Nucleated Red 0.0 Blood Cells % Immature 0.040 H Granulocytes # Neutrophils # Lymphocytes 0.3 L (Manual) Lymphocytes # Monocytes # Monocytes # 0.1 L (Manual) Eosinophils # Basophils # Nucleated Red Blood Cells # Platelet Estimate NORMAL Polychromasia 3+ Poikilocytosis 1+ Sodium Level 152 H Potassium Level 3.5 Chloride Level 124 H Carbon Dioxide 23 Level Anion Gap 5 Blood Urea 68 H Nitrogen Creatinine 1.09 Est Glomerular Filtrat Rate mL/min Glucose Level 131 Calcium Level 7.6 L Phosphorus Level 2.5 Magnesium Level 1.8 Lab Scanned BLOOD TRANSFUSIO Report N Bedside Glucose 162 166 Test 10/08/18 11:30 10/08/18 13:19 10/08/18 16:50 Hemoglobin 6.1 *L Hematocrit 19.1 #L Sodium Level 153 H Potassium Level 3.2 L Chloride Level 122 H Carbon Dioxide 25 Level Anion Gap 6 Blood Urea 69 H Nitrogen Creatinine 1.19 Est Glomerular Filtrat Rate mL/min Glucose Level 180 Calcium Level 7.7 L Bedside Glucose 165 127 Medications Medication Current Medications Albuterol (Proventil 0.083% (Neb)) 2.5 mg Q4H RESP THERAPY PRN NEB SHORTNESS OF BREATH Last administered on 10/08/18at 04:59; Admin Dose 2.5 MG; Start 09/29/18 at 15:00 Albuterol (Proventil 0.083% (Neb)) 2.5 mg Q8H RESP THERAPY PRN NEB WHEEZING AND SOB; Start 09/29/18 at 16:00 Bisacodyl (Dulcolax Supp) 10 mg DAILY PRN [place] CONSTIPATION; Start 09/29/18 at 15:00 Hydralazine HCl (Apresoline) 25 mg BID PRN PO ELEVATED BP; SBP > 160; Start 09/29/18 at 15:00 Magnesium Hydroxide (Milk Of Mag) 30 ml DAILY PRN PO CONSTIPATION; Start 09/29/18 at 15:00 Miscellaneous Information 1 ea NOTE XX ; Start 09/29/18 at 16:30 Glucose (Glutose) 15 gm Q15M PRN PO DECREASED GLUCOSE; Start 09/29/18 at 16:30 Glucose (Glutose) 22.5 gm Q15M PRN PO DECREASED GLUCOSE; Start 09/29/18 at 16:30 Dextrose (D50w Syringe) 25 ml Q15M PRN IV DECREASED GLUCOSE; Start 09/29/18 at 16:30 Dextrose (D50w Syringe) 50 ml Q15M PRN IV DECREASED GLUCOSE; Start 09/29/18 at 16:30 Glucagon (Glucagen) 1 mg Q15M PRN IM DECREASED GLUCOSE; Start 09/29/18 at 16:30 Glucose (Glutose) 15 gm Q15M PRN BUCCAL DECREASED GLUCOSE; Start 09/29/18 at 16:30 Miscellaneous [facility] This patient saini... PRN PRN XX WOUND CARE; Start 09/30/18 at 05:00 Insulin Aspart (Novolog Insulin Pen) (Adult SC Insulin - Mild Algorithm)... Q4 SC Last administered on 10/08/18at 13:23; Admin Dose 1 UNIT; Start 09/30/18 at 13:00 Meropenem/Sodium Chloride 50 ml @ 100 mls/hr Q12 IVPB Last administered on 10/08/18at 08:50; Admin Dose 100 MLS/HR; Start 09/30/18 at 21:00 Acetaminophen (Tylenol Supp) 650 mg Q6H PRN [place] FEVER Last administered on 10/01/18at 20:57; Admin Dose 650 MG; Start 09/30/18 at 21:30 Linezolid 300 ml @ 300 mls/hr Q12 IVPB Last administered on 10/08/18at 08:52; Admin Dose 300 MLS/HR; Start 10/01/18 at 21:00 Aspirin (Halfprin) 81 mg DAILY PO ; Start 10/02/18 at 14:00 Total Parenteral Nutrition 1,000 ml @ 75 mls/hr [id number] IV Last administered on 10/07/18at 21:50; Admin Dose 75 MLS/HR; Start 10/05/18 at 17:00; Status Hold Famotidine (Pepcid Iv) 20 mg BID IV Last administered on 10/08/18at 08:50; Admin Dose 20 MG; Start 10/06/18 at 21:00 Albuterol/ Ipratropium (Duoneb) 3 ml Q4H RESP THERAPY HHN Last administered on 10/08/18 16:59; Admin Dose 3 ML; Start 10/08/18 at 05:00 Morphine Sulfate (morphine) 2 mg Q4H PRN IV SEVERE PAIN LEVEL 7-10 Last administered on 10/08/18 09:17; Admin Dose 2 MG; Start 10/08/18 at 09:30 Dextrose 1,000 ml @ 50 mls/hr Q20H IV Last administered on 10/08/18 12:26; Admin Dose 50 MLS/HR; Start 10/08/18 at 09:30 Potassium Chloride 50 ml @ 50 mls/hr K PROTOCOL PRN IVPB PENDING LAB VALUE Last administered on 10/08/18 17:25; Admin Dose 50 MLS/HR; Start 10/08/18 at 14:00 DAMI CARRENO MD Oct 08, 2018 17:42
[2018-10-08] MEDS ORDERED: PANTOPRAZOLE (EC) 40 MG TAB PO SCH (18:00)
[2018-10-08] MEDS: SUCRALFATE (100 MG/ML) 10ML CUP NGT SCH (21:00)
[2018-10-08] MEDS ORDERED: FAMOTIDINE 20 MG INJ IV SCH (21:00)
[2018-10-09] VITALS (99 sets, daily range): BP systolic 57–153; BP diastolic 20–118; PULSE 64–159; RESP 12–44
[2018-10-09] MEDS: Insulin NOVOLOG SS MILD Algorithm (NPO/TPN/ENTERAL FEEDS) SC SCH ×7 (00:01→20:34)
[2018-10-09] MEDS: ALBUTEROL/IPRATROPIUM (NEB) 3 ML AMP HHN SCH ×3 (00:58→09:00)
[2018-10-09] MEDS ORDERED: NORepinephrine 8MG/250 ML (PMX 250 ML ONE (03:05)
[2018-10-09] MEDS ORDERED: NORepinephrine 8MG/250 ML (PMX 250 ML IV SCH (03:30)
[2018-10-09] MEDS: DEXTROSE 5% 1,000 ML IV SCH (05:51)
[2018-10-09] MEDS ORDERED: SUCCINYLCHOLINE CHLORIDE 100 MG/5 ML SYG IV ONE (07:00)
[2018-10-09] MEDS ORDERED: ETOMIDATE 20 MG INJ ONE (07:00)
[2018-10-09] MEDS: PHENYLephrine 20MG IN 250 ML 250 ML IV SCH ×6 (08:47→21:53)
[2018-10-09] MEDS: ASPIRIN (EC) 81 MG TAB PO SCH (09:00)
[2018-10-09] MEDS: SUCRALFATE (100 MG/ML) 10ML CUP NGT SCH ×4 (09:00→20:22)
[2018-10-09] MEDS: MEROPENEM 500MG/50 ML (PMX) 50 ML IVPB SCH ×2 (09:25→20:23)
[2018-10-09] MEDS: FAMOTIDINE 20 MG INJ IV SCH ×2 (09:25→20:28)
[2018-10-09] MEDS: LINEZOLID 600 MG/300 ML (PMX) 300 ML IVPB SCH ×2 (09:25→21:21)
[2018-10-09] MEDS: BALSAM PERU/CASTOR OIL 60 GM TUBE TOP SCH ×2 (09:34→20:23)
[2018-10-09] MEDS ORDERED: NA BICARBONATE 8.4% 50 ML SYG IV STA (10:06)
[2018-10-09] MEDS ORDERED: NA BICARBONATE 8.4% 50 ML SYG ONE ×2 (10:12)
[2018-10-09] MEDS ORDERED: SODIUM BICARBONATE (IV ADD) 150 MEQ in DEXTROSE 5% 1,000 ML IV SCH (11:00)
--- NOTE | 2018-10-09 11:29 | CONS ---
Consult Date/Type/Reason Admit Date/Time Sep 29, 2018 at 13:57 Initial Consult Date 09/30/18 Type of Consultation: Pulm/CCM Requesting Provider: GLADIS ALICIA DO Date/Time of Note DATE: 10/09/18 TIME: 11:22 Subjective Per RN, patient noted to be in PEA s/p CPR with ROSC after ~ 10 minutes. Now intubated. CXR post CPR shows a moderate right-sided PTX. Objective Vitals Vital Signs Date Temp Pulse Resp B/P (MAP) Pulse Ox O2 O2 Flow FiO2 Time Delivery Rate 10/09/18 122 27 99 60 10:15 10/09/18 88/69 (75) 08:45 10/09/18 98.2 08:00 10/09/18 BIPAP 06:45 10/06/18 15.0 12:40 Intake and Output 10/08/18 10/08/18 10/09/18 1515:00 23:00 07:00 IntakeIntake Total 800 ml 1200 ml 400 ml OutputOutput Total 1600 ml 1185 ml 625 ml BalanceBalance -800 ml 15 ml -225 ml Exam HEENT: Neck supple; no JVD; no LAD; + ET tube CVS: RRR, S1 and S2 CHEST: Coarse BS b/l ABD: Soft, NT, + BS EXT: No c/c/e NEURO: Sedated on the vent. Results/Medications Result Diagram: 10/09/1843910/09/18439 Results 24 hrs Laboratory Tests Test 10/08/18 11:30 10/08/18 13:19 10/08/18 16:50 10/08/18 18:59 Hemoglobin 6.1 *L Hematocrit 19.1 #L Sodium Level 153 H Potassium Level 3.2 L Chloride Level 122 H Carbon Dioxide 25 Level Anion Gap 6 Blood Urea 69 H Nitrogen Creatinine 1.19 Est Glomerular Filtrat Rate mL/min Glucose Level 180 Calcium Level 7.7 L Bedside Glucose 165 127 184 Test 10/08/18 21:45 10/08/18 22:10 10/08/18 23:57 10/09/18 03:40 Hemoglobin 10.0 #L 9.0 L Hematocrit 29.9 #L 27.8 L Blood Gas Blood arterial Specimen Source Arterial Blood 10/08/2018 10:20 Date Drawn :43 PM Arterial Blood 7.473 H pH (Temp corrected ) Arterial Blood 29.1 L pCO2 (Temp correct) Arterial Blood 60.3 L pO2 (Temp corrected ) Arterial Blood 20.8 L HCO3 Arterial Blood -1.9 Base Excess Arterial Blood 91.9 L Oxygen Saturati on Gian Test ACCEPTAB Arterial Blood Right Radial Gas Puncture Site Arterial 0.1 Blood Carboxyhe moglobin Arterial Blood 0.3 Methemoglobin Blood Gas A-a 191.4 H O2 Differential Oxyhemoglobin 91.5 L Percent Blood Gas 37.0 Temperature Blood Gas 35 Actual Respiration Rat e Blood Gas HFNC Modality FiO2 40.0 Blood Gas S.H. Notified Whom Blood Gas 10/08/2018 10:28 Notified Time :55 PM Bedside Glucose 164 Test 10/09/18 03:46 10/09/18 04:40 10/09/18 05:35 10/09/18 05:54 Bedside Glucose 184 206 White Blood 16.7 #H Count Red Blood Count 3.27 #L Hemoglobin 9.5 L Hematocrit 28.9 L Mean 88.4 Corpuscular Volume Mean 29.1 Corpuscular Hemoglobin Mean 32.9 Corpuscular Hemoglobin Conc ent Red Cell 14.3 Distribution Width Platelet Count 274 # Mean Platelet 11.7 H Volume Immature 0.700 H Granulocytes % Neutrophils % 92.0 H Lymphocytes % 5.0 L Monocytes % 2.2 Eosinophils % 0.0 Basophils % 0.1 Nucleated Red 0.0 Blood Cells % Immature 0.110 H Granulocytes # Neutrophils # 15.4 H Lymphocytes # 0.8 Monocytes # 0.4 Eosinophils # 0.0 Basophils # 0.0 Nucleated Red 0.0 Blood Cells # Sodium Level 156 H Potassium Level 4.6 Chloride Level 124 H Carbon Dioxide 21 Level Anion Gap 11 Blood Urea 100 #H Nitrogen Creatinine 1.92 H Est Glomerular Filtrat Rate mL/min Glucose Level 206 Calcium Level 7.9 L Phosphorus 7.7 #H Level Magnesium Level 2.0 Lab Scanned BLOOD TRANSFUS Report ION Test 10/09/18 07:00 10/09/18 08:04 10/09/18 09:37 Blood Gas Blood arterial Specimen Source Arterial Blood 10/09/2018 9:05: Date Drawn 42 AM Arterial Blood 7.023 *L pH (Temp corrected ) Arterial Blood 60.6 H pCO2 (Temp correct) Arterial Blood 263.5 H pO2 (Temp corrected ) Arterial Blood 15.4 L HCO3 Arterial Blood -15.2 L Base Excess Arterial Blood 98.7 Oxygen Saturati on Gian Test ACCEPTAB Arterial Blood Left Radial Gas Puncture Site Arterial 0.2 Blood Carboxyhe moglobin Arterial Blood 0.4 Methemoglobin Blood Gas A-a 388.9 H O2 Differential Oxyhemoglobin 98.1 Percent Blood Gas 37.0 Temperature Blood Gas 20.0 Respiration Rate Blood Gas 20 Actual Respiration Rat e Blood Gas VENT - AC Modality FiO2 100.0 Blood Gas Tidal 500.0 Volume Blood Gas High 5.0 PEEP Setting Blood Gas AMISH BRAVOMERLY Critical Value S, RN Read Back Blood Gas [employer] Notified Whom Blood Gas 10/09/2018 9:20: Notified Time 50 AM Bedside Glucose 193 180 Home Meds Reported Medications Sodium Phosphate,Hooker-Dibasic (Enema Ready To Use) 133 Ml Enema, 133 ML RC EVERY 72 HOURS PRN for CONSTIPATION, ENEMA 09/29/18 Valproic Acid* (Depakene*) 250 Mg/5 Ml Udc Syrup, 125 MG PO Q6, ML 09/29/18 Haloperidol* (Haldol*) 1 Mg Tab, 1 MG PO Q6, TAB 09/29/18 Hydralazine Hcl* (Hydralazine Hcl*) 25 Mg Tab, 25 MG PO BID PRN for ELEVATED BLOOD PRESSURE, #60 TAB HOLD IF SBP <110 OR HR<60 09/29/18 Hydrocodone/Acetaminophen ([place] 5-325 Tablet) 1 Each Tablet, 1 EACH PO Q4 PRN for PAIN LEVEL 6-10, TAB 09/29/18 Metoprolol Tartrate* (Lopressor*) 50 Mg Tab, 50 MG PO BID, #60 TAB HOLD IF SBP <110 OR HR <60 09/29/18 Multivit-Min/Iron Fum/Folic AC (Uyyvy-Veynrxi-Mcbqcwid Tablet) 1 Each Tablet, 1 EACH PO DAILY, TAB 09/29/18 Insulin Aspart* (Novolog Insulin Pen*) 100 Unit/Ml Soln, 0 SC .SLIDING SCALE AC, EA 150-199 = 1 UNIT 200-249 = 2 UNITS 250-299 = 3 UNITS 300-349 = 4 UNITS 350-400 = 5 UNITS OVER 400 CALL MD [facility]ANCE ME[employer] AND AT BEDTIME 09/29/18 Protein Supplement (Promod) 946 Ml Liquid, 30 ML PO BID 09/29/18 Trazodone Hcl* (Trazodone Hcl*) 50 Mg Tablet, 50 MG PO QHS PRN for SLEEP, #30 TAB 09/29/18 Bisacodyl (Dulcolax) 10 Mg Supp.rect, 10 MG RC DAILY PRN for CONSTIPATION, SUPP.RECT 09/29/18 Magnesium Hydroxide* (Milk Of Magnesia*) 400 Mg/5 Ml Oral.susp, 30 ML PO DAILY PRN for CONSTIPATION, ML 09/29/18 Amlodipine Besylate* (Amlodipine Besylate*) 10 Mg Tablet, 10 MG PO DAILY, #30 TAB BP<110 OR HR <60 09/29/18 Albuterol Sulfate* (Albuterol Sulfate* Neb) 0.083%-3 Ml Neb, 2.5 MG NEB Q4H PRN for SHORTNESS OF BREATH, #30 VIAL 09/29/18 Albuterol Sulfate* (Albuterol Sulfate* Neb) 0.083%-3 Ml Neb, 2.5 MG NEB Q8 PRN for WHEEZING AND SOB, #30 VIAL 09/29/18 Medications Current Medications Albuterol (Proventil 0.083% (Neb)) 2.5 mg Q4H RESP THERAPY PRN NEB SHORTNESS OF BREATH Last administered on 10/08/18at 04:59; Admin Dose 2.5 MG; Start 09/29/18 at 15:00 Albuterol (Proventil 0.083% (Neb)) 2.5 mg Q8H RESP THERAPY PRN NEB WHEEZING AND SOB; Start 09/29/18 at 16:00 Bisacodyl (Dulcolax Supp) 10 mg DAILY PRN [place] CONSTIPATION; Start 09/29/18 at 15:00 Hydralazine HCl (Apresoline) 25 mg BID PRN PO ELEVATED BP; SBP > 160; Start 09/29/18 at 15:00 Magnesium Hydroxide (Milk Of Mag) 30 ml DAILY PRN PO CONSTIPATION; Start 09/29/18 at 15:00 Miscellaneous Information 1 ea NOTE XX ; Start 09/29/18 at 16:30 Glucose (Glutose) 15 gm Q15M PRN PO DECREASED GLUCOSE; Start 09/29/18 at 16:30 Glucose (Glutose) 22.5 gm Q15M PRN PO DECREASED GLUCOSE; Start 09/29/18 at 16:30 Dextrose (D50w Syringe) 25 ml Q15M PRN IV DECREASED GLUCOSE; Start 09/29/18 at 16:30 Dextrose (D50w Syringe) 50 ml Q15M PRN IV DECREASED GLUCOSE; Start 09/29/18 at 16:30 Glucagon (Glucagen) 1 mg Q15M PRN IM DECREASED GLUCOSE; Start 09/29/18 at 16:30 Glucose (Glutose) 15 gm Q15M PRN BUCCAL DECREASED GLUCOSE; Start 09/29/18 at 16:30 Miscellaneous Information ([facility] This patient saini... PRN PRN XX WOUND CARE; Start 09/30/18 at 05:00 Insulin Aspart (Novolog Insulin Pen) (Adult SC Insulin - Mild Algorithm)... Q4 SC Last administered on 10/09/18at 09:39; Admin Dose 1 UNIT; Start 09/30/18 at 13:00 Meropenem/Sodium Chloride 50 ml @ 100 mls/hr Q12 IVPB Last administered on 09/25 09:25; Admin Dose 100 MLS/HR; Start 09/30/18 at 21:00 Acetaminophen (Tylenol Supp) 650 mg Q6H PRN [place] FEVER Last administered on 10/01/18at 20:57; Admin Dose 650 MG; Start 09/30/18 at 21:30 Linezolid 300 ml @ 300 mls/hr Q12 IVPB Last administered on 10/09/18at 09:25; Admin Dose 300 MLS/HR; Start 10/01/18 at 21:00 Aspirin (Halfprin) 81 mg DAILY PO ; Start 10/02/18 at 14:00 Total Parenteral Nutrition 1,000 ml @ 75 mls/hr [id number] IV Last administered on 10/07/18at 21:50; Admin Dose 75 MLS/HR; Start 10/05/18 at 17:00; Status Hold Famotidine (Pepcid Iv) 20 mg BID IV Last administered on 10/09/18 09:25; Admin Dose 20 MG; Start 10/06/18 at 21:00 Albuterol/ Ipratropium (Duoneb) 3 ml Q4H RESP THERAPY HHN Last administered on 10/09/18at 00:58; Admin Dose 3 ML; Start 10/08/18 at 05:00 Morphine Sulfate (morphine) 2 mg Q4H PRN IV SEVERE PAIN LEVEL 7-10 Last administered on 10/08/18at 18:34; Admin Dose 2 MG; Start 10/08/18 at 09:30 Potassium Chloride 50 ml @ 50 mls/hr K PROTOCOL PRN IVPB PENDING LAB VALUE Last administered on 10/08/18at 17:25; Admin Dose 50 MLS/HR; Start 10/08/18 at 14:00 Sucralfate (Carafate Susp) 1 gm QID NGT ; Start 10/08/18 at 21:00 Norepinephrine 250 ml @ 1.875 mls/ hr TITRATE IV ; Start 10/09/18 at 03:30 Phenylephrine HCl 250 ml @ 75 mls/hr TITRATE IV Last administered on 10/09/18at 08:47; Admin Dose 75 MLS/HR; Start 10/09/18 at 08:30 Sodium Bicarbonate 150 meq/Dextrose 1,150 ml @ 75 mls/hr [id number] IV ; Start 10/09/18 at 11:00 Assessment/Plan Assessment/Plan (Daily) IMP: 1. s/p PEA arrest--likely 2/2 hypoxemia--complicated by right PTX 2. Acute hypoxemic/hypercapnic respiratory failure 3. Multifocal pneumonia 4. Acute renal failure 5. Encephalopathy 6. History of bipolar disorder 7. GI bleed/ large PUD 8. DM RECS: 1. Vent support--will optimize setting to minimize risk of barotrauma 2. Will place urgent chest tube given risk of tension PTX 3. Continue abx 4. Monitor mental status; will consider hypothermia protocol 5. Follow H/H 6. PPI IV 7. Follow ABG/CXR 8. Will discuss with family Prognosis poor 40 min cc time ZIA VEE MD Oct 09, 2018 11:29
[2018-10-09] MEDS ORDERED: FENTAnyl 50 MCG/ML VIAL ONE (11:34)
--- NOTE | 2018-10-09 11:42 | PN ---
Date/Time of Note Date/Time of Note DATE: 10/09/18 TIME: 11:37 Assessment/Plan VTE Prophylaxis Risk score (from N[place])>0 risk: 10 [place] [facility] [place] Pharmacological prophylaxis: NA/contraindicated, heparin Pharm contraindication: bleeding Lines/Catheters IV [facility]ter Type (from [facility] PICC Line Central line still needed: Yes Urinary Cath still in place: Yes Reason Cath still needed: urinary retention Assessment/Plan Hospital Course 1. Acute hypoxemic respiratory failure. Etiology is felt to be secondary to pneumonia and PTX. intubated on 10/09. vent management per pulm. Chest tube will be placed by pulmonary. Continue antibiotics, nebulizers, we will give intermittent diuretic therapy as needed. Follow up with pulmonary, the patient may require intubation. 2. Sepsis secondary to healthcare-associated pneumonia and bacteremia. Continue broad spectrum antibiotics, IVF and pressors, follow up with infectious disease. 3. Nonoliguric acute kidney injury, etiology is secondary to hemodynamics, septic acute kidney injury. cont supportive care. Continue to monitor. 4. Hypernatremia. Etiology is secondary to insensible losses, decreased free water intake. Tcont hypotonic saline 5. metabolic and respiratory acidosis: vent settings will be adjusted by pulmonary. on HCO3 gtt 6. Acute gastrointestinal bleed, etiology is secondary to ischemic ulcer, peptic ulcer disease. The patient is actively bleeding. We will continue to monitor hemoglobin and hematocrit levels. Continue proton pump inhibitor. Follow up with GI. 7. Anemia. Monitor hemoglobin and hematocrit levels, we will transfuse as needed. 8. Acute encephalopathy, etiology is toxic metabolic. The patient was evaluated by neurology. He is pending an lumbar puncture to evaluate for meningeal encephalitis. The patient is clinically unstable for lumbar puncture. We will continue to monitor. Continue antibiotic therapy. 9. Mineral bone disorder. elevated phos. no phos binders while pt is npo/ Monitor calcium and phosphorus levels. 10. Nutrition. The patient was on TPN. 11. History of cerebrovascular accident. Result Diagram: 10/09/18 0440 10/09/18 0440 Results 24hrs Laboratory Tests Test 10/08/18 13:19 10/08/18 16:50 10/08/18 18:59 10/08/18 21:45 Bedside Glucose 165 127 184 Hemoglobin 10.0 #L Hematocrit 29.9 #L Test 10/08/18 22:10 10/08/18 23:57 10/09/18 03:40 10/09/18 03:46 Blood Gas Blood arterial Specimen Source Arterial Blood 10/08/2018 10:20 Date Drawn :43 PM Arterial Blood 7.473 H pH (Temp corrected ) Arterial Blood 29.1 L pCO2 (Temp correct) Arterial Blood 60.3 L pO2 (Temp corrected ) Arterial Blood 20.8 L HCO3 Arterial Blood -1.9 Base Excess Arterial Blood 91.9 L Oxygen Saturati on Gian Test ACCEPTAB Arterial Blood Right Radial Gas Puncture Site Arterial 0.1 Blood Carboxyhe moglobin Arterial Blood 0.3 Methemoglobin Blood Gas A-a 191.4 H O2 Differential Oxyhemoglobin 91.5 L Percent Blood Gas 37.0 Temperature Blood Gas 35 Actual Respiration Rat e Blood Gas HFNC Modality FiO2 40.0 Blood Gas S.H. Notified Whom Blood Gas 10/08/2018 10:28 Notified Time :55 PM Bedside Glucose 164 184 Hemoglobin 9.0 L Hematocrit 27.8 L Test 10/09/18 04:40 10/09/18 05:35 10/09/18 05:54 10/09/18 07:00 White Blood 16.7 #H Count Red Blood Count 3.27 #L Hemoglobin 9.5 L Hematocrit 28.9 L Mean 88.4 Corpuscular Volume Mean 29.1 Corpuscular Hemoglobin Mean 32.9 Corpuscular Hemoglobin Conc ent Red Cell 14.3 Distribution Width Platelet Count 274 # Mean Platelet 11.7 H Volume Immature 0.700 H Granulocytes % Neutrophils % 92.0 H Lymphocytes % 5.0 L Monocytes % 2.2 Eosinophils % 0.0 Basophils % 0.1 Nucleated Red 0.0 Blood Cells % Immature 0.110 H Granulocytes # Neutrophils # 15.4 H Lymphocytes # 0.8 Monocytes # 0.4 Eosinophils # 0.0 Basophils # 0.0 Nucleated Red 0.0 Blood Cells # Sodium Level 156 H Potassium Level 4.6 Chloride Level 124 H Carbon Dioxide 21 Level Anion Gap 11 Blood Urea 100 #H Nitrogen Creatinine 1.92 H Est Glomerular Filtrat Rate mL/min Glucose Level 206 Calcium Level 7.9 L Phosphorus 7.7 #H Level Magnesium Level 2.0 Lab Scanned BLOOD TRANSFUS Report ION Bedside Glucose 206 Blood Gas Blood Specimen arterial Source Arterial Blood 10/09/2018 9:05 Date Drawn :42 AM Arterial Blood 7.023 *L pH (Temp corrected ) Arterial Blood 60.6 H pCO2 (Temp correct) Arterial Blood 263.5 H pO2 (Temp corrected ) Arterial Blood 15.4 L HCO3 Arterial Blood -15.2 L Base Excess Arterial Blood 98.7 Oxygen Saturati on Gian Test ACCEPTAB Arterial Blood Left Radial Gas Puncture Site Arterial 0.2 Blood Carboxyhe moglobin Arterial Blood 0.4 Methemoglobin Blood Gas A-a 388.9 H O2 Differential Oxyhemoglobin 98.1 Percent Blood Gas 37.0 Temperature Blood Gas 20.0 Respiration Rate Blood Gas 20 Actual Respiration Rat e Blood Gas VENT - AC Modality FiO2 100.0 Blood Gas Tidal 500.0 Volume Blood Gas High 5.0 PEEP Setting Blood Gas AMISH [facility] Critical Value SS, RN Read Back Blood Gas [employer] Notified Whom Blood Gas 10/09/2018 9:20 Notified Time :50 AM Test 10/09/18 08:04 10/09/18 09:37 10/09/18 11:15 Bedside Glucose 193 180 Blood Gas Blood Specimen arterial Source Arterial Blood 10/09/2018 11:1 Date Drawn 8:41 AM Arterial Blood 7.262 *L pH (Temp corrected ) Arterial Blood 45.3 H pCO2 (Temp correct) Arterial Blood 94.4 H pO2 (Temp corrected ) Arterial Blood 20.0 L HCO3 Arterial Blood -6.8 L Base Excess Arterial Blood 95.1 Oxygen Saturati on Gian Test ACCEPTAB Arterial Blood Left Radial Gas Puncture Site Arterial 0.1 Blood Carboxyhe moglobin Arterial Blood 0.1 Methemoglobin Blood Gas A-a 283.6 H O2 Differential Oxyhemoglobin 94.9 Percent Blood Gas 37.0 Temperature Blood Gas 24.0 Respiration Rate Blood Gas 25 Actual Respiration Rat e Blood Gas VENT - AC Modality FiO2 60.0 Blood Gas Tidal 500.0 Volume Blood Gas High 5.0 PEEP Setting Blood Gas AMISH FAR Critical Value SS RN Read Back Blood Gas [employer] Notified Whom Blood Gas 10/09/2018 11:3 Notified Time 4:39 AM Subjective 24 Hr Interval Summary Free Text/Dictation pt was in respiratory distress last night and started on bipap this am patient had code blue and was in PEA. The code ran for 10 mins and during that time he was intubated. he is currently on phenylephrine as he is tachycardic d/w rn PE: gen nonverbal cv tachycardic pulm: coarse bs. decreased bs of right lung field abd soft, nd, nt +bs ext: no edema Exam/Review of Systems Exam Vitals Vital Signs Date Temp Pulse Resp B/P (MAP) Pulse Ox O2 O2 Flow FiO2 Time Delivery Rate 10/09/18 122 27 99 60 10:15 10/09/18 88/69 (75) 08:45 10/09/18 98.2 08:00 10/09/18 BIPAP 06:45 10/06/18 15.0 12:40 Intake and Output 10/08/18 10/08/18 10/09/18 1515:00 23:00 07:00 IntakeIntake Total 800 ml 1200 ml 400 ml OutputOutput Total 1600 ml 1185 ml 625 ml BalanceBalance -800 ml 15 ml -225 ml Results Results 24hrs Laboratory Tests Test 10/08/18 13:19 10/08/18 16:50 10/08/18 18:59 10/08/18 21:45 Bedside Glucose 165 127 184 Hemoglobin 10.0 #L Hematocrit 29.9 #L Test 10/08/18 22:10 10/08/18 23:57 10/09/18 03:40 10/09/18 03:46 Blood Gas Blood arterial Specimen Source Arterial Blood 10/08/2018 10:20 Date Drawn :43 PM Arterial Blood 7.473 H pH (Temp corrected ) Arterial Blood 29.1 L pCO2 (Temp correct) Arterial Blood 60.3 L pO2 (Temp corrected ) Arterial Blood 20.8 L HCO3 Arterial Blood -1.9 Base Excess Arterial Blood 91.9 L Oxygen Saturati on Gian Test ACCEPTAB Arterial Blood Right Radial Gas Puncture Site Arterial 0.1 Blood Carboxyhe moglobin Arterial Blood 0.3 Methemoglobin Blood Gas A-a 191.4 H O2 Differential Oxyhemoglobin 91.5 L Percent Blood Gas 37.0 Temperature Blood Gas 35 Actual Respiration Rat e Blood Gas HFNC Modality FiO2 40.0 Blood Gas S.H. Notified Whom Blood Gas 10/08/2018 10:28 Notified Time :55 PM Bedside Glucose 164 184 Hemoglobin 9.0 L Hematocrit 27.8 L Test 10/09/18 04:40 10/09/18 05:35 10/09/18 05:54 10/09/18 07:00 White Blood 16.7 #H Count Red Blood Count 3.27 #L Hemoglobin 9.5 L Hematocrit 28.9 L Mean 88.4 Corpuscular Volume Mean 29.1 Corpuscular Hemoglobin Mean 32.9 Corpuscular Hemoglobin Conc ent Red Cell 14.3 Distribution Width Platelet Count 274 # Mean Platelet 11.7 H Volume Immature 0.700 H Granulocytes % Neutrophils % 92.0 H Lymphocytes % 5.0 L Monocytes % 2.2 Eosinophils % 0.0 Basophils % 0.1 Nucleated Red 0.0 Blood Cells % Immature 0.110 H Granulocytes # Neutrophils # 15.4 H Lymphocytes # 0.8 Monocytes # 0.4 Eosinophils # 0.0 Basophils # 0.0 Nucleated Red 0.0 Blood Cells # Sodium Level 156 H Potassium Level 4.6 Chloride Level 124 H Carbon Dioxide 21 Level Anion Gap 11 Blood Urea 100 #H Nitrogen Creatinine 1.92 H Est Glomerular Filtrat Rate mL/min Glucose Level 206 Calcium Level 7.9 L Phosphorus 7.7 #H Level Magnesium Level 2.0 Lab Scanned BLOOD TRANSFUS Report ION Bedside Glucose 206 Blood Gas Blood Specimen arterial Source Arterial Blood 10/09/2018 9:05 Date Drawn :42 AM Arterial Blood 7.023 *L pH (Temp corrected ) Arterial Blood 60.6 H pCO2 (Temp correct) Arterial Blood 263.5 H pO2 (Temp corrected ) Arterial Blood 15.4 L HCO3 Arterial Blood -15.2 L Base Excess Arterial Blood 98.7 Oxygen Saturati on Gian Test ACCEPTAB Arterial Blood Left Radial Gas Puncture Site Arterial 0.2 Blood Carboxyhe moglobin Arterial Blood 0.4 Methemoglobin Blood Gas A-a 388.9 H O2 Differential Oxyhemoglobin 98.1 Percent Blood Gas 37.0 Temperature Blood Gas 20.0 Respiration Rate Blood Gas 20 Actual Respiration Rat e Blood Gas VENT - AC Modality FiO2 100.0 Blood Gas Tidal 500.0 Volume Blood Gas High 5.0 PEEP Setting [facility], RN Read Back Blood Gas [employer] Notified Whom Blood Gas 10/09/2018 9:20 Notified Time :50 AM Test 10/09/18 08:04 10/09/18 09:37 10/09/18 11:15 Bedside Glucose 193 180 Blood Gas Blood Specimen arterial Source Arterial Blood 10/09/2018 11:1 Date Drawn 8:41 AM Arterial Blood 7.262 *L pH (Temp corrected ) Arterial Blood 45.3 H pCO2 (Temp correct) Arterial Blood 94.4 H pO2 (Temp corrected ) Arterial Blood 20.0 L HCO3 Arterial Blood -6.8 L Base Excess Arterial Blood 95.1 Oxygen Saturati on Gian Test ACCEPTAB Arterial Blood Left Radial Gas Puncture Site Arterial 0.1 Blood Carboxyhe moglobin Arterial Blood 0.1 Methemoglobin Blood Gas A-a 283.6 H O2 Differential Oxyhemoglobin 94.9 Percent Blood Gas 37.0 Temperature Blood Gas 24.0 Respiration Rate Blood Gas 25 Actual Respiration Rat e Blood Gas VENT - AC Modality FiO2 60.0 Blood Gas Tidal 500.0 Volume Blood Gas High 5.0 PEEP Setting Blood Gas AMISH BRAVOKOFI Critical Value SS RN Read Back Blood Gas [employer]NAGER Notified Whom Blood Gas 10/09/2018 11:3 Notified Time 4:39 AM Medications Medication Current Medications Albuterol (Proventil 0.083% (Neb)) 2.5 mg Q4H RESP THERAPY PRN NEB SHORTNESS OF BREATH Last administered on 10/08/18at 04:59; Admin Dose 2.5 MG; Start 09/29/18 at 15:00 Albuterol (Proventil 0.083% (Neb)) 2.5 mg Q8H RESP THERAPY PRN NEB WHEEZING AND SOB; Start 09/29/18 at 16:00 Bisacodyl (Dulcolax Supp) 10 mg DAILY PRN [place] CONSTIPATION; Start 09/29/18 at 15:00 Hydralazine HCl (Apresoline) 25 mg BID PRN PO ELEVATED BP; SBP > 160; Start 09/29/18 at 15:00 Magnesium Hydroxide (Milk Of Mag) 30 ml DAILY PRN PO CONSTIPATION; Start 09/29/18 at 15:00 Miscellaneous Information 1 ea NOTE XX ; Start 09/29/18 at 16:30 Glucose (Glutose) 15 gm Q15M PRN PO DECREASED GLUCOSE; Start 09/29/18 at 16:30 Glucose (Glutose) 22.5 gm Q15M PRN PO DECREASED GLUCOSE; Start 09/29/18 at 16:30 Dextrose (D50w Syringe) 25 ml Q15M PRN IV DECREASED GLUCOSE; Start 09/29/18 at 16:30 Dextrose (D50w Syringe) 50 ml Q15M PRN IV DECREASED GLUCOSE; Start 09/29/18 at 16:30 Glucagon (Glucagen) 1 mg Q15M PRN IM DECREASED GLUCOSE; Start 09/29/18 at 16:30 Glucose (Glutose) 15 gm Q15M PRN BUCCAL DECREASED GLUCOSE; Start 09/29/18 at 16:30 Miscellaneous Information (Pending [facility] Order For Wound Care) This patient saini... PRN PRN XX WOUND CARE; Start 09/30/18 at 05:00 Insulin Aspart (Novolog Insulin Pen) (Adult SC Insulin - Mild Algorithm)... Q4 SC Last administered on 10/09/18 09:39; Admin Dose 1 UNIT; Start 09/30/18 at 13:00 Meropenem/Sodium Chloride 50 ml @ 100 mls/hr Q12 IVPB Last administered on 10/09/18 09:25; Admin Dose 100 MLS/HR; Start 09/30/18 at 21:00 Acetaminophen (Tylenol Supp) 650 mg Q6H PRN [place] FEVER Last administered on 10/01/18 20:57; Admin Dose 650 MG; Start 09/30/18 at 21:30 Linezolid 300 ml @ 300 mls/hr Q12 IVPB Last administered on 10/09/18 09:25; Admin Dose 300 MLS/HR; Start 10/01/18 at 21:00 Aspirin (Halfprin) 81 mg DAILY PO ; Start 10/02/18 at 14:00 Total Parenteral Nutrition 1,000 ml @ 75 mls/hr [id number] IV Last administered on 10/07/18at 21:50; Admin Dose 75 MLS/HR; Start 10/05/18 at 17:00; Status Hold Famotidine (Pepcid Iv) 20 mg BID IV Last administered on 10/09/18 09:25; Admin Dose 20 MG; Start 10/06/18 at 21:00 Albuterol/ Ipratropium (Duoneb) 3 ml Q4H RESP THERAPY HHN Last administered on 10/09/18 00:58; Admin Dose 3 ML; Start 10/08/18 at 05:00 Morphine Sulfate (morphine) 2 mg Q4H PRN IV SEVERE PAIN LEVEL 7-10 Last administered on 10/08/18 18:34; Admin Dose 2 MG; Start 10/08/18 at 09:30 Potassium Chloride 50 ml @ 50 mls/hr K PROTOCOL PRN IVPB PENDING LAB VALUE Last administered on 10/08/18at 17:25; Admin Dose 50 MLS/HR; Start 10/08/18 at 14:00 Sucralfate (Carafate Susp) 1 gm QID NGT ; Start 10/08/18 at 21:00 Norepinephrine 250 ml @ 1.875 mls/ hr TITRATE IV ; Start 10/09/18 at 03:30 Phenylephrine HCl 250 ml @ 75 mls/hr TITRATE IV Last administered on 10/09/18at 08:47; Admin Dose 75 MLS/HR; Start 10/09/18 at 08:30 Sodium Bicarbonate 150 meq/Dextrose 1,150 ml @ 75 mls/hr [id number] IV ; Start 10/09/18 at 11:00 CHRISTINE RAMSEY MD Oct 09, 2018 11:42
[2018-10-09] MEDS ORDERED: FENTAnyl 50 MCG/ML VIAL IV ONE (12:00)
--- NOTE | 2018-10-09 12:00 | EN ---
Date/Time of Note Date/Time of Note DATE: 10/09/18 TIME: 11:53 ER Progress Note This is a 73-year-old male who is been admitted to the intensive care unit. The patient had been on BiPAP and a CODE BLUE was called. When I arrived to the bedside nursing staff indicated that the patient had lost pulses and had PEA. The patient had immediately undergone ACLS protocol with CPR epinephrine and amp of bicarbonate amp of calcium chloride been given. The patient's Accu-Chek was within normal limits. The patient was intubated using RSI as the patient did have a gag reflex after return of spontaneous circulation. The patient was given etomidate and succinylcholine. A 7.50 endotracheal tube was seen in past going through the cords by myself. Condensation was seen within the tube. Equal and symmetrical breath sounds were heard bilaterally. The tube was secured to the lip line of 24 cm. Capnometry change x6 was obtained. A focused physical exam was performed by myself. The patient's pupils were 3 mm reactive to light. The patient had diffuse pallor. The patient was now tachyca rdic with a regular rhythm after return of spontaneous circulation. Patient had equal and symmetrical breath sounds heard with bag mask ventilation. Patient was not following verbal command was aphasic. ASH SINGH MD Oct 09, 2018 12:00
--- NOTE | 2018-10-09 12:12 | EN ---
Date/Time of Note Date/Time of Note DATE: 10/09/18 TIME: 12:06 Event Note Medicine Medicine Event Note Procedure: Right chest tube thoracostomy Indication: Pneumothorax in a patient on positive pressure ventilation with hypotension MD: Be Consent: This was an emergent procedure requiring 2 physician consent Meds: Fentanyl 50 mcg IVP; lidocaine 1% 5 ml locally Procedure: Under strict sterile precautions, the right 4/5th ICS, mid-axillary region was anesthetized with lidocaine 1%. A 2 cm horizontal incision was made. Using a curved Marya forceps, the area was dilated and the pleural space was entered. A large madrid of air was noted. A 28 F chest tube was advanced into the pleural space and secured at 12 cm leila with 0 silk sutures and sterile dressings. The chest tube was connected to a pleurevac and placed on 20 cm H20 suction. Complications: None Stat CXR is pending. ZIA VEE MD Oct 09, 2018 12:12
--- NOTE | 2018-10-09 12:52 | CONS ---
Assessment/Plan Assessment/Plan Hospital Course (Demo Recall) Patient had a PEA arrest this morning was intubated also developed pneumothorax status post chest tube, currently on Sajan-Synephrine drip. Temperature 98.2 pulse 122 respirations 27 blood pressure 88/69 saturation 100 on 60 FiO2 WBC 16.3 H&H 8.4 and 25.5 platelets 223 neutrophils 85.2 BUN 100 creatinine 1.92 Microbiology: Blood culture on admission grew oxacillin sensitive staph aureus, repeat blood cultures growing coag negative staph species Antimicrobials: Zyvox, meropenem Indwelling's: Left upper extremity PICC line, Gorman, ETT, right chest tube Physical examination: Chronically ill-appearing elderly man in no distress. Head atraumatic normocephalic neck is supple. Chest rise symmetrical breath sounds diminished bases. Heart: S1-S2. Abdomen soft bowel sounds present.. Extremities without cyanosis Assessment: 1. Status post PEA arrest complicated by right pneumothorax 2. Multifocal pneumonia 3. Acute respiratory failure 4. Septic shock 5. Acute anemia/GI bleeding 6. MSSA bacteremia 7. Acute renal failure 8. Acute encephalopathy Plan: Patient is hemodynamically unstable, continue present care and antibiotics, send sputum culture, monitor H&H and transfuse as needed, prognosis guarded Discussed with staff Consultation Date/Type/Reason Admit Date/Time Sep 29, 2018 at 13:57 Initial Consult Date 09/30/18 Type of Consult id Requesting Provider: GLADIS ALICIA DO Date/Time of Note DATE: 10/09/18 TIME: 12:50 Exam/Review of Systems Exam Vitals Vital Signs Date Temp Pulse Resp B/P (MAP) Pulse Ox O2 O2 Flow FiO2 Time Delivery Rate 10/09/18 122 27 99 60 10:15 10/09/18 88/69 (75) 08:45 10/09/18 98.2 08:00 10/09/18 BIPAP 06:45 10/06/18 15.0 12:40 Intake and Output 10/08/18 10/08/18 10/09/18 1515:00 23:00 07:00 IntakeIntake Total 800 ml 1200 ml 400 ml OutputOutput Total 1600 ml 1185 ml 625 ml BalanceBalance -800 ml 15 ml -225 ml Results Result Diagram: 10/09/18 1210 10/09/18 0440 Results 24hrs Laboratory Tests Test 10/08/18 13:19 10/08/18 16:50 10/08/18 18:59 10/08/18 21:45 Bedside Glucose 165 127 184 Hemoglobin 10.0 #L Hematocrit 29.9 #L Test 10/08/18 22:10 10/08/18 23:57 10/09/18 03:40 10/09/18 03:46 Blood Gas Blood arterial Specimen Source Arterial Blood 10/08/2018 10:20 Date Drawn :43 PM Arterial Blood 7.473 H pH (Temp corrected ) Arterial Blood 29.1 L pCO2 (Temp correct) Arterial Blood 60.3 L pO2 (Temp corrected ) Arterial Blood 20.8 L HCO3 Arterial Blood -1.9 Base Excess Arterial Blood 91.9 L Oxygen Saturati on Gian Test ACCEPTAB Arterial Blood Right Radial Gas Puncture Site Arterial 0.1 Blood Carboxyhe moglobin Arterial Blood 0.3 Methemoglobin Blood Gas A-a 191.4 H O2 Differential Oxyhemoglobin 91.5 L Percent Blood Gas 37.0 Temperature Blood Gas 35 Actual Respiration Rat e Blood Gas HFNC Modality FiO2 40.0 Blood Gas S.H. Notified Whom Blood Gas 10/08/2018 10:28 Notified Time :55 PM Bedside Glucose 164 184 Hemoglobin 9.0 L Hematocrit 27.8 L Test 10/09/18 04:40 10/09/18 05:35 10/09/18 05:54 10/09/18 07:00 White Blood 16.7 #H Count Red Blood Count 3.27 #L Hemoglobin 9.5 L Hematocrit 28.9 L Mean 88.4 Corpuscular Volume Mean 29.1 Corpuscular Hemoglobin Mean 32.9 Corpuscular Hemoglobin Conc ent Red Cell 14.3 Distribution Width Platelet Count 274 # Mean Platelet 11.7 H Volume Immature 0.700 H Granulocytes % Neutrophils % 92.0 H Lymphocytes % 5.0 L Monocytes % 2.2 Eosinophils % 0.0 Basophils % 0.1 Nucleated Red 0.0 Blood Cells % Immature 0.110 H Granulocytes # Neutrophils # 15.4 H Lymphocytes # 0.8 Monocytes # 0.4 Eosinophils # 0.0 Basophils # 0.0 Nucleated Red 0.0 Blood Cells # Sodium Level 156 H Potassium Level 4.6 Chloride Level 124 H Carbon Dioxide 21 Level Anion Gap 11 Blood Urea 100 #H Nitrogen Creatinine 1.92 H Est Glomerular Filtrat Rate mL/min Glucose Level 206 Calcium Level 7.9 L Phosphorus 7.7 #H Level Magnesium Level 2.0 Lab Scanned BLOOD TRANSFUS Report ION Bedside Glucose 206 Blood Gas Blood Specimen arterial Source Arterial Blood 10/09/2018 9:05 Date Drawn :42 AM Arterial Blood 7.023 *L pH (Temp corrected ) Arterial Blood 60.6 H pCO2 (Temp correct) Arterial Blood 263.5 H pO2 (Temp corrected ) Arterial Blood 15.4 L HCO3 Arterial Blood -15.2 L Base Excess Arterial Blood 98.7 Oxygen Saturati on Gian Test ACCEPTAB Arterial Blood Left Radial Gas Puncture Site Arterial 0.2 Blood Carboxyhe moglobin Arterial Blood 0.4 Methemoglobin Blood Gas A-a 388.9 H O2 Differential Oxyhemoglobin 98.1 Percent Blood Gas 37.0 Temperature Blood Gas 20.0 Respiration Rate Blood Gas 20 Actual Respiration Rat e Blood Gas VENT - AC Modality FiO2 100.0 Blood Gas Tidal 500.0 Volume Blood Gas High 5.0 PEEP Setting Blood Gas [facility] Critical Value SS, RN Read Back Blood Gas [employer] Notified Whom Blood Gas 10/09/2018 9:20 Notified Time :50 AM Test 10/09/18 08:04 10/09/18 09:37 10/09/18 11:15 10/09/18 12:10 Bedside Glucose 193 180 Blood Gas Blood Specimen arterial Source Arterial Blood 10/09/2018 11:1 Date Drawn 8:41 AM Arterial Blood 7.262 *L pH (Temp corrected ) Arterial Blood 45.3 H pCO2 (Temp correct) Arterial Blood 94.4 H pO2 (Temp corrected ) Arterial Blood 20.0 L HCO3 Arterial Blood -6.8 L Base Excess Arterial Blood 95.1 Oxygen Saturati on Gian Test ACCEPTAB Arterial Blood Left Radial Gas Puncture Site Arterial 0.1 Blood Carboxyhe moglobin Arterial Blood 0.1 Methemoglobin Blood Gas A-a 283.6 H O2 Differential Oxyhemoglobin 94.9 Percent Blood Gas 37.0 Temperature Blood Gas 24.0 Respiration Rate Blood Gas 25 Actual Respiration Rat e Blood Gas VENT - AC Modality FiO2 60.0 Blood Gas Tidal 500.0 Volume Blood Gas High 5.0 PEEP Setting [facility] SS RN Read Back Blood Gas [employer] Notified Whom Blood Gas 10/09/2018 11:3 Notified Time 4:39 AM White Blood 16.3 H Count Red Blood Count 2.84 L Hemoglobin 8.4 L Hematocrit 25.5 L Mean 89.8 Corpuscular Volume Mean 29.6 Corpuscular Hemoglobin Mean 32.9 Corpuscular Hemoglobin Conc ent Red Cell 14.5 Distribution Width Platelet Count 223 Mean Platelet 11.4 H Volume Immature 0.900 H Granulocytes % Neutrophils % 85.2 H Lymphocytes % 10.1 L Monocytes % 3.7 Eosinophils % 0.0 Basophils % 0.1 Nucleated Red 0.4 H Blood Cells % Immature 0.140 H Granulocytes # Neutrophils # 13.9 H Lymphocytes # 1.7 Monocytes # 0.6 Eosinophils # 0.0 Basophils # 0.0 Nucleated Red 0.1 H Blood Cells # Medications Medication Current Medications Albuterol (Proventil 0.083% (Neb)) 2.5 mg Q4H RESP THERAPY PRN NEB SHORTNESS OF BREATH Last administered on 10/08/18at 04:59; Admin Dose 2.5 MG; Start 09/29/18 at 15:00 Albuterol (Proventil 0.083% (Neb)) 2.5 mg Q8H RESP THERAPY PRN NEB WHEEZING AND SOB; Start 09/29/18 at 16:00 Bisacodyl (Dulcolax Supp) 10 mg DAILY PRN MT CONSTIPATION; Start 09/29/18 at 15:00 Hydralazine HCl (Apresoline) 25 mg BID PRN PO ELEVATED BP; SBP > 160; Start 09/29/18 at 15:00 Magnesium Hydroxide (Milk Of Mag) 30 ml DAILY PRN PO CONSTIPATION; Start 09/29/18 at 15:00 Miscellaneous Information 1 ea NOTE XX ; Start 09/29/18 at 16:30 Glucose (Glutose) 15 gm Q15M PRN PO DECREASED GLUCOSE; Start 09/29/18 at 16:30 Glucose (Glutose) 22.5 gm Q15M PRN PO DECREASED GLUCOSE; Start 09/29/18 at 16:30 Dextrose (D50w Syringe) 25 ml Q15M PRN IV DECREASED GLUCOSE; Start 09/29/18 at 16:30 Dextrose (D50w Syringe) 50 ml Q15M PRN IV DECREASED GLUCOSE; Start 09/29/18 at 16:30 Glucagon (Glucagen) 1 mg Q15M PRN IM DECREASED GLUCOSE; Start 09/29/18 at 16:30 Glucose (Glutose) 15 gm Q15M PRN BUCCAL DECREASED GLUCOSE; Start 09/29/18 at 16:30 Miscellaneous Information (Pending [facility] Order For Wound Care) This patient saini... PRN PRN XX WOUND CARE; Start 09/30/18 at 05:00 Insulin Aspart (Novolog Insulin Pen) (Adult SC Insulin - Mild Algorithm)... Q4 SC Last administered on 10/09/18 09:39; Admin Dose 1 UNIT; Start 09/30/18 at 13:00 Meropenem/Sodium Chloride 50 ml @ 100 mls/hr Q12 IVPB Last administered on 10/09/18 09:25; Admin Dose 100 MLS/HR; Start 09/30/18 at 21:00 Acetaminophen (Tylenol Supp) 650 mg Q6H PRN MT FEVER Last administered on 10/01/18 20:57; Admin Dose 650 MG; Start 09/30/18 at 21:30 Linezolid 300 ml @ 300 mls/hr Q12 IVPB Last administered on 10/09/18 09:25; Admin Dose 300 MLS/HR; Start 10/01/18 at 21:00 Aspirin (Halfprin) 81 mg DAILY PO ; Start 10/02/18 at 14:00 Total Parenteral Nutrition 1,000 ml @ 75 mls/hr [id number] IV Last administered on 10/07/18at 21:50; Admin Dose 75 MLS/HR; Start 10/05/18 at 17:00; Status Hold Famotidine (Pepcid Iv) 20 mg BID IV Last administered on 10/09/18 09:25; Admin Dose 20 MG; Start 10/06/18 at 21:00 Morphine Sulfate (morphine) 2 mg Q4H PRN IV SEVERE PAIN LEVEL 7-10 Last administered on 10/08/18 18:34; Admin Dose 2 MG; Start 10/08/18 at 09:30 Potassium Chloride 50 ml @ 50 mls/hr K PROTOCOL PRN IVPB PENDING LAB VALUE Last administered on 10/08/18 17:25; Admin Dose 50 MLS/HR; Start 10/08/18 at 14:00 Sucralfate (Carafate Susp) 1 gm QID NGT ; Start 10/08/18 at 21:00 Norepinephrine 250 ml @ 1.875 mls/ hr TITRATE IV ; Start 10/09/18 at 03:30 Phenylephrine HCl 250 ml @ 75 mls/hr TITRATE IV Last administered on 10/09/18at 11:34; Admin Dose 150 MLS/HR; Start 10/09/18 at 08:30 Fentanyl 100 ml @ 5 mls/hr TITRATE IV ; Start 10/09/18 at 13:00 Sodium Bicarbonate 100 meq/Dextrose 1,100 ml @ 75 mls/hr [id number] IV ; Start 10/09/18 at 13:00 Lidocaine (Xylocaine 1% (Mpf)) 5 ml ONCE ONCE INFIL ; Start 10/09/18 at 13:00; Stop 10/09/18 at 13:01 Ipratropium [place] (Atrovent Hfa) 4 puff Q4H RESP THERAPY INH ; Start 10/09/18 at 13:00 Albuterol (Ventolin Hfa) 2 puff Q4H RESP THERAPY INH ; Start 10/09/18 at 13:00 AMY WHALEN NP Oct 09, 2018 12:52
[2018-10-09] MEDS: FENTAnyl (DRIP) 1000 mcg/100mL 100 ML IV SCH (12:57)
[2018-10-09] MEDS: SODIUM BICARBONATE (IV ADD) 100 MEQ in DEXTROSE 5% 1,000 ML IV SCH (12:59)
[2018-10-09] MEDS ORDERED: LIDOCAINE 1% (MPF) 5 ML VIAL INFIL ONE (13:00)
[2018-10-09] MEDS: IPRATROPIUM (HFA) 12.9 GM INHALER INH SCH ×3 (13:00→21:40)
[2018-10-09] MEDS: ALBUTEROL HFA 8 GM INHALER INH SCH ×3 (14:18→21:40)
[2018-10-09] MEDS: POTASSIUM CHLORIDE 50 ML IVPB PRN (18:02)
--- NOTE | 2018-10-09 18:48 | CONS ---
DATE OF ADMISSION: 09/29/2018 DATE OF CONSULTATION: TYPE OF CONSULTATION: GI. HISTORY OF PRESENT ILLNESS: The patient is a 73-year-old male with a giant duodenal ulcer, most prob ably ischemic ulcer, in the second part of the duodenum; had GI bleeding requiring blood transfusion. The patient was supposed to get Protonix, but the hospital had a shortage, never got the Protonix I V. We could not give him Protonix through the NG tube because family had declined NG tube, so the pa joey did not get either Protonix or Carafate for the treatment of ulcer; however, this morning he saini d a PEA, requiring intubation, and subsequently developed pneumothorax, requiring chest tube placemen t. The patient now is on vent. VITAL SIGNS: Stable. ABDOMEN: Benign. LUNGS: Diminished air entry. EXTREMITIES: No edema. CENTRAL NERVOUS SYSTEM: He is awake. LABORATORY DATA: Discussed with the staff. The patient had no further GI bleeding. His hematocrit is now 25.5. WBC is 16.3. BUN had gone up to 114, creatinine is 2.45. SGOT is mildly elevated to 7 14, SGPT 530. The chest x-ray this morning showed pneumothorax, pneumonia. IMPRESSION: 1. Gastrointestinal bleeding, appears to be stable now. 2. Status post pulseless electrical activity arrest, complicated by pneumothorax, status post chest tube placement. 3. Multifocal pneumonia. 4. Respiratory failure, on ventilator. 5. Septic shock. 6. Methicillin-sensitive Staphylococcus aureus bacteriuria. 7. Renal failure. PLAN: At this point, is to continue supportive care. We will monitor H and H. I told luis Olson nurse, to pass the NG tube and start the patient on Protonix and Carafate, which the patient now ge ntly needs it, and also resume feeding Diabetisource at 50 mL per hour. Dictated By: DAMI CRUZ/RACHELL Conf#: [id number] DID#: [id number] CC: DAMI CARRENO MD; GLADIS ALICIA DO;*EndCC*
--- NOTE | 2018-10-09 22:35 | CONS ---
Consult Date/Type/Reason Admit Date/Time Sep 29, 2018 at 13:57 Initial Consult Date 09/30/18 Type of Consultation: Pulm/CCM Requesting Provider: GLADIS ALICIA DO Date/Time of Note DATE: 10/09/18 TIME: 22:34 Subjective called by nursing as patient had large melanotic stool became more hypotensive and second pressor added. bp stabilized. Ordered 1 liter NS and 2u PRBC. 1 unit is here now. GI is consulted pt was in respiratory distress last night and started on bipap this am patient had code blue and was in PEA. The code ran for 10 mins and during that time he was intubated. d/w rn PE: gen intubated and sedated cv tachycardic pulm: coarse bs. decreased bs of right lung field abd soft, nd, nt +bs ext: no edema Objective Vitals Vital Signs Date Temp Pulse Resp B/P (MAP) Pulse Ox O2 O2 Flow FiO2 Time Delivery Rate 10/09/18 109 21 97/53 (68) 18:15 10/09/18 100 Mechanical 18:00 Ventilator 10/09/18 60 17:30 10/09/18 97.8 16:00 10/06/18 15.0 12:40 Intake and Output 10/08/18 10/08/18 10/09/18 1515:00 23:00 07:00 IntakeIntake Total 800 ml 1200 ml 400 ml OutputOutput Total 1600 ml 1185 ml 625 ml BalanceBalance -800 ml 15 ml -225 ml Results/Medications Result Diagram: 10/09/18 2135 10/09/18 1211 Results 24 hrs Laboratory Tests Test 10/08/18 23:57 10/09/18 03:40 10/09/18 03:46 10/09/18 04:40 Bedside Glucose 164 184 Hemoglobin 9.0 L 9.5 L Hematocrit 27.8 L 28.9 L White Blood 16.7 #H Count Red Blood Count 3.27 #L Mean 88.4 Corpuscular Volume Mean 29.1 Corpuscular Hemoglobin Mean 32.9 Corpuscular Hemoglobin Conc ent Red Cell 14.3 Distribution Width Platelet Count 274 # Mean Platelet 11.7 H Volume Immature 0.700 H Granulocytes % Neutrophils % 92.0 H Lymphocytes % 5.0 L Monocytes % 2.2 Eosinophils % 0.0 Basophils % 0.1 Nucleated Red 0.0 Blood Cells % Immature 0.110 H Granulocytes # Neutrophils # 15.4 H Lymphocytes # 0.8 Monocytes # 0.4 Eosinophils # 0.0 Basophils # 0.0 Nucleated Red 0.0 Blood Cells # Sodium Level 156 H Potassium Level 4.6 Chloride Level 124 H Carbon Dioxide 21 Level Anion Gap 11 Blood Urea 100 #H Nitrogen Creatinine 1.92 H Est Glomerular Filtrat Rate mL/min Glucose Level 206 Calcium Level 7.9 L Phosphorus 7.7 #H Level Magnesium Level 2.0 Test 10/09/18 05:35 10/09/18 05:54 10/09/18 07:00 10/09/18 08:04 Lab Scanned BLOOD TRANSFUSI Report ON Bedside Glucose 206 193 Blood Gas Blood Specimen arterial Source Arterial Blood 10/09/2018 9:05 Date Drawn :42 AM Arterial Blood 7.023 *L pH (Temp corrected ) Arterial Blood 60.6 H pCO2 (Temp correct) Arterial Blood 263.5 H pO2 (Temp corrected ) Arterial Blood 15.4 L HCO3 Arterial Blood -15.2 L Base Excess Arterial Blood 98.7 Oxygen Saturati on Gian Test ACCEPTAB Arterial Blood Left Radial Gas Puncture Site Arterial 0.2 Blood Carboxyhe moglobin Arterial Blood 0.4 Methemoglobin Blood Gas A-a 388.9 H O2 Differential Oxyhemoglobin 98.1 Percent Blood Gas 37.0 Temperature Blood Gas 20.0 Respiration Rate Blood Gas 20 Actual Respiration Rat e Blood Gas VENT - AC Modality FiO2 100.0 Blood Gas Tidal 500.0 Volume Blood Gas High 5.0 PEEP Setting [facility] Value SS, RN Read Back Blood Gas 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 Whom Blood Gas 10/09/2018 9:20 Notified Time :50 AM Test 10/09/18 09:37 10/09/18 11:15 10/09/18 12:10 10/09/18 12:11 Bedside Glucose 180 Blood Gas Blood arterial Specimen Source Arterial Blood 10/09/2018 11:18 Date Drawn :41 AM Arterial Blood 7.262 *L pH (Temp corrected ) Arterial Blood 45.3 H pCO2 (Temp correct) Arterial Blood 94.4 H pO2 (Temp corrected ) Arterial Blood 20.0 L HCO3 Arterial Blood -6.8 L Base Excess Arterial Blood 95.1 Oxygen Saturati on Gian Test ACCEPTAB Arterial Blood Left Radial Gas Puncture Site Arterial 0.1 Blood Carboxyhe moglobin Arterial Blood 0.1 Methemoglobin Blood Gas A-a 283.6 H O2 Differential Oxyhemoglobin 94.9 Percent Blood Gas 37.0 Temperature Blood Gas 24.0 Respiration Rate Blood Gas 25 Actual Respiration Rat e Blood Gas VENT - AC Modality FiO2 60.0 Blood Gas Tidal 500.0 Volume Blood Gas High 5.0 PEEP Setting Blood Gas AMISH KATZ Critical Value S RN Read Back Blood Gas 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0 Basophils # 0.0 Nucleated Red 0.1 H Blood Cells # Sodium Level 160 H Potassium Level 3.9 Chloride Level 124 H Carbon Dioxide 23 Level Anion Gap 13 Blood Urea 114 H Nitrogen Creatinine 2.45 H Est Glomerular Filtrat Rate mL/min Glucose Level 150 Calcium Level 7.9 L Total Bilirubin 0.5 Direct 0.00 Bilirubin Indirect 0.5 Bilirubin Aspartate Amino 714 H Transf (AST/SGO T) Alanine 530 H Aminotransferas e (ALT/SGPT) Alkaline 42 Phosphatase Total Protein 5.7 L Albumin 2.3 L Globulin 3.40 H Albumin/Globuli 0.67 n Ratio Test 10/09/18 13:14 10/09/18 17:07 10/09/18 18:52 10/09/18 20:34 Bedside Glucose 144 123 112 Hemoglobin 7.1 L Hematocrit 21.8 L Test 10/09/18 21:35 Hemoglobin 6.2 *L Hematocrit 19.6 L Home Meds Reported Medications Sodium Phosphate,[place]-Dibasic (Enema Ready To Use) 133 Ml Enema, 133 ML RC EVERY 72 HOURS PRN for CONSTIPATION, ENEMA 09/29/18 Valproic Acid* (Depakene*) 250 Mg/5 Ml Udc Syrup, 125 MG PO Q6, ML 09/29/18 Haloperidol* (Haldol*) 1 Mg Tab, 1 MG PO Q6, TAB 09/29/18 Hydralazine Hcl* (Hydralazine Hcl*) 25 Mg Tab, 25 MG PO BID PRN for ELEVATED BLOOD PRESSURE, #60 TAB HOLD IF SBP <110 OR HR<60 09/29/18 Hydrocodone/Acetaminophen ([place] 5-325 Tablet) 1 Each Tablet, 1 EACH PO Q4 PRN for PAIN LEVEL 6-10, TAB 09/29/18 Metoprolol Tartrate* (Lopressor*) 50 Mg Tab, 50 MG PO BID, #60 TAB HOLD IF SBP <110 OR HR <60 09/29/18 Multivit-Min/Iron Fum/Folic AC (Tbcql-Coxxycl-Kfzjrdov Tablet) 1 Each Tablet, 1 EACH PO DAILY, TAB 09/29/18 Insulin Aspart* (Novolog Insulin Pen*) 100 Unit/Ml Soln, 0 SC .SLIDING SCALE AC, EA 150-199 = 1 UNIT 200-249 = 2 UNITS 250-299 = 3 UNITS 300-349 = 4 UNITS 350-400 = 5 UNITS OVER 400 CALL MD VANCE MEALS AND AT BEDTIME 09/29/18 Protein Supplement (Promod) 946 Ml Liquid, 30 ML PO BID 09/29/18 Trazodone Hcl* (Trazodone Hcl*) 50 Mg Tablet, 50 MG PO QHS PRN for SLEEP, #30 TAB 09/29/18 Bisacodyl (Dulcolax) 10 Mg Supp.rect, 10 MG RC DAILY PRN for CONSTIPATION, SUPP.RECT 09/29/18 Magnesium Hydroxide* (Milk Of Magnesia*) 400 Mg/5 Ml Oral.susp, 30 ML PO DAILY PRN for CONSTIPATION, ML 09/29/18 Amlodipine Besylate* (Amlodipine Besylate*) 10 Mg Tablet, 10 MG PO DAILY, #30 TAB BP<110 OR HR <60 09/29/18 Albuterol Sulfate* (Albuterol Sulfate* Neb) 0.083%-3 Ml Neb, 2.5 MG NEB Q4H PRN for SHORTNESS OF BREATH, #30 VIAL 09/29/18 Albuterol Sulfate* (Albuterol Sulfate* Neb) 0.083%-3 Ml Neb, 2.5 MG NEB Q8 PRN for WHEEZING AND SOB, #30 VIAL 09/29/18 Medications Current Medications Albuterol (Proventil 0.083% (Neb)) 2.5 mg Q4H RESP THERAPY PRN NEB SHORTNESS OF BREATH Last administered on 10/08/18at 04:59; Admin Dose 2.5 MG; Start 09/29/18 at 15:00 Albuterol (Proventil 0.083% (Neb)) 2.5 mg Q8H RESP THERAPY PRN NEB WHEEZING AND SOB; Start 09/29/18 at 16:00 Bisacodyl (Dulcolax Supp) 10 mg DAILY PRN [place] CONSTIPATION; Start 09/29/18 at 15:00 Hydralazine HCl (Apresoline) 25 mg BID PRN PO ELEVATED BP; SBP > 160; Start 09/29/18 at 15:00 Magnesium Hydroxide (Milk Of Mag) 30 ml DAILY PRN PO CONSTIPATION; Start 09/29/18 at 15:00 Miscellaneous Information 1 ea NOTE XX ; Start 09/29/18 at 16:30 Glucose (Glutose) 15 gm Q15M PRN PO DECREASED GLUCOSE; Start 09/29/18 at 16:30 Glucose (Glutose) 22.5 gm Q15M PRN PO DECREASED GLUCOSE; Start 09/29/18 at 16:30 Dextrose (D50w Syringe) 25 ml Q15M PRN IV DECREASED GLUCOSE; Start 09/29/18 at 16:30 Dextrose (D50w Syringe) 50 ml Q15M PRN IV DECREASED GLUCOSE; Start 09/29/18 at 16:30 Glucagon (Glucagen) 1 mg Q15M PRN IM DECREASED GLUCOSE; Start 09/29/18 at 16:30 Glucose (Glutose) 15 gm Q15M PRN BUCCAL DECREASED GLUCOSE; Start 09/29/18 at 16:30 Miscellaneous Information (Pending [facility] Order For Wound Care) This patient saini... PRN PRN XX WOUND CARE; Start 09/30/18 at 05:00 Insulin Aspart (Novolog Insulin Pen) (Adult SC Insulin - Mild Algorithm)... Q4 SC Last administered on 10/09/18at 13:18; Admin Dose 1 UNIT; Start 09/30/18 at 13:00 Meropenem/Sodium Chloride 50 ml @ 100 mls/hr Q12 IVPB Last administered on 09/25 20:23; Admin Dose 100 MLS/HR; Start 09/30/18 at 21:00 Acetaminophen (Tylenol Supp) 650 mg Q6H PRN [place] FEVER Last administered on 10/01/18 20:57; Admin Dose 650 MG; Start 09/30/18 at 21:30 Linezolid 300 ml @ 300 mls/hr Q12 IVPB Last administered on 10/09/18 21:21; Admin Dose 300 MLS/HR; Start 10/01/18 at 21:00 Aspirin (Halfprin) 81 mg DAILY PO ; Start 10/02/18 at 14:00 Total Parenteral Nutrition 1,000 ml @ 75 mls/hr [id number] IV Last administered on 10/07/18 21:50; Admin Dose 75 MLS/HR; Start 10/05/18 at 17:00; Status Hold Famotidine (Pepcid Iv) 20 mg BID IV Last administered on 10/09/18 20:28; Admin Dose 20 MG; Start 10/06/18 at 21:00 Morphine Sulfate (morphine) 2 mg Q4H PRN IV SEVERE PAIN LEVEL 7-10 Last administered on 10/08/18 18:34; Admin Dose 2 MG; Start 10/08/18 at 09:30 Potassium Chloride 50 ml @ 50 mls/hr K PROTOCOL PRN IVPB PENDING LAB VALUE Last administered on 10/09/18 18:02; Admin Dose 50 MLS/HR; Start 10/08/18 at 14:00 Sucralfate (Carafate Susp) 1 gm QID NGT Last administered on 10/09/18 20:22; Admin Dose 1 GM; Start 10/08/18 at 21:00 Norepinephrine 250 ml @ 1.875 mls/ hr TITRATE IV Last administered on 10/09/18 21:41; Admin Dose 18.75 MLS/HR; Start 10/09/18 at 03:30 Fentanyl 100 ml @ 5 mls/hr TITRATE IV Last administered on 10/09/18 12:57; Admin Dose 5 MLS/HR; Start 10/09/18 at 13:00 Sodium Bicarbonate 100 meq/Dextrose 1,100 ml @ 75 mls/hr [id number] IV Last administered on 10/09/18at 12:59; Admin Dose 75 MLS/HR; Start 10/09/18 at 13:00 Ipratropium [place] (Atrovent Hfa) 4 puff Q4H RESP THERAPY INH Last administered on 10/09/18at 21:40; Admin Dose 4 PUFF; Start 10/09/18 at 13:00 Albuterol (Ventolin Hfa) 2 puff Q4H RESP THERAPY INH Last administered on 10/09/18at 21:40; Admin Dose 2 PUFF; Start 10/09/18 at 13:00 Phenylephrine HCl 80 mg/Dextrose 250 ml @ 18.75 mls/ hr TITRATE IV ; Start 10/09/18 at 23:00 Assessment/Plan Assessment/Plan (Daily) 1. Acute hypoxemic respiratory failure. Etiology is felt to be secondary to pneumonia and PTX. intubated on 10/09. vent management per pulm. Chest tube will be placed by pulmonary. Continue antibiotics, nebulizers, we will give intermittent diuretic therapy as needed. Follow up with pulmonary, the patient may require intubation. 2. Sepsis secondary to healthcare-associated pneumonia and bacteremia. Continue broad spectrum antibiotics, IVF and pressors, follow up with infectious disease. 3. Nonoliguric acute kidney injury, etiology is secondary to hemodynamics, septic acute kidney injury. cont supportive care. Continue to monitor. 4. Hypernatremia. Etiology is secondary to insensible losses, decreased free water intake. cont hypotonic saline. worsening but 5. metabolic and respiratory acidosis: vent settings will be adjusted by pulcarol pineda. on HCO3 gtt 6. Acute gastrointestinal bleed, etiology is secondary to ischemic ulcer, peptic ulcer disease. The patient is actively bleeding. We will continue to monitor hemoglobin and hematocrit levels. Continue proton pump inhibitor. Follow up with GI. 3 units prbc ordered. gi is following. 7. Anemia. Monitor hemoglobin and hematocrit levels, we will transfuse as needed. 8. Acute encephalopathy, etiology is toxic metabolic. The patient was evaluated by neurology. He is pending an lumbar puncture to evaluate for meningeal encephalitis. The patient is clinically unstable for lumbar puncture. We will continue to monitor. Continue antibiotic therapy. 9. Mineral bone disorder. elevated phos. no phos binders while pt is npo/ Monitor calcium and phosphorus levels. 10. Nutrition. The patient was on TPN. 11. History of cerebrovascular accident. est cc time 40 min KEEGAN LAMAS MD Oct 09, 2018 22:35
[2018-10-09] MEDS: PHENYLephrine 80 MG in DEXTROSE 5% 242 ML IV SCH (23:01)
[2018-10-10] VITALS (107 sets, daily range): BP systolic 54–136; BP diastolic 20–80; PULSE 91–138; RESP 6–37
[2018-10-10] MEDS: Insulin NOVOLOG SS MILD Algorithm (NPO/TPN/ENTERAL FEEDS) SC SCH ×6 (01:00→21:15)
[2018-10-10] MEDS: ALBUTEROL HFA 8 GM INHALER INH SCH ×6 (01:21→21:10)
[2018-10-10] MEDS: IPRATROPIUM (HFA) 12.9 GM INHALER INH SCH ×6 (01:21→21:10)
[2018-10-10] MEDS: PHENYLephrine 80 MG in DEXTROSE 5% 242 ML IV SCH ×6 (03:51→22:14)
[2018-10-10] MEDS ORDERED: NA BICARBONATE 8.4% 50 ML SYG IV ONE (05:30)
[2018-10-10] MEDS: SODIUM BICARBONATE (IV ADD) 100 MEQ in DEXTROSE 5% 1,000 ML IV SCH (05:46)
[2018-10-10] MEDS ORDERED: CALCIUM GLUCONATE 10% 1 GM in DEXTROSE 5% 100 ML IVPB ONE (06:30)
[2018-10-10] MEDS ORDERED: SOD CHLORIDE 0.9% 500 ML IV ONE (06:30)
[2018-10-10] MEDS ORDERED: METOCLOPRAMIDE 10 MG INJ IV ONE (07:00)
[2018-10-10] MEDS ORDERED: METOCLOPRAMIDE 10 MG INJ IM ONE (07:00)
[2018-10-10] MEDS: MEROPENEM 500MG/50 ML (PMX) 50 ML IVPB SCH ×2 (08:23→21:06)
[2018-10-10] MEDS: LINEZOLID 600 MG/300 ML (PMX) 300 ML IVPB SCH (08:23)
[2018-10-10] MEDS: FAMOTIDINE 20 MG INJ IV SCH ×3 (08:23→21:06)
[2018-10-10] MEDS ORDERED: NORepinephrine 32 MG in DEXTROSE 5% 218 ML IV SCH (09:00)
[2018-10-10] MEDS: ASPIRIN (EC) 81 MG TAB PO SCH (09:00)
[2018-10-10] MEDS: SUCRALFATE (100 MG/ML) 10ML CUP NGT SCH ×4 (09:00→21:00)
[2018-10-10] MEDS: BALSAM PERU/CASTOR OIL 60 GM TUBE TOP SCH ×2 (09:05→21:08)
[2018-10-10] MEDS: VASOPRESSIN 60 UNIT in DEXTROSE 5% 57 ML IV SCH ×2 (09:43→21:00)
--- NOTE | 2018-10-10 10:05 | PREAC ---
Date/Time of Note Date/Time of Note DATE: 10/10/18 TIME: 10:00 Anesthesia Eval and Record Evaluation Time Pre-Procedure Interview DATE: 10/10/18 TIME: 10:00 Age 73 Sex male NPO: 8 hrs Preoperative diagnosis duodenal ulcer Planned procedure EGD Past Medical History Past Medical History: Includes Cardio: HTN, Dyslipidemia, CAD, Other (septic shock on 4 pressors; Status post PEA arrest ) Endo: Diabetes Pulm: COPD, Other (pnuemonia, respiratory failure s/p intubation, pneumothorax s/p chest tube, ) Renal: DESTINY Heme: Anemia, Coagulation disorder, Thrombocytopenia Surgery & Anesthesia Issues No known issue Meds Anticoagulation: No Beta Junie within 24 hr: No Reason Beta Junie not given: Pt. not on B-Junie Reported Medications Sodium Phosphate,[place]-Dibasic (Enema Ready To Use) 133 Ml Enema, 133 ML RC EVERY 72 HOURS PRN for CONSTIPATION, ENEMA 09/29/18 Valproic Acid* (Depakene*) 250 Mg/5 Ml Udc Syrup, 125 MG PO Q6, ML 09/29/18 Haloperidol* (Haldol*) 1 Mg Tab, 1 MG PO Q6, TAB 09/29/18 Hydralazine Hcl* (Hydralazine Hcl*) 25 Mg Tab, 25 MG PO BID PRN for ELEVATED BLOOD PRESSURE, #60 TAB HOLD IF SBP <110 OR HR<60 09/29/18 Hydrocodone/Acetaminophen ([place] 5-325 Tablet) 1 Each Tablet, 1 EACH PO Q4 PRN for PAIN LEVEL 6-10, TAB 09/29/18 Metoprolol Tartrate* (Lopressor*) 50 Mg Tab, 50 MG PO BID, #60 TAB HOLD IF SBP <110 OR HR <60 09/29/18 Multivit-Min/Iron Fum/Folic AC ([place]gffe-Vatnjix-Rngiooab Tablet) 1 Each Tablet, 1 EACH PO DAILY, TAB 09/29/18 Insulin Aspart* (Novolog Insulin Pen*) 100 Unit/Ml Soln, 0 SC .SLIDING SCALE AC, EA 150-199 = 1 UNIT 200-249 = 2 UNITS 250-299 = 3 UNITS 300-349 = 4 UNITS 350-400 = 5 UNITS OVER 400 CALL MD VANCE MEALS AND AT BEDTIME 09/29/18 Protein Supplement (Promod) 946 Ml Liquid, 30 ML PO BID 09/29/18 Trazodone Hcl* (Trazodone Hcl*) 50 Mg Tablet, 50 MG PO QHS PRN for SLEEP, #30 TAB 09/29/18 Bisacodyl (Dulcolax) 10 Mg Supp.rect, 10 MG RC DAILY PRN for CONSTIPATION, SUPP.RECT 09/29/18 Magnesium Hydroxide* (Milk Of Magnesia*) 400 Mg/5 Ml Oral.susp, 30 ML PO DAILY PRN for CONSTIPATION, ML 09/29/18 Amlodipine Besylate* (Amlodipine Besylate*) 10 Mg Tablet, 10 MG PO DAILY, #30 TAB BP<110 OR HR <60 09/29/18 Albuterol Sulfate* (Albuterol Sulfate* Neb) 0.083%-3 Ml Neb, 2.5 MG NEB Q4H PRN for SHORTNESS OF BREATH, #30 VIAL 09/29/18 Albuterol Sulfate* (Albuterol Sulfate* Neb) 0.083%-3 Ml Neb, 2.5 MG NEB Q8 PRN for WHEEZING AND SOB, #30 VIAL 09/29/18 Current Medications Albuterol (Proventil 0.083% (Neb)) 2.5 mg Q4H RESP THERAPY PRN NEB SHORTNESS OF BREATH Last administered on 10/08/18at 04:59; Admin Dose 2.5 MG; Start 09/29/18 at 15:00 Albuterol (Proventil 0.083% (Neb)) 2.5 mg Q8H RESP THERAPY PRN NEB WHEEZING AND SOB; Start 09/29/18 at 16:00 Bisacodyl (Dulcolax Supp) 10 mg DAILY PRN [place] CONSTIPATION; Start 09/29/18 at 15:00 Hydralazine HCl (Apresoline) 25 mg BID PRN PO ELEVATED BP; SBP > 160; Start 09/29/18 at 15:00 Magnesium Hydroxide (Milk Of Mag) 30 ml DAILY PRN PO CONSTIPATION; Start 09/29/18 at 15:00 Miscellaneous Information 1 ea NOTE XX ; Start 09/29/18 at 16:30 Glucose (Glutose) 15 gm Q15M PRN PO DECREASED GLUCOSE; Start 09/29/18 at 16:30 Glucose (Glutose) 22.5 gm Q15M PRN PO DECREASED GLUCOSE; Start 09/29/18 at 16:30 Dextrose (D50w Syringe) 25 ml Q15M PRN IV DECREASED GLUCOSE; Start 09/29/18 at 16:30 Dextrose (D50w Syringe) 50 ml Q15M PRN IV DECREASED GLUCOSE; Start 09/29/18 at 16:30 Glucagon (Glucagen) 1 mg Q15M PRN IM DECREASED GLUCOSE; Start 09/29/18 at 16:30 Glucose (Glutose) 15 gm Q15M PRN BUCCAL DECREASED GLUCOSE; Start 09/29/18 at 16:30 Miscellaneous Information (Pending [place] Order For Wound Care) This patient saini... PRN PRN XX WOUND CARE; Start 09/30/18 at 05:00 Insulin Aspart (Novolog Insulin Pen) (Adult SC Insulin - Mild Algorithm)... Q4 SC Last administered on 10/10/18at 09:00; Admin Dose 3 UNIT; Start 09/30/18 at 13:00 Meropenem/Sodium Chloride 50 ml @ 100 mls/hr Q12 IVPB Last administered on 10/10/18 08:23; Admin Dose 100 MLS/HR; Start 09/30/18 at 21:00 Acetaminophen (Tylenol Supp) 650 mg Q6H PRN [place] FEVER Last administered on 10/01/18 20:57; Admin Dose 650 MG; Start 09/30/18 at 21:30 Linezolid 300 ml @ 300 mls/hr Q12 IVPB Last administered on 10/10/18 08:23; Admin Dose 300 MLS/HR; Start 10/01/18 at 21:00 Total Parenteral Nutrition 1,000 ml @ 75 mls/hr [id number] IV Last administered on 10/07/18at 21:50; Admin Dose 75 MLS/HR; Start 10/05/18 at 17:00; Status Hold Famotidine (Pepcid Iv) 20 mg BID IV Last administered on 10/10/18 08:23; Admin Dose 20 MG; Start 10/06/18 at 21:00 Morphine Sulfate (morphine) 2 mg Q4H PRN IV SEVERE PAIN LEVEL 7-10 Last administered on 10/08/18 18:34; Admin Dose 2 MG; Start 10/08/18 at 09:30 Potassium Chloride 50 ml @ 50 mls/hr K PROTOCOL PRN IVPB PENDING LAB VALUE Last administered on 10/09/18 18:02; Admin Dose 50 MLS/HR; Start 10/08/18 at 14:00 Sucralfate (Carafate Susp) 1 gm QID NGT Last administered on 10/09/18 20:22; Admin Dose 1 GM; Start 10/08/18 at 21:00 Fentanyl 100 ml @ 5 mls/hr TITRATE IV Last administered on 10/09/18 12:57; Admin Dose 5 MLS/HR; Start 10/09/18 at 13:00 Sodium Bicarbonate 100 meq/Dextrose 1,100 ml @ 75 mls/hr [id number] IV Last administered on 10/10/18 05:46; Admin Dose 75 MLS/HR; Start 10/09/18 at 13:00 Ipratropium [place] (Atrovent Hfa) 4 puff Q4H RESP THERAPY INH Last administered on 10/10/18 08:03; Admin Dose 4 PUFF; Start 10/09/18 at 13:00 Albuterol (Ventolin Hfa) 2 puff Q4H RESP THERAPY INH Last administered on 10/10/18 08:03; Admin Dose 2 PUFF; Start 10/09/18 at 13:00 Phenylephrine HCl 80 mg/Dextrose 250 ml @ 18.75 mls/ hr TITRATE IV Last administered on 10/10/18 08:40; Admin Dose 56.25 MLS/HR; Start 10/09/18 at 23:00 Vasopressin 60 unit/Dextrose 60 ml @ 1.2 mls/hr Q12H IV Last administered on 10/10/18 09:43; Admin Dose 1.2 MLS/HR; Start 10/10/18 at 09:00 Norepinephrine 32 mg/Dextrose 250 ml @ 0.47 mls/hr TITRATE IV Last administered on 10/10/18 09:33; Admin Dose 4.69 MLS/HR; Start 10/10/18 at 09:00 Famotidine (Pepcid Iv) 20 mg DAILY IV ; Start 10/10/18 at 10:00 Meds reviewed: Yes Allergies Coded Allergies: No Known Allergy (Unverified , 09/29/18) Allergies Reviewed: Yes Labs/Studies Labs Reviewed: Reviewed by anesthesiologist Result Diagram: 10/10/18 0924 10/10/18 0500 Laboratory Tests 10/10/18 05:00 10/10/18 09:24 test: N/A Pre-procedure Exam Last vitals Vital Signs Date Temp Pulse Resp B/P (MAP) Pulse Ox O2 O2 Flow FiO2 Time Delivery Rate 10/10/18 117 26 88/53 (65) 100 07:00 10/10/18 Mechanical 06:00 Ventilator 10/10/18 60 05:24 10/10/18 98.5 04:00 10/06/18 15.0 12:40 Airway: Adequate mouth opening, Adequate thyromental dist Mallampati: Mallampati II (unable to assess as patient is intubated ) Teeth: Normal Lung: Abnormal (intubated ) Heart: Normal ASA Physical Status ASA physical status: 4 Emergency: None Pre-operative Attestations Patient is on four pressors for septic shock. PATIENT IS TOO UNSTABLE FOR ANESTHESIA CURRENTLY. ESTIVEN KHOURY MD Oct 10, 2018 10:05
--- NOTE | 2018-10-10 10:15 | CONS ---
DATE OF ADMISSION: 09/29/2018 DATE OF CONSULTATION: HISTORY OF PRESENT ILLNESS: The patient is a 73-year-old male with a history PEA, intubated in the i ntensive care unit, had at 8:30 melenic stool. His blood pressure dropped down to 60. The patient w as given pressor support yesterday. I received a call at 11:00 in the night from the nursing staff a nd told them to give 3 units of packed cell RBC and inform me regarding the H and H and continue IV h ydration and pressor support. At 3:30 in the morning staff nurse called me. The hematocrit was 33. It was stable. The patient was on double pressor support. BUN was elevated and the heart rate was in the range of 109. I told them to connect NG tube to suction and not to give him any formula. The NG tube aspirate was a coffee-ground colored material. The patient did not have any black stool aft er the one episode at 8:30. I examined the patient this morning. He was on a maximum dose of 2 press ure medications. Abdomen was totally benign. The patient was on vent. He was on 60% FIO2. He had a chest tube. His extremities had no edema. 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 His platelet count has dropped down to 111. WBC was mildly elevated to 17.8. Patient's calcium was low at 4.6. His lactic acid was high, 6.8. Glucose was 228, BUN was 104 and creatinine was 2.5. IMPRESSION 1. Septic shock. 2. Gastrointestinal bleeding also was contributing. 3. Gastrointestinal bleeding. Hematocrit at this point remained stable. 4. Renal failure. 5. Status post chest tube insertion for pneumothorax. 6. Respiratory failure. 7. MSSA bacteremia. 8. Encephalopathy. 9. Multifocal pneumonia. PLAN: At this point, is to continue antibiotic. If patient is stable, we will proceed with EGD, but given the location of the ulcer and no bleeding points identified and it was a broad-based crater ab out 3 x 2 cm, which appears more like an ischemia. Technically, it will be difficult to stop the blee ding with epinephrine or endoclip or heater probe. The best option would be hemo spray, which is not available in the hospital. PLAN: At this point, if patient is stable, will do second look endoscopy. In the interim I have dis cussed with the staff to prepare the IR for possible coil embolization of the gastroduodenal artery a nd also to get a surgical consult. Will call Dr. Rocha who is air traffic controller for the group. In the interim, we will monitor H and H, BNP and continue all the supportive care. Unfortunately, Pro tonix is not available in the hospital, we will continue IV Pepcid. Dictated By: DAMI CRUZ/NTS Conf#: [id number] DID#: [id number] CC: CONCEPCION HANKS MD; GLADIS ALICIA DO;*EndCC*
[2018-10-10] MEDS ORDERED: ALBUMIN HUMAN 25% 100 ML ONE (11:12)
[2018-10-10] MEDS: HYDROCORTISONE 100 MG INJ IV SCH ×3 (11:18→23:08)
--- NOTE | 2018-10-10 11:22 | CONS ---
Consult Date/Type/Reason Admit Date/Time Sep 29, 2018 at 13:57 Initial Consult Date 09/30/18 Type of Consultation: Pulm/CCM Requesting Provider: GLADIS ALICIA DO Date/Time of Note DATE: 10/10/18 TIME: 11:08 Subjective Significant downturn overnight. Now on 3 vasopressors with anuric renal failure and ischemic hepatopathy. Objective Vitals Vital Signs Date Temp Pulse Resp B/P (MAP) Pulse Ox O2 O2 Flow FiO2 Time Delivery Rate 10/10/18 124 29 83/31 (48) 99 09:45 10/10/18 Mechanical 09:00 Ventilator 10/10/18 98.5 08:00 10/10/18 60 05:24 10/06/18 15.0 12:40 Intake and Output 10/09/18 10/09/18 10/10/18 1515:00 23:00 07:00 IntakeIntake Total 1197.0 ml 1330.00 ml 1016.375 ml OutputOutput Total 80 ml 101 ml 191 ml BalanceBalance 1117.0 ml 1229.00 ml 825.375 ml Exam HEENT: Neck supple; no JVD; no LAD; + ET tube CVS: Tachy, S1 and S2 CHEST: Coarse BS b/l ABD: Soft, NT, + BS EXT: Trace LE edema NEURO: Sedated; minimally responsive to painful stimuli Results/Medications Result Diagram: 10/10/1892310/10/18923 Results 24 hrs Laboratory Tests Test 10/09/18 11:15 10/09/18 12:10 10/09/18 12:11 10/09/18 13:14 Blood Gas Blood arterial Specimen Source Arterial Blood 10/09/2018 11:18 Date Drawn :41 AM Arterial Blood 7.262 *L pH (Temp corrected) Arterial Blood 45.3 H pCO2 (Temp correct) Arterial Blood 94.4 H pO2 (Temp corrected) Arterial Blood 20.0 L HCO3 Arterial Blood -6.8 L Base Excess Arterial Blood 95.1 Oxygen Saturatio n Gian Test ACCEPTAB Arterial Blood Left Radial Gas Puncture Site Arterial 0.1 Blood Carboxyhem oglobin Arterial Blood 0.1 Methemoglobin Blood Gas A-a O2 283.6 H Differential Oxyhemoglobin 94.9 Percent Blood Gas 37.0 Temperature Blood Gas 24.0 Respiration Rate Blood Gas Actual 25 Respiration Rate Blood Gas VENT - AC Modality FiO2 60.0 Blood Gas Tidal 500.0 Volume Blood Gas High 5.0 PEEP Setting Blood Gas AMISHOLIVER BRAVOMERLY Critical Value S RN Read Back Blood Gas CMOLENO HEAD OF STOCK Notified Whom Blood Gas 10/09/2018 11:34 Notified Time :39 AM White Blood 16.3 H Count Red Blood Count 2.84 L Hemoglobin 8.4 L Hematocrit 25.5 L Mean Corpuscular 89.8 Volume Mean Corpuscular 29.6 Hemoglobin Mean Corpuscular 32.9 Hemoglobin Yazmin nt Red Cell 14.5 Distribution Width Platelet Count 223 Mean Platelet 11.4 H Volume Immature 0.900 H Granulocytes % Neutrophils % 85.2 H Lymphocytes % 10.1 L Monocytes % 3.7 Eosinophils % 0.0 Basophils % 0.1 Nucleated Red 0.4 H Blood Cells % Immature 0.140 H Granulocytes # Neutrophils # 13.9 H Lymphocytes # 1.7 Monocytes # 0.6 Eosinophils # 0.0 Basophils # 0.0 Nucleated Red 0.1 H Blood Cells # Sodium Level 160 H Potassium Level 3.9 Chloride Level 124 H Carbon Dioxide 23 Level Anion Gap 13 Blood Urea 114 H Nitrogen Creatinine 2.45 H Est Glomerular Filtrat Rate mL/min Glucose Level 150 Calcium Level 7.9 L Total Bilirubin 0.5 Direct Bilirubin 0.00 Indirect 0.5 Bilirubin Aspartate Amino 714 H Transf (AST/SGOT ) Alanine 530 H Aminotransferase (ALT/SGPT) Alkaline 42 Phosphatase Total Protein 5.7 L Albumin 2.3 L Globulin 3.40 H Albumin/Globulin 0.67 Ratio Bedside Glucose 144 Test 10/09/18 17:07 10/09/18 18:52 10/09/18 20:34 10/09/18 21:35 Bedside Glucose 123 112 Hemoglobin 7.1 L 6.2 *L Hematocrit 21.8 L 19.6 L Test 10/10/18 01:06 10/10/18 03:00 10/10/18 04:33 10/10/18 05:00 Bedside Glucose 95 177 Hemoglobin 10.6 #L 10.3 L Hematocrit 33.8 #L 33.3 L White Blood 17.8 H Count Red Blood Count 3.50 #L Mean Corpuscular 95.1 Volume Mean Corpuscular 29.4 Hemoglobin Mean Corpuscular 30.9 L Hemoglobin Yazmin nt Red Cell 14.5 Distribution Width Platelet Count 111 #L Mean Platelet 12.6 H Volume Immature 1.100 H Granulocytes % Neutrophils % Segmented 97 H Neutrophils % (Manual) Band Neutrophils 3 % (Manual) Lymphocytes % Monocytes % Eosinophils % Basophils % Nucleated Red 0.5 H Blood Cells % Immature 0.190 H Granulocytes # Neutrophils # Neutrophils # 17.4 H (Manual) Band Neutrophils 0.5 # Lymphocytes # Monocytes # Eosinophils # Basophils # Nucleated Red Blood Cells # Platelet DECREASED Estimate Giant Platelets 2 H Poikilocytosis 3+ Anisocytosis 1+ Blood Gas Blood arterial Specimen Source Arterial Blood 10/10/2018 5:02: Date Drawn 00 AM Arterial Blood 7.086 *L pH (Temp corrected) Arterial Blood 54.1 H pCO2 (Temp correct) Arterial Blood 356.3 H pO2 (Temp corrected) Arterial Blood 15.9 L HCO3 Arterial Blood -14.0 L Base Excess Arterial Blood 99.1 Oxygen Saturatio n Gian Test ACCEPTAB Arterial Blood Right Radial Gas Puncture Site Arterial 0.3 Blood Carboxyhem oglobin Arterial Blood 0.5 Methemoglobin Blood Gas A-a O2 302.6 H Differential Oxyhemoglobin 98.3 Percent Blood Gas 37.0 Temperature Blood Gas 24.0 Respiration Rate Blood Gas Actual 26 Respiration Rate Blood Gas VENT - AC Modality FiO2 100.0 Blood Gas Tidal 450.0 Volume Blood Gas Low 5.0 PEEP Setting Blood Gas 20.0 Inspiratory Pressure Blood Gas GENESIS GOMEZ RN Critical Value Read Back Blood Gas LW Notified Whom Blood Gas 10/10/2018 5:13: Notified Time 00 AM Sodium Level 157 H Potassium Level 4.0 Chloride Level 129 H Carbon Dioxide 14 L Level Anion Gap 14 H Blood Urea 104 H Nitrogen Creatinine 2.75 H Est Glomerular Filtrat Rate mL/min Glucose Level 172 Lactic Acid 6.8 *H Level Calcium Level 4.6 *L Phosphorus Level 11.7 #H Magnesium Level 1.8 Test 10/10/18 08:58 10/10/18 09:24 Bedside Glucose 228 H White Blood 15.5 H Count Red Blood Count 2.79 #L Hemoglobin 8.4 L Hematocrit 25.9 #L Mean Corpuscular 92.8 Volume Mean Corpuscular 30.1 Hemoglobin Mean Corpuscular 32.4 Hemoglobin Yazmin nt Red Cell 14.6 H Distribution Width Platelet Count 94 L Mean Platelet 13.1 H Volume Immature 0.700 H Granulocytes % Neutrophils % Segmented 85 H Neutrophils % (Manual) Band Neutrophils 8 H % (Manual) Lymphocytes % Lymphocytes % 5 L (Manual) Monocytes % Monocytes % 2 (Manual) Eosinophils % Basophils % Nucleated Red 0.6 H Blood Cells % Immature 0.110 H Granulocytes # Neutrophils # Neutrophils # 13.4 H (Manual) Band Neutrophils 1.2 H # Lymphocytes 0.7 L (Manual) Lymphocytes # Monocytes # Monocytes # 0.3 (Manual) Eosinophils # Basophils # Nucleated Red Blood Cells # Platelet DECREASED Estimate Polychromasia 1+ Poikilocytosis 2+ Anisocytosis 1+ Ovalocytes 1+ Prothrombin Time 31.0 #H Prothrombin Time 2.4 Ratio INR 2.98 International Normalized Ratio Activated 37.1 H Partial Thrombop last Time Sodium Level 150 H Potassium Level 3.9 Chloride Level 118 H Carbon Dioxide 19 L Level Anion Gap 13 Blood Urea 111 H Nitrogen Creatinine 3.02 H Est Glomerular Filtrat Rate mL/min Glucose Level 415 #*H Calcium Level 4.9 *L Total Bilirubin 0.3 Direct Bilirubin 0.00 Indirect 0.3 Bilirubin Aspartate Amino 6716 H Transf (AST/SGOT ) Alanine 2696 H Aminotransferase (ALT/SGPT) Alkaline 41 L Phosphatase Total Protein 3.5 #L Albumin 1.4 L Globulin 2.10 Albumin/Globulin 0.66 Ratio Home Meds Reported Medications Sodium Phosphate,[place]-Dibasic (Enema Ready To Use) 133 Ml Enema, 133 ML RC EVERY 72 HOURS PRN for CONSTIPATION, ENEMA 09/29/18 Valproic Acid* (Depakene*) 250 Mg/5 Ml Udc Syrup, 125 MG PO Q6, ML 09/29/18 Haloperidol* (Haldol*) 1 Mg Tab, 1 MG PO Q6, TAB 09/29/18 Hydralazine Hcl* (Hydralazine Hcl*) 25 Mg Tab, 25 MG PO BID PRN for ELEVATED BLOOD PRESSURE, #60 TAB HOLD IF SBP <110 OR HR<60 09/29/18 Hydrocodone/Acetaminophen (Corinne 5-325 Tablet) 1 Each Tablet, 1 EACH PO Q4 PRN for PAIN LEVEL 6-10, TAB 09/29/18 Metoprolol Tartrate* (Lopressor*) 50 Mg Tab, 50 MG PO BID, #60 TAB HOLD IF SBP <110 OR HR <60 09/29/18 Multivit-Min/Iron Fum/Folic AC (Hoidr-Vtpbwrr-Zerqtrgs Tablet) 1 Each Tablet, 1 EACH PO DAILY, TAB 09/29/18 Insulin Aspart* (Novolog Insulin Pen*) 100 Unit/Ml Soln, 0 SC .SLIDING SCALE AC, EA 150-199 = 1 UNIT 200-249 = 2 UNITS 250-299 = 3 UNITS 300-349 = 4 UNITS 350-400 = 5 UNITS OVER 400 CALL MD [facility]ANCE MEALS AND AT BEDTIME 09/29/18 Protein Supplement (Promod) 946 Ml Liquid, 30 ML PO BID 09/29/18 Trazodone Hcl* (Trazodone Hcl*) 50 Mg Tablet, 50 MG PO QHS PRN for SLEEP, #30 TAB 09/29/18 Bisacodyl (Dulcolax) 10 Mg Supp.rect, 10 MG RC DAILY PRN for CONSTIPATION, SUPP.RECT 09/29/18 Magnesium Hydroxide* (Milk Of Magnesia*) 400 Mg/5 Ml Oral.susp, 30 ML PO DAILY PRN for CONSTIPATION, ML 09/29/18 Amlodipine Besylate* (Amlodipine Besylate*) 10 Mg Tablet, 10 MG PO DAILY, #30 TAB BP<110 OR HR <60 09/29/18 Albuterol Sulfate* (Albuterol Sulfate* Neb) 0.083%-3 Ml Neb, 2.5 MG NEB Q4H PRN for SHORTNESS OF BREATH, #30 VIAL 09/29/18 Albuterol Sulfate* (Albuterol Sulfate* Neb) 0.083%-3 Ml Neb, 2.5 MG NEB Q8 PRN for WHEEZING AND SOB, #30 VIAL 09/29/18 Medications Current Medications Albuterol (Proventil 0.083% (Neb)) 2.5 mg Q4H RESP THERAPY PRN NEB SHORTNESS OF BREATH Last administered on 10/08/18at 04:59; Admin Dose 2.5 MG; Start 09/29/18 at 15:00 Albuterol (Proventil 0.083% (Neb)) 2.5 mg Q8H RESP THERAPY PRN NEB WHEEZING AND SOB; Start 09/29/18 at 16:00 Bisacodyl (Dulcolax Supp) 10 mg DAILY PRN LA CONSTIPATION; Start 09/29/18 at 15:00 Hydralazine HCl (Apresoline) 25 mg BID PRN PO ELEVATED BP; SBP > 160; Start 09/29/18 at 15:00 Magnesium Hydroxide (Milk Of Mag) 30 ml DAILY PRN PO CONSTIPATION; Start 09/29/18 at 15:00 Miscellaneous Information 1 ea NOTE XX ; Start 09/29/18 at 16:30 Glucose (Glutose) 15 gm Q15M PRN PO DECREASED GLUCOSE; Start 09/29/18 at 16:30 Glucose (Glutose) 22.5 gm Q15M PRN PO DECREASED GLUCOSE; Start 09/29/18 at 16:30 Dextrose (D50w Syringe) 25 ml Q15M PRN IV DECREASED GLUCOSE; Start 09/29/18 at 16:30 Dextrose (D50w Syringe) 50 ml Q15M PRN IV DECREASED GLUCOSE; Start 09/29/18 at 16:30 Glucagon (Glucagen) 1 mg Q15M PRN IM DECREASED GLUCOSE; Start 09/29/18 at 16:30 Glucose (Glutose) 15 gm Q15M PRN BUCCAL DECREASED GLUCOSE; Start 09/29/18 at 16:30 [facility]isc[facility] This patient saini... PRN PRN XX WOUND CARE; Start 09/30/18 at 05:00 Insulin Aspart (Novolog Insulin Pen) (Adult SC Insulin - Mild Algorithm)... Q4 SC Last administered on 10/10/18at 09:00; Admin Dose 3 UNIT; Start 09/30/18 at 13:00 Meropenem/Sodium Chloride 50 ml @ 100 mls/hr Q12 IVPB Last administered on 10/10/18at 08:23; Admin Dose 100 MLS/HR; Start 09/30/18 at 21:00 Acetaminophen (Tylenol Supp) 650 mg Q6H PRN LA FEVER Last administered on 10/01/18at 20:57; Admin Dose 650 MG; Start 09/30/18 at 21:30 Linezolid 300 ml @ 300 mls/hr Q12 IVPB Last administered on 10/10/18at 08:23; Admin Dose 300 MLS/HR; Start 10/01/18 at 21:00 Total Parenteral Nutrition 1,000 ml @ 75 mls/hr [id number] IV Last administered on 10/07/18at 21:50; Admin Dose 75 MLS/HR; Start 10/05/18 at 17:00; Status Hold Famotidine (Pepcid Iv) 20 mg BID IV Last administered on 10/10/18 08:23; Admin Dose 20 MG; Start 10/06/18 at 21:00 Morphine Sulfate (morphine) 2 mg Q4H PRN IV SEVERE PAIN LEVEL 7-10 Last administered on 10/08/18 18:34; Admin Dose 2 MG; Start 10/08/18 at 09:30 Potassium Chloride 50 ml @ 50 mls/hr K PROTOCOL PRN IVPB PENDING LAB VALUE Last administered on 10/09/18 18:02; Admin Dose 50 MLS/HR; Start 10/08/18 at 14:00 Sucralfate (Carafate Susp) 1 gm QID NGT Last administered on 10/09/18 20:22; Admin Dose 1 GM; Start 10/08/18 at 21:00 Fentanyl 100 ml @ 5 mls/hr TITRATE IV Last administered on 10/09/18 12:57; Admin Dose 5 MLS/HR; Start 10/09/18 at 13:00 Sodium Bicarbonate 100 meq/Dextrose 1,100 ml @ 75 mls/hr [id number] IV Last administered on 10/10/18 05:46; Admin Dose 75 MLS/HR; Start 10/09/18 at 13:00 Ipratropium [place] (Atrovent Hfa) 4 puff Q4H RESP THERAPY INH Last administered on 10/10/18 08:03; Admin Dose 4 PUFF; Start 10/09/18 at 13:00 Albuterol (Ventolin Hfa) 2 puff Q4H RESP THERAPY INH Last administered on 10/10/18 08:03; Admin Dose 2 PUFF; Start 10/09/18 at 13:00 Phenylephrine HCl 80 mg/Dextrose 250 ml @ 18.75 mls/ hr TITRATE IV Last administered on 10/10/18 08:40; Admin Dose 56.25 MLS/HR; Start 10/09/18 at 23: 00 Vasopressin 60 unit/Dextrose 60 ml @ 1.2 mls/hr Q12H IV Last administered on 10/10/18 09:43; Admin Dose 1.2 MLS/HR; Start 10/10/18 at 09:00 Norepinephrine 32 mg/Dextrose 250 ml @ 0.47 mls/hr TITRATE IV Last administered on 6/16/19at 09:33; Admin Dose 4.69 MLS/HR; Start 10/10/18 at 09:00 Famotidine (Pepcid Iv) 20 mg DAILY IV ; Start 10/10/18 at 10:00 Hydrocortisone (Solu-Cortef) 60 mg Q6 IV ; Start 10/10/18 at 12:00 Assessment/Plan Assessment/Plan (Daily) IMP: 1. s/p PEA arrest--likely 2/2 hypoxemia--complicated by right PTX--s/p ches tube with ++ air-leak and lung re-expansion 2. Acute hypoxemic/hypercapnic respiratory failure--2/2 multifocal pneumonia 3. Refractory Septic Shock--with multiorgan failure 4. Acute renal failure 5. Encephalopathy 6. Ischemic Hepatopathy 7. GI bleed/ large PUD 8. Hyperglycemia 9. Coagulopathy--2/2 ischemic hepatopathy RECS: 1. Vent support--increase rate to 32 2. Add epinephrine gtt to current 3 vasopressors to MAP > 65 mm Hg 3. Continue abx per ID 4. Hydrocortisone 50 mg IV Q 6 5. Follow H/H 6. PPI IV 7. Follow ABG/CXR 8. Continue chest tube to suction 20 cm H20 9. Case discussed with family via teleconference. The gravity of the situation was explained to them. We will not pursue HD and will not perform chest compressions. Family is aware and in agreement. Prognosis extremely poor 40 min cc time ZIA VEE MD Oct 10, 2018 11:22
[2018-10-10] MEDS: ALBUMIN HUMAN 25% 100 ML IV SCH ×3 (11:25→23:09)
[2018-10-10] MEDS ORDERED: EPINEPHrine 4 MG in SOD CHLORIDE 0.9% 246 ML IV SCH (11:30)
--- NOTE | 2018-10-10 11:48 | PN ---
Date/Time of Note Date/Time of Note DATE: 10/10/18 TIME: 11:44 Assessment/Plan VTE Prophylaxis Risk score (from Ns)>0 risk: 12 SCD applied (from Ns): Yes Pharmacological prophylaxis: NA/contraindicated Pharm contraindication: bleeding Lines/Catheters IV C[facility]ter Type (from [facility]): Peripheral IV Urinary Cath still in place: Yes Reason Cath still needed: terminal illness/intractable pain Assessment/Plan Hospital Course 1. Acute hypoxemic respiratory failure. Etiology is felt to be secondary to pneumonia and PTX. chest tube placed on 10/09. intubated on 10/09. vent management per pulm.. Continue antibiotics, nebulizers, we will give intermittent diuretic therapy as needed. 2. Sepsis secondary to healthcare-associated pneumonia and bacteremia. Continue broad spectrum antibiotics, IVF and 4 pressors. will add albumin. 3. oliguric DESTINY due to atn: cont supportive care and renally dose all meds. no HD per family 4. Hypernatremia. Etiology is secondary to insensible losses, decreased free water intake. cont hypotonic saline 5. metabolic and respiratory acidosis: vent settings will be adjusted by pulmonary. on HCO3 gtt 6. Acute gastrointestinal bleed, etiology is secondary to ischemic ulcer, peptic ulcer disease. The patient is actively bleeding. We will continue to monitor hemoglobin and hematocrit levels. Continue proton pump inhibitor and carafrate. pt is too unstable to get angiogram with coil. d/w GI 7. acute Anemia due to GI bleed. Monitor hemoglobin and hematocrit levels, we will transfuse as needed. 8. Acute encephalopathy, etiology is toxic metabolic. The patient was evaluated by neurology. He is pending an lumbar puncture to evaluate for meningeal encephalitis. The patient is clinically unstable for lumbar puncture. We will continue to monitor. Continue antibiotic therapy. 9. Mineral bone disorder. elevated phos. no phos binders while pt is npo/ Monitor calcium and phosphorus levels. 10. Nutrition. The patient was on TPN. 11. History of cerebrovascular accident. d/w and daughters regarding patient's critical condition. will change code status to DNR. consider comfort care. Result Diagram: 10/10/1892310/10/18 0924 Results 24hrs Laboratory Tests Test 10/09/18 12:10 10/09/18 12:11 10/09/18 13:14 10/09/18 17:07 White Blood Count 16.3 H Red Blood Count 2.84 L Hemoglobin 8.4 L Hematocrit 25.5 L Mean Corpuscular 89.8 Volume Mean Corpuscular 29.6 Hemoglobin Mean Corpuscular 32.9 Hemoglobin Concen t Red Cell 14.5 Distribution Width Platelet Count 223 Mean Platelet 11.4 H Volume Immature 0.900 H Granulocytes % Neutrophils % 85.2 H Lymphocytes % 10.1 L Monocytes % 3.7 Eosinophils % 0.0 Basophils % 0.1 Nucleated Red 0.4 H Blood Cells % Immature 0.140 H Granulocytes # Neutrophils # 13.9 H Lymphocytes # 1.7 Monocytes # 0.6 Eosinophils # 0.0 Basophils # 0.0 Nucleated Red 0.1 H Blood Cells # Sodium Level 160 H Potassium Level 3.9 Chloride Level 124 H Carbon Dioxide 23 Level Anion Gap 13 Blood Urea 114 H Nitrogen Creatinine 2.45 H Est Glomerular Filtrat Rate mL/min Glucose Level 150 Calcium Level 7.9 L Total Bilirubin 0.5 Direct Bilirubin 0.00 Indirect 0.5 Bilirubin Aspartate Amino 714 H Transf (AST/SGOT) Alanine 530 H Aminotransferase (ALT/SGPT) Alkaline 42 Phosphatase Total Protein 5.7 L Albumin 2.3 L Globulin 3.40 H Albumin/Globulin 0.67 Ratio Bedside Glucose 144 123 Test 10/09/18 18:52 10/09/18 20:34 10/09/18 21:35 10/10/18 01:06 Hemoglobin 7.1 L 6.2 *L Hematocrit 21.8 L 19.6 L Bedside Glucose 112 95 Test 10/10/18 03:00 10/10/18 04:33 10/10/18 05:00 10/10/18 08:58 Hemoglobin 10.6 #L 10.3 L Hematocrit 33.8 #L 33.3 L Bedside Glucose 177 228 H White Blood Count 17.8 H Red Blood Count 3.50 #L Mean Corpuscular 95.1 Volume Mean Corpuscular 29.4 Hemoglobin Mean Corpuscular 30.9 L Hemoglobin Concen t Red Cell 14.5 Distribution Width Platelet Count 111 #L Mean Platelet 12.6 H Volume Immature 1.100 H Granulocytes % Neutrophils % Segmented 97 H Neutrophils % (Manual) Band Neutrophils 3 % (Manual) Lymphocytes % Monocytes % Eosinophils % Basophils % Nucleated Red 0.5 H Blood Cells % Immature 0.190 H Granulocytes # Neutrophils # Neutrophils # 17.4 H (Manual) Band Neutrophils 0.5 # Lymphocytes # Monocytes # Eosinophils # Basophils # Nucleated Red Blood Cells # Platelet Estimate DECREASED Giant Platelets 2 H Poikilocytosis 3+ Anisocytosis 1+ Blood Gas Blood arterial Specimen Source Arterial Blood 10/10/2018 5:02:0 Date Drawn 0 AM Arterial Blood pH 7.086 *L (Temp corrected) Arterial Blood 54.1 H pCO2 (Temp correct) Arterial Blood 356.3 H pO2 (Temp corrected) Arterial Blood 15.9 L HCO3 Arterial Blood -14.0 L Base Excess Arterial Blood 99.1 Oxygen Saturation Gian Test ACCEPTAB Arterial Blood Right Radial Gas Puncture Site Arterial 0.3 Blood Carboxyhemo globin Arterial Blood 0.5 Methemoglobin Blood Gas A-a O2 302.6 H Differential Oxyhemoglobin 98.3 Percent Blood Gas 37.0 Temperature Blood Gas 24.0 Respiration Rate Blood Gas Actual 26 Respiration Rate Blood Gas VENT - AC Modality FiO2 100.0 Blood Gas Tidal 450.0 Volume Blood Gas Low 5.0 PEEP Setting Blood Gas 20.0 Inspiratory Pressure Blood Gas GENESIS GOMEZ RN Critical Value Read Back Blood Gas LW Notified Whom Blood Gas 10/10/2018 5:13:0 Notified Time 0 AM Sodium Level 157 H Potassium Level 4.0 Chloride Level 129 H Carbon Dioxide 14 L Level Anion Gap 14 H Blood Urea 104 H Nitrogen Creatinine 2.75 H Est Glomerular Filtrat Rate mL/min Glucose Level 172 Lactic Acid Level 6.8 *H Calcium Level 4.6 *L Phosphorus Level 11.7 #H Magnesium Level 1.8 Test 10/10/18 09:24 White Blood Count 15.5 H Red Blood Count 2.79 #L Hemoglobin 8.4 L Hematocrit 25.9 #L Mean Corpuscular 92.8 Volume Mean Corpuscular 30.1 Hemoglobin Mean Corpuscular 32.4 Hemoglobin Concen t Red Cell 14.6 H Distribution Width Platelet Count 94 L Mean Platelet 13.1 H Volume Immature 0.700 H Granulocytes % Neutrophils % Segmented 85 H Neutrophils % (Manual) Band Neutrophils 8 H % (Manual) Lymphocytes % Lymphocytes % 5 L (Manual) Monocytes % Monocytes % 2 (Manual) Eosinophils % Basophils % Nucleated Red 0.6 H Blood Cells % Immature 0.110 H Granulocytes # Neutrophils # Neutrophils # 13.4 H (Manual) Band Neutrophils 1.2 H # Lymphocytes 0.7 L (Manual) Lymphocytes # Monocytes # Monocytes # 0.3 (Manual) Eosinophils # Basophils # Nucleated Red Blood Cells # Platelet Estimate DECREASED Polychromasia 1+ Poikilocytosis 2+ Anisocytosis 1+ Ovalocytes 1+ Prothrombin Time 31.0 #H Prothrombin Time 2.4 Ratio INR International 2.98 Normalized Ratio Activated 37.1 H Partial Thrombopl ast Time Sodium Level 150 H Potassium Level 3.9 Chloride Level 118 H Carbon Dioxide 19 L Level Anion Gap 13 Blood Urea 111 H Nitrogen Creatinine 3.02 H Est Glomerular Filtrat Rate mL/min Glucose Level 415 #*H Calcium Level 4.9 *L Total Bilirubin 0.3 Direct Bilirubin 0.00 Indirect 0.3 Bilirubin Aspartate Amino 6716 H Transf (AST/SGOT) Alanine 2696 H Aminotransferase (ALT/SGPT) Alkaline 41 L Phosphatase Total Protein 3.5 #L Albumin 1.4 L Globulin 2.10 Albumin/Globulin 0.66 Ratio Subjective 24 Hr Interval Summary Free Text/Dictation pt have GI bleed with melanotic stool and OG tube with bright red blood. given prbc with still low Hg now on 3 pressors and still hypotensive remains on the ventilator low urine output d/w rn gen nonverbal cv tachycardic pulm coarse bs, rales abd soft, nd, nt +bs ext: no edema Exam/Review of Systems Exam Vitals Vital Signs Date Temp Pulse Resp B/P (MAP) Pulse Ox O2 O2 Flow FiO2 Time Delivery Rate 10/10/18 122 32 108/54 11:30 (72) 10/10/18 100 Mechanical 11:00 Ventilator 10/10/18 98.5 08:00 10/10/18 60 05:24 10/06/18 15.0 12:40 Intake and Output 10/09/18 10/09/18 10/10/18 1515:00 23:00 07:00 IntakeIntake Total 1197.0 ml 1330.00 ml 1016.375 ml OutputOutput Total 80 ml 101 ml 191 ml BalanceBalance 1117.0 ml 1229.00 ml 825.375 ml Results Results 24hrs Laboratory Tests Test 10/09/18 12:10 10/09/18 12:11 10/09/18 13:14 10/09/18 17:07 White Blood Count 16.3 H Red Blood Count 2.84 L Hemoglobin 8.4 L Hematocrit 25.5 L Mean Corpuscular 89.8 Volume Mean Corpuscular 29.6 Hemoglobin Mean Corpuscular 32.9 Hemoglobin Concen t Red Cell 14.5 Distribution Width Platelet Count 223 Mean Platelet 11.4 H Volume Immature 0.900 H Granulocytes % Neutrophils % 85.2 H Lymphocytes % 10.1 L Monocytes % 3.7 Eosinophils % 0.0 Basophils % 0.1 Nucleated Red 0.4 H Blood Cells % Immature 0.140 H Granulocytes # Neutrophils # 13.9 H Lymphocytes # 1.7 Monocytes # 0.6 Eosinophils # 0.0 Basophils # 0.0 Nucleated Red 0.1 H Blood Cells # Sodium Level 160 H Potassium Level 3.9 Chloride Level 124 H Carbon Dioxide 23 Level Anion Gap 13 Blood Urea 114 H Nitrogen Creatinine 2.45 H Est Glomerular Filtrat Rate mL/min Glucose Level 150 Calcium Level 7.9 L Total Bilirubin 0.5 Direct Bilirubin 0.00 Indirect 0.5 Bilirubin Aspartate Amino 714 H Transf (AST/SGOT) Alanine 530 H Aminotransferase (ALT/SGPT) Alkaline 42 Phosphatase Total Protein 5.7 L Albumin 2.3 L Globulin 3.40 H Albumin/Globulin 0.67 Ratio Bedside Glucose 144 123 Test 10/09/18 18:52 10/09/18 20:34 10/09/18 21:35 10/10/18 01:06 Hemoglobin 7.1 L 6.2 *L Hematocrit 21.8 L 19.6 L Bedside Glucose 112 95 Test 10/10/18 03:00 10/10/18 04:33 10/10/18 05:00 10/10/18 08:58 Hemoglobin 10.6 #L 10.3 L Hematocrit 33.8 #L 33.3 L Bedside Glucose 177 228 H White Blood Count 17.8 H Red Blood Count 3.50 #L Mean Corpuscular 95.1 Volume Mean Corpuscular 29.4 Hemoglobin Mean Corpuscular 30.9 L Hemoglobin Concen t Red Cell 14.5 Distribution Width Platelet Count 111 #L Mean Platelet 12.6 H Volume Immature 1.100 H Granulocytes % Neutrophils % Segmented 97 H Neutrophils % (Manual) Band Neutrophils 3 % (Manual) Lymphocytes % Monocytes % Eosinophils % Basophils % Nucleated Red 0.5 H Blood Cells % Immature 0.190 H Granulocytes # Neutrophils # Neutrophils # 17.4 H (Manual) Band Neutrophils 0.5 # Lymphocytes # Monocytes # Eosinophils # Basophils # Nucleated Red Blood Cells # Platelet Estimate DECREASED Giant Platelets 2 H Poikilocytosis 3+ Anisocytosis 1+ Blood Gas Blood arterial Specimen Source Arterial Blood 10/10/2018 5:02:0 Date Drawn 0 AM Arterial Blood pH 7.086 *L (Temp corrected) Arterial Blood 54.1 H pCO2 (Temp correct) Arterial Blood 356.3 H pO2 (Temp corrected) Arterial Blood 15.9 L HCO3 Arterial Blood -14.0 L Base Excess Arterial Blood 99.1 Oxygen Saturation Gian Test ACCEPTAB Arterial Blood Right Radial Gas Puncture Site Arterial 0.3 Blood Carboxyhemo globin Arterial Blood 0.5 Methemoglobin Blood Gas A-a O2 302.6 H Differential Oxyhemoglobin 98.3 Percent Blood Gas 37.0 Temperature Blood Gas 24.0 Respiration Rate Blood Gas Actual 26 Respiration Rate Blood Gas VENT - AC Modality FiO2 100.0 Blood Gas Tidal 450.0 Volume Blood Gas Low 5.0 PEEP Setting Blood Gas 20.0 Inspiratory Pressure Blood Gas GENESIS GOMEZ RN Critical Value Read Back Blood Gas LW Notified Whom Blood Gas 10/10/2018 5:13:0 Notified Time 0 AM Sodium Level 157 H Potassium Level 4.0 Chloride Level 129 H Carbon Dioxide 14 L Level Anion Gap 14 H Blood Urea 104 H Nitrogen Creatinine 2.75 H Est Glomerular Filtrat Rate mL/min Glucose Level 172 Lactic Acid Level 6.8 *H Calcium Level 4.6 *L Phosphorus Level 11.7 #H Magnesium Level 1.8 Test 10/10/18 09:24 White Blood Count 15.5 H Red Blood Count 2.79 #L Hemoglobin 8.4 L Hematocrit 25.9 #L Mean Corpuscular 92.8 Volume Mean Corpuscular 30.1 Hemoglobin Mean Corpuscular 32.4 Hemoglobin Concen t Red Cell 14.6 H Distribution Width Platelet Count 94 L Mean Platelet 13.1 H Volume Immature 0.700 H Granulocytes % Neutrophils % Segmented 85 H Neutrophils % (Manual) Band Neutrophils 8 H % (Manual) Lymphocytes % Lymphocytes % 5 L (Manual) Monocytes % Monocytes % 2 (Manual) Eosinophils % Basophils % Nucleated Red 0.6 H Blood Cells % Immature 0.110 H Granulocytes # Neutrophils # Neutrophils # 13.4 H (Manual) Band Neutrophils 1.2 H # Lymphocytes 0.7 L (Manual) Lymphocytes # Monocytes # Monocytes # 0.3 (Manual) Eosinophils # Basophils # Nucleated Red Blood Cells # Platelet Estimate DECREASED Polychromasia 1+ Poikilocytosis 2+ Anisocytosis 1+ Ovalocytes 1+ Prothrombin Time 31.0 #H Prothrombin Time 2.4 Ratio INR International 2.98 Normalized Ratio Activated 37.1 H Partial Thrombopl ast Time Sodium Level 150 H Potassium Level 3.9 Chloride Level 118 H Carbon Dioxide 19 L Level Anion Gap 13 Blood Urea 111 H Nitrogen Creatinine 3.02 H Est Glomerular Filtrat Rate mL/min Glucose Level 415 #*H Calcium Level 4.9 *L Total Bilirubin 0.3 Direct Bilirubin 0.00 Indirect 0.3 Bilirubin Aspartate Amino 6716 H Transf (AST/SGOT) Alanine 2696 H Aminotransferase (ALT/SGPT) Alkaline 41 L Phosphatase Total Protein 3.5 #L Albumin 1.4 L Globulin 2.10 Albumin/Globulin 0.66 Ratio Medications Medication Current Medications Albuterol (Proventil 0.083% (Neb)) 2.5 mg Q4H RESP THERAPY PRN NEB SHORTNESS OF BREATH Last administered on 10/08/18at 04:59; Admin Dose 2.5 MG; Start 09/29/18 at 15:00 Albuterol (Proventil 0.083% (Neb)) 2.5 mg Q8H RESP THERAPY PRN NEB WHEEZING AND SOB; Start 09/29/18 at 16:00 Bisacodyl (Dulcolax Supp) 10 mg DAILY PRN [place] CONSTIPATION; Start 09/29/18 at 15:00 Hydralazine HCl (Apresoline) 25 mg BID PRN PO ELEVATED BP; SBP > 160; Start 09/29/18 at 15:00 Magnesium Hydroxide (Milk Of Mag) 30 ml DAILY PRN PO CONSTIPATION; Start 09/29/18 at 15:00 Miscellaneous Information 1 ea NOTE XX ; Start 09/29/18 at 16:30 Glucose (Glutose) 15 gm Q15M PRN PO DECREASED GLUCOSE; Start 09/29/18 at 16:30 Glucose (Glutose) 22.5 gm Q15M PRN PO DECREASED GLUCOSE; Start 09/29/18 at 16:30 Dextrose (D50w Syringe) 25 ml Q15M PRN IV DECREASED GLUCOSE; Start 09/29/18 at 16:30 Dextrose (D50w Syringe) 50 ml Q15M PRN IV DECREASED GLUCOSE; Start 09/29/18 at 16:30 Glucagon (Glucagen) 1 mg Q15M PRN IM DECREASED GLUCOSE; Start 09/29/18 at 16:30 Glucose (Glutose) 15 gm Q15M PRN BUCCAL DECREASED GLUCOSE; Start 09/29/18 at 16:30 Miscellaneous Information (Pending [facility] Order For Wound Care) This patient saini... PRN PRN XX WOUND CARE; Start 09/30/18 at 05:00 Insulin Aspart (Novolog Insulin Pen) (Adult SC Insulin - Mild Algorithm)... Q4 SC Last administered on 10/10/18 09:00; Admin Dose 3 UNIT; Start 09/30/18 at 13:00 Meropenem/Sodium Chloride 50 ml @ 100 mls/hr Q12 IVPB Last administered on 10/10/18 08:23; Admin Dose 100 MLS/HR; Start 09/30/18 at 21:00 Acetaminophen (Tylenol Supp) 650 mg Q6H PRN FL FEVER Last administered on 9at 20:57; Admin Dose 650 MG; Start 09/30/18 at 21:30 Linezolid 300 ml @ 300 mls/hr Q12 IVPB Last administered on 10/10/18 08:23; Admin Dose 300 MLS/HR; Start 10/01/18 at 21:00 Total Parenteral Nutrition 1,000 ml @ 75 mls/hr [id number] IV Last administered on 10/07/18 21:50; Admin Dose 75 MLS/HR; Start 10/05/18 at 17:00; Status Hold Famotidine (Pepcid Iv) 20 mg BID IV Last administered on 10/10/18 08:23; Admin Dose 20 MG; Start 10/06/18 at 21:00 Morphine Sulfate (morphine) 2 mg Q4H PRN IV SEVERE PAIN LEVEL 7-10 Last administered on 10/08/18 18:34; Admin Dose 2 MG; Start 10/08/18 at 09:30 Potassium Chloride 50 ml @ 50 mls/hr K PROTOCOL PRN IVPB PENDING LAB VALUE Last administered on 10/09/18 18:02; Admin Dose 50 MLS/HR; Start 10/08/18 at 14:00 Sucralfate (Carafate Susp) 1 gm QID NGT Last administered on 10/09/18 20:22; Admin Dose 1 GM; Start 10/08/18 at 21:00 Fentanyl 100 ml @ 5 mls/hr TITRATE IV Last administered on 10/09/18 12:57; Admin Dose 5 MLS/HR; Start 10/09/18 at 13:00 Ipratropium Bradford (Atrovent Hfa) 4 puff Q4H RESP THERAPY INH Last administered on 10/10/18 08:03; Admin Dose 4 PUFF; Start 10/09/18 at 13:00 Albuterol (Ventolin Hfa) 2 puff Q4H RESP THERAPY INH Last administered on 10/10/18 08:03; Admin Dose 2 PUFF; Start 10/09/18 at 13:00 Phenylephrine HCl 80 mg/Dextrose 250 ml @ 18.75 mls/ hr TITRATE IV Last administered on 10/10/18 08:40; Admin Dose 56.25 MLS/HR; Start 10/09/18 at 23:00 Vasopressin 60 unit/Dextrose 60 ml @ 1.2 mls/hr Q12H IV Last administered on 10/10/18 09:43; Admin Dose 1.2 MLS/HR; Start 10/10/18 at 09:00 Norepinephrine 32 mg/Dextrose 250 ml @ 0.47 mls/hr TITRATE IV Last administered on 10/10/18 09:33; Admin Dose 4.69 MLS/HR; Start 10/10/18 at 09:00 Famotidine (Pepcid Iv) 20 mg DAILY IV Last administered on 10/10/18 11:18; Admin Dose 20 MG; Start 10/10/18 at 10:00 Hydrocortisone (Solu-Cortef) 60 mg Q6 IV Last administered on 10/10/18 11:18; Admin Dose 60 MG; Start 10/10/18 at 12:00 Albumin Human 100 ml @ 100 mls/hr Q6H IV Last administered on 10/10/18 11:25; Admin Dose 100 MLS/HR; Start 10/10/18 at 11:30; Stop 10/11/18 at 00:29 Epinephrine 4 mg/ Sodium Chloride 250 ml @ 3.75 mls/hr TITRATE IV ; Start 10/10/18 at 11:30 Sodium Bicarbonate 150 meq/Dextrose 1,150 ml @ 75 mls/hr [id number] IV ; Start 10/10/18 at 11:12 CHRISTINE RAMSEY MD Oct 10, 2018 11:48
[2018-10-10] MEDS: SODIUM BICARBONATE (IV ADD) 150 MEQ in DEXTROSE 5% 1,000 ML IV SCH (12:06)
--- NOTE | 2018-10-10 12:55 | CONS ---
Assessment/Plan Assessment/Plan Hospital Course (Demo Recall) Patient is on multiple pressors intubated in no distress no fevers overnight WBC 15.5 H&H 8.5 and 25.9 platelets 94 bands 8 BUN 111 creatinine 3.02 lactic acid 6.8 Chest x-ray revealed no significant change and I aeration Microbiology: Blood culture on admission grew oxacillin sensitive staph aureus, repeat blood cultures growing coag negative staph species Antimicrobials: Zyvox, meropenem Indwelling's: Left upper extremity PICC line, Gorman, ETT, right chest tube Physical examination: Chronically ill-appearing elderly man in no distress. Head atraumatic normocephalic neck is supple. Chest rise symmetrical breath sounds diminished bases. Heart: S1-S2. Abdomen soft bowel sounds present.. Extremities without cyanosis Assessment: 1. Severe sepsis with shock 2. Status post PEA arrest complicated by right pneumothorax 3. Multifocal pneumonia 4. Acute respiratory failure 5. Acute anemia/GI bleeding 6. MSSA bacteremia 7. Acute renal failure 8. Acute encephalopathy 9. Progressive thrombocytopenia Plan: Patient is doing poorly, CODE STATUS changed to chemical, will change Zyvox to vancomycin given progressive thrombocytopenia await for sputum culture, follow recommendations of specialists Discussed with at bedside, discussed with RN Consultation Date/Type/Reason Admit Date/Time Sep 29, 2018 at 13:57 Initial Consult Date 09/30/18 Type of Consult id Requesting Provider: GLADIS ALICIA DO Date/Time of Note DATE: 10/10/18 TIME: 12:53 Exam/Review of Systems Exam Vitals Vital Signs Date Temp Pulse Resp B/P (MAP) Pulse Ox O2 O2 Flow FiO2 Time Delivery Rate 10/10/18 126 25 102/61 100 Mechanical 12:45 (75) Ventilator 10/10/18 98.1 12:00 10/10/18 60 11:19 10/06/18 15.0 12:40 Intake and Output 10/09/18 10/09/18 10/10/18 1515:00 23:00 07:00 IntakeIntake Total 1197.0 ml 1330.00 ml 1016.375 ml OutputOutput Total 80 ml 101 ml 191 ml BalanceBalance 1117.0 ml 1229.00 ml 825.375 ml Results Result Diagram: 10/10/1824 10/10/18 0924 Results 24hrs Laboratory Tests Test 10/09/18 13:14 10/09/18 17:07 10/09/18 18:52 10/09/18 20:34 Bedside Glucose 144 123 112 Hemoglobin 7.1 L Hematocrit 21.8 L Test 10/09/18 21:35 10/10/18 01:06 10/10/18 03:00 10/10/18 04:33 Hemoglobin 6.2 *L 10.6 #L Hematocrit 19.6 L 33.8 #L Bedside Glucose 95 177 Test 10/10/18 05:00 10/10/18 08:58 10/10/18 09:24 10/10/18 11:00 White Blood 17.8 H 15.5 H Count Red Blood Count 3.50 #L 2.79 #L Hemoglobin 10.3 L 8.4 L Hematocrit 33.3 L 25.9 #L Mean Corpuscular 95.1 92.8 Volume Mean Corpuscular 29.4 30.1 Hemoglobin Mean Corpuscular 30.9 L 32.4 Hemoglobin Yazmin nt Red Cell 14.5 14.6 H Distribution Width Platelet Count 111 #L 94 L Mean Platelet 12.6 H 13.1 H Volume Immature 1.100 H 0.700 H Granulocytes % Neutrophils % Segmented 97 H 85 H Neutrophils % (Manual) Band Neutrophils 3 8 H % (Manual) Lymphocytes % Monocytes % Eosinophils % Basophils % Nucleated Red 0.5 H 0.6 H Blood Cells % Immature 0.190 H 0.110 H Granulocytes # Neutrophils # Neutrophils # 17.4 H 13.4 H (Manual) Band Neutrophils 0.5 1.2 H # Lymphocytes # Monocytes # Eosinophils # Basophils # Nucleated Red Blood Cells # Platelet DECREASED DECREASED Estimate Giant Platelets 2 H Poikilocytosis 3+ 2+ Anisocytosis 1+ 1+ Blood Gas Blood arterial Blood arterial Specimen Source Arterial Blood 10/10/2018 5:02: 10/10/2018 11:35 Date Drawn 00 AM :26 AM Arterial Blood 7.086 *L 7.130 *L pH (Temp corrected) Arterial Blood 54.1 H 40.7 pCO2 (Temp correct) Arterial Blood 356.3 H 122.0 H pO2 (Temp corrected) Arterial Blood 15.9 L 13.2 L HCO3 Arterial Blood -14.0 L -15.0 L Base Excess Arterial Blood 99.1 96.7 Oxygen Saturatio n Gian Test ACCEPTAB ACCEPTAB Arterial Blood Right Radial Right Radial Gas Puncture Site Arterial 0.3 0.1 Blood Carboxyhem oglobin Arterial Blood 0.5 0.3 Methemoglobin Blood Gas A-a O2 302.6 H 261.0 H Differential Oxyhemoglobin 98.3 96.3 Percent Blood Gas 37.0 37.0 Temperature Blood Gas 24.0 32.0 Respiration Rate Blood Gas Actual 26 33 Respiration Rate Blood Gas VENT - AC VENT - AC Modality FiO2 100.0 60.0 Blood Gas Tidal 450.0 500.0 Volume Blood Gas Low 5.0 5.0 PEEP Setting Blood Gas 20.0 Inspiratory Pressure Blood Gas GENESIS GOMEZ RN RN Critical Value Read Back Blood Gas LW DT Notified Whom Blood Gas 10/10/2018 5:13: 10/10/2018 11:48 Notified Time 00 AM :39 AM Sodium Level 157 H 150 H Potassium Level 4.0 3.9 Chloride Level 129 H 118 H Carbon Dioxide 14 L 19 L Level Anion Gap 14 H 13 Blood Urea 104 H 111 H Nitrogen Creatinine 2.75 H 3.02 H Est Glomerular Filtrat Rate mL/min Glucose Level 172 415 #*H Lactic Acid 6.8 *H Level Calcium Level 4.6 *L 4.9 *L Phosphorus Level 11.7 #H Magnesium Level 1.8 Bedside Glucose 228 H Lymphocytes % 5 L (Manual) Monocytes % 2 (Manual) Lymphocytes 0.7 L (Manual) Monocytes # 0.3 (Manual) Polychromasia 1+ Ovalocytes 1+ Prothrombin Time 31.0 #H Prothrombin Time 2.4 Ratio INR 2.98 International Normalized Ratio Activated 37.1 H Partial Thrombop last Time Total Bilirubin 0.3 Direct Bilirubin 0.00 Indirect 0.3 Bilirubin Aspartate Amino 6716 H Transf (AST/SGOT ) Alanine 2696 H Aminotransferase (ALT/SGPT) Alkaline 41 L Phosphatase Total Protein 3.5 #L Albumin 1.4 L Globulin 2.10 Albumin/Globulin 0.66 Ratio Medications Medication Current Medications Albuterol (Proventil 0.083% (Neb)) 2.5 mg Q4H RESP THERAPY PRN NEB SHORTNESS OF BREATH Last administered on 10/08/18at 04:59; Admin Dose 2.5 MG; Start 09/29/18 at 15:00 Albuterol (Proventil 0.083% (Neb)) 2.5 mg Q8H RESP THERAPY PRN NEB WHEEZING AND SOB; Start 09/29/18 at 16:00 Bisacodyl (Dulcolax Supp) 10 mg DAILY PRN [place] CONSTIPATION; Start 09/29/18 at 15:00 Hydralazine HCl (Apresoline) 25 mg BID PRN PO ELEVATED BP; SBP > 160; Start 09/29/18 at 15:00 Magnesium Hydroxide (Milk Of Mag) 30 ml DAILY PRN PO CONSTIPATION; Start 09/29/18 at 15:00 Miscellaneous Information 1 ea NOTE XX ; Start 09/29/18 at 16:30 Glucose (Glutose) 15 gm Q15M PRN PO DECREASED GLUCOSE; Start 09/29/18 at 16:30 Glucose (Glutose) 22.5 gm Q15M PRN PO DECREASED GLUCOSE; Start 09/29/18 at 16:30 Dextrose (D50w Syringe) 25 ml Q15M PRN IV DECREASED GLUCOSE; Start 09/29/18 at 16:30 Dextrose (D50w Syringe) 50 ml Q15M PRN IV DECREASED GLUCOSE; Start 09/29/18 at 16:30 Glucagon (Glucagen) 1 mg Q15M PRN IM DECREASED GLUCOSE; Start 09/29/18 at 16:30 Glucose (Glutose) 15 gm Q15M PRN BUCCAL DECREASED GLUCOSE; Start 09/29/18 at 16:30 Miscellaneous Information [facility] This patient saini... PRN PRN XX WOUND CARE; Start 09/30/18 at 05:00 Insulin Aspart (Novolog Insulin Pen) (Adult SC Insulin - Mild Algorithm)... Q4 SC Last administered on 10/10/18at 09:00; Admin Dose 3 UNIT; Start 09/30/18 at 13:00 Meropenem/Sodium Chloride 50 ml @ 100 mls/hr Q12 IVPB Last administered on 10/10/18at 08:23; Admin Dose 100 MLS/HR; Start 09/30/18 at 21:00 Acetaminophen (Tylenol Supp) 650 mg Q6H PRN [place] FEVER Last administered on 10/01/18at 20:57; Admin Dose 650 MG; Start 09/30/18 at 21:30 Linezolid 300 ml @ 300 mls/hr Q12 IVPB Last administered on 10/10/18at 08:23; Admin Dose 300 MLS/HR; Start 10/01/18 at 21:00 Total Parenteral Nutrition 1,000 ml @ 75 mls/hr [id number] IV Last administered on 10/07/18 21:50; Admin Dose 75 MLS/HR; Start 10/05/18 at 17:00; Status Hold Famotidine (Pepcid Iv) 20 mg BID IV Last administered on 10/10/18 08:23; Admin Dose 20 MG; Start 10/06/18 at 21:00 Morphine Sulfate (morphine) 2 mg Q4H PRN IV SEVERE PAIN LEVEL 7-10 Last administered on 10/08/18 18:34; Admin Dose 2 MG; Start 10/08/18 at 09:30 Potassium Chloride 50 ml @ 50 mls/hr K PROTOCOL PRN IVPB PENDING LAB VALUE Last administered on 10/09/18 18:02; Admin Dose 50 MLS/HR; Start 10/08/18 at 14:00 Sucralfate (Carafate Susp) 1 gm QID NGT Last administered on 10/09/18 20:22; Admin Dose 1 GM; Start 10/08/18 at 21:00 Fentanyl 100 ml @ 5 mls/hr TITRATE IV Last administered on 10/09/18 12:57; Admin Dose 5 MLS/HR; Start 10/09/18 at 13:00 Ipratropium [place] (Atrovent Hfa) 4 puff Q4H RESP THERAPY INH Last administered on 10/10/18 08:03; Admin Dose 4 PUFF; Start 10/09/18 at 13:00 Albuterol (Ventolin Hfa) 2 puff Q4H RESP THERAPY INH Last administered on 10/10/18 08:03; Admin Dose 2 PUFF; Start 10/09/18 at 13:00 Phenylephrine HCl 80 mg/Dextrose 250 ml @ 18.75 mls/ hr TITRATE IV Last administered on 10/10/18 12:49; Admin Dose 56.25 MLS/HR; Start 10/09/18 at 23:00 Vasopressin 60 unit/Dextrose 60 ml @ 1.2 mls/hr Q12H IV Last administered on 10/10/18 09:43; Admin Dose 1.2 MLS/HR; Start 10/10/18 at 09:00 Norepinephrine 32 mg/Dextrose 250 ml @ 0.47 mls/hr TITRATE IV Last administered on 10/10/18 09:33; Admin Dose 4.69 MLS/HR; Start 10/10/18 at 09:00 Famotidine (Pepcid Iv) 20 mg DAILY IV Last administered on 10/10/18 11:18; Admin Dose 20 MG; Start 10/10/18 at 10:00 Hydrocortisone (Solu-Cortef) 60 mg Q6 IV Last administered on 10/10/18at 11:18; Admin Dose 60 MG; Start 10/10/18 at 12:00 Albumin Human 100 ml @ 100 mls/hr Q6H IV Last administered on 10/10/18 11:25; Admin Dose 100 MLS/HR; Start 10/10/18 at 11:30; Stop 10/11/18 at 00:29 Epinephrine 4 mg/ Sodium Chloride 250 ml @ 3.75 mls/hr TITRATE IV ; Start 10/10/18 at 11:30 Sodium Bicarbonate 150 meq/Dextrose 1,150 ml @ 75 mls/hr [id number] IV Last administered on 10/10/18 12:06; Admin Dose 75 MLS/HR; Start 10/10/18 at 11:12 AMY WHALEN NP Oct 10, 2018 12:55
[2018-10-10] MEDS ORDERED: VANCOMYCIN IV PER PHARMACY XX SCH (13:00)
[2018-10-10] MEDS ORDERED: VANCOMYCIN HCL 1.25 GM in SOD CHLORIDE 0.9% 250 ML IVPB ONE (15:00)
[2018-10-10] MEDS ORDERED: FUROSEMIDE 20 MG INJ IV ONE (16:00)
[2018-10-10] MEDS: POTASSIUM CHLORIDE 50 ML IVPB PRN (18:21)
[2018-10-11] VITALS (100 sets, daily range): BP systolic 40–136; BP diastolic 15–93; PULSE 0–144; RESP 7–38
[2018-10-11] MEDS: ALBUTEROL HFA 8 GM INHALER INH SCH ×4 (01:05→12:56)
[2018-10-11] MEDS: IPRATROPIUM (HFA) 12.9 GM INHALER INH SCH ×4 (01:05→12:56)
[2018-10-11] MEDS: FENTAnyl (DRIP) 1000 mcg/100mL 100 ML IV SCH (01:32)
[2018-10-11] MEDS: Insulin NOVOLOG SS MILD Algorithm (NPO/TPN/ENTERAL FEEDS) SC SCH ×4 (01:59→13:00)
[2018-10-11] MEDS: SODIUM BICARBONATE (IV ADD) 150 MEQ in DEXTROSE 5% 1,000 ML IV SCH ×2 (02:07→05:24)
[2018-10-11] MEDS: HYDROCORTISONE 100 MG INJ IV SCH ×2 (05:25→11:59)
[2018-10-11] MEDS: PHENYLephrine 80 MG in DEXTROSE 5% 242 ML IV SCH ×4 (05:30→22:56)
[2018-10-11] MEDS ORDERED: NA BICARBONATE 8.4% 50 ML SYG ONE ×3 (07:00→10:02)
[2018-10-11] MEDS ORDERED: EPINEPHrine 0.1 MG/ML SYG ONE (07:00)
[2018-10-11] MEDS ORDERED: CA CHLORIDE 10% 10 ML SYRINGE ONE (07:00)
[2018-10-11] MEDS: VASOPRESSIN 60 UNIT in DEXTROSE 5% 57 ML IV SCH (08:15)
[2018-10-11] MEDS ORDERED: PHYTONADIONE 10 MG in DEXTROSE 5% 50 ML IVPB ONE (08:30)
[2018-10-11] MEDS ORDERED: CALCIUM GLUCONATE 10% 2 GM in DEXTROSE 5% 100 ML IVPB ONE (08:30)
[2018-10-11] MEDS: MEROPENEM 500MG/50 ML (PMX) 50 ML IVPB SCH (08:42)
--- NOTE | 2018-10-11 08:49 | PN ---
DATE: 10/11/2018 SUBJECTIVE: The patient is critically ill on pressor support, on full ventilatory support. The sarath ent is noted to have active bleeding overnight. Patient's lactic acid levels were markedly elevated at 12.6. The patient's is at bedside. No other events noted. OBJECTIVE: VITAL SIGNS: Blood pressure is 110/51, respiration 11, pulse 115, temperature is 98.6. HEENT: Head is normocephalic. Pupils are reactive to light. NECK: Supple. HEART: Tachycardic. LUNGS: Show diminished breath sounds at the base. ABDOMEN: Soft, nontender to palpation without rebound or guarding. EXTREMITIES: Negative for clubbing, cyanosis, no edema. DERMATOLOGIC: No rashes. MUSCULOSKELETAL: No joint effusion. NEUROLOGIC: The patient is obtunded. MEDICATIONS: The patient's medications have been reviewed. LABORATORY DATA: Has been reviewed. ABG was reviewed. IMAGING STUDIES: Reviewed. MICROBIOLOGY: Reviewed. ASSESSMENT AND PLAN: 1. Ventilator-dependent respiratory failure. Vent settings and ABG was reviewed. Continue to monit or. Follow up with pulmonary. 2. Pneumothorax. The patient's chest tube placed on 10/09/2018. Continue to monitor. Follow up wi pulmonary. 3. Septic shock secondary to healthcare-associated pneumonia, bacteremia. The patient is currently on multiple pressors, IV fluids, antibiotics. We will continue. Follow up infectious disease for an tibiotic management. 4. Oligoanuric acute kidney injury. Etiology secondary to acute tubular necrosis. We will continue current medical management. Continue supportive care, renally dose all medication. No hemodialysis per family as reported. 5. Hypernatremia, etiology secondary to insensible losses, decreased free water intake. Continue hy potonic fluid. Monitor closely. 6. Mixed acid base disorder. The patient has a metabolic acidosis, anion gap and a respiratory acid osis. The patient's pCO2 levels are inappropriately elevated for his current level of acidemia. Manuel l continue bicarbonate drip. 7. Acute gastrointestinal bleed, etiology secondary to ischemic ulcer, peptic ulcer disease. The josiah cook has ongoing active bleeding. We will continue blood transfusions. Continue FFP. Continue pro ton pump inhibitor. The patient is too unstable for angiogram with coil. Will continue to monitor. Follow up with gastroenterology. 8. Acute anemia secondary to gastrointestinal bleed. Monitor hemoglobin and hematocrit levels, holly sfuse as needed. 9. Acute encephalopathy, etiology is toxic metabolic. Continue to monitor. Appreciate neurology ev aluation. The patient is unstable for lumbar puncture to rule out meningeal encephalitis. Continue antibiotic therapy. 10. Mineral bone disorder. The patient is hypocalcemic. Will give 2 grams of calcium gluconate. 11. Nutrition. The patient is on TPN, holding at this time. 12. History of cerebrovascular accident. 13. Transaminitis, etiology is likely secondary to shock liver. Continue to monitor. 14. Lactic acidosis secondary to shock. Continue to monitor and treat underlying septic shock. Please note I spent over 30 minutes of critical care time with this patient. We will have palliative care to discuss overall goals of care with the patient's family. Dictated By: GLADIS GREENBERG/RACHELL Conf#: [id number] DID#: [id number]
[2018-10-11] MEDS: FAMOTIDINE 20 MG INJ IV SCH (09:00)
[2018-10-11] MEDS: SUCRALFATE (100 MG/ML) 10ML CUP NGT SCH ×3 (09:00→13:51)
[2018-10-11] MEDS: BALSAM PERU/CASTOR OIL 60 GM TUBE TOP SCH (09:03)
--- NOTE | 2018-10-11 09:05 | CONS ---
Assessment/Plan Assessment/Plan Hospital Course (Demo Recall) 73 yo male with GI bleeding, s/p EGD which found large duodenal ulcer to be etiology of bleed 1. Septic shock. -bacteremia vs gi bleeding, likely both contributing 2. Gastrointestinal bleeding from large duodenal ucler 3. Duodenal ulcer 4. Renal failure. 5. Status post chest tube insertion for pneumothorax. 6. Respiratory failure. 7. MRSA bacteremia. 8. Encephalopathy. 9. Multifocal pneumonia. 10. Duodenitis 11. Gastritis 12. Elevated alt/ast due to ischemic liver -keep sbp greater than 100 PLAN: Increase pepcid to BID Carafate, clamp ngt after dose given one unit platelet surgical consult STAT PT/PTT Monitor LFTs pending one unit PRBC Keep SBP greater than 100 and monitor LFTs Pt needs coil embolization of gastroduodenal artery to be done by IR. Procedure on hold by IR for pt being too unstable. Pt examined and plan of care discussed with Dr. Bowden Consultation Date/Type/Reason Admit Date/Time Sep 29, 2018 at 13:57 Initial Consult Date 09/30/18 Requesting Provider: GLADIS ALICIA DO Date/Time of Note DATE: 10/11/18 TIME: 08:45 24 HR Interval Summary Free Text/Dictation Hgb 6.7 today. Bright red blood from OGT to LIWS, and from rectum. One unit prbc ordered. PLatelets 44. WBC coming down to 10.9. Commercial Intelligence Manager 3.94. AST has ju mped up to 6735 and alt 2590. Pt is on vasopressin, phenylephrine, levophed gtt, requiring more pressor support. Fentanyl gtt. Pt non responsive today. Exam/Review of Systems Exam Vitals Vital Signs Date Temp Pulse Resp B/P (MAP) Pulse Ox O2 O2 Flow FiO2 Time Delivery Rate 10/11/18 93 33 100 40 08:19 10/11/18 110/51 Mechanical 06:00 (70) Ventilator 10/11/18 97.9 04:00 Intake and Output 10/10/18 10/10/18 10/11/18 1515:00 23:00 07:00 IntakeIntake Total 2377.62 ml 1892.33 ml 1019.93 ml OutputOutput Total 240 ml 320 ml 150 ml BalanceBalance 2137.62 ml 1572.33 ml 869.93 ml Head: normocephalic, atraumatic Eyes: nl sclera, PERRL Respiratory: diminished breath sounds Cardiovascular: regular rate and rhythm Gastrointestinal: soft, bowel sounds Neurological: unresponsive Results Result Diagram: 10/11/18 0400 10/11/18 0400 Results 24hrs Laboratory Tests Test 10/10/18 08:58 10/10/18 09:24 10/10/18 11:00 10/10/18 14:01 Bedside Glucose 228 H 236 H White Blood 15.5 H Count Red Blood Count 2.79 #L Hemoglobin 8.4 L Hematocrit 25.9 #L Mean Corpuscular 92.8 Volume Mean Corpuscular 30.1 Hemoglobin Mean Corpuscular 32.4 Hemoglobin Yazmin nt Red Cell 14.6 H Distribution Width Platelet Count 94 L Mean Platelet 13.1 H Volume Immature 0.700 H Granulocytes % Neutrophils % Segmented 85 H Neutrophils % (Manual) Band Neutrophils 8 H % (Manual) Lymphocytes % Lymphocytes % 5 L (Manual) Monocytes % Monocytes % 2 (Manual) Eosinophils % Basophils % Nucleated Red 0.6 H Blood Cells % Immature 0.110 H Granulocytes # Neutrophils # Neutrophils # 13.4 H (Manual) Band Neutrophils 1.2 H # Lymphocytes 0.7 L (Manual) Lymphocytes # Monocytes # Monocytes # 0.3 (Manual) Eosinophils # Basophils # Nucleated Red Blood Cells # Platelet DECREASED Estimate Polychromasia 1+ Poikilocytosis 2+ Anisocytosis 1+ Ovalocytes 1+ Prothrombin Time 31.0 #H Prothrombin Time 2.4 Ratio INR 2.98 International Normalized Ratio Activated 37.1 H Partial Thrombop last Time Sodium Level 150 H Potassium Level 3.9 Chloride Level 118 H Carbon Dioxide 19 L Level Anion Gap 13 Blood Urea 111 H Nitrogen Creatinine 3.02 H Est Glomerular Filtrat Rate mL/min Glucose Level 415 #*H Calcium Level 4.9 *L Total Bilirubin 0.3 Direct Bilirubin 0.00 Indirect 0.3 Bilirubin Aspartate Amino 6716 H Transf (AST/SGOT ) Alanine 2696 H Aminotransferase (ALT/SGPT) Alkaline 41 L Phosphatase Total Protein 3.5 #L Albumin 1.4 L Globulin 2.10 Albumin/Globulin 0.66 Ratio Blood Gas Blood arterial Specimen Source Arterial Blood 10/10/2018 11:35 Date Drawn :26 AM Arterial Blood 7.130 *L pH (Temp corrected) Arterial Blood 40.7 pCO2 (Temp correct) Arterial Blood 122.0 H pO2 (Temp corrected) Arterial Blood 13.2 L HCO3 Arterial Blood -15.0 L Base Excess Arterial Blood 96.7 Oxygen Saturatio n Gian Test ACCEPTAB Arterial Blood Right Radial Gas Puncture Site Arterial 0.1 Blood Carboxyhem oglobin Arterial Blood 0.3 Methemoglobin Blood Gas A-a O2 261.0 H Differential Oxyhemoglobin 96.3 Percent Blood Gas 37.0 Temperature Blood Gas 32.0 Respiration Rate Blood Gas Actual 33 Respiration Rate Blood Gas VENT - AC Modality FiO2 60.0 Blood Gas Tidal 500.0 Volume Blood Gas Low 5.0 PEEP Setting Blood Gas K FARLESS RN Critical Value Read Back Blood Gas DT Notified Whom Blood Gas 10/10/2018 11:48 Notified Time :39 AM Test 10/10/18 15:00 10/10/18 17:16 10/10/18 21:11 10/10/18 21:56 White Blood 14.0 H Count Red Blood Count 2.18 #L Hemoglobin 6.5 #*L 7.0 L Hematocrit 20.3 #L 21.7 L Mean Corpuscular 93.1 Volume Mean Corpuscular 29.8 Hemoglobin Mean Corpuscular 32.0 Hemoglobin Yazmin nt Red Cell 14.9 H Distribution Width Platelet Count 77 L Mean Platelet 12.5 H Volume Immature 0.800 H Granulocytes % Neutrophils % Segmented 86 H Neutrophils % (Manual) Band Neutrophils 4 % (Manual) Lymphocytes % Lymphocytes % 7 L (Manual) Monocytes % Monocytes % 3 (Manual) Eosinophils % Basophils % Nucleated Red 0.8 H Blood Cells % Immature 0.110 H Granulocytes # Neutrophils # Neutrophils # 12.1 H (Manual) Band Neutrophils 0.5 # Lymphocytes 0.9 (Manual) Lymphocytes # Monocytes # Monocytes # 0.4 (Manual) Eosinophils # Basophils # Nucleated Red Blood Cells # Platelet DECREASED Estimate Polychromasia 2+ Poikilocytosis 1+ Anisocytosis 2+ Microcytosis 2+ Bedside Glucose 215 192 Test 10/11/18 01:52 10/11/18 04:00 10/11/18 04:24 10/11/18 05:00 Bedside Glucose 210 209 White Blood 10.9 #H Count Red Blood Count 2.25 L Hemoglobin 6.7 *L Hematocrit 20.4 L Mean Corpuscular 90.7 Volume Mean Corpuscular 29.8 Hemoglobin Mean Corpuscular 32.8 Hemoglobin Yazmin nt Red Cell 14.1 Distribution Width Platelet Count 43 #L Mean Platelet 13.4 H Volume Immature 0.700 H Granulocytes % Neutrophils % Segmented 81 H Neutrophils % (Manual) Band Neutrophils 3 % (Manual) Lymphocytes % Lymphocytes % 11 L (Manual) Monocytes % Monocytes % 3 (Manual) Eosinophils % Eosinophils % 1 (Manual) Basophils % Plasma Cells % 1 (manual) Nucleated Red 2 H Blood Cells % Immature 0.080 H Granulocytes # Neutrophils # Neutrophils # 8.9 H (Manual) Band Neutrophils 0.3 # Lymphocytes 1.1 (Manual) Lymphocytes # Monocytes # Monocytes # 0.3 (Manual) Eosinophils # Basophils # Plasma Cells # 0.1 H (manual) Nucleated Red Blood Cells # Platelet DECREASED Estimate Giant Platelets 1 H Polychromasia 3+ Poikilocytosis 2+ Anisocytosis 2+ Microcytosis 2+ Sodium Level 155 H Potassium Level 4.5 Chloride Level 118 H Carbon Dioxide 16 L Level Anion Gap 21 #H Blood Urea 123 H Nitrogen Creatinine 3.94 H Est Glomerular Filtrat Rate mL/min Glucose Level 195 # Lactic Acid 12.6 *H Level Calcium Level 4.6 *L Phosphorus Level 11.4 H Magnesium Level 1.8 Total Bilirubin 1.0 Direct Bilirubin 0.00 Indirect 1.0 Bilirubin Aspartate Amino 6735 H Transf (AST/SGOT ) Alanine 2590 H Aminotransferase (ALT/SGPT) Alkaline 43 Phosphatase Total Protein 3.8 L Albumin 2.0 L Globulin 1.80 Albumin/Globulin 1.11 Ratio Prealbumin 6.0 L Blood Gas Blood arterial Specimen Source Arterial Blood 10/11/2018 5:00: Date Drawn 57 AM Arterial Blood 7.196 *L pH (Temp corrected) Arterial Blood 35.0 pCO2 (Temp correct) Arterial Blood 117.6 H pO2 (Temp corrected) Arterial Blood 13.2 L HCO3 Arterial Blood -13.7 L Base Excess Arterial Blood 96.7 Oxygen Saturatio n Gian Test ACCEPTAB Arterial Blood Right Radial Gas Puncture Site Arterial 0.3 Blood Carboxyhem oglobin Arterial Blood 0.6 Methemoglobin Blood Gas A-a O2 127.4 H Differential Oxyhemoglobin 95.8 Percent Blood Gas 37.0 Temperature Blood Gas 32.0 Respiration Rate Blood Gas Actual 32 Respiration Rate Blood Gas VENT - AC Modality FiO2 40.0 Blood Gas Tidal 500.0 Volume Blood Gas Low 5.0 PEEP Setting Blood Gas 29.0 Inspiratory Pressure Blood Gas A. BALLOUIANTS, Critical Value Read Back Blood Gas MM Notified Whom Blood Gas 10/11/2018 5:11: Notified Time 42 AM Medications Medication Current Medications Albuterol (Proventil 0.083% (Neb)) 2.5 mg Q4H RESP THERAPY PRN NEB SHORTNESS OF BREATH Last administered on 10/08/18at 04:59; Admin Dose 2.5 MG; Start 09/29/18 at 15:00 Albuterol (Proventil 0.083% (Neb)) 2.5 mg Q8H RESP THERAPY PRN NEB WHEEZING AND SOB; Start 09/29/18 at 16:00 Bisacodyl (Dulcolax Supp) 10 mg DAILY PRN [place] CONSTIPATION; Start 09/29/18 at 15 :00 Hydralazine HCl (Apresoline) 25 mg BID PRN PO ELEVATED BP; SBP > 160; Start 09/29/18 at 15:00 Magnesium Hydroxide (Milk Of Mag) 30 ml DAILY PRN PO CONSTIPATION; Start 09/29/18 at 15:00 Miscellaneous Information 1 ea NOTE XX ; Start 09/29/18 at 16:30 Glucose (Glutose) 15 gm Q15M PRN PO DECREASED GLUCOSE; Start 09/29/18 at 16:30 Glucose (Glutose) 22.5 gm Q15M PRN PO DECREASED GLUCOSE; Start 09/29/18 at 16:30 Dextrose (D50w Syringe) 25 ml Q15M PRN IV DECREASED GLUCOSE; Start 09/29/18 at 16:30 Dextrose (D50w Syringe) 50 ml Q15M PRN IV DECREASED GLUCOSE; Start 09/29/18 at 16:30 Glucagon (Glucagen) 1 mg Q15M PRN IM DECREASED GLUCOSE; Start 09/29/18 at 16:30 Glucose (Glutose) 15 gm Q15M PRN BUCCAL DECREASED GLUCOSE; Start 09/29/18 at 16:30 Miscellaneous Information (Pending [facility] Order For Wound Care) This patient saini... PRN PRN XX WOUND CARE; Start 09/30/18 at 05:00 Insulin Aspart (Novolog Insulin Pen) (Adult SC Insulin - Mild Algorithm)... Q4 SC Last administered on 10/11/18at 04:28; Admin Dose 2 UNIT; Start 09/30/18 at 13:00 Meropenem/Sodium Chloride 50 ml @ 100 mls/hr Q12 IVPB Last administered on 10/11/18 08:42; Admin Dose 100 MLS/HR; Start 09/30/18 at 21:00 Acetaminophen (Tylenol Supp) 650 mg Q6H PRN [place] FEVER Last administered on 10/01/18 20:57; Admin Dose 650 MG; Start 09/30/18 at 21:30 Total Parenteral Nutrition 1,000 ml @ 75 mls/hr [id number] IV Last administered on 10/07/18 21:50; Admin Dose 75 MLS/HR; Start 10/05/18 at 17:00; Status Hold Morphine Sulfate (morphine) 2 mg Q4H PRN IV SEVERE PAIN LEVEL 7-10 Last administered on 10/08/18 18:34; Admin Dose 2 MG; Start 10/08/18 at 09:30 Potassium Chloride 50 ml @ 50 mls/hr K PROTOCOL PRN IVPB PENDING LAB VALUE Last administered on 10/10/18 18:21; Admin Dose 50 MLS/HR; Start 10/08/18 at 14:00 Sucralfate (Carafate Susp) 1 gm QID NGT Last administered on 10/09/18 20:22; Admin Dose 1 GM; Start 10/08/18 at 21:00 Fentanyl 100 ml @ 5 mls/hr TITRATE IV Last administered on 10/11/18 01:32; Admin Dose 5 MLS/HR; Start 10/09/18 at 13:00 Ipratropium [place] (Atrovent Hfa) 4 puff Q4H RESP THERAPY INH Last administered on 10/11/18 08:22; Admin Dose 4 PUFF; Start 10/09/18 at 13:00 Albuterol (Ventolin Hfa) 2 puff Q4H RESP THERAPY INH Last administered on 10/11/18 08:23; Admin Dose 2 PUFF; Start 10/09/18 at 13:00 Phenylephrine HCl 80 mg/Dextrose 250 ml @ 18.75 mls/ hr TITRATE IV Last administered on 10/11/18 05:30; Admin Dose 18.75 MLS/HR; Start 10/09/18 at 23:00 Vasopressin 60 unit/Dextrose 60 ml @ 1.2 mls/hr Q12H IV Last administered on 6/17/19at 08:15; Admin Dose 2.4 MLS/HR; Start 10/10/18 at 09:00 Norepinephrine 32 mg/Dextrose 250 ml @ 0.47 mls/hr TITRATE IV Last administered on 10/10/18at 09:33; Admin Dose 4.69 MLS/HR; Start 10/10/18 at 09:00 Famotidine (Pepcid Iv) 20 mg DAILY IV Last administered on 10/10/18 11:18; Admin Dose 20 MG; Start 10/10/18 at 10:00 Hydrocortisone (Solu-Cortef) 60 mg Q6 IV Last administered on 10/11/18 05:25; Admin Dose 60 MG; Start 10/10/18 at 12:00 Epinephrine 4 mg/ Sodium Chloride 250 ml @ 3.75 mls/hr TITRATE IV Last administered on 10/11/18 08:31; Admin Dose 7.5 MLS/HR; Start 10/10/18 at 11:30 Sodium Bicarbonate 150 meq/Dextrose 1,150 ml @ 75 mls/hr [id number] IV Last administered on 10/11/18at 05:24; Admin Dose 75 MLS/HR; Start 10/10/18 at 11:12 Vancomycin HCl (Vanco Iv Per Pharmacy) VANCOMYCIN PER PHARMACY PER PROTOCOL XX ; Start 10/10/18 at 13:00 Calcium Gluconate 2 gm/Dextrose 120 ml @ 60 mls/hr ONCE ONCE IVPB Last administered on 10/11/18 08:32; Admin Dose 60 MLS/HR; Start 10/11/18 at 08:30; Stop 10/11/18 at 10:29 Phytonadione 10 mg/Dextrose 51 ml @ 102 mls/hr ONCE ONCE IVPB Last administered on 10/11/18at 08:32; Admin Dose 102 MLS/HR; Start 10/11/18 at 08:30; Stop 10/11/18 at 08:59 JI TOBIN Oct 11, 2018 08:55
--- NOTE | 2018-10-11 09:47 | CONS ---
Assessment/Plan Assessment/Plan Assessment/Plan (Daily) X-ray was reviewed from today which is essentially unremarkable except for cardiomegaly. A/ R: 1- septic shock 2- Severe anemia and thrombocytopenia 3- encephalopathy 4- Acute renal failure 5- PUD with GI bleed. s/p EGD 6- Severe metabolic acidosis 7- S/p CPR 8- R PNTX Continue current supportive care. Nephrology consult. Replace biarb. Prognosis is very poor. 35 minutes of critical care time spent evaluating the patient. Consultation Date/Type/Reason Admit Date/Time Sep 29, 2018 at 13:57 Initial Consult Date 09/30/18 Type of Consult Pulmonary Pulmonary consult requested for evaluation of hypoxemia. Patient is a 73-year-old male who is a [facility] resident who was sent over to the hospital because of hypoxemia. Upon evaluation chest x-ray was done which has been interpreted as showing possible bibasilar pneumonia. Vision has been started on appropriate empiric antimicrobial regimen. The patient has apparently fairly advanced dementia and was not able to give any meaningful history by himself. Patient however was awake and did not appear to be in any distress whatsoever. Past medical history; 1. Dementia 2. Bipolar disorder. 3. Chronic renal insufficiency. 4. History of hypertension. Medications; reviewed. Allergies; none. Social history, family history, occupational history is not available. Review of system; unable to be obtained. General exam; elderly male, awake and lethargic. Currently in no distress. Requesting Provider: GLADIS ALICIA DO Date/Time of Note DATE: 10/11/18 TIME: 09:43 24 HR Interval Summary Free Text/Dictation Patient's condition is critical. On multiple pressor agents for severe hypo tension. General exam; elderly male, orally intubated, unresponsive, currently in no distress. Exam/Review of Systems Exam Vitals Vital Signs Date Temp Pulse Resp B/P (MAP) Pulse Ox O2 O2 Flow FiO2 Time Delivery Rate 10/11/18 100 24 119/64 100 Mechanical 09:00 (82) Ventilator 10/11/18 40 08:19 10/11/18 97.7 08:00 Intake and Output 10/10/18 10/10/18 10/11/18 1515:00 23:00 07:00 IntakeIntake Total 2377.62 ml 1892.33 ml 1019.93 ml OutputOutput Total 240 ml 320 ml 150 ml BalanceBalance 2137.62 ml 1572.33 ml 869.93 ml Exam H ENT exam; supple neck, no JVD. No lymphadenopathy. Midline trachea. No thyromegaly. Orally intubated. Patient has fair dentition. No neck masses. Chest exam; diminished breath sounds bilaterally. S1-S2 audible, no murmurs. Right side chest tube in place. Abdomen exam; soft, scaphoid. No organomegaly. Bowel sounds are very sluggish. Extremity exam; no peripheral edema. Patient has a patchy ecchymosis. WAGON WASHER exam; patient is unresponsive. Results Result Diagram: 10/11/18 0400 10/11/18 0400 Results 24hrs Laboratory Tests Test 10/10/18 11:00 10/10/18 14:01 10/10/18 15:00 10/10/18 17:16 Blood Gas Blood arterial Specimen Source Arterial Blood 10/10/2018 11:35 Date Drawn :26 AM Arterial Blood 7.130 *L pH (Temp corrected ) Arterial Blood 40.7 pCO2 (Temp correct) Arterial Blood 122.0 H pO2 (Temp corrected ) Arterial Blood 13.2 L HCO3 Arterial Blood -15.0 L Base Excess Arterial Blood 96.7 Oxygen Saturati on Gian Test ACCEPTAB Arterial Blood Right Radial Gas Puncture Site Arterial 0.1 Blood Carboxyhe moglobin Arterial Blood 0.3 Methemoglobin Blood Gas A-a 261.0 H O2 Differential Oxyhemoglobin 96.3 Percent Blood Gas 37.0 Temperature Blood Gas 32.0 Respiration Rate Blood Gas 33 Actual Respiration Rat e Blood Gas VENT - AC Modality FiO2 60.0 Blood Gas Tidal 500.0 Volume Blood Gas Low 5.0 PEEP Setting Blood Gas K FARLESS RN Critical Value Read Back Blood Gas DT Notified Whom Blood Gas 10/10/2018 11:48 Notified Time :39 AM Bedside Glucose 236 H 215 White Blood 14.0 H Count Red Blood Count 2.18 #L Hemoglobin 6.5 #*L Hematocrit 20.3 #L Mean 93.1 Corpuscular Volume Mean 29.8 Corpuscular Hemoglobin Mean 32.0 Corpuscular Hemoglobin Conc ent Red Cell 14.9 H Distribution Width Platelet Count 77 L Mean Platelet 12.5 H Volume Immature 0.800 H Granulocytes % Neutrophils % Segmented 86 H Neutrophils % (Manual) Band 4 Neutrophils % (Manual) Lymphocytes % Lymphocytes % 7 L (Manual) Monocytes % Monocytes % 3 (Manual) Eosinophils % Basophils % Nucleated Red 0.8 H Blood Cells % Immature 0.110 H Granulocytes # Neutrophils # Neutrophils # 12.1 H (Manual) Band 0.5 Neutrophils # Lymphocytes 0.9 (Manual) Lymphocytes # Monocytes # Monocytes # 0.4 (Manual) Eosinophils # Basophils # Nucleated Red Blood Cells # Platelet DECREASED Estimate Polychromasia 2+ Poikilocytosis 1+ Anisocytosis 2+ Microcytosis 2+ Test 10/10/18 21:11 10/10/18 21:56 10/11/18 01:52 10/11/18 04:00 Bedside Glucose 192 210 Hemoglobin 7.0 L 6.7 *L Hematocrit 21.7 L 20.4 L White Blood 10.9 #H Count Red Blood Count 2.25 L Mean 90.7 Corpuscular Volume Mean 29.8 Corpuscular Hemoglobin Mean 32.8 Corpuscular Hemoglobin Conc ent Red Cell 14.1 Distribution Width Platelet Count 43 #L Mean Platelet 13.4 H Volume Immature 0.700 H Granulocytes % Neutrophils % Segmented 75 Neutrophils % (Manual) Band 9 H Neutrophils % (Manual) Lymphocytes % Lymphocytes % 15 (Manual) Monocytes % Monocytes % 1 (Manual) Eosinophils % Eosinophils % 1 (Manual) Basophils % Plasma Cells % 1 (manual) Nucleated Red 6 H Blood Cells % Immature 0.080 H Granulocytes # Neutrophils # Neutrophils # 8.3 H (Manual) Band 0.9 H Neutrophils # Lymphocytes 1.6 (Manual) Lymphocytes # Monocytes # Monocytes # 0.1 L (Manual) Eosinophils # Basophils # Plasma Cells # 0.1 H (manual) Nucleated Red Blood Cells # Platelet SIG DECREASED Estimate Giant Platelets 2 H Polychromasia Poikilocytosis 2+ Anisocytosis 1+ Microcytosis 1+ Sodium Level 155 H Potassium Level 4.5 Chloride Level 118 H Carbon Dioxide 16 L Level Anion Gap 21 #H Blood Urea 123 H Nitrogen Creatinine 3.94 H Est Glomerular Filtrat Rate mL/min Glucose Level 195 # Lactic Acid 12.6 *H Level Calcium Level 4.6 *L Phosphorus 11.4 H Level Magnesium Level 1.8 Total Bilirubin 1.0 Direct 0.00 Bilirubin Indirect 1.0 Bilirubin Aspartate Amino 6735 H Transf (AST/SGO T) Alanine 2590 H Aminotransferas e (ALT/SGPT) Alkaline 43 Phosphatase Total Protein 3.8 L Albumin 2.0 L Globulin 1.80 Albumin/Globuli 1.11 n Ratio Prealbumin 6.0 L Test 10/11/18 04:24 10/11/18 05:00 10/11/18 08:03 10/11/18 08:58 Bedside Glucose 209 151 Blood Gas Blood arterial Specimen Source Arterial Blood 10/11/2018 5:00: Date Drawn 57 AM Arterial Blood 7.196 *L pH (Temp corrected ) Arterial Blood 35.0 pCO2 (Temp correct) Arterial Blood 117.6 H pO2 (Temp corrected ) Arterial Blood 13.2 L HCO3 Arterial Blood -13.7 L Base Excess Arterial Blood 96.7 Oxygen Saturati on Gian Test ACCEPTAB Arterial Blood Right Radial Gas Puncture Site Arterial 0.3 Blood Carboxyhe moglobin Arterial Blood 0.6 Methemoglobin Blood Gas A-a 127.4 H O2 Differential Oxyhemoglobin 95.8 Percent Blood Gas 37.0 Temperature Blood Gas 32.0 Respiration Rate Blood Gas 32 Actual Respiration Rat e Blood Gas VENT - AC Modality FiO2 40.0 Blood Gas Tidal 500.0 Volume Blood Gas Low 5.0 PEEP Setting Blood Gas 29.0 Inspiratory Pressure Blood Gas AButch NELSON, Critical Value Read Back Blood Gas MM Notified Whom Blood Gas 10/11/2018 5:11: Notified Time 42 AM Activated 51.3 H Partial Thrombo plast Time Mix PTT Normal Pending Plasma Immediat e Medications Medication Current Medications Albuterol (Proventil 0.083% (Neb)) 2.5 mg Q4H RESP THERAPY PRN NEB SHORTNESS OF BREATH Last administered on 10/08/18at 04:59; Admin Dose 2.5 MG; Start 09/29/18 at 15:00 Albuterol (Proventil 0.083% (Neb)) 2.5 mg Q8H RESP THERAPY PRN NEB WHEEZING AND SOB; Start 09/29/18 at 16:00 Bisacodyl (Dulcolax Supp) 10 mg DAILY PRN [place] CONSTIPATION; Start 09/29/18 at 15:00 Hydralazine HCl (Apresoline) 25 mg BID PRN PO ELEVATED BP; SBP > 160; Start 09/29/18 at 15:00 Magnesium Hydroxide (Milk Of Mag) 30 ml DAILY PRN PO CONSTIPATION; Start 09/29/18 at 15:00 Miscellaneous Information 1 ea NOTE XX ; Start 09/29/18 at 16:30 Glucose (Glutose) 15 gm Q15M PRN PO DECREASED GLUCOSE; Start 09/29/18 at 16:30 Glucose (Glutose) 22.5 gm Q15M PRN PO DECREASED GLUCOSE; Start 09/29/18 at 16:30 Dextrose (D50w Syringe) 25 ml Q15M PRN IV DECREASED GLUCOSE; Start 09/29/18 at 16:30 Dextrose (D50w Syringe) 50 ml Q15M PRN IV DECREASED GLUCOSE; Start 09/29/18 at 16:30 Glucagon (Glucagen) 1 mg Q15M PRN IM DECREASED GLUCOSE; Start 09/29/18 at 16:30 Glucose (Glutose) 15 gm Q15M PRN BUCCAL DECREASED GLUCOSE; Start 09/29/18 at 16:30 Miscellaneous Information ([facility] This patient saini... PRN PRN XX WOUND CARE; Start 09/30/18 at 05:00 Insulin Aspart (Novolog Insulin Pen) (Adult SC Insulin - Mild Algorithm)... Q4 SC Last administered on 10/11/18at 09:04; Admin Dose 1 UNIT; Start 09/30/18 at 13:00 Meropenem/Sodium Chloride 50 ml @ 100 mls/hr Q12 IVPB Last administered on 10/11/18at 08:42; Admin Dose 100 MLS/HR; Start 09/30/18 at 21:00 Acetaminophen (Tylenol Supp) 650 mg Q6H PRN [place] FEVER Last administered on 10/01/18at 20:57; Admin Dose 650 MG; Start 09/30/18 at 21:30 Total Parenteral Nutrition 1,000 ml @ 75 mls/hr [id number] IV Last administered on 10/07/18at 21:50; Admin Dose 75 MLS/HR; Start 10/05/18 at 17:00; Status Hold Morphine Sulfate (morphine) 2 mg Q4H PRN IV SEVERE PAIN LEVEL 7-10 Last administered on 10/08/18at 18:34; Admin Dose 2 MG; Start 10/08/18 at 09:30 Potassium Chloride 50 ml @ 50 mls/hr K PROTOCOL PRN IVPB PENDING LAB VALUE Last administered on 10/10/18at 18:21; Admin Dose 50 MLS/HR; Start 10/08/18 at 14:00 Sucralfate (Carafate Susp) 1 gm QID NGT Last administered on 10/11/18 09:23; Admin Dose 1 GM; Start 10/08/18 at 21:00 Fentanyl 100 ml @ 5 mls/hr TITRATE IV Last administered on 10/11/18 01:32; Admin Dose 5 MLS/HR; Start 10/09/18 at 13:00 Ipratropium [place] (Atrovent Hfa) 4 puff Q4H RESP THERAPY INH Last administe red on 10/11/18 08:22; Admin Dose 4 PUFF; Start 10/09/18 at 13:00 Albuterol (Ventolin Hfa) 2 puff Q4H RESP THERAPY INH Last administered on 10/11/18 08:23; Admin Dose 2 PUFF; Start 10/09/18 at 13:00 Phenylephrine HCl 80 mg/Dextrose 250 ml @ 18.75 mls/ hr TITRATE IV Last administered on 10/11/18 05:30; Admin Dose 18.75 MLS/HR; Start 10/09/18 at 23:00 Vasopressin 60 unit/Dextrose 60 ml @ 1.2 mls/hr Q12H IV Last administered on 10/11/18 08:15; Admin Dose 2.4 MLS/HR; Start 10/10/18 at 09:00 Norepinephrine 32 mg/Dextrose 250 ml @ 0.47 mls/hr TITRATE IV Last administered on 10/10/18 09:33; Admin Dose 4.69 MLS/HR; Start 10/10/18 at 09:00 Hydrocortisone (Solu-Cortef) 60 mg Q6 IV Last administered on 10/11/18 05:25; Admin Dose 60 MG; Start 10/10/18 at 12:00 Epinephrine 4 mg/ Sodium Chloride 250 ml @ 3.75 mls/hr TITRATE IV Last administered on 10/11/18 08:31; Admin Dose 7.5 MLS/HR; Start 10/10/18 at 11:30 Sodium Bicarbonate 150 meq/Dextrose 1,150 ml @ 75 mls/hr [id number] IV Last administered on 10/11/18 05:24; Admin Dose 75 MLS/HR; Start 10/10/18 at 11:12 Vancomycin HCl (Vanco Iv Per Pharmacy) VANCOMYCIN PER PHARMACY PER PROTOCOL XX ; Start 10/10/18 at 13:00 Calcium Gluconate 2 gm/Dextrose 120 ml @ 60 mls/hr ONCE ONCE IVPB Last administered on 10/11/18at 08:32; Admin Dose 60 MLS/HR; Start 10/11/18 at 08:30; Stop 10/11/18 at 10:29 Famotidine (Pepcid Iv) 20 mg BID IV ; Start 10/11/18 at 21:00 MISHA COLLADO 17, 2019 09:47
[2018-10-11] MEDS ORDERED: NA BICARBONATE 8.4% 50 ML SYG IV STA (10:04)
--- NOTE | 2018-10-11 14:41 | CONS ---
Assessment/Plan Assessment/Plan Assessment/Plan (Recall) 73 M c/ dementia, bipolar disorder and other comorbidities...who presents for evaluation of respiratory Sx and fevers.. CXR is concerning for possible pneumonia. Blood Cx + Hypernatremia Renal Failure He was noted to be encephalopathic...for which neurology is consulted.. The clinical picture was initially thought consistent w/ an acute toxic- metabolic encephalopathy. Encephalitis was, though, not excluded.. Head CT was notable for scattered chronic infarcts, without obvious acute intracranial pathology. UA neg The patient has since experienced significant cardiopulmonary decline, nece ssitating a code blue and subsequent intubation. P: Limit sedating medications where possible Continued medical management and supportive care per primary Consultation Date/Type/Reason Admit Date/Time Sep 29, 2018 at 13:57 Type of Consult Neurology Reason for Consultation ams Requesting Provider: GLADIS ALICIA DO Date/Time of Note DATE: 10/11/18 TIME: 14:39 24 HR Interval Summary Free Text/Dictation s/p intubation Exam/Review of Systems Exam Vitals Vital Signs Date Temp Pulse Resp B/P (MAP) Pulse Ox O2 O2 Flow FiO2 Time Delivery Rate 10/11/18 114 16 97/62 (74) 14:30 10/11/18 93 Mechanical 14:00 Ventilator 10/11/18 98.3 12:00 10/11/18 40 10:20 Intake and Output 10/10/18 10/10/18 10/11/18 1515:00 23:00 07:00 IntakeIntake Total 2377.62 ml 1892.33 ml 1046.08 ml OutputOutput Total 240 ml 320 ml 150 ml BalanceBalance 2137.62 ml 1572.33 ml 896.08 ml Exam PE: Gen Appearance: No Apparent Distress HEENT: Intubated Cardiovascular: Regular rate Abdomen: Soft Extremities: Dry NE: The patient had eyes opened, but was otherwise unresponsive.. Cranial nerve examination was limited by mental status. Pupils were equal and reactive to light. There was no afferent pupillary defect. Funduscopic exa mination was limited. Face was grossly symmetric, w/ present corneal and cough reflexes. Tone was normal. Muscle bulk was normal. I did not see fasciculations. The patient withdrew to noxious stimulation x 4. Coordination and gait testing was limited by mental status. Arm and leg reflexes were within normal limits and symmetric. Ayala's sign was absent. Plantar responses were flexor. Results Result Diagram: 10/11/18 0400 10/11/18 0400 Results 24hrs Laboratory Tests Test 10/10/18 15:00 10/10/18 17:16 10/10/18 21:11 10/10/18 21:56 White Blood 14.0 H Count Red Blood Count 2.18 #L Hemoglobin 6.5 #*L 7.0 L Hematocrit 20.3 #L 21.7 L Mean Corpuscular 93.1 Volume Mean Corpuscular 29.8 Hemoglobin Mean Corpuscular 32.0 Hemoglobin Yazmin nt Red Cell 14.9 H Distribution Width Platelet Count 77 L Mean Platelet 12.5 H Volume Immature 0.800 H Granulocytes % Neutrophils % Segmented 86 H Neutrophils % (Manual) Band Neutrophils 4 % (Manual) Lymphocytes % Lymphocytes % 7 L (Manual) Monocytes % Monocytes % 3 (Manual) Eosinophils % Basophils % Nucleated Red 0.8 H Blood Cells % Immature 0.110 H Granulocytes # Neutrophils # Neutrophils # 12.1 H (Manual) Band Neutrophils 0.5 # Lymphocytes 0.9 (Manual) Lymphocytes # Monocytes # Monocytes # 0.4 (Manual) Eosinophils # Basophils # Nucleated Red Blood Cells # Platelet DECREASED Estimate Polychromasia 2+ Poikilocytosis 1+ Anisocytosis 2+ Microcytosis 2+ Bedside Glucose 215 192 Test 10/11/18 01:52 10/11/18 04:00 10/11/18 04:24 10/11/18 05:00 Bedside Glucose 210 209 White Blood 10.9 #H Count Red Blood Count 2.25 L Hemoglobin 6.7 *L Hematocrit 20.4 L Mean Corpuscular 90.7 Volume Mean Corpuscular 29.8 Hemoglobin Mean Corpuscular 32.8 Hemoglobin Yazmin nt Red Cell 14.1 Distribution Width Platelet Count 43 #L Mean Platelet 13.4 H Volume Immature 0.700 H Granulocytes % Neutrophils % Segmented 75 Neutrophils % (Manual) Band Neutrophils 9 H % (Manual) Lymphocytes % Lymphocytes % 15 (Manual) Monocytes % Monocytes % 1 (Manual) Eosinophils % Eosinophils % 1 (Manual) Basophils % Plasma Cells % 1 (manual) Nucleated Red 6 H Blood Cells % Immature 0.080 H Granulocytes # Neutrophils # Neutrophils # 8.3 H (Manual) Band Neutrophils 0.9 H # Lymphocytes 1.6 (Manual) Lymphocytes # Monocytes # Monocytes # 0.1 L (Manual) Eosinophils # Basophils # Plasma Cells # 0.1 H (manual) Nucleated Red Blood Cells # Platelet SIG DECREASED Estimate Giant Platelets 2 H Polychromasia Poikilocytosis 2+ Anisocytosis 1+ Microcytosis 1+ Sodium Level 155 H Potassium Level 4.5 Chloride Level 118 H Carbon Dioxide 16 L Level Anion Gap 21 #H Blood Urea 123 H Nitrogen Creatinine 3.94 H Est Glomerular Filtrat Rate mL/min Glucose Level 195 # Lactic Acid 12.6 *H Level Calcium Level 4.6 *L Phosphorus Level 11.4 H Magnesium Level 1.8 Total Bilirubin 1.0 Direct Bilirubin 0.00 Indirect 1.0 Bilirubin Aspartate Amino 6735 H Transf (AST/SGOT ) Alanine 2590 H Aminotransferase (ALT/SGPT) Alkaline 43 Phosphatase Total Protein 3.8 L Albumin 2.0 L Globulin 1.80 Albumin/Globulin 1.11 Ratio Prealbumin 6.0 L Blood Gas Blood arterial Specimen Source Arterial Blood 10/11/2018 5:00: Date Drawn 57 AM Arterial Blood 7.196 *L pH (Temp corrected) Arterial Blood 35.0 pCO2 (Temp correct) Arterial Blood 117.6 H pO2 (Temp corrected) Arterial Blood 13.2 L HCO3 Arterial Blood -13.7 L Base Excess Arterial Blood 96.7 Oxygen Saturatio n Gian Test ACCEPTAB Arterial Blood Right Radial Gas Puncture Site Arterial 0.3 Blood Carboxyhem oglobin Arterial Blood 0.6 Methemoglobin Blood Gas A-a O2 127.4 H Differential Oxyhemoglobin 95.8 Percent Blood Gas 37.0 Temperature Blood Gas 32.0 Respiration Rate Blood Gas Actual 32 Respiration Rate Blood Gas VENT - AC Modality FiO2 40.0 Blood Gas Tidal 500.0 Volume Blood Gas Low 5.0 PEEP Setting Blood Gas 29.0 Inspiratory Pressure Blood Gas A. BALLOUIANTS, Critical Value Read Back Blood Gas MM Notified Whom Blood Gas 10/11/2018 5:11: Notified Time 42 AM Test 10/11/18 08:03 10/11/18 08:58 10/11/18 13:56 Activated 51.3 H Partial Thrombop last Time Mix PTT Normal Pending Plasma Immediate Bedside Glucose 151 97 Medications Medication Current Medications Albuterol (Proventil 0.083% (Neb)) 2.5 mg Q4H RESP THERAPY PRN NEB SHORTNESS OF BREATH Last administered on 10/08/18at 04:59; Admin Dose 2.5 MG; Start 09/29/18 at 15:00 Albuterol (Proventil 0.083% (Neb)) 2.5 mg Q8H RESP THERAPY PRN NEB WHEEZING AND SOB; Start 09/29/18 at 16:00 Bisacodyl (Dulcolax Supp) 10 mg DAILY PRN [place] CONSTIPATION; Start 09/29/18 at 15:00 Hydralazine HCl (Apresoline) 25 mg BID PRN PO ELEVATED BP; SBP > 160; Start 09/29/18 at 15:00 Magnesium Hydroxide (Milk Of Mag) 30 ml DAILY PRN PO CONSTIPATION; Start 09/29/18 at 15:00 Miscellaneous Information 1 ea NOTE XX ; Start 09/29/18 at 16:30 Glucose (Glutose) 15 gm Q15M PRN PO DECREASED GLUCOSE; Start 09/29/18 at 16:30 Glucose (Glutose) 22.5 gm Q15M PRN PO DECREASED GLUCOSE; Start 09/29/18 at 16:30 Dextrose (D50w Syringe) 25 ml Q15M PRN IV DECREASED GLUCOSE; Start 09/29/18 at 16:30 Dextrose (D50w Syringe) 50 ml Q15M PRN IV DECREASED GLUCOSE; Start 09/29/18 at 16:30 Glucagon (Glucagen) 1 mg Q15M PRN IM DECREASED GLUCOSE; Start 09/29/18 at 16:30 Glucose (Glutose) 15 gm Q15M PRN BUCCAL DECREASED GLUCOSE; Start 09/29/18 at 16:30 Miscellaneous Information (Pending [facility] Order For Wound Care) This patient saini... PRN PRN XX WOUND CARE; Start 09/30/18 at 05:00 Insulin Aspart (Novolog Insulin Pen) (Adult SC Insulin - Mild Algorithm)... Q4 SC Last administered on 10/11/18at 09:04; Admin Dose 1 UNIT; Start 09/30/18 at 13:00 Meropenem/Sodium Chloride 50 ml @ 100 mls/hr Q12 IVPB Last administered on 10/11/18at 08:42; Admin Dose 100 MLS/HR; Start 09/30/18 at 21:00 Acetaminophen (Tylenol Supp) 650 mg Q6H PRN [place] FEVER Last administered on 10/01/18at 20:57; Admin Dose 650 MG; Start 09/30/18 at 21:30 Total Parenteral Nutrition 1,000 ml @ 75 mls/hr [id number] IV Last administered on 10/07/18 21:50; Admin Dose 75 MLS/HR; Start 10/05/18 at 17:00; Status Hold Morphine Sulfate (morphine) 2 mg Q4H PRN IV SEVERE PAIN LEVEL 7-10 Last administered on 10/08/18 18:34; Admin Dose 2 MG; Start 10/08/18 at 09:30 Potassium Chloride 50 ml @ 50 mls/hr K PROTOCOL PRN IVPB PENDING LAB VALUE Last administered on 10/10/18 18:21; Admin Dose 50 MLS/HR; Start 10/08/18 at 14:00 Sucralfate (Carafate Susp) 1 gm QID NGT Last administered on 10/11/18 13:51; Admin Dose 1 GM; Start 10/08/18 at 21:00 Fentanyl 100 ml @ 5 mls/hr TITRATE IV Last administered on 10/11/18 01:32; Admin Dose 5 MLS/HR; Start 10/09/18 at 13:00 Ipratropium [place] (Atrovent Hfa) 4 puff Q4H RESP THERAPY INH Last administered on 10/11/18 12:56; Admin Dose 4 PUFF; Start 10/09/18 at 13:00 Albuterol (Ventolin Hfa) 2 puff Q4H RESP THERAPY INH Last administered on 10/11/18 12:56; Admin Dose 2 PUFF; Start 10/09/18 at 13:00 Phenylephrine HCl 80 mg/Dextrose 250 ml @ 18.75 mls/ hr TITRATE IV Last administered on 10/11/18 11:40; Admin Dose 46.88 MLS/HR; Start 10/09/18 at 23:00 Vasopressin 60 unit/Dextrose 60 ml @ 1.2 mls/hr Q12H IV Last administered on 10/11/18 08:15; Admin Dose 2.4 MLS/HR; Start 10/10/18 at 09:00 Norepinephrine 32 mg/Dextrose 250 ml @ 0.47 mls/hr TITRATE IV Last a dministered on 10/10/18 09:33; Admin Dose 4.69 MLS/HR; Start 10/10/18 at 09:00 Hydrocortisone (Solu-Cortef) 60 mg Q6 IV Last administered on 10/11/18at 11:59; Admin Dose 60 MG; Start 10/10/18 at 12:00 Epinephrine 4 mg/ Sodium Chloride 250 ml @ 3.75 mls/hr TITRATE IV Last administered on 10/11/18at 08:31; Admin Dose 7.5 MLS/HR; Start 10/10/18 at 11:30 Sodium Bicarbonate 150 meq/Dextrose 1,150 ml @ 75 mls/hr [id number] IV Last administered on 10/11/18at 05:24; Admin Dose 75 MLS/HR; Start 10/10/18 at 11:12 Vancomycin HCl (Vanco Iv Per Pharmacy) VANCOMYCIN PER PHARMACY PER PROTOCOL XX ; Start 10/10/18 at 13:00 Famotidine (Pepcid Iv) 20 mg BID IV ; Start 10/11/18 at 21:00 JOHNATHAN ARIAS Oct 11, 2018 14:41
--- NOTE | 2018-10-11 14:56 | CONS ---
Assessment/Plan Assessment/Plan Hospital Course (Demo Recall) Remains on multiple pressors noncommunicative intubated now chemical CODE STATUS. WBC 10.9 H&H 6.7 and 20.4 platelets 43 neutrophils 75 bands 9 BUN 123 creatinine 3.94 lactic acid 12.6 Chest x-ray this morning revealed mild residual right pneumothorax Microbiology: Blood culture on admission grew oxacillin sensitive staph aureus, repeat blood cultures growing coag negative staph species Antimicrobials: Vanco, meropenem Indwelling's: Left upper extremity PICC line, Gorman, ETT, right chest tube Physical examination: Chronically ill-appearing elderly man in no distress. Head atraumatic normocephalic neck is supple. Chest rise symmetrical breath sounds diminished bases. Heart: S1-S2. Abdomen soft bowel sounds present.. Extremities without cyanosis Assessment: 1. Severe sepsis with shock and MSOF 2. Status post PEA arrest complicated by right pneumothorax 3. Multifocal pneumonia 4. Acute respiratory failure 5. Acute anemia/GI bleeding 6. MSSA bacteremia 7. Acute renal failure 8. Acute encephalopathy 9. Progressive thrombocytopenia Plan: Patient is doing poorly, continue present care Discussed with RN Consultation Date/Type/Reason Admit Date/Time Sep 29, 2018 at 13:57 Initial Consult Date 09/30/18 Type of Consult id Requesting Provider: GLADIS ALICIA DO Date/Time of Note DATE: 10/11/18 TIME: 14:55 Exam/Review of Systems Exam Vitals Vital Signs Date Temp Pulse Resp B/P (MAP) Pulse Ox O2 O2 Flow FiO2 Time Delivery Rate 10/11/18 111 38 100 40 14:42 10/11/18 97/62 (74) 14:30 10/11/18 Mechanical 14:00 Ventilator 10/11/18 98.3 12:00 Intake and Output 10/10/18 10/10/18 10/11/18 1515:00 23:00 07:00 IntakeIntake Total 2377.62 ml 1892.33 ml 1046.08 ml OutputOutput Total 240 ml 320 ml 150 ml BalanceBalance 2137.62 ml 1572.33 ml 896.08 ml Results Result Diagram: 10/11/18 0400 10/11/18 0400 Results 24hrs Laboratory Tests Test 10/10/18 15:00 10/10/18 17:16 10/10/18 21:11 10/10/18 21:56 White Blood 14.0 H Count Red Blood Count 2.18 #L Hemoglobin 6.5 #*L 7.0 L Hematocrit 20.3 #L 21.7 L Mean Corpuscular 93.1 Volume Mean Corpuscular 29.8 Hemoglobin Mean Corpuscular 32.0 Hemoglobin Yazmin nt Red Cell 14.9 H Distribution Width Platelet Count 77 L Mean Platelet 12.5 H Volume Immature 0.800 H Granulocytes % Neutrophils % Segmented 86 H Neutrophils % (Manual) Band Neutrophils 4 % (Manual) Lymphocytes % Lymphocytes % 7 L (Manual) Monocytes % Monocytes % 3 (Manual) Eosinophils % Basophils % Nucleated Red 0.8 H Blood Cells % Immature 0.110 H Granulocytes # Neutrophils # Neutrophils # 12.1 H (Manual) Band Neutrophils 0.5 # Lymphocytes 0.9 (Manual) Lymphocytes # Monocytes # Monocytes # 0.4 (Manual) Eosinophils # Basophils # Nucleated Red Blood Cells # Platelet DECREASED Estimate Polychromasia 2+ Poikilocytosis 1+ Anisocytosis 2+ Microcytosis 2+ Bedside Glucose 215 192 Test 10/11/18 01:52 10/11/18 04:00 10/11/18 04:24 10/11/18 05:00 Bedside Glucose 210 209 White Blood 10.9 #H Count Red Blood Count 2.25 L Hemoglobin 6.7 *L Hematocrit 20.4 L Mean Corpuscular 90.7 Volume Mean Corpuscular 29.8 Hemoglobin Mean Corpuscular 32.8 Hemoglobin Yazmin nt Red Cell 14.1 Distribution Width Platelet Count 43 #L Mean Platelet 13.4 H Volume Immature 0.700 H Granulocytes % Neutrophils % Segmented 75 Neutrophils % (Manual) Band Neutrophils 9 H % (Manual) Lymphocytes % Lymphocytes % 15 (Manual) Monocytes % Monocytes % 1 (Manual) Eosinophils % Eosinophils % 1 (Manual) Basophils % Plasma Cells % 1 (manual) Nucleated Red 6 H Blood Cells % Immature 0.080 H Granulocytes # Neutrophils # Neutrophils # 8.3 H (Manual) Band Neutrophils 0.9 H # Lymphocytes 1.6 (Manual) Lymphocytes # Monocytes # Monocytes # 0.1 L (Manual) Eosinophils # Basophils # Plasma Cells # 0.1 H (manual) Nucleated Red Blood Cells # Platelet SIG DECREASED Estimate Giant Platelets 2 H Polychromasia Poikilocytosis 2+ Anisocytosis 1+ Microcytosis 1+ Sodium Level 155 H Potassium Level 4.5 Chloride Level 118 H Carbon Dioxide 16 L Level Anion Gap 21 #H Blood Urea 123 H Nitrogen Creatinine 3.94 H Est Glomerular Filtrat Rate mL/min Glucose Level 195 # Lactic Acid 12.6 *H Level Calcium Level 4.6 *L Phosphorus Level 11.4 H Magnesium Level 1.8 Total Bilirubin 1.0 Direct Bilirubin 0.00 Indirect 1.0 Bilirubin Aspartate Amino 6735 H Transf (AST/SGOT ) Alanine 2590 H Aminotransferase (ALT/SGPT) Alkaline 43 Phosphatase Total Protein 3.8 L Albumin 2.0 L Globulin 1.80 Albumin/Globulin 1.11 Ratio Prealbumin 6.0 L Blood Gas Blood arterial Specimen Source Arterial Blood 10/11/2018 5:00: Date Drawn 57 AM Arterial Blood 7.196 *L pH (Temp corrected) Arterial Blood 35.0 pCO2 (Temp correct) Arterial Blood 117.6 H pO2 (Temp corrected) Arterial Blood 13.2 L HCO3 Arterial Blood -13.7 L Base Excess Arterial Blood 96.7 Oxygen Saturatio n Gian Test ACCEPTAB Arterial Blood Right Radial Gas Puncture Site Arterial 0.3 Blood Carboxyhem oglobin Arterial Blood 0.6 Methemoglobin Blood Gas A-a O2 127.4 H Differential Oxyhemoglobin 95.8 Percent Blood Gas 37.0 Temperature Blood Gas 32.0 Respiration Rate Blood Gas Actual 32 Respiration Rate Blood Gas VENT - AC Modality FiO2 40.0 Blood Gas Tidal 500.0 Volume Blood Gas Low 5.0 PEEP Setting Blood Gas 29.0 Inspiratory Pressure Blood Gas A. BALLOUIANTS, Critical Value Read Back Blood Gas MM Notified Whom Blood Gas 10/11/2018 5:11: Notified Time 42 AM Test 10/11/18 08:03 10/11/18 08:58 10/11/18 13:56 10/11/18 14:26 Activated 51.3 H Partial Thrombop last Time Mix PTT Normal Pending Plasma Immediate Bedside Glucose 151 97 White Blood Pending Count Red Blood Count Pending Hemoglobin Pending Hematocrit Pending Mean Corpuscular Pending Volume Mean Corpuscular Pending Hemoglobin Mean Corpuscular Pending Hemoglobin Yazmin nt Red Cell Pending Distribution Width Platelet Count Pending Mean Platelet Pending Volume Medications Medication Current Medications Albuterol (Proventil 0.083% (Neb)) 2.5 mg Q4H RESP THERAPY PRN NEB SHORTNESS OF BREATH Last administered on 10/08/18at 04:59; Admin Dose 2.5 MG; Start 09/29/18 at 15:00 Albuterol (Proventil 0.083% (Neb)) 2.5 mg Q8H RESP THERAPY PRN NEB WHEEZING AND SOB; Start 09/29/18 at 16:00 Bisacodyl (Dulcolax Supp) 10 mg DAILY PRN [place] CONSTIPATION; Start 09/29/18 at 15:00 Hydralazine HCl (Apresoline) 25 mg BID PRN PO ELEVATED BP; SBP > 160; Start 09/29/18 at 15:00 Magnesium Hydroxide (Milk Of Mag) 30 ml DAILY PRN PO CONSTIPATION; Start 09/29/18 at 15:00 Miscellaneous Information 1 ea NOTE XX ; Start 09/29/18 at 16:30 Glucose (Glutose) 15 gm Q15M PRN PO DECREASED GLUCOSE; Start 09/29/18 at 16:30 Glucose (Glutose) 22.5 gm Q15M PRN PO DECREASED GLUCOSE; Start 09/29/18 at 16:30 Dextrose (D50w Syringe) 25 ml Q15M PRN IV DECREASED GLUCOSE; Start 09/29/18 at 16:30 Dextrose (D50w Syringe) 50 ml Q15M PRN IV DECREASED GLUCOSE; Start 09/29/18 at 16:30 Glucagon (Glucagen) 1 mg Q15M PRN IM DECREASED GLUCOSE; Start 09/29/18 at 16:30 Glucose (Glutose) 15 gm Q15M PRN BUCCAL DECREASED GLUCOSE; Start 09/29/18 at 16:30 Miscellaneous Information (Pending [facility] Order For Wound Care) This patient saini... PRN PRN XX WOUND CARE; Start 09/30/18 at 05:00 Insulin Aspart (Novolog Insulin Pen) (Adult SC Insulin - Mild Algorithm)... Q4 SC Last administered on 10/11/18at 09:04; Admin Dose 1 UNIT; Start 09/30/18 at 13:00 Meropenem/Sodium Chloride 50 ml @ 100 mls/hr Q12 IVPB Last administered on 10/11/18at 08:42; Admin Dose 100 MLS/HR; Start 09/30/18 at 21:00 Acetaminophen (Tylenol Supp) 650 mg Q6H PRN [place] FEVER Last administered on 10/01/18at 20:57; Admin Dose 650 MG; Start 09/30/18 at 21:30 Total Parenteral Nutrition 1,000 ml @ 75 mls/hr [id number] IV Last administered on 10/07/18 21:50; Admin Dose 75 MLS/HR; Start 10/05/18 at 17:00; Status Hold Morphine Sulfate (morphine) 2 mg Q4H PRN IV SEVERE PAIN LEVEL 7-10 Last administered on 10/08/18 18:34; Admin Dose 2 MG; Start 10/08/18 at 09:30 Potassium Chloride 50 ml @ 50 mls/hr K PROTOCOL PRN IVPB PENDING LAB VALUE Last administered on 10/10/18 18:21; Admin Dose 50 MLS/HR; Start 10/08/18 at 14:00 Sucralfate (Carafate Susp) 1 gm QID NGT Last administered on 10/11/18 13:51; Admin Dose 1 GM; Start 10/08/18 at 21:00 Fentanyl 100 ml @ 5 mls/hr TITRATE IV Last administered on 10/11/18 01:32; Admin Dose 5 MLS/HR; Start 10/09/18 at 13:00 Ipratropium [place] (Atrovent Hfa) 4 puff Q4H RESP THERAPY INH Last administered on 10/11/18 12:56; Admin Dose 4 PUFF; Start 10/09/18 at 13:00 Albuterol (Ventolin Hfa) 2 puff Q4H RESP THERAPY INH Last administered on 10/11/18 12:56; Admin Dose 2 PUFF; Start 10/09/18 at 13:00 Phenylephrine HCl 80 mg/Dextrose 250 ml @ 18.75 mls/ hr TITRATE IV Last administered on 10/11/18 11:40; Admin Dose 46.88 MLS/HR; Start 10/09/18 at 23:00 Vasopressin 60 unit/Dextrose 60 ml @ 1.2 mls/hr Q12H IV Last administered on 10/11/18 08:15; Admin Dose 2.4 MLS/HR; Start 10/10/18 at 09:00 Norepinephrine 32 mg/Dextrose 250 ml @ 0.47 mls/hr TITRATE IV Last administered on 10/10/18 09:33; Admin Dose 4.69 MLS/HR; Start 10/10/18 at 09:00 Hydrocortisone (Solu-Cortef) 60 mg Q6 IV Last administered on 10/11/18at 11:59; Admin Dose 60 MG; Start 10/10/18 at 12:00 Epinephrine 4 mg/ Sodium Chloride 250 ml @ 3.75 mls/hr TITRATE IV Last administered on 10/11/18at 08:31; Admin Dose 7.5 MLS/HR; Start 10/10/18 at 11:30 Sodium Bicarbonate 150 meq/Dextrose 1,150 ml @ 75 mls/hr [id number] IV Last administered on 10/11/18at 05:24; Admin Dose 75 MLS/HR; Start 10/10/18 at 11:12 Vancomycin HCl (Vanco Iv Per Pharmacy) VANCOMYCIN PER PHARMACY PER PROTOCOL XX ; Start 10/10/18 at 13:00 Famotidine (Pepcid Iv) 20 mg BID IV ; Start 10/11/18 at 21:00 AMY WHALEN NP Oct 11, 2018 14:56
[2018-10-11] MEDS ORDERED: morphine (DRIP) 100 MG/100 ML 100 ML IV SCH (15:30)
[2018-10-11] MEDS ORDERED: NORepinephrine 32 MG in DEXTROSE 5% 218 ML IV SCH (17:00)
[2018-10-11] MEDS ORDERED: EPINEPHrine 4 MG in SOD CHLORIDE 0.9% 246 ML IV SCH (17:00)
[2018-10-11] MEDS ORDERED: VASOPRESSIN 60 UNIT in DEXTROSE 5% 57 ML IV SCH (17:00)
[2018-10-11] MEDS ORDERED: FENTAnyl (DRIP) 1000 mcg/100mL 100 ML IV SCH (17:00)
[2018-10-11] MEDS ORDERED: PHENYLephrine 20MG IN 250 ML 250 ML ONE (17:18)
--- NOTE | 2018-10-11 18:46 | CONS ---
Consult Date/Type/Reason Admit Date/Time Sep 29, 2018 at 13:57 Initial Consult Date 09/30/18 Type of Consultation: CV Requesting Provider: GLADIS ALICIA DO Date/Time of Note DATE: 10/11/18 TIME: 18:43 Subjective Interventional cardiology follow-up progress note Subjective: Case discussed with the staff telemetry was reviewed patient remains sinus / sinus tachycardia. Patient continues to remain hypoxemic and intubated on 100% O2 pt with recurrent GI bleed and in shock currently on 4 pressors in ICU D/W CODE DNR Objective: General: Elderly gentleman intubated on vent HEENT: NC/AT. Eyes are closed NECK: NO JVD. no stridor. CV: tachycardic . systolic murmur; no gallop or rubs. PULM: Diffuse rhonchi no wheezes. GI: SOFT, NT, ND, no rebound or guarding Extremity: 1-2+ B/L LE edema. no clubbing. neuro: lethargic Psych: calm rectal: deferred CXR 1. Lines and tubes remain in place, as above. 2. Mild residual right pneumothorax, grossly stable. 3. Atelectasis and/or mild pleural effusion at the left lung base, grossly stable. 4. No significant interval change. Objective Vitals Vital Signs Date Temp Pulse Resp B/P (MAP) Pulse Ox O2 O2 Flow FiO2 Time Delivery Rate 10/11/18 118 32 87 100 17:42 10/11/18 97/62 (74) 14:30 10/11/18 Mechanical 14:00 Ventilator 10/11/18 98.3 12:00 Intake and Output 10/10/18 10/10/18 10/11/18 1515:00 23:00 07:00 IntakeIntake Total 2377.62 ml 1892.33 ml 1046.08 ml OutputOutput Total 240 ml 320 ml 150 ml BalanceBalance 2137.62 ml 1572.33 ml 896.08 ml Results/Medications Result Diagram: 10/11/18 1426 10/11/18 0400 Results 24 hrs Laboratory Tests Test 10/10/18 21:11 10/10/18 21:56 10/11/18 01:52 10/11/18 04:00 Bedside Glucose 192 210 Hemoglobin 7.0 L 6.7 *L Hematocrit 21.7 L 20.4 L White Blood 10.9 #H Count Red Blood Count 2.25 L Mean Corpuscular 90.7 Volume Mean Corpuscular 29.8 Hemoglobin Mean Corpuscular 32.8 Hemoglobin Yazmin nt Red Cell 14.1 Distribution Width Platelet Count 43 #L Mean Platelet 13.4 H Volume Immature 0.700 H Granulocytes % Neutrophils % Segmented 75 Neutrophils % (Manual) Band Neutrophils 9 H % (Manual) Lymphocytes % Lymphocytes % 15 (Manual) Monocytes % Monocytes % 1 (Manual) Eosinophils % Eosinophils % 1 (Manual) Basophils % Plasma Cells % 1 (manual) Nucleated Red 6 H Blood Cells % Immature 0.080 H Granulocytes # Neutrophils # Neutrophils # 8.3 H (Manual) Band Neutrophils 0.9 H # Lymphocytes 1.6 (Manual) Lymphocytes # Monocytes # Monocytes # 0.1 L (Manual) Eosinophils # Basophils # Plasma Cells # 0.1 H (manual) Nucleated Red Blood Cells # Platelet SIG DECREASED Estimate Giant Platelets 2 H Polychromasia Poikilocytosis 2+ Anisocytosis 1+ Microcytosis 1+ Sodium Level 155 H Potassium Level 4.5 Chloride Level 118 H Carbon Dioxide 16 L Level Anion Gap 21 #H Blood Urea 123 H Nitrogen Creatinine 3.94 H Est Glomerular Filtrat Rate mL/min Glucose Level 195 # Lactic Acid 12.6 *H Level Calcium Level 4.6 *L Phosphorus Level 11.4 H Magnesium Level 1.8 Total Bilirubin 1.0 Direct Bilirubin 0.00 Indirect 1.0 Bilirubin Aspartate Amino 6735 H Transf (AST/SGOT ) Alanine 2590 H Aminotransferase (ALT/SGPT) Alkaline 43 Phosphatase Total Protein 3.8 L Albumin 2.0 L Globulin 1.80 Albumin/Globulin 1.11 Ratio Prealbumin 6.0 L Test 10/11/18 04:24 10/11/18 05:00 10/11/18 08:03 10/11/18 08:58 Bedside Glucose 209 151 Blood Gas Blood arterial Specimen Source Arterial Blood 10/11/2018 5:00: Date Drawn 57 AM Arterial Blood 7.196 *L pH (Temp corrected) Arterial Blood 35.0 pCO2 (Temp correct) Arterial Blood 117.6 H pO2 (Temp corrected) Arterial Blood 13.2 L HCO3 Arterial Blood -13.7 L Base Excess Arterial Blood 96.7 Oxygen Saturatio n Gian Test ACCEPTAB Arterial Blood Right Radial Gas Puncture Site Arterial 0.3 Blood Carboxyhem oglobin Arterial Blood 0.6 Methemoglobin Blood Gas A-a O2 127.4 H Differential Oxyhemoglobin 95.8 Percent Blood Gas 37.0 Temperature Blood Gas 32.0 Respiration Rate Blood Gas Actual 32 Respiration Rate Blood Gas VENT - AC Modality FiO2 40.0 Blood Gas Tidal 500.0 Volume Blood Gas Low 5.0 PEEP Setting Blood Gas 29.0 Inspiratory Pressure Blood Gas A. OMAR, Critical Value Read Back Blood Gas MM Notified Whom Blood Gas 10/11/2018 5:11: Notified Time 42 AM Activated 51.3 H Partial Thrombop last Time Mix PTT Normal 38.0 Plasma Immediate Mix PTT Normal Plasma 1 Hour Test 10/11/18 13:56 10/11/18 14:26 Bedside Glucose 97 White Blood 15.4 #H Count Red Blood Count 1.94 L Hemoglobin 6.0 *L Hematocrit 18.1 L Mean Corpuscular 93.3 Volume Mean Corpuscular 30.9 Hemoglobin Mean Corpuscular 33.1 Hemoglobin Yazmin nt Red Cell 15.0 H Distribution Width Platelet Count 130 #L Mean Platelet 11.4 H Volume Immature 1.000 H Granulocytes % Neutrophils % Segmented 89 H Neutrophils % (Manual) Band Neutrophils 3 % (Manual) Lymphocytes % Lymphocytes % 7 L (Manual) Monocytes % Monocytes % 1 (Manual) Eosinophils % Basophils % Nucleated Red 4 H Blood Cells % Immature 0.160 H Granulocytes # Neutrophils # Neutrophils # 13.8 H (Manual) Band Neutrophils 0.4 # Lymphocytes 1.0 (Manual) Lymphocytes # Monocytes # Monocytes # 0.1 L (Manual) Eosinophils # Basophils # Nucleated Red Blood Cells # Polychromasia 3+ Poikilocytosis 3+ Anisocytosis 2+ Microcytosis 1+ Macrocytosis 1+ Echinocytes 2+ Acanthocytes 1+ Home Meds Reported Medications Sodium Phosphate,[place]-Dibasic (Enema Ready To Use) 133 Ml Enema, 133 ML RC EVERY 72 HOURS PRN for CONSTIPATION, ENEMA 09/29/18 Valproic Acid* (Depakene*) 250 Mg/5 Ml Udc Syrup, 125 MG PO Q6, ML 09/29/18 Haloperidol* (Haldol*) 1 Mg Tab, 1 MG PO Q6, TAB 09/29/18 Hydralazine Hcl* (Hydralazine Hcl*) 25 Mg Tab, 25 MG PO BID PRN for ELEVATED BLOOD PRESSURE, #60 TAB HOLD IF SBP <110 OR HR<60 09/29/18 Hydrocodone/Acetaminophen ([place] 5-325 Tablet) 1 Each Tablet, 1 EACH PO Q4 PRN for PAIN LEVEL 6-10, TAB 09/29/18 Metoprolol Tartrate* (Lopressor*) 50 Mg Tab, 50 MG PO BID, #60 TAB HOLD IF SBP <110 OR HR <60 09/29/18 Multivit-Min/Iron Fum/Folic AC (Yqxmt-Qkeqgdm-Kzxpugby Tablet) 1 Each Tablet, 1 EACH PO DAILY, TAB 09/29/18 Insulin Aspart* (Novolog Insulin Pen*) 100 Unit/Ml Soln, 0 SC .SLIDING SCALE AC, EA 150-199 = 1 UNIT 200-249 = 2 UNITS 250-299 = 3 UNITS 300-349 = 4 UNITS 350-400 = 5 UNITS OVER 400 CALL MD [facility] AND AT BEDTIME 09/29/18 Protein Supplement (Promod) 946 Ml Liquid, 30 ML PO BID 09/29/18 Trazodone Hcl* (Trazodone Hcl*) 50 Mg Tablet, 50 MG PO QHS PRN for SLEEP, #30 TAB 09/29/18 Bisacodyl (Dulcolax) 10 Mg Supp.rect, 10 MG RC DAILY PRN for CONSTIPATION, SUPP.RECT 09/29/18 Magnesium Hydroxide* (Milk Of Magnesia*) 400 Mg/5 Ml Oral.susp, 30 ML PO DAILY PRN for CONSTIPATION, ML 09/29/18 Amlodipine Besylate* (Amlodipine Besylate*) 10 Mg Tablet, 10 MG PO DAILY, #30 TAB BP<110 OR HR <60 09/29/18 Albuterol Sulfate* (Albuterol Sulfate* Neb) 0.083%-3 Ml Neb, 2.5 MG NEB Q4H PRN for SHORTNESS OF BREATH, #30 VIAL 09/29/18 Albuterol Sulfate* (Albuterol Sulfate* Neb) 0.083%-3 Ml Neb, 2.5 MG NEB Q8 PRN for WHEEZING AND SOB, #30 VIAL 09/29/18 Medications Current Medications Morphine Sulfate/ Sodium Chloride 100 ml @ 1 mls/hr TITRATE IV Last administered on 10/11/18at 17:18; Admin Dose 1 MLS/HR; Start 10/11/18 at 15:30 Phenylephrine HCl 80 mg/Dextrose 250 ml @ 18.75 mls/ hr TITRATE IV Last administered on 10/11/18at 17:26; Admin Dose 56.25 MLS/HR; Start 10/11/18 at 17:00 Norepinephrine 32 mg/Dextrose 250 ml @ 0.47 mls/hr TITRATE IV ; Start 10/11/18 at 17:00 Vasopressin 60 unit/Dextrose 60 ml @ 0 mls/hr Q12H IV Last administered on 10/11/18at 18:25; Admin Dose 2.4 MLS/HR; Start 10/11/18 at 17:00 Epinephrine 4 mg/ Sodium Chloride 250 ml @ 0 mls/hr TITRATE IV ; Start 10/11/18 at 17:00 Assessment/Plan Hospital Course (Demo Recall) 1. Acute hypoxemic respiratory failure: INTUBATED NOW 2. Pneumonia/ sepsis bacteremia 3. History of diabetes 4. Acute renal failure 5. Encephalopathy and behavioral disorder 6. History of bipolar disorder 7. GI bleed/ large PUD 8. sinus tachyardia due to above 9. severe anemia 10. shock septic/ and due to severe anemia 11. ptx Recommendations: Antibiotic management as per internal medicine and infectious disease consultants. Continue with vent support Telemetry monitoring for the time being Echocardiogram has been reviewed.EF 70% nutritional support fluid management as per IM/ renal F/U GI rec transfusion prn prognosis is poor Thank you for this referral. We will continue to follow along with you ORLANDO LAW MD LOCATED WITHIN [facility] ORLANDO LAW MD Oct 11, 2018 18:46
[2018-10-11] MEDS ORDERED: FAMOTIDINE 20 MG INJ IV SCH (21:00)
--- NOTE | 2018-10-11 23:51 | EN ---
Date/Time of Note Date/Time of Note DATE: 10/11/18 TIME: 23:49 Event Note Medicine Medicine Event Note Pronouncement note patient seen and examined at the bedside. Patient unresponsive to verbal commands. Patient nonresponsive to vigorous sternal rub. No heart sounds appreciated on auscultation. Pupils fixed and nonreactive to light bilaterally. Asystole on the monitor. Patient pronounced at approximately 11:47 PM. present at the bedside. RN will notify primary doctor. SANGEETA APONTE Oct 11, 2018 23:51
== END 2018-10-11 23:47 | disposition expired | DRG 871 ==
LOC: E/R 10:53 → 6WM 13:57 → ICU 10-08 07:30
PROVIDERS: ADMIT Internal Medicine; ATTEND Internal Medicine
PROC: 02HV33Z Insertion of Infusion Device into Superior Vena Cava, Percutaneous Approach (ICD-10-PCS; principal; 2018-09-29)
PROC: 0DB68ZX Excision of Stomach, Via Natural or Artificial Opening Endoscopic, Diagnostic (ICD-10-PCS; 2018-10-06)
PROC: 0W9900Z Drainage of Right Pleural Cavity with Drainage Device, Open Approach (ICD-10-PCS; 2018-10-09)
PROC: 5A12012 Performance of Cardiac Output, Single, Manual (ICD-10-PCS; 2018-10-09)
PROC: 0BH17EZ Insertion of Endotracheal Airway into Trachea, Via Natural or Artificial Opening (ICD-10-PCS; 2018-10-09)
PROC: 5A1945Z Respiratory Ventilation, 24-96 Consecutive Hours (ICD-10-PCS; 2018-10-09)
DX: A41.01 Sepsis due to Methicillin susceptible Staphylococcus aureus (principal); J69.0 Pneumonitis due to inhalation of food and vomit; J96.01 Acute respiratory failure with hypoxia; G92 Toxic encephalopathy; K26.4 Chronic or unspecified duodenal ulcer with hemorrhage; J96.02 Acute respiratory failure with hypercapnia; R65.21 Severe sepsis with septic shock; N17.9 Acute kidney failure, unspecified; E87.0 Hyperosmolality and hypernatremia; E44.1 Mild protein-calorie malnutrition; Z68.1 Body mass index [BMI] 19.9 or less, adult; E87.2 Acidosis; I13.0 Hypertensive heart and chronic kidney disease with heart failure and stage 1 through stage 4 chronic kidney disease, or unspecified chronic kidney disease; J93.9 Pneumothorax, unspecified; D62 Acute posthemorrhagic anemia; F31.9 Bipolar disorder, unspecified; E87.6 Hypokalemia; E86.0 Dehydration; F03.90 Unspecified dementia, unspecified severity, without behavioral disturbance, psychotic disturbance, mood disturbance, and anxiety; E11.22 Type 2 diabetes mellitus with diabetic chronic kidney disease; N18.9 Chronic kidney disease, unspecified; K29.80 Duodenitis without bleeding; K29.00 Acute gastritis without bleeding; J44.9 Chronic obstructive pulmonary disease, unspecified; E83.9 Disorder of mineral metabolism, unspecified; E83.42 Hypomagnesemia; Z86.73 Personal history of transient ischemic attack (TIA), and cerebral infarction without residual deficits; D63.1 Anemia in chronic kidney disease; D69.6 Thrombocytopenia, unspecified; R13.10 Dysphagia, unspecified; I50.9 Heart failure, unspecified; I46.9 Cardiac arrest, cause unspecified; I25.10 Atherosclerotic heart disease of native coronary artery without angina pectoris; E78.5 Hyperlipidemia, unspecified; K72.90 Hepatic failure, unspecified without coma; E11.65 Type 2 diabetes mellitus with hyperglycemia
CPT/HCPCS: 31500; 36430; 36569; 36600; 70450; 71045; 71250; 76775; 76937; 80048; 80053; 81001; 81003; 82043; 82270; 82803; 82962; 83605; 83735; 83935; 84100; 84134; 84155; 84300; 84478; 84484; 85014; 85018; 85025; 85335; 85610; 85730; 86644; 86850; 86900; 86901; 86920; 87081; 87086; 88305; 88312; 92526; 92610; 93005; 93306; 94003; 94640; 94644; 94660; 94667; 94668; 94770; 96374; 96375; C9113; J0171; J0610; J0692; J1610; J1720; J1815; J1940; J2060; J2185; J2270; J2370; J2765; J2997; J3010; J3370; J3480; J7030; J7040; J7050; J7070; P9016; P9035; P9047; P9059